=== PATIENT | female | born 1970 | race Caucasian/White ===

== ENCOUNTER 2020-07-05 15:06 | Outpatient (REF) | payer OTHER, SELFPAY ==
[2020-07-05 16:53] LABS: Anion Gap 11 (12-20); Carbon Dioxide 27 mmol/L (22-29); Chloride 104 mmol/L (96-108); Estimated Glomerular Filt Rate 55; Potassium 3.6 mmol/l (3.3-5.1); Sodium 138 mmol/L (135-145)
== END 2020-07-05 15:07 | disposition home or self-care (01) ==
LOC: HO.HMGCLDS 15:06
PROVIDERS: PCP Internal Medicine; Visit Provider Nurse Practitioner Family
DX: Z79.899 Other long term (current) drug therapy (principal)
CPT/HCPCS: 80051; 82565

== ENCOUNTER 2021-02-07 15:08 | Outpatient (REF) | payer OTHER, SELFPAY ==
--- NOTE | ~2021-02-07 | MM_ITS ---
EXAMINATION: MM SCREENING DIGITAL BREAST TOMOSYNTHESIS, BILATERAL CLINICAL INFORMATION: Screening. Asymptomatic. The lifetime risk of breast cancer based on the Tyrer-Cuzick Model is 12%. COMPARISON: Mammography: 02/03/2019, 12/24/2017; outside mammography 12/04/2016 ([employer]). TECHNIQUE: Digital breast tomosynthesis is performed in both the craniocaudal and mediolateral oblique views along with computer-aided detection (CAD). Synthesized 2D images are generated from the tomosynthesis. FINDINGS: The breasts are almost entirely fatty (ACR BI-RADS breast composition Category a). There are no significant masses, abnormal calcifications, or other abnormalities. The axilla and skin contours are unremarkable. MM/MM tomosynthesis screening BI IMPRESSION: No mammographic evidence of malignancy. ASSESSMENT: BI-RADS 1: Negative RECOMMENDATION: Routine annual mammography screening. This patient's information was entered into a reminder system with a target due date for their next mammogram.
== END 2021-02-07 15:09 | disposition home or self-care (01) ==
LOC: HO.MAMMO 15:08
PROVIDERS: PCP Internal Medicine; Visit Provider Internal Medicine
DX: Z12.31 Encounter for screening mammogram for malignant neoplasm of breast (principal)
CPT/HCPCS: 77063; 77067

== ENCOUNTER 2021-02-14 14:33 | Outpatient (REF) | payer OTHER, SELFPAY ==
[2021-02-14 16:45] LABS: Anion Gap 12 (12-20); Carbon Dioxide 22 mmol/L (22-29); Chloride 104 mmol/L (96-108); Sodium 134 mmol/L (135-145)
== END 2021-02-14 14:34 | disposition home or self-care (01) ==
LOC: HO.HMGCLDS 14:33
PROVIDERS: PCP Internal Medicine; Visit Provider Physician Assistant
DX: L70.0 Acne vulgaris (principal)
CPT/HCPCS: 36415; 80051

== ENCOUNTER 2021-09-16 22:06 | Emergency (ER) | payer OTHER, SELFPAY ==
[2021-09-16 22:24] VITALS: BP 177/95; PULSE 84; RESP 16; TEMP 36.9; O2SAT 100; BMI 29.0
--- NOTE | 2021-09-16 22:28 | ED.EYEPROB ---
HPI - Eye Problem General Chief complaint: General Medical Stated complaint: eye problem/pain Time Seen by Provider: 09/16/21 22:19 Source: patient Mode of arrival: ambulatory Limitations: no limitations History of Present Illness HPI Narrative: Patient wear glasses otherwise no significant past medical history except for anxiety since afternoon today noticed black smoke fuzzy feeling from both eyes left more than the right no scotomas no flashes of light no loss of vision no eye pain Related Data Allergies Allergy/AdvReac Type Severity Reaction Status Date / Time doxycycline Allergy Nausea Verified 09/16/21 22:31 fluoxetine [From Prozac] Allergy Itching Verified 09/16/21 22:31 paroxetine [From Paxil] Allergy Itching Verified 09/16/21 22:31 Review of Systems Review of Systems: Yes all other systems are reviewed and are negative [facility] Social History Social History Advance Directives: No Advance Directives Information Provided: No Patient : No Physical Exam Vital Signs: Vital Signs: Last Vital Signs Temp 98.5 F 09/16/21 22:24 Pulse 84 09/16/21 22:24 Resp 16 09/16/21 22:24 BP 177/95 H 09/16/21 22:24 Pulse Ox 100 09/16/21 22:24 BMI result Body Mass Index 29.0 Eyes: Other: IOP 12 mm hg on left eye and 10 mm hg on the right eye General: appearance normal, both eyes and all related structures Visual Eng: normal visual eng by confrontation Periorbital: periorbital findings normal Eyelids: Yes eyelids normal Conjunctivae: conjunctivae normal Sclerae: sclerae normal Corneas: corneas normal Pupils: Equal, round and reactive pupils present EOM: EOMs intact bilaterally and no movement deficit Direct Ophthalmoscopy: normal light reflex, no papilledema, fundi normal bilaterally, anterior chamber normal, No retinal abnormality and No vascular abnormality Neuro: Cranial nerves: Yes Equal, round and reactive pupils present MDM - Eye Problem MDM Narrative Medical decision making narrative: Bedside ocular ultrasound was negative for detachment does examination negative clinically likely patient has refractory error left visual left eye visual acuity was 20/30 and right was 20/25 patient advised to follow-up with wax engraver patient POC 105 Lab Data Labs: Lab Results 09/16/21 Range/Units 22:55 POC Glucose 105 (60-115) mg/dL Procedures Procedure Narrative Procedure Narrative: Bilateral ocular ultrasound: Anterior chamber normal Lens normal alignment vitreous normal no retinal detachment seen Discharge Plan Discharge Clinical Impression: Blurred vision, bilateral Patient Disposition: Home, Self-Care Instructions: Blurred Vision (ED) Additional Instructions: Your blurred vision likely from refractory error Follow-up with your wax engraver tomorrow for full evaluation Referrals: Memo Matthews [Physician] - 1 day Interventions: ED Discharge Assessment Last Done: 09/16/21 23:12 Discharge Date/Time: 09/16/21 23:14
[2021-09-16 23:00] LABS: Glucose, Whole Blood 105 mg/dL (60-115)
== END 2021-09-16 23:14 | disposition home or self-care (01) ==
PROVIDERS: Emergency Provider Internal Medicine; PCP Internal Medicine
DX: H53.8 Other visual disturbances (principal); H57.13 Ocular pain, bilateral; Z79.899 Other long term (current) drug therapy
CPT/HCPCS: 82947; 99283

== ENCOUNTER 2022-03-13 15:22 | Outpatient (REF) | payer OTHER, SELFPAY ==
--- NOTE | ~2022-03-13 | MM_ITS ---
EXAMINATION: MM SCREENING DIGITAL BREAST TOMOSYNTHESIS, BILATERAL CLINICAL INFORMATION: Screening. Asymptomatic. The lifetime risk of breast cancer based on the Tyrer-Cuzick Model is 12%. COMPARISON: Mammography: February 07, 2021 with studies dating back to September 26, 2015 TECHNIQUE: Digital breast tomosynthesis is performed in both the craniocaudal and mediolateral oblique views along with computer-aided detection (CAD). Synthesized 2D images are generated from the tomosynthesis. FINDINGS: The breasts are almost entirely fatty (ACR BI-RADS breast composition Category a). There are no significant masses, abnormal calcifications, or other abnormalities. MM/MM tomosynthesis screening BI IMPRESSION: No mammographic evidence of malignancy. ASSESSMENT: BI-RADS 1: Negative RECOMMENDATION: Routine annual mammography screening. This patient's information was entered into a reminder system with a target due date for their next mammogram.
== END 2022-03-13 15:23 | disposition home or self-care (01) ==
LOC: HO.MAMMO 15:22
PROVIDERS: PCP Internal Medicine; Visit Provider Internal Medicine
DX: Z12.31 Encounter for screening mammogram for malignant neoplasm of breast (principal)
CPT/HCPCS: 77063; 77067

== ENCOUNTER 2023-03-19 15:24 | Outpatient (REF) | payer OTHER, SELFPAY | END 2023-03-19 15:25 | disposition home or self-care (01) | LOC: HO.MAMMO 15:24 | PROVIDERS: PCP Internal Medicine; Visit Provider Internal Medicine | DX: Z12.31 Encounter for screening mammogram for malignant neoplasm of breast (principal) | CPT/HCPCS: 77063; 77067 ==

== ENCOUNTER → 2023-03-19 15:30 | Outpatient (BNV) | payer OTHER, SELFPAY | PROVIDERS: PCP Internal Medicine; Visit Provider Radiology Diagnostic Radiology | DX: Z12.31 Encounter for screening mammogram for malignant neoplasm of breast (principal) | CPT/HCPCS: 77063; 77067 ==

== ENCOUNTER 2023-05-28 14:13 | Outpatient (REF) | payer OTHER, SELFPAY ==
[2023-05-28 16:14] LABS: MANUAL DIFF FLAG NO
[2023-05-28 16:21] LABS: Basophils Percent Auto 0.6 % (0-2); Hemoglobin 12.8 g/dl (12.0-16.0); Imm Gran Abs Auto 0.02 X10*3/uL (0.00-0.03); Imm Gran Pct Auto 0.3 % (0.0-0.4); Lymphocytes Absolute Auto 1.9 X10*3/uL (1.2-4.9); Lymphocytes Percent Auto 30.9 % (20-40); Mean Corpuscular HGB Conc 32.8 g/dl (31.0-35.0); Mean Corpuscular Hemoglobin 30.6 pg (27.0-33.0); Mean Corpuscular Volume 93.3 fL (80.0-98.0); Mean Platelet Volume 9.2 fL (9.4-12.3); Monocytes Absolute Auto 0.5 X10*3/uL (0.1-1.2); Monocytes Percent Auto 7.4 % (2-11); Neutrophils Absolute Auto 3.8 x10*3/uL (2.0-8.3); Neutrophils Percent Auto 60.8 % (45-73); Platelet Count 259 X10*3/uL (160-400); Red Blood Count 4.18 X10*6/uL (4.20-5.50); Red Cell Distribution Width 12.3 % (11.0-16.0); White Blood Count 6.2 X10*3/uL (4.8-10.8)
[2023-05-28 16:43] LABS: Alanine Aminotransferase 17 U/L (0-31); Alkaline Phosphatase 67 U/L (39-117); Anion Gap 11 (12-20); Aspartate Amino Transferase 15 U/L (5-31); Bilirubin Total 0.2 mg/dL (0.0-1.0); Blood Urea Nitrogen 14 mg/dL (9-16); Calcium 9.1 mg/dL (8.4-10.2); Carbon Dioxide 25 mmol/L (22-29); Chloride 107 mmol/L (96-108); Cholesterol 156 mg/dL (<200); Estimated Glomerular Filt Rate 54; Glucose Random 79 mg/dL (60-115); Potassium 3.3 mmol/L (3.3-5.1); Sodium 140 mmol/L (135-145); Total Protein 7.5 g/dL (6.5-8.0)
[2023-05-28 16:59] LABS: Free T4 (Free Thyroxine) 0.91 ng/dL (0.71-1.85); Thyroid Stimulating Hormone 1.57 uIU/mL (0.32-4.0)
== END 2023-05-28 14:14 | disposition home or self-care (01) ==
LOC: HO.HMGCLDS 14:13
PROVIDERS: PCP Internal Medicine; Visit Provider Internal Medicine
DX: E03.9 Hypothyroidism, unspecified (principal); F90.9 Attention-deficit hyperactivity disorder, unspecified type; K21.9 Gastro-esophageal reflux disease without esophagitis; Z87.891 Personal history of nicotine dependence
CPT/HCPCS: 36415; 80053; 82465; 84439; 84443; 85025

== ENCOUNTER 2023-09-24 15:42 | Outpatient (REF) | payer OTHER, SELFPAY ==
--- NOTE | ~2023-09-24 | XR_ITS ---
EXAMINATION: XR FOOT, LEFT CLINICAL INFORMATION: Left foot injury COMPARISON: None available. TECHNIQUE: AP, lateral, and oblique views of the left foot. FINDINGS: Soft tissue prominence left fifth MTP. Oblique fracture mid/distal fifth proximal phalanx. Nondisplaced lateral fracture of the middle phalanx not excluded. No definite intra-arterial extension. Mild calcaneal spurring. XR/XR foot LT min 3V IMPRESSION: Fractured fifth toe.
== END 2023-09-24 15:43 | disposition home or self-care (01) ==
LOC: HO.XRAY 15:42
PROVIDERS: PCP Internal Medicine; Visit Provider Internal Medicine
DX: S99.922D Unspecified injury of left foot, subsequent encounter (principal)
CPT/HCPCS: 73630

== ENCOUNTER 2023-12-24 16:57 | Outpatient (REF) | payer OTHER, SELFPAY ==
[2023-12-24 18:09] LABS: MANUAL DIFF FLAG NO
[2023-12-24 18:12] LABS: Basophils Absolute Auto 0.1 X10*3/uL (0.0-0.2); Basophils Percent Auto 0.7 % (0-2); Eosinophils Percent Auto 0.3 % (0-4); Hematocrit 37.7 % (37.0-47.0); Hemoglobin 12.8 g/dl (12.0-16.0); Imm Gran Abs Auto 0.02 X10*3/uL (0.00-0.03); Imm Gran Pct Auto 0.3 % (0.0-0.4); Lymphocytes Absolute Auto 1.9 X10*3/uL (1.2-4.9); Lymphocytes Percent Auto 27.7 % (20-40); Mean Corpuscular Hemoglobin 31.4 pg (27.0-33.0); Mean Corpuscular Volume 92.4 fL (80.0-98.0); Mean Platelet Volume 8.8 fL (9.4-12.3); Monocytes Absolute Auto 0.7 X10*3/uL (0.1-1.2); Monocytes Percent Auto 9.5 % (2-11); Neutrophils Absolute Auto 4.3 x10*3/uL (2.0-8.3); Neutrophils Percent Auto 61.5 % (45-73); Platelet Count 250 X10*3/uL (160-400); Red Blood Count 4.08 X10*6/uL (4.20-5.50); Red Cell Distribution Width 12.2 % (11.0-16.0)
[2023-12-24 19:45] LABS: Alanine Aminotransferase 17 U/L (0-31); Albumin Level 4.1 g/dL (3.5-5.0); Alkaline Phosphatase 75 U/L (39-117); Anion Gap 12 (12-20); Aspartate Amino Transferase 14 U/L (5-31); Bilirubin Total 0.2 mg/dL (0.0-1.0); Blood Urea Nitrogen 17 mg/dL (9-16); Calcium 9.3 mg/dL (8.4-10.2); Carbon Dioxide 24 mmol/L (22-29); Chloride 105 mmol/L (96-108); Estimated Glomerular Filt Rate 53; Glucose Random 67 mg/dL (60-115); Potassium 3.6 mmol/L (3.3-5.1); Sodium 137 mmol/L (135-145); Total Protein 7.8 g/dL (6.5-8.0)
[2023-12-24 20:00] LABS: Free T4 (Free Thyroxine) 1.07 ng/dL (0.71-1.85); Thyroid Stimulating Hormone 0.99 uIU/mL (0.32-4.0)
== END 2023-12-24 16:58 | disposition home or self-care (01) ==
LOC: HO.LAB 16:57
PROVIDERS: PCP Internal Medicine; Visit Provider Internal Medicine
DX: E03.9 Hypothyroidism, unspecified (principal); K21.9 Gastro-esophageal reflux disease without esophagitis; N18.9 Chronic kidney disease, unspecified; Z84.89 Family history of other specified conditions
CPT/HCPCS: 36415; 80053; 84439; 84443; 85025

== ENCOUNTER 2023-12-31 15:52 | Outpatient (REF) | payer OTHER, SELFPAY ==
[2024-01-09 00:04] LABS: Factor V Leiden POSITIVE
== END 2023-12-31 15:53 | disposition home or self-care (01) ==
LOC: HO.LAB 15:52
PROVIDERS: PCP Internal Medicine; Visit Provider Internal Medicine
DX: K21.9 Gastro-esophageal reflux disease without esophagitis (principal); E05.00 Thyrotoxicosis with diffuse goiter without thyrotoxic crisis or storm; N18.9 Chronic kidney disease, unspecified
CPT/HCPCS: 36415; 81241

== ENCOUNTER 2024-03-31 15:29 | Outpatient (REF) | payer OTHER, SELFPAY ==
--- NOTE | ~2024-03-31 | MM_ITS ---
EXAMINATION: MM SCREENING DIGITAL BREAST TOMOSYNTHESIS, BILATERAL CLINICAL INFORMATION: Screening. Asymptomatic. COMPARISON: Mammography: Comparison is made with available priors TECHNIQUE: Digital breast mammography with tomosynthesis is performed in both the craniocaudal and mediolateral oblique views along with computer-aided detection (CAD). FINDINGS: There are scattered areas of fibroglandular density (ACR BI-RADS breast composition Category b). There are no significant masses, abnormal calcifications, or other abnormalities. MM/MM tomosynthesis screening BI IMPRESSION: No mammographic evidence of malignancy. ASSESSMENT: BI-RADS BI-RADS 1 - Negative RECOMMENDATION: Routine annual mammography screening. 1 year F/U This examination should not preclude the clinical evaluation of a suspicious palpable abnormality. This patient's information was entered into a reminder system with a target due date for their next mammogram. Electronically signed by: Naomi Saldivar DO 04/14/2024 12:49 PM EDT
== END 2024-03-31 15:30 | disposition home or self-care (01) ==
LOC: HO.MAMMO 15:29
PROVIDERS: PCP Internal Medicine; Visit Provider Internal Medicine
DX: Z12.31 Encounter for screening mammogram for malignant neoplasm of breast (principal)
CPT/HCPCS: 77063; 77067

== ENCOUNTER → 2024-03-31 15:45 | Outpatient (BNV) | payer OTHER, SELFPAY | PROVIDERS: PCP Internal Medicine; Visit Provider Internal Medicine | DX: Z12.31 Encounter for screening mammogram for malignant neoplasm of breast (principal) | CPT/HCPCS: 77063; 77067 ==

== ENCOUNTER 2024-04-09 13:36 | Outpatient (REF) | payer OTHER, SELFPAY ==
--- NOTE | ~2024-04-09 | XR_ITS ---
EXAMINATION: XR WRIST, LEFT CLINICAL INFORMATION: LEFT WRIST PAIN. COMPARISON: None available. TECHNIQUE: PA, lateral, and oblique views of the left wrist. FINDINGS: No fracture, dislocation, or focal bony abnormality. Normal bony mineralization. Normal alignment. Carpus intact. Joint spaces normal. No arthritis. Normal soft tissues. XR/XR wrist LT min 3V IMPRESSION: Normal left wrist. Electronically signed by: Roman Flores MD 06/20/2024 10:36 PM [facility]
== END 2024-04-09 13:37 | disposition home or self-care (01) ==
LOC: HO.HMGCX 13:36
PROVIDERS: PCP Internal Medicine; Visit Provider Internal Medicine
DX: M25.532 Pain in left wrist (principal)
CPT/HCPCS: 73110

== ENCOUNTER → 2024-04-09 13:41 | Outpatient (BNV) | payer OTHER, SELFPAY | PROVIDERS: PCP Internal Medicine; Visit Provider Radiology Diagnostic Radiology | DX: M25.532 Pain in left wrist (principal) | CPT/HCPCS: 73110 ==

== ENCOUNTER 2024-11-25 15:00 | Outpatient (AMB) | payer OTHER, SELFPAY ==
--- NOTE | 2024-11-25 15:20 | AM.OFFVISNUR ---
Vital Signs 11/25/24 15:57 BMI Reason not done Patient refused/unable BP not taken reason Patient Refused Intake Visit Reasons: Depot Injection Allergies doxycycline Allergy (Verified 09/16/21 22:31) Nausea fluoxetine [From Prozac] Allergy (Verified 09/16/21 22:31) Itching paroxetine [From Paxil] Allergy (Verified 09/16/21 22:31) Itching Nursing Note Pt to office for depo injection. Per patient, she is not sexually active and denies possibility of . Tolerated injection well. Office Procedures Depo Questionnaire If YES to any of the following questions, please consult a provider. Date of last injection: 09/09/24 Irregular bleeding?: No Breast lumps or other breast changes?: No Changes in weight or appetite?: No Depression or changes in mood?: No Abnormal hair growth or loss?: No Skin problems (rash, acne, discoloration)?: No Pain at the injection site?: No Headaches?: No Nervousness?: No Abdominal pain or cramping?: No Dizziness or nausea?: No Fatigue or weakness?: No Decrease in sexual drive?: Not Applicable Chest pain or shortness of breath?: No Swelling in arms or legs?: No Form completed by?: Ayala Mc RN Office Meds Depo-Provera 150 mg/mL intramuscular syringe Performing Provider: Sara Santana MD Performing Location: [facility] Administered by: Ayala Mc RN on 11/25/24 15:47 Dose Route Admin Location Dispensed Lot Number Expiration Date [facility] [employer] 150 mg IM 1 mL [id number] 10/18/25 34259-186-21 [facility] Comments: Pt declined weight, denies possibility of Assessment & Plan Assessment & Plan Orders: Orders AMB Medroxyprogesterone Injection Patient Supplied 11/25/24 Z30.9 - Encounter for contraceptive management, unspecified Coding Level of Care Code Procedure Only
== END 2024-11-25 15:46 | disposition home or self-care (01) ==
LOC: HO.HMCHD 15:01
PROVIDERS: PCP Internal Medicine
DX: Z30.9 Encounter for contraceptive management, unspecified (principal)

== ENCOUNTER → 2024-11-25 15:00 | Outpatient (BNVA) | payer OTHER, SELFPAY | PROVIDERS: PCP Internal Medicine | DX: Z30.42 Encounter for surveillance of injectable contraceptive (principal) | CPT/HCPCS: 96372; J1050 ==

== ENCOUNTER 2024-12-29 14:12 | Outpatient (AMB) | payer OTHER, SELFPAY ==
--- NOTE | 2024-12-29 14:21 | MHC.PC.OV ---
Vital Signs 12/29/24 14:25 BP 130/80 Blood Pressure Location Lt brachial Position Sitting Pulse 89 Pulse Source Pulse Oximeter Temp 94.2 F L Temp Source Axillary Pulse Oximetry (%) 99 Oxygen Delivery Method Room Air Intake Visit Reasons: Wants to discuss weight Loss Inject - see comment Commission Clerk Required: No Accompanied by: Self / Same As Patient Allergies doxycycline Allergy (Verified 12/31/24 12:59) Nausea fluoxetine [From Prozac] Allergy (Verified 12/31/24 12:59) Itching paroxetine [From Paxil] Allergy (Verified 12/31/24 12:59) Itching Medication List - Last Reconciled 12/31/24 by Ousmane Rivas MD bupropion HCl XL mg PO dextroamphetamine-amphetamine 30 mg ER 30 mg PO DAILY famotidine 40 mg PO BID levothyroxine 50 mcg PO DAILY medroxyprogesterone mg IM omeprazole 40 mg PO BID quetiapine (Seroquel) 25 mg PO TID trazodone 200 mg PO BEDTIME PRN Tobacco use date assessed: 12/29/24 Dental Screening Dental Screen Date: 12/29/24 Did you have a dental visit in the last 12 months?: No Did you have a dental problem in the last 6 months where you did not have access to dental care?: No [facility] Medical History Major depression in partial remission Family History Mother No problems noted. Father No problems noted. Social History Housing: Condominium Patient Tobacco Use Status: Never used Tobacco e-Cigarette/Vaping Use: Never Used service: No Current occupational status: employed Cognitive needs: No Hearing needs: No Vision needs: Yes (rx glasses) Questionnaire PHQ-9 Over the last 2 weeks, how often have you been bothered by any of the following problems? 1. Little interest or pleasure in doing things: not at all 2. Feeling down, depressed, or hopeless: not at all 3. Trouble falling or staying asleep, or sleeping too much: not at all 4. Feeling tired or having little energy: not at all 5. Poor appetite or overeating: not at all 6. Feeling bad about yourself - or that you are a failure or have let yourself or your family down: not at all 7. Trouble concentrating on things, such as reading the newspaper or watching television: not at all 8. Moving or speaking so slowly that other people could have noticed. Or the opposite - being so fidgety or restless that you have been moving around a lot more than usual: not at all 9. Thoughts that you would be better off or of hurting yourself in some way: not at all Total score: 0 Source: Developed by Drs. Parveen Landry, Johana Bassett, Tanvir Montgomery and colleagues, with an educational tl from [employer]. Thrive Questionnaire Date Thrive assessed: 12/29/24 I am a: Patient Within the past 12 months, did the food you bought not last and you didn't have the money to get more?: Never true Within the past 12 months, did you worry whether your food would run out before you got money to buy more?: Never true Do you have trouble paying for medicines?: No Do you have trouble getting transportation to medical appointments?: No Do you have trouble paying your heating and electricity bill?: No Do you have trouble taking care of your child, family member or friend?: No Do you have trouble with day-to-day activities such as bathing, preparing meals, shopping, managing finances, etc.?: No Are you currently unemployed and looking for a job?: No Are you interested in more education?: No THRIVE Score: 0 AUDIT C Alcohol Use Questionnaire (AUDIT-C) 1. How often do you have a drink containing alcohol?: Never 3. How often do you have six or more drinks on one occasion?: Never Total Score: 0 OVIDIO-7 AMB Questionnaire OVIDIO-7 Date OVIDIO - 7 assessed: 12/29/24 Feeling nervous, anxious, or on edge: 0 = Not at all Not being able to stop or control worryin = Not at all Worrying too much about different things: 0 = Not at all Trouble relaxin = Not at all Being so restless that it is hard to sit still: 0 = Not at all Becoming easily annoyed or irritable: 0 = Not at all Feeling afraid as if something awful might happen: 0 = Not at all Total OVIDIO-7 score (0-4 normal; 5-9 mild; 10-14 moderate; 15-21 severe): 0 Source: Developed by Drs. Parveen Landry, Johana Bassett, Tanvir Montgomery and colleagues, with an educational tl from [employer]. Physical exam (Primary Care) Vital Signs: Last Vital Signs Temp 94.2 F L 12/29/24 14:25 Pulse 89 12/29/24 14:25 BP 130/80 12/29/24 14:25 Pulse Ox 99 12/29/24 14:25 Oxygen Delivery Method Room Air 12/29/24 14:25 Tobacco/Smoking Status: Tobacco use Status Tobacco use date assessed 12/29/24 12/29/24 14:23 Patient Tobacco Use Status Never used Tobacco 12/29/24 14:23 e-Cigarette/Vaping Use Never Used 12/29/24 14:23 PHQ-9: PHQ-9 Score PHQ-9: Total score 0 12/29/24 14:23 Thrive Assessment: Date of Thrive Assessment Date Thrive assessed 12/29/24 12/29/24 14:23 Coding Level of Care Code New Pt Level 4 (69869) Complex EM visit Add On G2211 Diagnoses Major depression in partial remission F32.4 Assessment & Plan Assessment & Plan (1) Major depression in partial remission: Code(s): F32.4 - Major depressive disorder, single episode, in partial remission Category: Medical Plan: History of Present Illness - The patient is a 54-year-old female presenting with concerns about weight management. - Previous reduction in weight from 318 pounds to 165 pounds about 10 years ago, now regaining to about 218-220 pounds. - Reports the use of medications that resulted in nausea-induced loss of appetite previously. - Has difficulty losing weight now despite attempting diet modifications and citing moderate exercise efforts. - Current dietary habits include frequent consumption of pizza. - Hesitant to consider bariatric surgery due to potential complications and limitations observed in others. - Interest in weight loss injections is constrained by potential costs and side effects. - Experiences continued challenges with maintaining weight loss. Social History - The patient is employed part-time, working from home for [employer], for the past 16 years. - Reports living alone, struggles with low energy and social engagement after the of her partner five years ago. - Reluctance in engagement in physical activities, expressing depressive symptoms and low motivation. - Family consists of parents and a sister residing in [place], providing limited local support. Review of Systems - Psychiatric: Reports depression, anxiety, and seasonal affective disorder. - Sleep: Reports disturbed sleep history, previously managed with medication. - Weight: Reports difficulty with weight management, rapid weight gain over the last years. - Gastrointestinal: Reports previous nausea with certain medications. - Lifestyle: Reports emotional eating and frequent pizza consumption. Physical Exam General: Cooperative and healthy appearing Nutritional Appearance: Well nourished Orientation/consciousness: Patient oriented x3 Limitations: No limitations Head: Normal to inspection General: Appearance normal, both eyes and all related structures Neck: Normal visual inspection Chest: Normal palpation of entire chest wall Respiratory: N ormal respiratory effort Neurology: Patient oriented x3, but reports feeling depressed and lacking energy. The patient is on multiple medications, including Seroquel, trazodone, Adderall, and bupropion, and is considering reducing the Adderall dosage. The patient has a history of anxiety, depression, and seasonal disorder. The patient is not currently seeing a psychiatrist but is open to an appointment if insurance is accepted. Results Plan 1. Obesity - Discussed potential usage and costs of weight loss injections. - Emphasized dietary changes and calorie monitoring as primary treatment. 2. Depression - Continued current medication regimen. - Discussed decreasing Adderall dosage. - Suggested re-engagement with psychiatric care. 3. Anxiety - Current management with medication. - Encouraged consideration of psychotherapy. 4. Seasonal Affective Disorder - Continued current pharmacotherapy. - Encouraged behavioral and dietary adjustments. 5. Sleep Disturbance - Suggested maintaining current medication adjustment. - Recommended sleep hygiene practices. 6. Alcohol Use Disorder In Remission - Commended sustained remission and abstinence. Discussion Notes I engaged in a thorough discussion regarding the management of the patient's obesity, outlining the potential for utilizing weight loss injections such as Wegovy or Zetron. We considered the financial implications and potential side effects, including nausea and hair loss, and emphasized the importance of a concurrent reduced-calorie diet. In managing depression and anxiety, I suggested a potential reduction in Adderall dosage and highlighted the merit of re-establishing a psychiatric support system if she remains open. I provided encouragement for ongoing sobriety from alcohol and emphasized the importance of lifestyle changes inclusive of dietary adjustments and increased movement when feasible. We plan to explore a follow-up for a psychiatric appointment to reassess her ongoing treatment strategies. Patient Instructions - Discuss with family regarding potential financial support for weight loss injections. - Focus on a low-calorie diet and cut down on sugar. - Consider seeing a psychiatrist for emotional support and medication review. - Monitor food intake diligently to assist in weight reduction. - Practice good sleep hygiene to improve rest quality. - Continue to seek social support from family and friends for emotional well-being. - Maintain abstinence from alcohol. Orders: Orders Complete Blood Count no Diff 12/29/24 F32.4 - Major depressive disorder, single episode, in partial remission Lipid Panel 12/29/24 F32.4 - Major depressive disorder, single episode, in partial remission Basic Metabolic Panel 12/29/24 F32.4 - Major depressive disorder, single episode, in partial remission Liver Panel 12/29/24 F32.4 - Major depressive disorder, single episode, in partial remission Thyroid Stimulating Hormone 12/29/24 F32.4 - Major depressive disorder, single episode, in partial remission UA and rflx microscopic 12/29/24 F32.4 - Major depressive disorder, single episode, in partial remission Referrals Psychiatry Outpatient Consultation Service F32.4 - Major depressive disorder, single episode, in partial remission
[2024-12-29 14:25] VITALS: BP 130/80; PULSE 89; TEMP 34.6; O2SAT 99
== END 2024-12-29 15:05 | disposition home or self-care (01) ==
LOC: HO.HMCHD 14:13
PROVIDERS: PCP Internal Medicine; Visit Provider Internal Medicine
DX: F32.4 Major depressive disorder, single episode, in partial remission (principal)

== ENCOUNTER → 2024-12-29 14:12 | Outpatient (BNVA) | payer OTHER, SELFPAY | PROVIDERS: PCP Internal Medicine; Visit Provider Internal Medicine | DX: F32.4 Major depressive disorder, single episode, in partial remission (principal); E66.812 Obesity, class 2; F41.9 Anxiety disorder, unspecified; G47.9 Sleep disorder, unspecified | CPT/HCPCS: 99202 ==

== ENCOUNTER 2025-02-02 15:25 | Outpatient (AMB) | payer OTHER, SELFPAY ==
--- NOTE | 2025-02-02 15:25 | A.OFFPC_ITS ---
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 She states that she has upcoming appointment with Psychiatry next week for further management on her ADHD and depression. She denies any history of bipolar disorder though is no tably hyperverbal in the office today. On adderall, wellbutrin, seroquel, and trazodone. Gerd is controlled. On levothyroxine. Has been trying to lose weight, looking for a referral to nutrition ROS: General: No fevers, malaise, unintentional weight loss HEENT: No blurred vision, diplopia. No sore throat, nasal congestion, rhinorrhea, sinus pain, ear pain Cardiovascular: No chest pain, palpitations, or leg edema Respiratory: No shortness of breath, wheezing, cough GI: No abdominal pain, nausea, vomiting, diarrhea, constipation, melena, hematochezia : No dysuria, hematuria, increased urinary frequency, decreased urinary output MSK: No myalgia, back pain Neuro: No headaches, weakness, paresthesias Psych: See HPI Skin: No rashes or lesions EXAM: Constitutional - Awake and Alert, No apparent distress Eyes - PERRL Cardiovascular - S1S2, RRR, No edema Respiratory - Normal lung expansion, Normal respiratory effort, No respiratory distress, CTA bilaterally Extremities - no calf tenderness bilaterally, no swelling Skin - Warm/Dry Neurological - Alert & oriented x3 Psychological - Appropriate affect , hyperverbal [facility] Medical History (Updated 02/02/25 @ 17:31 by THO Carpenter) Class 2 obesity Hypothyroidism ADHD Major depression in partial remission Family History Mother No problems noted. Father No problems noted. Social History Housing: Condominium Patient Tobacco Use Status: Never used Tobacco e-Cigarette/Vaping Use: Never Used service: No Current occupational status: employed Cognitive needs: No Hearing needs: No Vision needs: Yes (rx glasses) Questionnaire PHQ-9 Over the last 2 weeks, how often have you been bothered by any of the following problems? 1. Little interest or pleasure in doing things: nearly every day 2. Feeling down, depressed, or hopeless: more than half the days 3. Trouble falling or staying asleep, or sleeping too much: not at all 4. Feeling tired or having little energy: more than half the days 5. Poor appetite or overeating: nearly every day 6. Feeling bad about yourself - or that you are a failure or have let yourself or your family down: more than half the days 7. Trouble concentrating on things, such as reading the newspaper or watching television: not at all 8. Moving or speaking so slowly that other people could have noticed. Or the opposite - being so fidgety or restless that you have been moving around a lot more than usual: not at all 9. Thoughts that you would be better off or of hurting yourself in some way: not at all Total score: 12 Depression Screening Interpretation: Positive Depression Screening Done: Yes 55823 - PHQ-9 Billing: Yes Source: Developed by Drs. Parveen Landry, Johana Bassett, Tanvir Montgomery and colleagues, with an educational tl from [employer]. Thrive Questionnaire Date Thrive assessed: 02/02/25 I am a: Patient What is your living situation today?: I have a steady place to live Within the past 12 months, did the food you bought not last and you didn't have the money to get more?: Never true Within the past 12 months, did you worry whether your food would run out before you got money to buy more?: Never true Do you have trouble paying for medicines?: No Do you have trouble getting transportation to medical appointments?: No Do you have trouble paying your heating and electricity bill?: No Do you have trouble taking care of your child, family member or friend?: No Do you have trouble with day-to-day activities such as bathing, preparing meals, shopping, managing finances, etc.?: No Are you currently unemployed and looking for a job?: No Are you interested in more education?: No THRIVE Score: 0 OVIDIO-7 AMB Questionnaire OVIDIO-7 Date OVIDIO - 7 assessed: 02/02/25 Feeling nervous, anxious, or on edge: 1 = Several days Not being able to stop or control worryin = Not at all Worrying too much about different things: 0 = Not at all Trouble relaxin = Not at all Being so restless that it is hard to sit still: 0 = Not at all Becoming easily annoyed or irritable: 0 = Not at all Feeling afraid as if something awful might happen: 0 = Not at all Total OVIDIO-7 score (0-4 normal; 5-9 mild; 10-14 moderate; 15-21 severe): 1 Source: Developed by Drs. Parveen Landry, Johana Bassett, Tanvir Montgomery and colleagues, with an educational tl from [employer]. OVIDIO-7 Assessment Billing OVIDIO-7 Assessment Tool: OVIDIO-7 Assessment 91935 Physical exam (Primary Care) Vital Signs: Last Vital Signs Temp 97.0 F 02/02/25 15:29 Pulse 100 02/02/25 15:29 Resp 16 02/02/25 15:29 BP 126/86 02/02/25 15:29 Pulse Ox 99 02/02/25 15:29 Oxygen Delivery Method Room Air 02/02/25 15:29 BMI result Body Mass Index 35.8 Tobacco/Smoking Status: Tobacco use Status Tobacco use date assessed 12/29/24 02/02/25 15:27 Patient Tobacco Use Status Never used Tobacco 02/02/25 15:27 e-Cigarette/Vaping Use Never Used 02/02/25 15:27 PHQ-9: PHQ-9 Score PHQ-9: Total score 12 02/02/25 16:07 Depression Screening Interpretation: Positive Thrive Assessment: Date of Thrive Assessment Date Thrive assessed 02/02/25 02/02/25 16:07 Office Procedures Depo Questionnaire If YES to any of the following questions, please consult a provider. Form completed by?: Ayala Sotomayor Office Meds Depo-Provera 150 mg/mL intramuscular syringe Performing Provider: THO Carpenter Performing Location: [facility] Administered by: THO Carpenter on 02/02/25 17:33 Dose Route Admin Location Dispensed Lot Number Expiration Date [facility] [employer] Intern 150 mg IM 1 mL [id number] 06/19/27 Total Dispensed Waste 1 mL 0 % Coding Level of Care Code Est Pt Level 4 (65895) Diagnoses ADHD F90.9 Hypothyroidism E03.9 Major depression in partial remission F32.4 Class 2 obesity E66.812 Additional Codes PHQ-9 - 57803 - PHQ-9 Billing: Yes ([id number]) OVIDIO-7 Assessment Billing - OVIDIO-7 Assessment Tool: OVIDIO-7 Assessment 07623 ([id number]) Assessment & Plan Assessment & Plan (1) ADHD: Code(s): F90.9 - Attention-deficit hyperactivity disorder, unspecified type Category: Medical Plan: Continue adderall 20mg ER. Follow up with psychiatry next week as schduled. (2) Hypothyroidism: Code(s): E03.9 - Hypothyroidism, unspecified Category: Medical Plan: Advised to have labs done. Continue levothyroxine, dose to be adjusted as nee ded (3) Major depression in partial remission: Code(s): F32.4 - Major depressive disorder, single episode, in partial remission Category: Medical Plan: uncontrolled. COnitnue wellbutrin and trazodone, seroquel. Follow up with Psychiatry. No SI/HI (4) Class 2 obesity: Code(s): E66.812 - Obesity, class 2 Category: Medical Plan: Weight loss efforts encouraged. Not interested in referral to bariatric surgery. Is interested in referral to nutrition which is placed Plan Follow-up in the office as scheduled. Depo-Provera administered in the office today with good tolerance. Orders: Orders AMB Medroxyprogesterone Injection Patient Supplied Today Z30.41 - Encounter for surveillance of contraceptive pills Referrals [facility] Referral E66.812 - Obesity, class 2
[2025-02-02 15:29] VITALS: BP 126/86; PULSE 100; RESP 16; TEMP 36.1; O2SAT 99; BMI 35.8
== END 2025-02-02 17:26 | disposition home or self-care (01) ==
LOC: HO.HMCHD 15:26
PROVIDERS: PCP Internal Medicine; Visit Provider Physician Assistant
DX: F90.9 Attention-deficit hyperactivity disorder, unspecified type (principal); E03.9 Hypothyroidism, unspecified; F32.4 Major depressive disorder, single episode, in partial remission; E66.812 Obesity, class 2; Z30.41 Encounter for surveillance of contraceptive pills

== ENCOUNTER → 2025-02-02 15:25 | Outpatient (BNVA) | payer OTHER, SELFPAY | PROVIDERS: PCP Internal Medicine; Visit Provider Physician Assistant | DX: Z30.42 Encounter for surveillance of injectable contraceptive (principal); F90.9 Attention-deficit hyperactivity disorder, unspecified type; E03.9 Hypothyroidism, unspecified; F32.4 Major depressive disorder, single episode, in partial remission; E66.812 Obesity, class 2; Z68.35 Body mass index [BMI] 35.0-35.9, adult; Z79.899 Other long term (current) drug therapy; Z13.31 Encounter for screening for depression; Z13.39 Encounter for screening examination for other mental health and behavioral disorders | CPT/HCPCS: 96127; 96372; 99212; J1050 ==

== ENCOUNTER 2025-02-09 16:02 | Outpatient (AMB) | payer OTHER, SELFPAY ==
--- NOTE | 2025-02-19 18:31 | A.OFFPSYCH_ITS ---
Intake Intake Visit Reasons: consultation Patient Coordinator Front Desk Required: No Allergies doxycycline Allergy (Verified 02/02/25 15:25) Nausea fluoxetine (From Prozac) Allergy (Verified 02/02/25 15:25) Itching paroxetine (From Paxil) Allergy (Verified 02/02/25 15:25) Itching Medication List - Last Reconciled 02/19/25 by Leti Koenig, DENISSE bupropion HCl XL 300 mg PO DAILY dextroamphetamine-amphetamine 20 mg ER (Adderall XR) 20 mg PO DAILY famotidine 40 mg PO BID levothyroxine 50 mcg PO DAILY medroxyprogesterone mg IM omeprazole 40 mg PO BID quetiapine (Seroquel) 25 mg PO TID sertraline 25 mg PO DAILY trazodone 200 mg PO BEDTIME PRN HPI- Psychiatric Chief Complaint: consultation Intake Note: 02/09/25: PHQ-9 6 OVIDIO-7 0 54 yo female with a hx of depression, anxiety, seasonal affective disorder and alcohol use in remission.Pt has made over 80 calls to find a prescriber however has been unable to secure an appointment. Currently on Wellbutrin, Adderall, Seroquel, Trazodone. Pt has not had many med changes in years and reports sleep disorder, sleeping 5am-2pm, at times will sleep ~4 hours per night, anergy, taran ght gain-hx of 318 lbs, lost weight was 155 lbs, gained after partner and is now ~220lbs. She is trying to get back on track again she reports. Stressors- loss of boyfriend 01/27/2020. He was very ill, nine illnesses-he never told me . These were the best years of my life . HPI Past Psychiatric History: IP: [facility] OP: No therapy, not helpful. pcp for meds, Dr. Hale -7 years, Dr. Stapleton Suicide attempts: Denies Hx of misdiagnosis of bipolar disorder Hx Prozac-felt like she was jumping out of her skin Subjective Subjective Subjective Medication Compliance: Yes Side effects from medications: No Review of Systems Medical Review of Systems: unchanged Review of Systems Review of Systems suffers from extreme sx of heartburn which is treated Mental Status Exam Mental Status Exam Patient Appearance: Appropriate Patient Orientation: Person, Place, Time and Situation Level of Consciousness: Alert Patient Behavior: Talkative Mood Description: Appropriate, Depressed and Apprehensive Affect Description: Apprehensive Patient Cognition Impaired: No Ability to Follow Directions: Good Speech Pattern: Spontaneous Speech Memory Description: Intact Hallucinations: None Delusions: Not Present Thought Process: Intact Thought Content: positive for Intact Depressive Symptoms: Increased Anxiety, Difficulty Sleeping and Unhappiness Judgement: Good Assessment and Plan Assessment & Plan (1) Major depression in partial remission: Status: Acute Code(s): F32.4 - Major depressive disorder, single episode, in partial remission (2) ADHD: Status: Acute Code(s): F90.9 - Attention-deficit hyperactivity disorder, unspecified type Plan 54 yo female, long hx of depression, with minimal changes made in medications over several years. Pt has had a loss of her partner ~5 years ago and struggles with sx of depression, anergy, sleep disturbance. She has not been able to find a prescriber and is looking to have a more effective regime. She will continue Adderall, Wellbutrin, Trazodone and Seroquel. We will trial an addition of Sertraline for augmentation to see if symptoms will improve. Consider tms option ? try and avoid meds that inc wt cause lethargy ? sleep study ? cytomel augmentation Medications: New sertraline 25 mg PO DAILY 14 tabs 0RF Counseling and coordination of Care Medication management counseling: Effectiveness, Side effects, Dosing range, Duration, Drug interaction, Adherence and Other (augmentation) Details: I spent [] minutes reviewing the record, seeing the patient and documenting in the medical record. Counseling provided to the patient/caregiver as outlined below. Addressed patient/caregiver concerns regarding current medication regime including effective adherence. Addressed patient/caregiver concerns regarding diagnosis and prognosis including accuracy of diagnosis, prognosis over time, impact of diagnosis. Addressed patient/caregiver concerns regarding impact of recent stressors. [facility] Medical History Class 2 obesity Hypothyroidism ADHD Major depression in partial remission Family History Mother No problems noted. Father No problems noted. Social History Housing: Condominium Patient Tobacco Use Status: Never used Tobacco e-Cigarette/Vaping Use: Never Used service: No Current occupational status: employed Cognitive needs: No Hearing needs: No Vision needs: Yes (rx glasses) Social History: Born and raised in [place]. One sister, great childhood. Mom was a teacher, dad worked at the [employer]. 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 Parents in [place] with a summer home in [place] Maternal uncle with schizophrenia Substance History: In recovery from alcohol Trauma History: Affirms Coding Level of Care Code Psych Diag Eval w/Med (30803) Diagnoses Major depression in partial remission F32.4 ADHD F90.9
== END 2025-02-09 17:20 | disposition home or self-care (01) ==
LOC: HO.HOP 16:02
PROVIDERS: PCP Internal Medicine; Visit Provider Clinical Nurse Specialist Psychiatric/Mental Health, Adult
DX: F32.4 Major depressive disorder, single episode, in partial remission (principal); F90.9 Attention-deficit hyperactivity disorder, unspecified type
CPT/HCPCS: 90792

== ENCOUNTER → 2025-02-09 16:02 | Outpatient (BNVA) | payer OTHER, SELFPAY | PROVIDERS: PCP Internal Medicine; Visit Provider Clinical Nurse Specialist Psychiatric/Mental Health, Adult | DX: F32.4 Major depressive disorder, single episode, in partial remission (principal); F90.9 Attention-deficit hyperactivity disorder, unspecified type | CPT/HCPCS: 90792 ==

== ENCOUNTER 2025-02-23 16:04 | Outpatient (AMB) | payer OTHER, SELFPAY ==
--- OUTSIDE RECORDS SUMMARY | 2025-02-23 16:21 | XMS_ITS | Encounter Summary ---
Author Organization [facility] Address [address] [place] [address] Phone Care Team Providers Care Boat Laborer Name Role Phone Bob Ardon, PhD Unavailable [phone] John Alvares MD Unavailable [phone] Allan Mehta MD Unavailable [phone] Allan Mehta MD Primary Care Provide r Pankaj Brown MD Unavailable Timi White MD Unavailable [phone] Adwoa Chahal MD Unavailable [phone] Daniella Nunes MD Unavailable [phone] Adelfo Masters NP Unavailable Audra Stacy MD Unavailable [phone] Chrissie Fajardo MD Unavailable [phone] Aashish Davis MD Unavailable Trevor Larson MD Unavailable [phone] Moses Knapp MD Unavailable [phone] Maria Isabel Dale MD Unavailable [phone] Arpit Smith CNP Unavailable [phone] Ryan Stock MD Primary Care Provider Encounter Details Date Type Department Care Team (Latest Contact Info) Description 05/12/2017 Transcribe Orders [facility]FT Lab [address] [place] [address] Allan Mehta MD [address] [facility] 1 [place] [address] [email or web address] Dyspnea on exertion (Primary Dx) Social History Tobacco Use Types Packs/Day Years Used Date Smoking Tobacco: Never Assessed Comments Unknown Sex and Gender Information Value Date Recorded Sex Assigned at Female 07/28/2017 9:38 AM EST Legal Sex Female 9:34 PM EDT Gender Identity Female 07/28/2017 9:38 AM EST Sexual Orientation Straight 07/28/2017 9: 38 AM EST documented as of this encounter Plan of Treatment Not on file documented as of this encounter Results * Pulmonary Function Test Reason for Exam: Dyspnea/Shortness of Breath; Type of PFT Test: Spirometry while seated and supine, Spirometry with bronchodilator, Lung Volumes, DLCO; Performing Location: [facility] (05/29/2017 12:02 PM EST) FEV1 liters FVC liters FEV1/FVC % TLC liters DLCO ml/mmHg sec Anatomical Region Laterality Modality Other Narrative 05/29/2017 12:02 PM EST Please see PFT interpretation in the Notes activity. Service date 05/21/2017 us Mark Calabrese MD, MS PFT ORDERABLES Final Re sult documented in this encounter Visit Diagnoses Diagnosis Dyspnea on exertion- Primary Other dyspnea and respiratory abnormality Dyspnea on exertion Other dyspnea and respiratory abnormality documented in this encounter Care Teams Boat Laborer Relationship Specialty Start Date End Date Allan Mehta MD [address] [facility] 1 [place] [address] PCP - General 05/06/17 10/26/17 Ryan Stock MD [address] [place] [address] [place] [address] PCP - General Internal Medicine 10/27/17 Bob Ardon MBBS, PhD [address] [place] [address] [facility] [place] [facility] [address] [place] [address] [email or web address] Historical LMR Provider 05/05/17 07/28/21 John Alvares MD [address] [place] [address], [address] [place] [address] [email or web address] Historical LMR Provider 05/05/17 07/28/21 Allan Mehta MD [address] [facility] Floor 1 [place] [address] [email or web address] Historical LMR Provider 05/10/17 07/28/21 Pankaj Brown MD [address] [facility] 1st Floor [address] [place] [address] Historical LMR Provider 05/10/17 07/28/21 Timi White MD [address] [place] [address], [address] [place] [address] [email or web address] Historical LMR Provider 05/10/17 07/28/21 Adwoa Chahal MD [address] [place] [address], [address] [place] [address] Historical LMR Provider 05/10/17 07/28/21 Daniella Nunes MD [address] [place] [address] [email or web address] Historical LMR Provider 05/10/17 07/28/21 Adelfo Masters NP [address] [place] [address] 2[address] [address] [email or web address] Historical LMR Provider 05/10/17 07/28/21 Audra Stacy MD [address] [place] [address] Historical LMR Provider 05/10/17 Chrissie Fajardo MD [address] [place] [address], 2nd [place] [address] Historical LMR Provider 05/10/17 07/28/21 Aashish Davis MD [address] [place] [address] Historical LMR Provider 05/10/17 07/28/21 Trevor Lrason MD [address] [place] [address], [address] [place] [address] Historical LMR Provider 05/10/17 07/28/21 Moses Knapp MD [address] [place] [address] Historical LMR Provider 05/10/17 Maria Isabel Dale MD [address] [place] [address] [address] [place] [address] [email or web address] Historical LMR Provider 05/10/17 Arpit Smith CNP [address] [place] [address], [address] [place] [address] [email or web address] Historical LMR Provider 05/10/17 07/28/21 documented as of this encounter Additional Source Comments The information contained in this document represents components of the legal health record. It is not the complete legal health record.[facility]
--- NOTE | 2025-03-21 08:39 | A.OFFPSYCH_ITS ---
Intake Intake Visit Reasons: follow up Seismograph Recorder Required: No Allergies doxycycline Allergy (Verified 02/02/25 15:25) Nausea fluoxetine (From Prozac) Allergy (Verified 02/02/25 15:25) Itching paroxetine (From Paxil) Allergy (Verified 02/02/25 15:25) Itching Medication List - Last Reconciled 03/21/25 by Leti Koenig APRN bupropion HCl XL 300 mg PO DAILY dextroamphetamine-amphetamine 20 mg ER (Adderall XR) 20 mg PO DAILY famotidine 40 mg PO BID lamotrigine (Lamictal) 25 mg PO DAILY 14 days levothyroxine 50 mcg PO DAILY medroxyprogesterone mg IM omeprazole 40 mg PO BID quetiapine (Seroquel) 25 mg PO TID trazodone 200 mg PO BEDTIME PRN HPI- Psychiatric Chief Complaint: follow up HPI Narrative: 02/23/25 PHQ-9 9 OVIDIO-7 0 Follow up appt. Pt stopped Sertraline on - reports feeling anergic, exhausted on this trial. Feeling better since stopping. Suggested Lamictal low dose trial to assist with depression, mood integrity. Pt will trial. Past Psychiatric History: IP: [facility] OP: No therapy, not helpful. pcp for meds, Dr. Hale -7 years, Dr. Stapleton Suicide attempts: Denies Hx of misdiagnosis of bipolar disorder Hx Prozac-felt like she was jumping out of her skin Subjective Subjective Subjective Medication Compliance: Yes Side effects from medications: Yes (sertraline stopped) Review of Systems Medical Review of Systems: unchanged Review of Systems Review of Systems Denies Mental Status Exam Mental Status Exam Patient Appearance: Appropriate Patient Orientation: Person, Place, Time and Situation Level of Consciousness: Alert Patient Behavior: Talkative Mood Description: Constricted Affect Description: Constricted Patient Cognition Impaired: No Ability to Follow Directions: Good Speech Pattern: Spontaneous Speech Memory Description: Intact Hallucinations: None Delusions: Not Present Thought Process: Intact and Goal Oriented Thought Content: positive for Intact and positive for Goal Oriented Depressive Symptoms: Unhappiness, Increased Fatigue, Thoughts of /Suicide (denies) and Loss of Energy Judgement: Good Assessment and Plan Assessment & Plan (1) Major depression in partial remission: Status: Acute Code(s): F32.4 - Major depressive disorder, single episode, in partial remission (2) ADHD: Status: Acute Code(s): F90.9 - Attention-deficit hyperactivity disorder, unspecified type Plan Sertraline discontinued due to reported adverse effects. Lamictal 25 mg daily trial to augment antidepressant. Medications: New lamotrigine (Lamictal) 25 mg PO DAILY 14 tabs 0RF 14 days Discontinued sertraline Discontinued Reason: Doctor's Order 25 mg PO DAILY 14 tabs 0RF Counseling and coordination of Care Medication management counseling: Effectiveness, Side effects, Dosing range and Duration Details: I spent [] minutes reviewing the record, seeing the patient and documenting in the medical record. Counseling provided to the patient/caregiver as outlined below. Addressed patient/caregiver concerns regarding current medication regime including effective adherence. Addressed patient/caregiver concerns regarding diagnosis and prognosis including accuracy of diagnosis, prognosis over time, impact of diagnosis. Addressed patient/caregiver concerns regarding impact of recent stressors. [facility] Medical History Class 2 obesity Hypothyroidism ADHD Major depression in partial remission Family History Mother No problems noted. Father No problems noted. Social History Housing: Condominium Patient Tobacco Use Status: Never used Tobacco e-Cigarette/Vaping Use: Never Used service: No Current occupational status: employed Cognitive needs: No Hearing needs: No Vision needs: Yes (rx glasses) Social History: Born and raised in [place]. One sister, great childhood. Mom was a teacher, dad worked at the [employer]. 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 Parents in [place] with a summer home in [place] Maternal uncle with schizophrenia Substance History: In recovery from alcohol Trauma History: Affirms Coding Level of Care Code Est Pt Level 3 (77664) Diagnoses Major depression in partial remission F32.4 ADHD F90.9
== END 2025-02-23 16:59 | disposition home or self-care (01) ==
LOC: HO.HOP 16:04
PROVIDERS: PCP Internal Medicine; Visit Provider Clinical Nurse Specialist Psychiatric/Mental Health, Adult
DX: F32.4 Major depressive disorder, single episode, in partial remission (principal); F90.9 Attention-deficit hyperactivity disorder, unspecified type
CPT/HCPCS: 99213

== ENCOUNTER → 2025-02-23 16:04 | Outpatient (BNVA) | payer OTHER, SELFPAY | PROVIDERS: PCP Internal Medicine; Visit Provider Clinical Nurse Specialist Psychiatric/Mental Health, Adult | DX: F32.4 Major depressive disorder, single episode, in partial remission (principal); F90.9 Attention-deficit hyperactivity disorder, unspecified type | CPT/HCPCS: 99212 ==

== ENCOUNTER 2025-04-06 | Outpatient (REF) | payer OTHER, SELFPAY ==
--- OUTSIDE RECORDS SUMMARY | 2025-05-02 10:07 | XMS_ITS | Encounter Summary ---
Author Organization [facility] Address [address] [place] [address] Phone Care Team Providers Care Meat Curer Name Role Phone Bob Ardno, PhD Unavailable [phone] John Alvares MD Unavailable [phone] Allan Mehta MD Unavailable [phone] Pankaj Brown MD Unavailable Timi White MD Unavailable [phone] Adwoa Chahal MD Unavailable [phone] Daniella Nunes MD Unavailable [phone] Adelfo Masters NP Unavailable Audra Stacy MD Unavailable [phone] Chrissie Fajardo MD Unavailable [phone] Aashish Davis MD Unavailable Trevor Larson MD Unavailable [phone] Moses Knapp MD Unavailable Maria Isabel Dale MD Unavailable [phone] Arpit Smith CNP Unavailable [phone] Ryan Stock MD Primary Care Provider Encounter Details Date Type Department Care Team (Late st Contact Info) Description 04/23/2018 Ancillary Orders Virtual Department 30 [place] [address] Meera Rae PA-C 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 on file Not on file documented as of this encounter Plan of Treatment Not on file documented as of this encounter Visit Diagnoses Diagnosis Heartburn documented in this encounter Care Teams Meat Curer Relationship Specialty Start Date End Date Ryan Stock MD [address] [place] [address] Dr CARRERO [address] [place] [address] PCP - General Internal Medicine 10/27/17 Bob Ardon MBBS, PhD [address] [place] [address] [email or web address] Historical LMR Provider 05/05/1707/28/21 John Alvares MD [address] [place] [address], [address] [place] [address] [email or web address] Historical LMR Provider 05/05/17 07/28/21 Allan Mehta MD 22 [facility] Floor 1 [place] [address] [email or web address] Historical LMR Provider 05/10/17 07/28/21 Pankaj Brown MD 50 [facility] 1st Floor [address] [place] [address] Historical LMR Provider 05/10/17 2 Timi White MD 22 [facility], [address] [place] [address] Historical LMR Provider 05/10/17 07/28/21 Adwoa Chahal MD 22 [facility], [address] [place] [address] Historical LMR Provider 05/10/17 2 Daniella Nunes MD 19 [place] [address] [email or web address] Historical LMR Provider 05/10/17 07/28/21 Adelfo Masters NP [address] [place] [address] 2_[place] [address] [email or web address] Historical LMR Provider 05/10/17 07/28/21 Audra Stacy MD 22 [facility], [address] [place] [address] [email or web address] Historical LMR Provider 05/10/17 Chrissie Fajardo MD 15 [facility], 2nd [place] [address] Historical LMR Provider 05/10/17 Aashish Davis MD [address] [place] [address] Historical LMR Provider 05/10/17 07/28/21 Trevor Larson MD [address] [place] [address], [address] [place] [address] Historical LMR Provider 05/10/17 2 Moses Knapp MD [address] [place] [address] Historical LMR Provider 05/10/17 Maria Isabel Dale MD [address] [place] [address] Historical LMR Provider 05/10/17 Arpit Smith CNP [address] [place] [address], [address] [place] [address] Historical LMR Provider 05/10/17 documented as of this encounter Additional Source Comments The information contained in this document represents components of the legal health record. It is not the complete legal health record.[facility]
--- OUTSIDE RECORDS SUMMARY | 2025-05-02 10:07 | XMS_ITS | Encounter Summary ---
Author Organization [facility] Address [address] [place] [address] Phone Care Team Providers Care Surgical Garment Fitter Name Role Phone Bob Ardon, PhD Unavailable [phone] John Alvares MD Unavailable [phone] Allan Mehta MD Unavailable [phone] Pankaj Brown MD Unavailable [phone] Timi White MD Unavailable [phone] Adwoa Chahal MD Unavailable [phone] aDniella Nunes MD Unavailable Adelfo Masters NP Unavailable Audra Stacy MD Unavailable [phone] Chrissie Fajardo MD Unavailable [phone] Aashish Davis MD Unavailable Trevor Larson MD Unavailable [phone] Moses Knapp MD Unavailable [phone] Maria Isabel Dale MD Unavailable [phone] Arpit Smith CNP Unavailable [phone] Ryan Stock MD Primary Care Provider Encounter Details Date Type Department Care Team (Late st Contact Info) Description 05/19/2018 Procedure Pass [facility], [address] [address] Social History Tobacco Use Types Packs/Day Years [...] 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 on file Not on file documented as of this encounter Plan of Treatment Not on file documented as of this encounter Visit Diagnoses Not on filedocumented in this encounter Care Teams Surgical Garment Fitter Relationship Specialty Start Date End Date Ryan Stock MD [address] [place] [address] [place] [address] PCP - General Internal Medicine 10/27/17 Bob Ardon MBBS, PhD [address] [place] [address] [email or web address] Historical LMR Provider 05/05/1707/28/21 John Alvares MD 22 [facility], [address] [place] [address] [email or web address] Historical LMR Provider 05/05/17 07/28/21 Allan Mehta MD 22 [facility] Floor 1 [place] [address] [email or web address] Historical LMR Provider 05/10/17 07/28/21 Pankaj Brown MD [address] [place] [address] 1st Floor -[address] [place] [address] Historical LMR Provider 05/10/17 2 Timi White MD 22 [facility], [address] [place] [address] Historical LMR Provider 05/10/17 07/28/21 Adowa Chahal MD 22 [facility], [address] [place] [address] Historical LMR Provider 05/10/17 2 Daniella Nunes MD 19 [place] [address] [email or web address] Historical LMR Provider 05/10/17 07/28/21 Adelfo Masters NP [address] [place] [address] 2_[place] [address] [email or web address] Historical LMR Provider 05/10/17 07/28/21 Audra Stacy MD 22 [facility], [address] [place] [address] Historical LMR Provider 05/10/17 Chrissie Fajardo MD 15 [facility], 2nd [place] [address] Historical LMR Provider 05/10/17 Aashish Davis MD [address] [place] [address], [address] [place] [address] Historical LMR Provider 05/10/17 07/28/21 Trevor Larson MD [address] [place] [address], [address] [place] [address] Historical LMR Provider 05/10/17 2 Moses Knapp MD [address] [place] [address], [address] [address] Historical LMR Provider 05/10/17 Maria Isabel Dale MD [address] [place] [address], [address] [address] Historical LMR Provider 05/10/17 Arpit Smith CNP [address] [place] [address], [address] [place] [address] Historical LMR Provider 05/10/17 documented as of this encounter Additional Source Comments The information contained in this document represents components of the legal health record. It is not the complete legal health record.[facility]
--- OUTSIDE RECORDS SUMMARY | 2025-05-02 10:07 | XMS_ITS | Encounter Summary ---
Author Organization [facility] Address [address] [place] [address] Phone Care Team Providers Care Regional Environmental Manager Name Role Phone Bob Ardon, PhD Unavailable [phone] John Alvares MD Unavailable [phone] Allan Mehta MD Unavailable [phone] Allan Mehta MD Primary Care Provide r Pankaj Brown MD Unavailable Timi White MD Unavailable [phone] Adwoa Chahal MD Unavailable +[phone] Daniella Nunes MD Unavailable [phone] Adelfo Masters NP Unavailable [phone] Audra Stacy MD Unavailable [phone] Chrissie Fajardo MD Unavailable [phone] Aashish Davis MD Unavailable Trevor Larson MD Unavailable [phone] Moses Knapp MD Unavailable [phone] Maria Isabel Dale MD Unavailable [phone] Arpit Smith CNP Unavailable [phone] Ryan Stock MD Primary Care Provider Encounter Details Date Type Department Care Team (Late st Contact Info) Description 08/02/2017 [employer] Encounter [facility] Gynecology Virtual Department 30 [place] [address] Mart Goldman MD 22 [facility], [address] [place] [address] [email or web address] Social History Tobacco Use Types Packs/Day Years [...] 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 on file Not on file documented as of this encounter Plan of Treatment Not on file documented as of this encounter Visit Diagnoses Not on filedocumented in this encounter Care Teams Regional Environmental Manager Relationship Specialty Start Date End Date Allan Mehta MD 22 [facility] Floor 1 [place] [address] [email or web address] PCP - General 05/06/17 10/26/17 Ryan Stock MD [address] [place] [address] [place] [address] PCP - General Internal Medicine 10/27/17 Bob Ardon MBBS, PhD [address] [place] [address] [email or web address] Historical LMR Provider 05/05/1707/28/21 John Alvares MD 22 [facility], [address] [place] [address] [email or web address] Historical LMR Provider 05/05/17 07/28/21 Allan Mehta MD 22 [facility] Floor 1 [place] [address] [email or web address] Historical LMR Provider 05/10/17 07/28/21 Pankaj Brown MD [address] [place] [address] 1st Floor [address] [place] [address] Historical LMR Provider 05/10/17 2 Timi White MD 22 [facility], [address] [place] [address] [email or web address] Historical LMR Provider 05/10/17 07/28/21 Adwoa Chahal MD [address] [place] [address], [address] [place] [address] [email or web address] Historical LMR Provider 05/10/17 2 Daniella Nunes MD [address] [place] [address] [email or web address] Historical LMR Provider 05/10/17 07/28/21 Adelfo Masters NP [address] [place] [address] 2_[place] [address] [email or web address] Historical LMR Provider 05/10/17 07/28/21 Audra Stacy MD 22 [facility], [address] [place] [address] Historical LMR Provider 05/10/17 Chrissie Fajardo MD 15 [facility], 2nd [place] [address] Historical LMR Provider 05/10/17 Aashish Davis MD [address] [place] [address] Historical LMR Provider 05/10/17 07/28/21 Trevor Larson MD 22 [facility], [address] [place] [address] Historical LMR Provider 05/10/17 2 Moses Knapp MD 22 [facility] 102 [place] [address] Historical LMR Provider 05/10/17 Maria Isabel Dale MD [address] [address] Historical LMR Provider 05/10/17 Arpit Smith CNP 22 [facility], [address] [place] [address] Historical LMR Provider 05/10/17 documented as of this encounter Additional Source Comments The information contained in this document represents components of the legal health record. It is not the complete legal health record.[facility]
--- OUTSIDE RECORDS SUMMARY | 2025-05-02 10:07 | XMS_ITS | Clinical Summary ---
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 Not on file Not [...] 2025 , 04/28/2021, 03/18/2018, Additional history exists COVID-19 VACCINE ( season) 2025 05/08/2024, 07/01/2023, 04/12/2022, Additional history exists COLONOSCOPY 08/07/2025 08/07/2015 COLORECTAL CANCER SCREENING 08/07/2025 PAP SMEAR 02/14/2026 02/14/2021, 11/19, 12/06/2014 Adult Td,Tdap Booster 05/30/2033 05/30/2023 , 04/04/2011, 09/09/1983 RSV VACCINE (1 - 1-dose 75+ series) 2045 ZOSTER VACCINES Completed 12/22/2021, 09/28/2021 SMOKING STATUS SCREENING (Once After 26 Yrs) [...] SEE NARRATIVE - 02/20/2021 9:04 AM EDT [address] [address] Regional Manager: Milagros Easley MD VENEER ST[facility]ER Cytology Report FINAL DIAGNOSIS A. PAP SMEAR [...] 52, 56, 58, 59, 66, 68) by [email or web address] Onclarity HR-HPV analysis. Clinical correlation is advised. This HPV test was performed at [facility] [place], [address] [place] [address]. This test has been FDA approved for SurePath cervical cytology specimens. The accuracy and precision of this test for all other specimen sources has been verified in the Cytopathology Laboratory of the [facility] [place] and has not been cleared or approved by the U.S. Food and Drug Administration. Clinical correlation is advised. CLINICAL HISTORY Date of Last Menstrual Period: Not Provided Menstrual History: Nita-Menopausal Contraceptive History: Depo Other Clinical Conditions: Screening Pap SPECIMEN SOURCE A: PAP SMEAR (SUREPATH) CE Patient Name: KATHIA BUSTAMANTE : 1970 (Age: 50) Sex: F Institution: [facility] Location: [facility] Date of Collection: 02/14/2021 Date of Reported: 02/20/2021 09:04 Results to: Catrachita Oshea MD us Catrachita Oshea MD CYTOLOGY ORDERABLES Final Result SEE NARRATIVE * TSH (04/21/2019 3:15 PM EDT) TSH 2.51 0.27 - 4.20 uIU/mL [facility] Blood 04/21/2019 3:15 PM EDT 04/21/2019 3:21 PM EDT us Ryan Stock MD LAB BLOOD ORDERABLES Fi nal Result [facility] [address] [place] [address] * (ABNORMAL) Outside LDL (12/25/2016) LDL - External 44(A) 50 - 250 mg/ml us Historical Provider LAB BLOOD ORDERABLES Kirsten l Result from Last 3 Months or Most Recently Relevant to Health Maintenance [facility] [address] [place] [address] [place] [address] [facility] [address] [place] [address] [facility] [place] [address] [place] [address] [address] [place] [address]HLR PropertiesSALEM REGION[facility] [address] [place], [place] [address]HLR PropertiesSAL[facility] Care Teams Any Commodity Buyer Relationship Specialty Start Date End Date Ryan Stock MD [address] [place] [address] [place] [address] PCP - General Internal Medicine 10/27/17 Audra Stacy MD [address] [place] [address] [email or web address] Historical LMR Provider 05/10/17 Moses Knapp MD [address] [place] [address] Historical LMR Provider 05/10/17 Maria Isabel Dale MD [address] [place] [address] Historical LMR Provider 05/10/17 Additional Source Comments The information contained in this document represents components of the legal health record. It is not the complete legal health record.[facility]
--- OUTSIDE RECORDS SUMMARY | 2025-05-02 10:07 | XMS_ITS | Encounter Summary ---
Author Organization [facility] Address [address] [place] [address] Phone Care Team Providers Care Poultry Farmer Name Role Phone Bob Ardon, PhD Unavailable [phone] John Alvares MD Unavailable [phone] Allan Mehta MD Unavailable [phone] Pankaj Brown MD Unavailable Timi White MD Unavailable [phone] Adwoa Chahal MD Unavailable [phone] Daniella Nunes MD Unavailable [phone] Adelfo Masters NP Unavailable Audra Stacy MD Unavailable [phone] Chrissie Fajardo MD Unavailable [phone] Aashish Davis MD Unavailable Trevor Larson MD Unavailable [phone] Moses Knapp MD Unavailable Maria Isabel Dale MD Unavailable [phone] Arpit Smith CNP Unavailable [phone] Ryan Stock MD Primary Care Provider Encounter Details Date Type Department Care Team (Latest Contact Info) Description 10/21/2018 Transcribe Orders [facility] [address] [phone] Surinder Joseph MD [address] [place] [address] [email or web address] Functional diarrhea (Primary Dx); Abdominal pain, epigastric [...] 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 Co de Phone Number [address] [address] * C-Reactive Protein (10/21/2018 3:47 PM EDT) C REACTIVE PROTEIN <0.3 0.0 - 4.0 mg/L [facility] Blood 10/21/2018 3:47 PM EDT 10/21/2018 3:50 PM EDT Surinder Joseph MD LAB BLOOD ORDERABLES Final R esult Performing Organization Address [facility] Co de Phone Number [address] [address] * Comprehensive metabolic panel (10/21/2018 3:47 PM EDT) SODIUM 139 133 - 146 mmol/L [facility] POTASSIUM 4.0 3.3 - 5.1 mmol/L [facility] CHLORIDE 103 96 - 108 mmol/L [facility] CO2 24 21 - 35 mmol/L [facility] BUN 15 6 - 19 mg/dL [facility] CREATININE 1.10 0.5 - 1.5 mg/dL [facility] GLUCOSE 94 70 - 99 mg/dL [facility] ALBUMIN 4.2 3.9 - 4.8 g/dL [facility] TOTAL PROTEIN 7.1 6.5 - 8.0 g/dL [facility] CALCIUM 8.9 8.4 - 10.3 mg/dL [facility] ALKALINE PHOSPHATASE 57 39 - 117 U/L [facility] TOTAL BILIRUBIN 0.2 0.0 - 1.2 mg/dL [facility] Comment: Results from certain multiple myeloma patients may show a positive bias in recovery. Not all multiple myeloma patients show the bias and severity of the bias may vary between patients. In very rare cases, gammopathy, in particular type IgM (Waldenstrom's macroglobulinemia), may cause unreliable results. AST 11 0 - 37 U/L [facility] ALT 9 0 - 40 U/L [facility] GLOBULIN 2.9 1 - 4.8 g/dL [facility] EGFR 60 >59 mL/min/1.7 3m2 [facility] Comment:If patient is black, multiply result by 1.159. Estimated glomerular filtration rate calculated using the CKD-EPI equation. ANION GAP 16 10 - 20 mmol/L [facility] Blood 10/21/2018 3:47 PM EDT 10/21/2018 3:50 PM EDT us Surinder Joseph MD LAB BLOOD ORDERABLES Final R esult [facility] [address] [place] [address] * Gliadin deamidated antibody, IgG/IgA (10/21/2018 3:47 PM EDT) Gliadin Ab, IGA <10.0 <20.0 (Negative) U [facility] MED/[address] GLIADIN AB IGG <10.0 <20.0 (Negative) U [facility] MED/[address] Blood 10/21/2018 3:47 PM EDT 10/21/2018 3:49 PM EDT us Surinder Joseph MD LAB BLOOD ORDERABLES Final R esult [facility] MED/[address] [place] [address] * Tissue transglutaminase IgA (10/21/2018 3:47 PM EDT) Pathologist [facility] TTG IGA ANTIBODY <1.2 <4.0 (Negative) U/mL [facility]/PATH [address] Blood 10/21/2018 3:47 PM EDT 10/21/2018 3:49 PM EDT us Surinder Joseph MD LAB BLOOD ORDERABLES Final R esult Performing Organization Address City/[facility] Co de Phone Number [facility] MED/[address] [place] [address] * (ABNORMAL) CBC (10/21/2018 3:47 PM EDT) Pathologist [facility] WBC 7.34 3.40 - 11.20 K/uL [facility] RBC 4.19 3.80 - 4.80 M/uL [facility] HGB 12.8 12.0 - 15.0 g/dL [facility] HCT 39.0 36.0 - 46.0 % [facility] PLT 249 130 - 400 K/uL [facility] MCV 93.1 79.0 - 98.0 fL [facility] MCH 30.5 27.0 - 34.8 pg [facility] MCHC 32.8 31.5 - 36.0 g/dL [facility] RDW 12.6 10.8 - 14.6 % [facility] MPV 9.2(L) 9.4 - 12.4 fl [facility] NRBC 0.00 0.00 /100 WBCs [facility] ABSOLUTE NRBC 0.00 0.00 K/uL [facility] Blood 10/21/2018 3:47 PM EDT 10/21/2018 3:50 PM EDT us Surinder Joseph MD LAB BLOOD ORDERABLES Final R esult [facility] [address] [place] [address] documented in this encounter Visit Diagnoses Diagnosis Functional diarrhea- Primary Abdominal pain, epigastric documented in this encounter Care Teams Poultry Farmer Relationship Specialty Start Date End Date Ryan Stock MD [address] [place] [address] [place] [address] PCP - General Internal Medicine 10/27/17 Bob Ardon MBBS, PhD [address] [place] [address] [email or web address] Historical LMR Provider 05/05/1707/28/21 John Alvares MD 22 [facility], [address] [place] [address] [email or web address] Historical LMR Provider 05/05/17 07/28/21 Allan Mehta MD 22 [facility] Floor 1 [place] [address] [email or web address] Historical LMR Provider 05/10/17 07/28/21 Pankaj Brown MD [address] [place] [address] 1st Floor [address] [place] [address] Historical LMR Provider 05/10/17 2 Timi White MD 22 [facility], [address] [place] [address] Historical LMR Provider 05/10/17 07/28/21 Adwoa Chahal MD 22 [facility], [address] [place] [address] Historical LMR Provider 05/10/17 2 Daniella Nunes MD [address] [place] [address] [email or web address] Historical LMR Provider 05/10/17 07/28/21 Adelfo Masters NP [address] [place] [address] 2_[place] [address] [email or web address] Historical LMR Provider 05/10/17 07/28/21 Audra Stacy MD 22 [facility], [address] [place] [address] Historical LMR Provider 05/10/17 Chrissie Fajardo MD 15 [facility], 2nd [place] [address] Historical LMR Provider 05/10/17 Aashish Davis MD [address] [place] [address], [address] [place] [address] Historical LMR Provider 05/10/17 07/28/21 Trevor Larson MD 22 [facility], [address] [place] [address] Historical LMR Provider 05/10/17 2 Moses Knapp MD [address] [place] [address], [address] [place] [address] Historical LMR Provider 05/10/17 Maria Isabel Dale MD [address] [place] [address], [address] [address] Historical LMR Provider 05/10/17 Arpit Smith CNP [address] [place] [address], [address] [place] [address] [email or web address] Historical LMR Provider 05/10/17 documented as of this encounter Additional Source Comments The information contained in this document represents components of the legal health record. It is not the complete legal health record.[facility]
--- OUTSIDE RECORDS SUMMARY | 2025-05-02 10:07 | XMS_ITS | Encounter Summary ---
Author Organization [facility] Address [address] [place] [address] Phone Care Team Providers Care Gluten Settling Tender Name Role Phone Bob Ardon, PhD Unavailable [phone] John Alvares MD Unavailable [phone] Allan Mehta MD Unavailable +[phone] Allan Mehta MD Primary Care Provide r Pankaj Brown MD Unavailable Timi White MD Unavailable +[phone] Adwoa Chahal MD Unavailable +[phone] Daniella Nunes MD Unavailable [phone] Adelfo Masters NP Unavailable [phone] Audra Stacy MD Unavailable +[phone] Chrissie Fajardo MD Unavailable +[phone] Aashish Davis MD Unavailable Trevor Larson MD Unavailable [phone] Moses Knapp MD Unavailable [phone] Maria Isabel Dale MD Unavailable [phone] Arpit Smith CNP Unavailable +[phone] Ryan Stock MD Primary Care Provider Encounter Details Date Type Department Care Team (Latest Contact Info) Description 05/12/2017 Transcribe Orders [facility] PFT Lab 30 [place] [address] Allan Mehta MD 22 [facility] 1 [place] [address] [email or web address] Dyspnea on exertion (Primary Dx) Social History [...] Lung Volumes, DLCO; Performing Location: [facility] (05/29/2017 12:02 PM EST) FEV1 liters FVC [...] abnormality documented in this encounter Care Teams Gluten Settling Tender Relationship Specialty Start Date End Date Allan Mehta MD 22 [facility] 1 [place] [address] [email or web address] PCP - General 05/06/17 10/26/17 Ryan Stock MD [address] [place] [address] [place] [address] PCP - General Internal Medicine 10/27/17 Bob Ardon MBBS, PhD 60 [place] [address] [email or web address] Historical LMR Provider 05/05/1707/28/21 John Alvares MD [facility], [address] [place] [address] [email or web address] Historical LMR Provider 05/05/17 07/28/21 Allan Mehta MD [facility] Floor 1 [place] [address] [email or web address] Historical LMR Provider 05/10/17 07/28/21 Pankaj Brown MD [address] [place] [address] [address] [address] Historical LMR Provider 05/10/17 2 Timi White MD [address] [place] [address], [address] [place] [address] Historical LMR Provider 05/10/17 07/28/21 Adwoa Chahal MD [address] [place] [address], [address] [place] [address] Historical LMR Provider 05/10/17 2 Daniella Nunes MD [address] [place] [address] [email or web address] Historical LMR Provider 05/10/17 07/28/21 Adelfo Masters NP [address] [place] [address] 2_[place] [address] [email or web address] Historical LMR Provider 05/10/17 07/28/21 Audra Stacy MD [facility], [facility] 102 [place] [address] Historical LMR Provider 05/10/17 Chrissie Fajardo MD [facility], 2nd [place] [address] Historical LMR Provider 05/10/17 Aashish Davis MD [address] [place] [address] Historical LMR Provider 05/10/17 07/28/21 Trevor Larson MD [address] [place] [address], [address] [place] [address] Historical LMR Provider 05/10/17 2 Moses Knapp MD [facility], [address] [address] Historical LMR Provider 05/10/17 Maria Isabel Dale MD [facility], [facility] 102 [place] [address] Historical LMR Provider 05/10/17 Arpit Smith CNP [address] [place] [address], [address] [place] [address] [email or web address] Historical LMR Provider 05/10/17 documented as of this encounter Additional Source Comments The information contained in this document represents components of the legal health record. It is not the complete legal health record.[facility]
--- OUTSIDE RECORDS SUMMARY | 2025-05-02 10:07 | XMS_ITS | Encounter Summary ---
Author Organization [facility] Address [address] [place] [address] Phone Care Team Providers Care Traffic Enumerator Name Role Phone Bob Ardon, PhD Unavailable [phone] John Alvares MD Unavailable [phone] Allan Mehta MD Unavailable +[phone] Pankaj Brown MD Unavailable [phone] Timi White MD Unavailable +[phone] Adwoa Chahal MD Unavailable +[phone] Daniella Nunes MD Unavailable [phone] Adelfo Masters NP Unavailable [phone] Audra Stacy MD Unavailable +[phone] Chrissie Fajardo MD Unavailable +[phone] Aashish Davis MD Unavailable Trevor Larson MD Unavailable [phone] Moses Knapp MD Unavailable [phone] Maria Isabel Dale MD Unavailable [phone] Arpit Smith CNP Unavailable [phone] Ryan Stock MD Primary Care Provider Reason for Referral * MRI/CAT Scan - Closed Specialty Diagnoses / Procedures Referred By Contac t Referred To Contact Radiology Diagnoses Weakness of distal arms and legs Leg numbness White matter disease Procedures MRI Cervical Spine Trevor Stapleton MD Phone: tel: fax: [email or web address] Referral ID Status Reason Start Date Expiration Date Visits Re quested Visits Authorized [id number] Closed 03/11/2019 05/10/2019 1 1 Encounter Details Date Type Department Care Team (Latest Contact Info) Description 03/11/2019 Transcribe Orders Virtual Department 30 [place] [address] Trevor Stapleton MD [address] [place] [address], [address] [place] [address] 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 POS - [id number] Narrative 03/19/2019 8:48 AM EDT HISTORY: Ataxia, [...] degenerative disc and endplate changes. POS - [id number] Trevor Stapleton MD IMG MR XSPECIALTY Final Resu lt documented in this encounter Visit Diagnoses Diagnosis Weakness of distal arms and legs- Primary Leg numbness Disturbance of skin sensation White matter disease Weakness of distal arms and legs Leg numbness Disturbance of skin sensation White matter disease documented in this encounter Care Teams Traffic Enumerator Relationship Specialty Start Date End Date Ryan Stock MD [address] [place] [address] [place] [address] PCP - General Internal Medicine 10/27/17 Bob Ardon MBBS, PhD [address] [place] [address] [email or web address] Historical LMR Provider 05/05/1707/28/21 John Alvares MD [address] [place] [address], [address] [place] [address] [email or web address] Historical LMR Provider 05/05/17 07/28/21 Allan Mehta MD 22 [facility] Floor 1 [place] [address] [email or web address] Historical LMR Provider 05/10/17 07/28/21 Pankaj Brown MD [address] [place] [address] [address] [address] Historical LMR Provider 05/10/17 2 Timi White MD [address] [place] [address], [address] [place] [address] Historical LMR Provider 05/10/17 07/28/21 Adwoa Chahal MD [address] [place] [address], [address] [place] [address] Historical LMR Provider 05/10/17 2 Daniella Nunes MD 19 [place] [address] [email or web address] Historical LMR Provider 05/10/17 07/28/21 Adelfo Masters NP [address] [place] [address] 2_Wound Care [place], [place] [id number] [email or web address] Historical LMR Provider 05/10/17 07/28/21 Audra Stacy MD [address] [facility], [address] [place] [address] [email or web address] Historical LMR Provider 05/10/17 Chrissie Fajardo MD [address] [place] [address], 2nd [place] [address] Historical LMR Provider 05/10/17 Aashish Davis MD [address] [place] [address] Historical LMR Provider 05/10/17 07/28/21 Trevor Larson MD [address] [place] [address], [address] [place] [address] Historical LMR Provider 05/10/17 2 Moses Knapp MD [address] [place] [address], [facility] 102 [place] [address] Historical LMR Provider 05/10/17 Maria Isabel Dale MD 22 [facility], [facility] 102 [place] [address] Historical LMR Provider 05/10/17 Arpit Smith, AMY [address] [facility], [address] [place] [address] ([email or web address]) [email or web address] Historical LMR Provider 05/10/17 documented as of this encounter Additional Source Comments The information contained in this document represents components of the legal health record. It is not the complete legal health record.[facility]
--- OUTSIDE RECORDS SUMMARY | 2025-05-02 10:07 | XMS_ITS | Encounter Summary ---
Author Organization [facility] Address [address] [place] [address] Phone Care Team Providers Care Dialysis Tech Name Role Phone Bob Ardon, PhD Unavailable [phone] John Alvares MD Unavailable [phone] Allan Mehta MD Unavailable [phone] Pankaj Brown MD Unavailable [phone] Timi White MD Unavailable [phone] Adwoa Chahal MD Unavailable +[phone] Daniella Nunes MD Unavailable [phone] Adelfo Masters NP Unavailable Audra Stacy MD Unavailable +[phone] Chrissie Fajardo MD Unavailable [phone] Aashish Davis MD Unavailable Trevor Larson MD Unavailable Moses Knapp MD Unavailable Maria Isabel Dale MD Unavailable [phone] Arpit Smith CNP Unavailable [phone] Ryan Stock MD Primary Care Provider Encounter Details Date Type Department Care Team (Late st Contact Info) Description 04/21/[address] 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 Not on file documented as of this encounter Plan of Treatment Not on file documented as of this encounter Results * Free T4 (04/21/2019 3:15 PM EDT) FREE T4 1.4 0.9 - 1.7 ng/dL [facility] Blood 04/21/2019 3:15 PM EDT 04/21/2019 3:21 PM EDT us Ryan Stock MD LAB BLOOD ORDERABLES Fi nal Result Performing Organization Address [facility] Co de Phone Number [address] [address] * TSH (04/21/2019 3:15 PM EDT) Pathologist [facility] TSH 2.51 0.27 - 4.20 uIU/mL [facility] Blood 04/21/2019 3:15 PM EDT 04/21/2019 3:21 PM EDT Ryan Stock MD LAB BLOOD ORDERABLES Fi nal Result Performing Organization Address [facility]/ZIP Co de Phone Number [address] [address] * (ABNORMAL) CBC and differential (04/21/2019 3:15 PM EDT) WBC 6.21 3.40 - 11.20 K/uL [facility] RBC 4.22 3.80 - 4.80 M/uL [facility] HGB 13.1 12.0 - 15.0 g/dL [facility] HCT 38.6 36.0 - 46.0 % [facility] PLT 230 130 - 400 K/uL [facility] MCV 91.5 79.0 - 98.0 fL [facility] MCH 31.0 27.0 - 34.8 pg [facility] MCHC 33.9 31.5 - 36.0 g/dL [facility] RDW 12.4 10.8 - 14.6 % [facility] MPV 9.5 9.4 - 12.4 fl [facility] NRBC 0.00 0.00 /100 WBCs [facility] ABSOLUTE NRBC 0.00 0.00 K/uL [facility] DIFF METHOD Auto [facility] NEUTS 59.7 45.30 - 77.70 % [facility] LYMPHS 31.7 12.30 - 39.70 % [facility] MONOS 7.7 4.10 - 12.80 % [facility] EOS 0.0 0 - 7.2 % [facility] BASOS 0.6 0 - 2.80 % [facility] Granulocytes, immature (%) 0.3 0.0 - 0.9 % [facility] ABSOLUTE NEUTS 3.70 1.40 - 7.70 K/uL [facility] ABSOLUTE LYMPHS 1.97 0.60 - 3.20 K/uL [facility] ABSOLUTE MONOS 0.48 0.11 - 0.59 K/uL [facility] ABSOLUTE EOS 0.00(L) 0.01 - 0.50 K/uL [facility] ABSOLUTE BASOS 0.04 0.00 - 0.08 K/uL [facility] Granulocytes, immature 0.02 0.00 - 0.05 K/uL [facility] Blood 04/21/2019 3:15 PM EDT 04/21/2019 3:21 PM EDT us Ryan Stock MD LAB BLOOD ORDERABLES Fi nal Result [address] [address] * (ABNORMAL) Comprehensive metabolic panel (04/21/2019 3:15 PM EDT) SODIUM 139 133 - 146 mmol/L [facility] POTASSIUM 4.0 3.3 - 5.1 mmol/L [facility] CHLORIDE 105 96 - 108 mmol/L [facility] CO2 22 21 - 35 mmol/L [facility] BUN 13 6 - 19 mg/dL [facility] CREATININE 1.00 0.5 - 1.5 mg/dL [facility] GLUCOSE 100(H) 70 - 99 mg/dL [facility] ALBUMIN 4.2 3.9 - 4.8 g/dL [facility] TOTAL PROTEIN 7.1 6.5 - 8.0 g/dL [facility] CALCIUM 9.1 8.4 - 10.3 mg/dL [facility] ALKALINE PHOSPHATASE 63 39 - 117 U/L [facility] TOTAL BILIRUBIN 0.2 0.0 - 1.2 mg/dL [facility] AST 17 0 - 37 U/L [facility] ALT 12 0 - 40 U/L [facility] GLOBULIN 2.9 1 - 4.8 g/dL [facility] EGFR 67 >59 mL/min/1.7 3m2 [facility] Comment:If patient is black, multiply result by 1.159. Estimated glomerular filtration rate calculated using the CKD-EPI equation. ANION GAP 16 10 - 20 mmol/L [facility] Blood 04/21/2019 3:1 5 PM EDT 04/21/2019 3:21 PM EDT us Ryan Stock MD LAB BLOOD ORDERABLES Fi nal Result Performing Organization Address City/[facility]/ZIP Co de Phone Number [address] [address] documented in this encounter Visit Diagnoses Diagnosis Hypothyroidism, unspecified type- Primary documented in this encounter Care Teams Dialysis Tech Relationship Specialty Start Date End Date Ryan Stock MD [address] [place] [address] [place] [address] PCP - General Internal Medicine 10/27/17 Bob Ardon MBBS, PhD 60 [place] [address] [email or web address] Historical LMR Provider 05/05/1707/28/21 John Alvares MD [address] [facility], [address] [place] [address] [email or web address] Historical LMR Provider 05/05/17 07/28/21 Allan Mehta MD [address] [facility] Floor 1 [place] [address] [email or web address] Historical LMR Provider 05/10/17 07/28/21 Pankaj Brown MD [address] [place] [address] [address] [address] Historical LMR Provider 05/10/17 2 Timi White MD [address] [place] [address], [address] [place] [address] Historical LMR Provider 05/10/17 07/28/21 Adwoa Chahal MD [address] [place] [address], [address] [place] [address] Historical LMR Provider 05/10/17 2 Daniella Nunes MD 19 [place] [address] Historical LMR Provider 05/10/17 07/28/21 Adelfo Masters NP [address] [place] [address] 2_[place] [address] [email or web address] Historical LMR Provider 05/10/17 07/28/21 Audra Stacy MD [address] [facility], [address] [place] [address] Historical LMR Provider 05/10/17 Chrissie Fajardo MD [address] [facility], 2nd [place] [address] Historical LMR Provider 05/10/17 Aashish Davis MD [address] [place] [address], [address] [address] Historical LMR Provider 05/10/17 07/28/21 Trevor Larson MD [address] [facility], [address] [place] [address] Historical LMR Provider 05/10/17 2 Moses Knapp MD 22 [facility], [address] [address] Historical LMR Provider 05/10/17 Maria Isabel Dale MD [address] [facility], [address] [place] [address] [email or web address] Historical LMR Provider 05/10/17 Arpit Smith CNP [address] [place] [address], [address] [place] [address] [email or web address] Historical LMR Provider 05/10/17 documented as of this encounter Additional Source Comments The information contained in this document represents components of the legal health record. It is not the complete legal health record.[facility]
--- OUTSIDE RECORDS SUMMARY | 2025-05-02 10:07 | XMS_ITS | Encounter Summary ---
Author Organization [facility] Address [address] [place] [address] Phone Care Team Providers Care Consumer Experience Consultant Name Role Phone Bob Ardon, PhD Unavailable [phone] John Alvares MD Unavailable [phone] Allan Mehta MD Unavailable [phone] Pankaj Brown MD Unavailable Timi White MD Unavailable [phone] Adwoa Chahal MD Unavailable +[phone] Daniella Nunes MD Unavailable [phone] Adelfo Masters NP Unavailable Audra Stacy MD Unavailable [phone] Chrissie Fajardo MD Unavailable [phone] Aashish Davis MD Unavailable Trevor Larson MD Unavailable [phone] Moses Knapp MD Unavailable [phone] Maria Isabel Dale MD Unavailable [phone] Arpit Smith CNP Unavailable [phone] Ryan Stock MD Primary Care Provider Encounter Details Date Type Department Care Team (Late st Contact Info) Description 12/31/2017 Procedure Pass [facility] Endoscopy Admitting Dept Virtual Department 30 [place] [address] Social History Tobacco Use Types Packs/Day Years [...] 9:38 AM EST Sexual Orientation Straight 07/28/2017 9 :38 AM EST 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, [address] [place] [address] [email or web address] Historical LMR Provider 05/05/17 07/28/21 Allan Mehta MD [address] [facility] Floor 1 [place] [address] [email or web address] Historical LMR Provider 05/10/17 07/28/21 Pankaj Brown MD [address] [place] [address] 1st [place] [address] Historical LMR Provider 05/10/17 2 Timi White MD [address] [facility], [address] [place] [address] Historical LMR Provider 05/10/17 07/28/21 Adwoa Chahal MD [address] [facility], [address] [place] [address] Historical LMR Provider 05/10/17 2 Daniella Nunes MD 19 [place] [address] [email or web address] Historical LMR Provider 05/10/17 07/28/21 Adelfo Masters NP [address] [place] [address] 2_[place] [address] [email or web address] Historical LMR Provider 05/10/17 07/28/21 Audra Stacy MD [address] [facility], [address] [place] [address] [email or web address] Historical LMR Provider 05/10/17 Chrissie Fajardo MD [address] [facility], 2nd [place] [address] Historical LMR Provider 05/10/17 Aashish Davis MD [address] [place] [address], [address] [place] [address] Historical LMR Provider 05/10/17 07/28/21 Trevor Larson MD [address] [place] [address], [address] [place] [address] Historical LMR Provider 05/10/17 2 Moses Knapp MD [address] [place] [address], [address] [address] Historical LMR Provider 05/10/17 Maria Isabel Dale MD [address] [place] [address], [address] [address] Historical LMR Provider 05/10/17 Arpit Smith CNP [address] [place] [address], [address] [place] [address] Historical LMR Provider 05/10/17 documented as of this encounter Additional Source Comments The information contained in this document represents components of the legal health record. It is not the complete legal health record.[facility]
--- OUTSIDE RECORDS SUMMARY | 2025-05-02 10:07 | XMS_ITS | Encounter Summary ---
Author Organization [facility] Address [address] [place] [address] Phone Care Team Providers Care Riveter Pneumatic Name Role Phone Bob Ardon, PhD Unavailable John Alvares MD Unavailable [phone] Allan Mehta MD Unavailable [phone] Pankaj Brown MD Unavailable Timi White MD Unavailable [phone] Adwoa Chahal MD Unavailable +[phone] Daniella Nunes MD Unavailable Adelfo Masters NP Unavailable Audra Stacy MD Unavailable [phone] Chrissie Fajardo MD Unavailable [phone] Aashish Davis MD Unavailable Trevor Larson MD Unavailable [phone] Moses Knapp MD Unavailable Maria Isabel Dale MD Unavailable [phone] Arpit Smith CNP Unavailable [phone] Ryan Stock MD Primary Care Provider Encounter Details Date Type Department Care Team (Late st Contact Info) Description 06/03/2018 Ancillary Orders Virtual Department 30 [place] [address] Ryan Stock MD [address] [place] [address] [place] [address] Lower abdominal pain Social History Tobacco Use [...] 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 Not on file documented as of this encounter Plan of Treatment Not on file documented as of this encounter Visit Diagnoses Diagnosis Lower abdominal pain Abdominal pain, other specified site documented in this encounter Care Teams Riveter Pneumatic Relationship Specialty Start Date End Date Ryan Stock MD [address] [place] [address] [place] [address] PCP - General Internal Medicine 10/27/17 Bob Ardon MBBS, PhD [address] [place] [address] [email or web address] Historical LMR Provider 05/05/1707/28/21 John Alvares MD 22 [facility], [address] [place] [address] [email or web address] Historical LMR Provider 05/05/17 07/28/21 Allan Mehta MD 22 [facility] Floor 1 [place] [address] [email or web address] Historical LMR Provider 05/10/17 07/28/21 Pankaj Brown MD 50 [facility] 1st Floor [address] [place] [address] Historical LMR Provider 05/10/17 2 Timi White MD [address] [place] [address], [address] [place] [address] Historical LMR Provider 05/10/17 07/28/21 Adwoa Chahal MD 22 [facility], [address] [place] [address] Historical LMR Provider 05/10/17 2 Daniella Nunes MD [address] [place] [address] [email or web address] Historical LMR Provider 05/10/17 07/28/21 Adelfo Masters NP [address] [place] [address] 2_[place] [address] [email or web address] Historical LMR Provider 05/10/17 07/28/21 Audra Stacy MD 22 [facility], [address] [place] [address] Historical LMR Provider 05/10/17 Chrissie Fajardo MD 15 [facility], 2nd [place] [address] Historical LMR Provider 05/10/17 Aashish Davis MD [address] [place] [address], [address] [address] Historical LMR Provider 05/10/17 07/28/21 Trevor Larson MD [address] [place] [address], [address] [place] [address] Historical LMR Provider 05/10/17 2 Moses Knapp MD [address] [place] [address] Historical LMR Provider 05/10/17 Maria Isabel Dale MD [address] [place] [address] Historical LMR Provider 05/10/17 Arpit Smith CNP [address] [place] [address], [address] [place] [address] Historical LMR Provider 05/10/17 documented as of this encounter Additional Source Comments The information contained in this document represents components of the legal health record. It is not the complete legal health record.[facility]
--- OUTSIDE RECORDS SUMMARY | 2025-05-02 10:07 | XMS_ITS | Encounter Summary ---
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 on file Not on file documented as of this encounter Plan of Treatment Not on file documented as of this encounter Visit Diagnoses Not on filedocumented in this encounter Care Teams Middleware Solutions Architect Relationship Specialty Start Date End Date Ryan Stock MD [address] [place] [address] [place] [address] PCP - General Internal Medicine 10/27/17 Audra Stacy MD [address] [place] [address] Historical LMR Provider 05/10/17 Moses Knapp MD [address] [place] [address] Historical LMR Provider 05/10/17 Maria Isabel Dale MD [address] [place] [address] Historical LMR Provider 05/10/17 documented as of this encounter Additional Source Comments The information contained in this document represents components of the legal health record. It is not the complete legal health record.[facility]
--- OUTSIDE RECORDS SUMMARY | 2025-05-02 10:07 | XMS_ITS | Encounter Summary ---
Author Organization [facility] Address [address] [place] [address] Phone Care Team Providers Care Senior Analyst Developer Name Role Phone Bob Ardon, PhD Unavailable [phone] John Alvares MD Unavailable [phone] Allan Mehta MD Unavailable +[phone] Pankaj Brown MD Unavailable Timi White MD Unavailable +[phone] Adwoa Chahal MD Unavailable +[phone] Daniella Nunes MD Unavailable [phone] Adelfo Masters NP Unavailable [phone] Audra Stacy MD Unavailable +[phone] Chrissie Fajardo MD Unavailable +[phone] Aashish Davis MD Unavailable Trevor Larson MD Unavailable [phone] Moses Knapp MD Unavailable [phone] Maria Isabel Dale MD Unavailable [phone] Arpit Smith CNP Unavailable [phone] Ryan Stock MD Primary Care Provider Reason for Referral * MRI/CAT Scan - Closed Specialty Diagnoses / Procedures Referred By Contac t Referred To Contact Radiology Diagnoses Paraparesis Bilateral numbness and tingling of arms and legs White matter disease Procedures MRI Thoracic Spine Trevor Stapleton MD Phone: tel: fax: [email or web address] Referral ID Status Reason Start Date Expiration Date Visits Re quested Visits Authorized [id number] Closed 03/29/2019 05/28/2019 1 1 Encounter Details Date Type Department Care Team (Latest Contact Info) Description 03/29/2019 Transcribe Orders Virtual Department 30 [place] [address] Trevor Stapleton MD [address] [place] [address], [address] [place], [place] [id number] 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 Not [...] disease documented in this encounter Care Teams Senior Analyst Developer Relationship Specialty Start Date End Date Ryan Stock MD [address] [place] [address] [place] [address] PCP - General Internal Medicine 10/27/17 Bob Ardon MBBS, PhD [address] [place] [address] [email or web address] Historical LMR Provider 05/05/1707/28/21 John Alvares MD [address] [place] [address], [address] [place] [address] Historical LMR Provider 05/05/17 07/28/21 Allan Mehta MD 22 [facility] Floor 1 [place] [address] [email or web address] Historical LMR Provider 05/10/17 07/28/21 Pankaj Brown MD [address] [place] [address] [address] [address] Historical LMR Provider 05/10/17 2 Timi White MD [address] [place] [address], [address] [place] [address] Historical LMR Provider 05/10/17 07/28/21 Adwoa Chahal MD [address] [place] [address], [address] [place] [address] Historical LMR Provider 05/10/17 2 Daniella Nunes MD [address] [place] [address] [email or web address] Historical LMR Provider 05/10/17 07/28/21 Adelfo Masters NP [address] [place] [address] 2_[place] [address] [email or web address] Historical LMR Provider 05/10/17 07/28/21 Audra Stacy MD [address] [place] [address] Historical LMR Provider 05/10/17 Chrissie Fajardo MD [address] [place] [address], 2nd [place] [address] Historical LMR Provider 05/10/17 Aashish Davis MD [address] [place] [address] Historical LMR Provider 05/10/17 07/28/21 Trevor Larson MD [address] [place] [address], [address] [place] [address] Historical LMR Provider 05/10/17 2 Moses Knapp MD [address] [place] [address], [facility] 102 [place] [address] Historical LMR Provider 05/10/17 Maria Isabel [place] MD 22 [facility], [address] [place] [address] Historical LMR Provider 05/10/17 Arpit Smith CNP 22 [facility], [address] [place] [address] Historical LMR Provider 05/10/17 documented as of this encounter Additional Source Comments The information contained in this document represents components of the legal health record. It is not the complete legal health record.[facility]
--- OUTSIDE RECORDS SUMMARY | 2025-05-02 10:07 | XMS_ITS | Encounter Summary ---
Author Organization [facility] Address [address] [place] [address] Phone Care Team Providers Care Anatomic Pathology Manager Name Role Phone Bob Ardon, PhD Unavailable [phone] John Alvares MD Unavailable [phone] Allan Mehta MD Unavailable +[phone] Pankaj Brown MD Unavailable Timi White MD Unavailable +[phone] Adwoa Chahal MD Unavailable +[phone] Daniella Nunes MD Unavailable [phone] Adelfo Masters NP Unavailable [phone] Audra Stacy MD Unavailable [phone] Chrissie Fajardo MD Unavailable +[phone] Aashish Davis MD Unavailable Trevor Larson MD Unavailable [phone] Moses Knapp MD Unavailable [phone] Maria Isabel Dale MD Unavailable [phone] Arpit Smith CNP Unavailable [phone] Ryan Stock MD Primary Care Provider Reason for Referral * MRI/CAT Scan - Closed Specialty Diagnoses / Procedures Referred By Contac t Referred To Contact Radiology Diagnoses Right sided weakness Ataxia Procedures MRI Brain Trevor Stapleton MD Phone: tel: fax: [email or web address] Referral ID Status Reason Start Date Expiration Date Visits Re quested Visits Authorized [id number] Closed 05/19/2018 07/18/2018 1 1 Encounter Details Date Type Department Care Team (Late st Contact Info) Description 05/19/2018 Ancillary Orders Virtual Department 30 [place] [address] Trevor Stapleton MD [address] [place] [address], [address] [place] [address] [email or web address] Right sided weakness; TIA (transient ischemic [...] 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 POS - [id number] Edited by: Katrina Donahue on 06/03/2018 8:04 [...] posterior fossa lesions inparticular seen. POS - [id number] Edited by: Katrina Donahue on 06/03/2018 8:04 PM Trevor Stapleton MD IMG MR HEAD/NECK Final Resul t documented in this encounter Visit Diagnoses Diagnosis Right sided weakness TIA (transient ischemic attack) Unspecified transient cerebral ischemia Ataxia Lack of coordination Right sided weakness Ataxia Lack of coordination Right sided weakness TIA (transient ischemic attack) Unspecified transient cerebral ischemia documented in this encounter Care Teams Anatomic Pathology Manager Relationship Specialty Start Date End Date Ryan Stock MD [address] [place] [address] [place] [address] PCP - General Internal Medicine 10/27/17 Bob Ardon MBBS, PhD 60 [place] [address] [email or web address] Historical LMR Provider 05/05/1707/28/21 John Alvares MD 22 [facility], [address] [place] [address] [email or web address] Historical LMR Provider 05/05/17 07/28/21 Allan Mehta MD 22 [facility] Floor 1 [place] [address] [email or web address] Historical LMR Provider 05/10/17 07/28/21 Pankaj Brown MD [address] [place] [address] 1st [place] [address] Historical LMR Provider 05/10/17 2 Timi White MD [address] [place] [address], [address] [place] [address] Historical LMR Provider 05/10/17 07/28/21 Adwoa Chahal MD [address] [place] [address], [address] [place] [address] Historical LMR Provider 05/10/17 2 Daniella Nunes MD [address] [place] [address] [email or web address] Historical LMR Provider 05/10/17 07/28/21 Adelfo Mastres NP [address] [place] [address] 2_[place] [address] [email or web address] Historical LMR Provider 05/10/17 07/28/21 Audra Stacy MD 22 [facility], [address] [place] [address] Historical LMR Provider 05/10/17 Chrissie Fajardo MD 15 [facility], 2nd [place] [address] Historical LMR Provider 05/10/17 Aashish Davis MD [address] [place] [address] 202 [place] [address] Historical LMR Provider 05/10/17 07/28/21 Trevor Larson MD [address] [place] [address], [address] [place] [address] Historical LMR Provider 05/10/17 2 Moses Knapp MD [address] [place] [address], [address] [place] [address] Historical LMR Provider 05/10/17 Maria Isabel [place] MD [address] [place] [address], [facility] 102 [place] [address] Historical LMR Provider 05/10/17 Arpit Smith CNP [address] [place] [address], [address] [place] [address] Historical LMR Provider 05/10/17 documented as of this encounter Additional Source Comments The information contained in this document represents components of the legal health record. It is not the complete legal health record.[facility]
--- OUTSIDE RECORDS SUMMARY | 2025-05-02 10:07 | XMS_ITS | Encounter Summary ---
Author Organization [facility] Address [address] [place] [address] Phone Care Team Providers Care Armored Car Messenger Name Role Phone Bob Ardon, PhD Unavailable [phone] John Alvares MD Unavailable [phone] Allan Mehta MD Unavailable [phone] Pankaj Brown MD Unavailable Timi White MD Unavailable +[phone] Adwoa Chahal MD Unavailable +[phone] Daniella Nunes MD Unavailable [phone] Adelfo Masters NP Unavailable Audra Stacy MD Unavailable +[phone] Chrissie Fajardo MD Unavailable [phone] Aashish Davis MD Unavailable Trevor Larson MD Unavailable Moses Knapp MD Unavailable Maria Isabel Dale MD Unavailable [phone] Arpit Smith CNP Unavailable [phone] Ryan Stock MD Primary Care Provider Encounter Details Date Type Department Care Team (Latest Contact Info) Description 09/13/2019 Transcribe Orders [facility] Department 30 [place] [address] Trevor Stapleton MD [address] [place] [address], [address] [place] [address] 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 Not on file documented as of this encounter Plan of Treatment Not on file documented as of this encounter Visit Diagnoses Diagnosis New onset headache- Primary Headache White matter disease documented in this encounter Care Teams Armored Car Messenger Relationship Specialty Start Date End Date Ryan Stock MD [address] [place] [address] [place] [address] PCP - General Internal Medicine 10/27/17 Bob Ardon MBBS, PhD [address] [place] [address] [email or web address] Historical LMR Provider 05/05/1707/28/21 John Alvares MD [address] [place] [address], [address] [place] [address] [email or web address] Historical LMR Provider 05/05/17 07/28/21 Allan Mehta MD 22 [facility] Floor 1 [place] [address] [email or web address] Historical LMR Provider 05/10/17 07/28/21 Pankaj Brown MD 50 [facility] 1st Floor [address] [place] [address] Historical LMR Provider 05/10/17 2 Timi White MD 22 [facility], [address] [place] [address] Historical LMR Provider 05/10/17 07/28/21 Adwoa Chahal MD 22 [facility], [address] [place] [address] Historical LMR Provider 05/10/17 2 Daniella Nunes MD [address] [place] [address] [email or web address] Historical LMR Provider 05/10/17 07/28/21 Adelfo Masters NP [address] [place] [address] 2_[place] [address] [email or web address] Historical LMR Provider 05/10/17 07/28/21 Audra Stacy MD 22 [facility], [address] [place] [address] Historical LMR Provider 05/10/17 Chrissie Fajardo MD 15 [facility], 2nd [place] [address] Historical LMR Provider 05/10/17 Aashish Davis MD [address] [place] [address] Historical LMR Provider 05/10/17 07/28/21 Trevor Larson MD [address] [place] [address], [address] [place] [address] Historical LMR Provider 05/10/17 2 Moses Knapp MD [address] [place] [address] Historical LMR Provider 05/10/17 Maria Isabel [place] MD [address] [place] [address] Historical LMR Provider 05/10/17 Arpit Smith CNP [address] [place] [address] Historical LMR Provider 05/10/17 documented as of this encounter Additional Source Comments The information contained in this document represents components of the legal health record. It is not the complete legal health record.[facility]
--- OUTSIDE RECORDS SUMMARY | 2025-05-02 10:07 | XMS_ITS | Encounter Summary ---
Author Organization [facility] Address [address] [place] [address] Phone Care Team Providers Care Food Handler Name Role Phone Bob Ardon, PhD Unavailable [phone] John Alvares MD Unavailable [phone] Allan Mehta MD Unavailable [phone] Pankaj Brown MD Unavailable Timi White MD Unavailable [phone] Adwoa Chahal MD Unavailable +[phone] Daniella Nunes MD Unavailable [phone] Adelfo Masters NP Unavailable [phone] Audra Stacy MD Unavailable +[phone] Chrissie Fajardo MD Unavailable +[phone] Aashish Davis MD Unavailable Trevor Larson MD Unavailable [phone] Moses Knapp MD Unavailable [phone] Maria Isabel Dale MD Unavailable [phone] Arpit Smith CNP Unavailable [phone] Ryan Stock MD Primary Care Provider Encounter Details Date Type Department Care Team (Late st Contact Info) Description 03/11/2019 Procedure Pass [facility], [address] [address] Social History Tobacco Use Types Packs/Day Years [...] 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 on file [...] on filedocumented in this encounter Care Teams Food Handler Relationship Specialty Start Date End Date Ryan Stock MD [address] [place] [address] [place] [address] PCP - General Internal Medicine 10/27/17 Bob Ardon MBBS, PhD [address] [place] [address] [email or web address] Historical LMR Provider 05/05/1707/28/21 John Alvares MD [address] [place] [address], [address] [place] [address] [email or web address] Historical LMR Provider 05/05/17 07/28/21 Allan Mehta MD 22 [facility] Floor 1 [place] [address] [email or web address] Historical LMR Provider 05/10/17 07/28/21 Pankaj Brown MD [address] [place] [address] 1st Floor [address] [place] [address] Historical LMR Provider 05/10/17 2 Timi White MD [address] [place] [address], [address] [place] [address] Historical LMR Provider 05/10/17 07/28/21 Adwoa Chahal MD [address] [place] [address], [address] [place] [address] [email or web address] Historical LMR Provider 05/10/17 2 Daniella Nunes MD [address] [place] [address] [email or web address] Historical LMR Provider 05/10/17 07/28/21 Adelfo Masters NP [address] [place] [address] 2_[place] [address] [email or web address] Historical LMR Provider 05/10/17 07/28/21 Audra Stacy MD [address] [place] [address], [address] [place] [address] [email or web address] Historical LMR Provider 05/10/17 Chrissie Fajardo MD 15 [facility], 2nd [place] [address] Historical LMR Provider 05/10/17 Aashish Davis MD [address] [place] [address], [address] [place] [address] Historical LMR Provider 05/10/17 07/28/21 Trevor Larson MD 22 [facility], [address] [place] [address] Historical LMR Provider 05/10/17 2 Moses Knapp MD 22 [facility] 102 [place] [address] Historical LMR Provider 05/10/17 Maria Isabel [place] MD 22 [facility], [address] [address] Historical LMR Provider 05/10/17 Arpit Smith CNP 22 [facility], [address] [place] [address] Historical LMR Provider 05/10/17 documented as of this encounter Additional Source Comments The information contained in this document represents components of the legal health record. It is not the complete legal health record.[facility]
--- OUTSIDE RECORDS SUMMARY | 2025-05-02 10:07 | XMS_ITS | Encounter Summary ---
Author Organization [facility] Address [address] [place] [address] Phone Care Team Providers Care Rn Medicare Name Role Phone Bob Ardon, PhD Unavailable [phone] John Alvares MD Unavailable [phone] Allan Mehta MD Unavailable [phone] Pankaj Brown MD Unavailable Timi White MD Unavailable +[phone] Adwoa Chahal MD Unavailable +[phone] Daniella Nunes MD Unavailable [phone] Adelfo Masters NP Unavailable Audra Stacy MD Unavailable +[phone] Chrissie Fajardo MD Unavailable +[phone] Aashish Davis MD Unavailable Trevor Larson MD Unavailable [phone] Moses Knapp MD Unavailable Maria Isabel Dale MD Unavailable [phone] Arpit Smith CNP Unavailable [phone] Ryan Stock MD Primary Care Provider Encounter Details Date Type Department Care Team (Late st Contact Info) Description 10/27/2017 Procedure Pass [facility], Ct Scan - [address] [address] Social History Tobacco Use Types Packs/Day Years [...] 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, [address] [place] [address] [email or web address] Historical LMR Provider 05/05/17 07/28/21 Allan Mehta MD [address] [facility] Floor 1 [place] [address] [email or web address] Historical LMR Provider 05/10/17 07/28/21 Pankaj Brown MD [address] [place] [address] 1st Floor -[address] [place] [address] Historical LMR Provider 05/10/17 2 Timi White MD [address] [facility], [address] [place] [address] Historical LMR Provider 05/10/17 07/28/21 Adwoa Chahal MD [address] [facility], [address] [place] [address] Historical LMR Provider 05/10/17 2 Daniella Nunes MD 19 [place] [address] [email or web address] Historical LMR Provider 05/10/17 07/28/21 Adelfo Masters NP [address] [place] [address] 2_[place] [address] [email or web address] Historical LMR Provider 05/10/17 07/28/21 Audra Stacy MD [address] [facility], [address] [place] [address] Historical LMR Provider 05/10/17 Chrissie Fajardo MD [address] [facility], 2nd [place] [address] Historical LMR Provider 05/10/17 Aashish Davis MD [address] [place] [address], [address] [place] [address] Historical LMR Provider 05/10/17 07/28/21 Trevor Larson MD [address] [place] [address], [address] [place] [address] Historical LMR Provider 05/10/17 2 Moses Knapp MD [address] [place] [address], [address] [address] Historical LMR Provider 05/10/17 Maria Isabel [place] MD [address] [place] [address] Historical LMR Provider 05/10/17 Arpit Smith CNP [address] [place] [address], [address] [place] [address] Historical LMR Provider 05/10/17 documented as of this encounter Additional Source Comments The information contained in this document represents components of the legal health record. It is not the complete legal health record.[facility]
--- OUTSIDE RECORDS SUMMARY | 2025-05-02 10:07 | XMS_ITS | Encounter Summary ---
Author Organization [facility] Address [address] [place] [address] Phone Care Team Providers Care Quality Lead Name Role Phone Bob Ardon, PhD Unavailable [phone] John Alvares MD Unavailable [phone] Allan Mehta MD Unavailable [phone] Pankaj Brown MD Unavailable Timi White MD Unavailable [phone] Adwoa Chahal MD Unavailable [phone] Daniella Nunes MD Unavailable [phone] Adelfo Masters NP Unavailable [phone] Audra Stacy MD Unavailable [phone] Chrissie Fajardo MD Unavailable [phone] Aashish Davis MD Unavailable Trevor Larson MD Unavailable [phone] Moses Knapp MD Unavailable [phone] Maria Isabel Dale MD Unavailable [phone] Arpit Smith CNP Unavailable [phone] Ryan Stock MD Primary Care Provider Reason for Referral * Outpatient Procedure - Closed Specialty Diagnoses / Procedures Referred By Contac t Referred To Contact Radiology Diagnoses Abdominal pain, unspecified abdominal location Gastroesophageal reflux disease without esophagitis Procedures NM Gastric Emptying Ryan Stock MD [address] [place] [address] Dr CARRERO Sanjay DupontyoJENNIFER collins [address] Phone: tel: fax: Referral ID Status Reason Start Date Expiration Date Visits Re quested Visits Authorized [id number] Closed 06/03/2018 06/03/2019 1 1 Encounter Details Date Type Department Care Team (Late st Contact Info) Description 06/03/2018 Ancillary Orders Virtual Department 30 [place] [address] Ryan Stock MD [address] [place] [address] Dr CARRERO Sanjay Meza JENNIFER [id number] Abdominal pain, unspecified abdominal location; Gastroesophageal reflux [...] 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 on file Not [...] reflux documented in this encounter Care Teams Quality Lead Relationship Specialty Start Date End Date Ryan Stock MD [address] [place] [address] [place] [address] PCP - General Internal Medicine 10/27/17 Bob Ardon MBBS, PhD [address] [place] [address] [email or web address] Historical LMR Provider 05/05/1707/28/21 John Alvares MD [address] [place] [address], [address] [place] [address] [email or web address] Historical LMR Provider 05/05/17 07/28/21 Allan Mheta MD 22 [facility] Floor 1 [place] [address] [email or web address] Historical LMR Provider 05/10/17 07/28/21 Pankaj Brown MD [address] [place] [address] [address] [address] Historical LMR Provider 05/10/17 2 Timi White MD 22 [facility], [address] [place] [address] Historical LMR Provider 05/10/17 07/28/21 Adwoa Chahal MD [address] [place] [address], [address] [place] [address] Historical LMR Provider 05/10/17 2 Daniella Nunes MD 19 [place] [address] [email or web address] Historical LMR Provider 05/10/17 07/28/21 Adelfo Masters NP [address] [place] [address] 2_Wound Care [place], [place] [id number] [email or web address] Historical LMR Provider 05/10/17 07/28/21 Audra Stacy MD 22 [facility], [address] [address] [email or web address] Historical LMR Provider 05/10/17 Chrissie Fajardo MD [address] [facility], 2nd [place] [address] Historical LMR Provider 05/10/17 Aashish Davis MD [address] [place] [address] Historical LMR Provider 05/10/17 07/28/21 Trevor Larson MD [address] [place] [address], [address] [place] [address] Historical LMR Provider 05/10/17 2 Moses Knapp MD [address] [place] [address], [address] [address] Historical LMR Provider 05/10/17 Maria Isabel Dale MD [address] [address] Historical LMR Provider 05/10/17 Arpit Smith, AMY [address] [facility], [address] [place] [address] [phone] ([email or web address]) [email or web address] Historical LMR Provider 05/10/17 documented as of this encounter Additional Source Comments The information contained in this document represents components of the legal health record. It is not the complete legal health record.[facility]
--- OUTSIDE RECORDS SUMMARY | 2025-05-02 10:07 | XMS_ITS | Encounter Summary ---
Author Organization [facility] Address [address] [place] [address] Phone Care Team Providers Care Lactation Specialist Name Role Phone Bob Ardon, PhD Unavailable [phone] John Alvares MD Unavailable [phone] Allan Mehta MD Unavailable [phone] Pankaj Brown MD Unavailable Timi White MD Unavailable [phone] Adwoa Chahal MD Unavailable [phone] Daniella Nunes MD Unavailable [phone] Adelfo Masters NP Unavailable Audra Satcy MD Unavailable [phone] Chrissie Fajardo MD Unavailable [phone] Aashish Davis MD Unavailable Trevor Larson MD Unavailable [phone] Moses Knapp MD Unavailable [phone] Maria Isabel Dale MD Unavailable [phone] Arpit Smtih CNP Unavailable [phone] Ryan Stock MD Primary Care Provider Encounter Details Date Type Department Care Team (Late st Contact Info) Description 03/29/2019 Procedure Pass 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 on file Not on file documented as of this encounter Plan of Treatment Not on file documented as of this encounter Visit Diagnoses Not on filedocumented in this encounter Care Teams Lactation Specialist Relationship Specialty Start Date End Date Ryan Stock MD [address] [place] [address] [place] [address] PCP - General Internal Medicine 10/27/17 Bob Ardon MBBS, PhD [address] [place] [address] [email or web address] Historical LMR Provider 05/05/1707/28/21 John Alvares MD 22 [facility], [address] [place] [address] [email or web address] Historical LMR Provider 05/05/17 07/28/21 Allan Mehta MD 22 [facility] Floor 1 [place] [address] [email or web address] Historical LMR Provider 05/10/17 07/28/21 Pankaj Brown MD [address] [place] [address] 1st Floor -[address] [place] [address] Historical LMR Provider 05/10/17 2 Timi White MD 22 [facility], [address] [place] [address] Historical LMR Provider 05/10/17 07/28/21 Adwoa Chahal MD 22 [facility], [address] [place] [address] Historical LMR Provider 05/10/17 2 Daniella Nunes MD 19 [place] [address] [email or web address] Historical LMR Provider 05/10/17 07/28/21 Adelfo Masters NP [address] [place] [address] 2_[place] [address] [email or web address] Historical LMR Provider 05/10/17 07/28/21 Audra Stacy MD 22 [facility], [address] [place] [address] Historical LMR Provider 05/10/17 Chrissie Fajardo MD 15 [facility], 2nd [place] [address] Historical LMR Provider 05/10/17 Aashish Davis MD [address] [place] [address], [address] [place] [address] Historical LMR Provider 05/10/17 07/28/21 Trevor Larson MD [address] [place] [address], [address] [place] [address] Historical LMR Provider 05/10/17 2 Moses Knapp MD [address] [place] [address], [address] [address] Historical LMR Provider 05/10/17 Maria Isabel Dale MD [address] [place] [address], [address] [address] Historical LMR Provider 05/10/17 Arpit Smith CNP [address] [place] [address], [address] [place] [address] Historical LMR Provider 05/10/17 documented as of this encounter Additional Source Comments The information contained in this document represents components of the legal health record. It is not the complete legal health record.[facility]
== END 2025-04-06 00:01 | disposition home or self-care (01) ==
LOC: CF
PROVIDERS: Visit Provider Dietitian, Registered
DX: E66.812 Obesity, class 2 (principal)
CPT/HCPCS: 97802

== ENCOUNTER 2025-04-06 13:25 | Outpatient (AMB) | payer OTHER, SELFPAY ==
[2025-04-06 13:46] VITALS: BMI 35.0
--- NOTE | 2025-04-06 13:46 | MHC.AMNUTRGE ---
VS Expanded 04/06/25 13:46 04/06/25 14:03 Height 5 ft 6 in 5 ft 6 in Weight 216 lb 11.43 oz 217 lb BMI 35.0 35.0 Intake Visit Reasons: Obesity, class 2 Allergies doxycycline Allergy (Verified 02/02/25 15:25) Nausea fluoxetine (From Prozac) Allergy (Verified 02/02/25 15:25) Itching paroxetine (From Paxil) Allergy (Verified 02/02/25 15:25) Itching Nutrition Presentation Details: Pt presents for MNT for obesity Pt reports working from home having a bit more flexibility in terms of home physical activity reports often choosing fast foods/easy to prepare meals at home or ordering out physical activity:sedentary typical meal protein shake 2 x/d and fruit dinner meal fast food ' snack toast/butter or cereal or frozen meal KUJ-Pwfipol-Cv.Jeor Equation Height: 5 ft 6 in Weight: 217 lb Resting Metabolic Rate: 1604.38 Calculated Activity Level: Sedentary Calories Needed to Maintain Weight: 1925.26 Diagnosis Nutrition problem #1: excessive energy intake As related to (etiology) #1: diagnosis As evidenced by (sign/symptom) #1: knowledge deficit of [facility] History Class 2 obesity Hypothyroidism ADHD Major depression in partial remission Family History Mother No problems noted. Father No problems noted. Social History Housing: Condominium Patient Tobacco Use Status: Never used Tobacco e-Cigarette/Vaping Use: Never Used service: No Current occupational status: employed Cognitive needs: No Hearing needs: No Vision needs: Yes (rx glasses) Assessment & Plan Assessment & Plan (1) Class 2 obesity: Code(s): E66.812 - Obesity, class 2 Category: Medical Plan: current wt: 99 kg ( 04/14 ) est kcal needs as per MSJ: 1900 est protein needs as per 1 g/kg BW: 100 est fluid needs as per 30 ml/kg BW: 3000 2300 mg or less Na/day Recommended fiber > 12 g /day and gradually increase up to 25-28 g /day or as tolerated Nutrition topics discussed : Reviewed (R), Pt verbalized understanding (V) , not applicable (N/A) R, V, : Healthy Plate Method Concept: R, : Carbohydrates: food sources of carbohydrates, relationship of carbohydrates to blood glucose, fatty liver GI health. Recommended total amount of carbohydrates per meals and snack. Differences between simple carbohydrates and complex carbohydrates R, : Lean protein foods including vegan , vegetarian sources of protein. Benefits of protein (including but not limited to healing, nutritional value , benefits in weight loss, glucose control R, V, N/A: Fats : Source of fats, benefits of fats. Difference between saturated and unsaturated fats. Saturated fats and its contribution to inflammation R, V, N/A: Fiber: food sources and role of fiber in the diet (including but not limited to its role as a prebiotic, benefits in constipation, role in IBS , role in glucose control and cholesterol level) R, A: Hydration: role of hydration and prevention of dehydration or over hydration. Foods and water content. R, V, N/A: Vitamins and Minerals in foods and supplements R, V, N/A: Interpreting food labels, including serving size, macronutrients, vitamins, minerals, allergens, ingredient list , % daily value Patient Instructions: HAve a green salad with 4 oz of chicken and 1/4 cup of beans as your dinner 3 x/wk Coding Level of Care Code Nutr Indiv Intake (10633) Diagnoses Class 2 obesity E66.812 Time Spent (min) 30
--- OUTSIDE RECORDS SUMMARY | 2025-04-06 17:17 | XMS_ITS | Encounter Summary ---
Author Organization [facility] Address [address] [place] [address] Phone Care Team Providers Care Client Specialist Name Role Phone oBb Ardon, PhD Unavailable [phone] John Alvares MD Unavailable Allan Mehta MD Unavailable [phone] Pankaj Brown MD Unavailable [phone] Timi White MD Unavailable [phone] Adwoa Chahal MD Unavailable +[phone] Daniella Nunes MD Unavailable [phone] Adelfo Masters NP Unavailable [phone] Audra Stacy MD Unavailable [phone] Chrissie Fajardo MD Unavailable [phone] Aashish Davis MD Unavailable Trevor Larson MD Unavailable [phone] Moses Knapp MD Unavailable [phone] Maria Isabel Dale MD Unavailable [phone] Arpit Smith CNP Unavailable [phone] Ryan Stock MD Primary Care Provider Reason for Referral * MRI/CAT Scan - Closed Specialty Diagnoses / Procedures Referred By Contac t Referred To Contact Radiology Diagnoses Paraparesis Bilateral numbness and tingling of arms and legs White matter disease Procedures MRI Thoracic Spine Trevor Stapleton MD Phone: tel: fax: [email or web address] Referral ID Status Reason Start Date Expiration Date Visits Re quested Visits Authorized [id number] Closed 03/29/2019 05/28/2019 1 1 Encounter Details Date Type Department Care Team (Latest Contact Info) Description 03/29/2019 Transcribe Orders Virtual Department 30 [place] [address] Trevor Stapleton MD [address] [place] [address], [address] [place], [place] [id number] 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 POS - [facility]-RW Narrative 04/08/2019 8:50 AM EDT HISTORY: Numbness in arms and legs TECHNIQUE: Exam performed on a 1.5 Martha high-field MRI scanner. Sagittal T1, T2 and STIR sequences of the thoracic spine were obtained. Axial T2 and T1 images obtained. COMPARISON: None. FINDINGS: There is a shallow protrusion at C7-T1. This does not contact the cord and does not cause spinal canal stenosis. There is no neural foraminal stenosis. There is mild, diffuse disc space narrowing and degenerative endplate change. There is a small left central disc extrusion at T8-9. This indents the ventral margin of the thecal sac but does not efface the CSF around the cord. There is no cord contact in the position of examination. There is no neural foraminal stenosis. Bone marrow signal and alignment are within normal limits. Procedure Note Gabino Bassett MD - 04/08/2019 HISTORY: Numbness in arms and legs TECHNIQUE: Exam performed on a 1.5 Martha high-field MRI scanner. SagittalT1, T2 and STIR sequences of the thoracic spine were obtained. Axial T2and T1 images obtained. COMPARISON: None. FINDINGS: There is a shallow protrusion at C7-T1. This does not contact the cord anddoes not cause spinal canal stenosis. There is no neural foraminalstenosis. There is mild, diffuse disc space narrowing and degenerative endplatechange. There is a small left central disc extrusion at T8-9. This indents theventral margin of the thecal sac but does not efface the CSF around thecord. There is no cord contact in the position of examination. There is noneural foraminal stenosis. Bone marrow signal and alignment are within normal limits. IMPRESSION: Mild degenerative disc disease at C7-T1 and T8-T9 with no consequence tothe spinal cord or neural foramina. POS - [facility]-RW Trevor Stapleton MD IMG MR XSPECIALTY Final Resu lt documented in this encounter Visit Diagnoses Diagnosis Paraparesis- Primary Unspecified paralysis Bilateral numbness and tingling of arms and legs White matter disease Paraparesis Unspecified paralysis Bilateral numbness and tingling of arms and legs White matter disease documented in this encounter Care Teams Client Specialist Relationship Specialty Start Date End Date Ryan Stock MD [address] [place] [address] [place] [address] PCP - General Internal Medicine 10/27/17 Bob Ardon MBBS, PhD [address] [place] [address] [facility] Department of [facility] [address] [place] [address] [email or web address] Historical LMR Provider 05/05/17 07/28/21 John Alvares MD [address] [place] [address], [address] [place] [address] [email or web address] Historical LMR Provider 05/05/17 07/28/21 Allan Mehta MD [address] [facility] Floor 1 [place] [address] [email or web address] Historical LMR Provider 05/10/17 07/28/21 Pankaj Brown MD [address] [place] [address] 1st Floor -[address] [place] [address] Historical LMR Provider 05/10/17 07/28/21 Timi White MD [address] [place] [address], [address] [place] [address] [email or web address] Historical LMR Provider 05/10/17 07/28/21 Adwoa Chahal MD [address] [place] [address], [address] [place] [address] Historical LMR Provider 05/10/17 07/28/21 Daniella Nunes MD [address] [place] [address] [email or web address] Historical LMR Provider 05/10/17 07/28/21 Adelfo Masters NP [address] [place] [address] 2_[place] [address] [email or web address] Historical LMR Provider 05/10/17 07/28/21 Audra Stacy MD [address] [place] [address], [address] [address] [email or web address] Historical LMR Provider 05/10/17 Chrissie Fajardo MD [address] [place] [address], 2nd [place] [address] Historical LMR Provider 05/10/17 07/28/21 Aashish Davis MD [address] [place] [address], [facility] [address] [place] [address] Historical LMR Provider 05/10/17 07/28/21 Trevor Larson MD [address] [place] [address], [address] [place] [address] Historical LMR Provider 05/10/17 07/28/21 Moses Knapp MD [address] [place] [address], [address] [place] [address] [email or web address] Historical LMR Provider 05/10/17 Maria Isabel Dale MD [address] [facility], [address] [place] [address] [email or web address] Historical LMR Provider 05/10/17 Arpit Smith CNP [address] [facility], [address] [place] [address] [email or web address] Historical LMR Provider 05/10/17 07/28/21 documented as of this encounter Additional Source Comments The information contained in this document represents components of the legal health record. It is not the complete legal health record.[facility]
--- OUTSIDE RECORDS SUMMARY | 2025-04-06 17:17 | XMS_ITS | Encounter Summary ---
Author Organization [facility] Address [address] [place] [address] Phone Care Team Providers Care Postal Support Employee Name Role Phone Bob Ardon, PhD Unavailable John Alvares MD Unavailable [phone] Allan Mehta MD Unavailable [phone] Pankaj Brown MD Unavailable Timi White MD Unavailable [phone] Adwoa Chahal MD Unavailable [phone] Daniella Nunes MD Unavailable [phone] Adelfo Masters NP Unavailable [phone] Audra Stacy MD Unavailable [phone] Chrissie Fajardo MD Unavailable [phone] Aashish Davis MD Unavailable Trevor Larson MD Unavailable [phone] Moses Knapp MD Unavailable Maria Isabel Dale MD Unavailable [phone] Arpit Smith CNP Unavailable [phone] Ryan Stock MD Primary Care Provider Encounter Details Date Type Department Care Team (Late st Contact Info) Description 12/31/2017 Procedure Pass [facility] Endoscopy Admitting Dept Virtual Department 30 [place] [address] Social History Tobacco Use Types Packs/Day Years [...] 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 Not on file Not on file documented as of this encounter Plan of Treatment Not on file documented as of this encounter Visit Diagnoses Not on filedocumented in this encounter Care Teams Postal Support Employee Relationship Specialty Start Date End Date Ryan Stock MD [address] [place] [address] [place] [address] PCP - General Internal Medicine 10/27/17 Bob Ardon MBBS, PhD [address] [place] [address] [facility] Neurophysiology [facility] of [facility] [address] [place] [address] [email or web address] Historical LMR Provider 05/05/17 07/28/21 John Alvares MD [address] [facility], [address] [place] [address] [email or web address] Historical LMR Provider 05/05/17 07/28/21 Allan Mehta MD [address] [facility] Floor 1 [place] [address] [email or web address] Historical LMR Provider 05/10/17 07/28/21 Pankaj Brown MD [address] [place] [address] 1st [place] [address] Historical LMR Provider 05/10/17 07/28/21 Timi White MD [address] [place] [address], [address] [place] [address] Historical LMR Provider 05/10/17 07/28/21 Adwoa Chahal MD [address] [place] [address], [address] [place] [address] Historical LMR Provider 05/10/17 07/28/21 Daniella Nunes MD [address] [place] [address] [email or web address] Historical LMR Provider 05/10/17 07/28/21 Adelfo Masters NP [address] [place] [address] 2_[place] [address] [email or web address] Historical LMR Provider 05/10/17 07/28/21 Audra Stacy MD [address] [place] [address], [address] [place] [address] [email or web address] Historical LMR Provider 05/10/17 Chrissie Fajardo MD [address] [place] [address], 2nd [place] [address] [email or web address] Historical LMR Provider 05/10/17 07/28/21 Aashish Davis MD [address] [place] [address] 202 [place] [address] Historical LMR Provider 05/10/17 07/28/21 Trevor Larson MD [address] [place] [address], [address] [place] [address] Historical LMR Provider 05/10/17 07/28/21 Moses Knapp MD [address] [place] [address], [address] [place] [address] Historical LMR Provider 05/10/17 Maria Isabel Dale MD [address] [place] [address], [facility] [address] [place] [address] Historical LMR Provider 05/10/17 Arpit Smith CNP [address] [place] [address], [address] [place] [address] Historical LMR Provider 05/10/17 07/28/21 documented as of this encounter Additional Source Comments The information contained in this document represents components of the legal health record. It is not the complete legal health record.[facility]
--- OUTSIDE RECORDS SUMMARY | 2025-04-06 17:17 | XMS_ITS | Encounter Summary ---
Author Organization [facility] Address [address] [place] [address] Phone Care Team Providers Care Manager Treasury Name Role Phone Bob Ardon, PhD Unavailable [phone] John Alvares MD Unavailable [phone] Allan Mehta MD Unavailable [phone] Allan Mehta MD Primary Care Provide r Pankaj Brown MD Unavailable Timi White MD Unavailable [phone] Adwoa Chahal MD Unavailable [phone] Daniella Nunes MD Unavailable [phone] Adelfo Masters NP Unavailable [phone] Audra Stacy MD Unavailable [phone] Chrissie Fajardo MD Unavailable [phone] Aashish Davis MD Unavailable Trevor Larson MD Unavailable [phone] Moses Knapp MD Unavailable [phone] Maria Isabel Dale MD Unavailable [phone] Arpit Smith CNP Unavailable [phone] Ryan Stock MD Primary Care Provider Encounter Details Date Type Department Care Team (Late st Contact Info) Description 08/02/2017 EpicOnHand Encounter [facility] Gynecology Virtual Department 30 [place] [address] Mart Goldman MD [address] [facility], [address] [place] [address] [email or web address] Social History Tobacco Use Types Packs/Day Years [...] 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 of [facility] [address] [place] [address] [email or web address] Historical LMR Provider 05/05/17 07/28/21 John Alvares MD [address] [facility], [address] [place] [address] [email or web address] Historical LMR Provider 05/05/17 07/28/21 Allan Mehta MD [address] [facility] Floor 1 [place] [address] [email or web address] Historical LMR Provider 05/10/17 07/28/21 Pankaj Brown MD [address] [place] [address] 1st Floor [address] [place] [address] Historical LMR Provider 05/10/17 07/28/21 Timi White MD [address] [facility], [address] [place] [address] [email or web address] Historical LMR Provider 05/10/17 07/28/21 Adwoa Chahal MD [address] [facility], [address] [place] [address] [email or web address] Historical LMR Provider 05/10/17 07/28/21 Daniella Nunes MD [address] [place] [address] [email or web address] Historical LMR Provider 05/10/17 07/28/21 Adelfo Masters NP [address] [place] [address] 2_[place] [address] [email or web address] Historical LMR Provider 05/10/17 07/28/21 Audra Stacy MD [address] [place] [address], [address] [place] [address] Historical LMR Provider 05/10/17 Chrissie Fajardo MD [address] [facility], 2nd [place] [address] Historical LMR Provider 05/10/17 07/28/21 Aashish Davis MD [address] [place] [address], [address] [address] Historical LMR Provider 05/10/17 07/28/21 Trevor Larson MD [address] [facility], [address] [place] [address] Historical LMR Provider 05/10/17 07/28/21 Moses Knapp MD [address] [address] Historical LMR Provider 05/10/17 Maria Isabel Dale MD [address] [facility], [address] [address] Historical LMR Provider 05/10/17 Arpit Smith CNP [address] [facility], [address] [place] [address] Historical LMR Provider 05/10/17 07/28/21 documented as of this encounter Additional Source Comments The information contained in this document represents components of the legal health record. It is not the complete legal health record.[facility]
--- OUTSIDE RECORDS SUMMARY | 2025-04-06 17:17 | XMS_ITS | Encounter Summary ---
Author Organization [facility] Address [address] [place] [address] Phone Care Team Providers Care Body Piercer Name Role Phone Bob Ardon, PhD Unavailable John Alvares MD Unavailable Allan Mehta MD Unavailable [phone] Pankaj Brown MD Unavailable Timi White MD Unavailable [phone] Adwoa Chahal MD Unavailable [phone] Daniella Nunes MD Unavailable [phone] Adelfo Masters NP Unavailable Audra Stacy MD Unavailable [phone] Chrissie Fajardo MD Unavailable [phone] Aashish Davis MD Unavailable Trevor Larson MD Unavailable [phone] Moses Knapp MD Unavailable Maria Isabel Dale MD Unavailable Arpit Smith CNP Unavailable Ryan Stock MD Primary Care Provider Encounter Details Date Type Department Care Team (Latest Contact Info) Description 09/13/2019 Transcribe Orders [facility] Department 30 [place] [address] Trevor Stapleton MD [address] [place] [address], [address] [place] [address] 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 on file Not on file documented as of this encounter Plan of Treatment Not on file documented as of this encounter Visit Diagnoses Diagnosis New onset headache- Primary Headache White matter disease documented in this encounter Care Teams Body Piercer Relationship Specialty Start Date End Date Ryan Stock MD [address] [place] [address] [place] [address] PCP - General Internal Medicine 10/27/17 Bob Ardon MBBS, PhD [address] [place] [address] [facility] Department of [facility] [address] [place] [address] [email or web address] Historical LMR Provider 05/05/17 07/28/21 oJhn Alvares MD [address] [facility], [address] [place] [address] [email or web address] Historical LMR Provider 05/05/17 07/28/21 Allan Mehta MD [address] [facility] Floor 1 [place] [address] [email or web address] Historical LMR Provider 05/10/17 07/28/21 Pankaj Brown MD [address] [place] [address] 1[address] [place] [address] Historical LMR Provider 05/10/17 07/28/21 Timi White MD [address] [place] [address], [address] [place] [address] [email or web address] Historical LMR Provider 05/10/17 07/28/21 Adwoa Chahal MD [address] [place] [address], [address] [place] [address] [email or web address] Historical LMR Provider 05/10/17 07/28/21 Daniella Nunes MD [address] [place] [address] [email or web address] Historical LMR Provider 05/10/17 07/28/21 Adelfo Masters NP [address] [place] [address] 2_[place] [address] [email or web address] Historical LMR Provider 05/10/17 07/28/21 Audra Stacy MD [address] [place] [address], [address] [place] [address] [email or web address] Historical LMR Provider 05/10/17 Chrissie Fajardo MD [address] [facility], 2nd [place] [address] Historical LMR Provider 05/10/17 07/28/21 Aashish Davis MD [address] [place] [address], [address] [place] [address] Historical LMR Provider 05/10/17 07/28/21 Trevor Larson MD [address] [place] [address], [address] [place] [address] Historical LMR Provider 05/10/17 07/28/21 Moses Knapp MD [address] [place] [address] Historical LMR Provider 05/10/17 Maria Isabel Dale MD [address] [place] [address] Historical LMR Provider 05/10/17 Arpit Smith CNP [address] [place] [address], [address] [place] [address] Historical LMR Provider 05/10/17 07/28/21 documented as of this encounter Additional Source Comments The information contained in this document represents components of the legal health record. It is not the complete legal health record.[facility]
--- OUTSIDE RECORDS SUMMARY | 2025-04-06 17:17 | XMS_ITS | Encounter Summary ---
Author Organization [facility] Address [address] [place] [address] Phone Care Team Providers Care Atmospheric Technician Name Role Phone Bob Ardon, PhD Unavailable John Alvares MD Unavailable [phone] Allan Mehta MD Unavailable [phone] Pankaj Brown MD Unavailable Timi White MD Unavailable [phone] Adwoa Chahal MD Unavailable [phone] Daniella Nunes MD Unavailable [phone] Adelfo Masters NP Unavailable Audra Stacy MD Unavailable [phone] Chrissie Fajardo MD Unavailable [phone] Aashish Davis MD Unavailable rTevor Larson MD Unavailable [phone] Moses Knapp MD Unavailable Maria Isabel Dale MD Unavailable Arpit Smith CNP Unavailable Ryan Stock MD Primary Care Provider Encounter Details Date Type Department Care Team (Late st Contact Info) Description 04/23/2018 Ancillary Orders [facility] Department [address] [place] [address] Meera Rae PA-C 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 Neurophysiology Unit [facility] of [facility] [address] [place] [address] [email or web address] Historical LMR Provider 05/05/17 07/28/21 John Alvares MD [address] [facility], [address] [place] [address] [email or web address] Historical LMR Provider 05/05/17 07/28/21 Allan Mehta MD [address] [facility] Floor 1 [place] [address] [email or web address] Historical LMR Provider 05/10/17 07/28/21 Pankaj Brown MD 50 [facility] 1st Floor [address] [place] [address] Historical LMR Provider 05/10/17 07/28/21 Timi White MD [address] [facility], [address] [place] [address] Historical LMR Provider 05/10/17 07/28/21 Adwoa Chahal MD [address] [facility], [address] [place] [address] Historical LMR Provider 05/10/17 07/28/21 Daniella Nunes MD [address] [place] [address] Historical LMR Provider 05/10/17 07/28/21 Adelfo Masters NP [address] [place] [address] 2_[place] [address] [email or web address] Historical LMR Provider 05/10/17 07/28/21 Audra Stacy MD [address] [facility], [address] [place] [address] [email or web address] Historical LMR Provider 05/10/17 Chrissie Fajardo MD [address] [facility], 2nd [place] [address] Historical LMR Provider 05/10/17 07/28/21 Aashish Davis MD [address] [place] [address] Historical LMR Provider 05/10/17 07/28/21 Trevor Larson MD [address] [place] [address], [address] [place] [address] Historical LMR Provider 05/10/17 07/28/21 Moses Knapp MD [address] [place] [address] Historical LMR Provider 05/10/17 Maria Isabel Dale MD [address] [place] [address] Historical LMR Provider 05/10/17 Arpit Smith CNP [address] [place] [address], [address] [place] [address] Historical LMR Provider 05/10/17 07/28/21 documented as of this encounter Additional Source Comments The information contained in this document represents components of the legal health record. It is not the complete legal health record.[facility]
--- OUTSIDE RECORDS SUMMARY | 2025-04-06 17:17 | XMS_ITS | Encounter Summary ---
Author Organization [facility] Address [address] [place] [address] Phone Care Team Providers Care Chalk Extruding Machine Operator Name Role Phone Bob Ardon, PhD Unavailable John Alvares MD Unavailable [phone] Allan Mehta MD Unavailable [phone] Pankaj Brown MD Unavailable [phone] Timi White MD Unavailable [phone] Adwoa Chahal MD Unavailable [phone] Daniella Nunes MD Unavailable [phone] Adelfo Masters NP Unavailable Audra Stacy MD Unavailable [phone] Chrissie Fajardo MD Unavailable [phone] Aashish Davis MD Unavailable Trevor Larson MD Unavailable [phone] Moses Knapp MD Unavailable Maria Isabel Dale MD Unavailable [phone] Arpit Smith CNP Unavailable Ryan Stock MD Primary Care Provider Encounter Details Date Type Department Care Team (Late st Contact Info) Description 03/11/2019 Procedure Pass [facility], [address] [address] Social History Tobacco Use Types Packs/Day Years [...] 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 on file Not on file documented as of this encounter Last Filed Vital Signs Vital Sign Reading Time Taken Comments Blood Pressure - - Pulse - - Temperature - - Respiratory Rate - - Oxygen Saturation - - Inhaled Oxygen Concentration - - Weight 79.4 kg (175 lb) 03/14/2019 1:32 PM EDT Height 170.2 cm (5' 7 ) 03/14/2019 1:32 PM EDT Body Mass Index 27.41 03/14/2019 1:32 PM EDT documented in this encounter Plan of Treatment Not on file documented as of this encounter Visit Diagnoses Not on filedocumented in this encounter Care Teams Chalk Extruding Machine Operator Relationship Specialty Start Date End Date Ryan Stock MD [address] [place] [address] [place] [address] PCP - General Internal Medicine 10/27/17 Bob Ardon MBBS, PhD [address] [place] [address] Intraopera Neurophysiology Unit [facility] [address] [address] [email or web address] Historical LMR Provider 05/05/17 07/28/21 John Alvares MD [address] [place] [address], [address] [place] [address] [email or web address] Historical LMR Provider 05/05/17 07/28/21 Allan Mehta MD 22 [facility] Floor 1 [place] [address] [email or web address] Historical LMR Provider 05/10/17 07/28/21 Pankaj Brown MD [address] [place] [address] 1st Floor [address] [place] [address] Historical LMR Provider 05/10/17 07/28/21 Timi White MD [address] [place] [address], [address] [place] [address] [email or web address] Historical LMR Provider 05/10/17 07/28/21 Adwoa Chahal MD [address] [place] [address], [address] [place] [address] [email or web address] Historical LMR Provider 05/10/17 07/28/21 Daniella Nunes MD [address] [place] [address] [email or web address] Historical LMR Provider 05/10/17 07/28/21 Adelfo Masters NP [address] [place] [address] 2_[place] [address] [email or web address] Historical LMR Provider 05/10/17 07/28/21 Audra Stacy MD [address] [place] [address], [address] [place] [address] [email or web address] Historical LMR Provider 05/10/17 Chrissie Fajardo MD 15 [facility], 2nd [place] [address] Historical LMR Provider 05/10/17 07/28/21 Aashish Davis MD [address] [place] [address] Historical LMR Provider 05/10/17 07/28/21 Trevor Larson MD 22 [facility], [address] [address] Historical LMR Provider 05/10/17 07/28/21 Moses Knapp MD [address] [address] Historical LMR Provider 05/10/17 Maria Isabel Dale MD [address] [address] Historical LMR Provider 05/10/17 Arpit Smith CNP 22 [facility], [address] [place] [address] Historical LMR Provider 05/10/17 07/28/21 documented as of this encounter Additional Source Comments The information contained in this document represents components of the legal health record. It is not the complete legal health record.[facility]
--- OUTSIDE RECORDS SUMMARY | 2025-04-06 17:17 | XMS_ITS | Encounter Summary ---
Author Organization [facility] Address [address] [place] [address] Phone Care Team Providers Care Poultry Farmer Egg Name Role Phone Audra Stacy MD Unavailable [phone] Moses Knapp MD Unavailable [phone] Maria Isabel Dale MD Unavailable [phone] Ryan Stock MD Primary Care Provider Encounter Details Date Type Department Care Team (Late st Contact Info) Description 05/05/2024 Procedure Pass [facility] Admitting Dept Virtual Department 30 [place] [address] Social History Tobacco Use Types Packs/Day Years Used Date Smoking Tobacco: Never Smokeless Tobacco: Never Alcohol Use Standard Drinks/Week Comments No 0 (1 standard drink = 0.6 oz pur e alcohol) Education Answer Date Recorded Are you interested in more education? Not on brady e 11/15/2022 Are you concerned about learning? Not on file 11/15/2022 No 11/15/2022 No 11/15/2022 Digital Access Answer Date Recorded No 12/16/2022 No 12/16/2022 Reliable internet access at home? Not on file 12/16/2022 Device with a working camera? Not on file Intimate Partner Violence Answer Date R ecorded Are you denied basic needs s uch as food, clothing, or medical care? No 05/04/2024 In the past 12 months have y ou been in a relationship with a person who hurts, threatens, or tries to control you? No 05/04/2024 Are you denied basic needs s uch as food, clothing, or medical care? No 05/04/2024 In the past 12 months have y ou been in a relationship with a person who hurts, threatens, or tries to control you? 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 on file Not on file documented as of this encounter Plan of Treatment Not on file documented as of this encounter Visit Diagnoses Not on filedocumented in this encounter Care Teams Poultry Farmer Egg Relationship Specialty Start Date End Date Ryan Stock MD [address] [place] [address] [place] [address] PCP - General Internal Medicine 10/27/17 Audra Stacy MD [address] [place] [address] [email or web address] Historical LMR Provider 05/10/17 Moses Knapp MD [address] [place] [address] Historical LMR Provider 05/10/17 Maria Isabel Dale MD [address] [place] [address] Historical LMR Provider 05/10/17 documented as of this encounter Additional Source Comments The information contained in this document represents components of the legal health record. It is not the complete legal health record.[facility]
--- OUTSIDE RECORDS SUMMARY | 2025-04-06 17:17 | XMS_ITS | Encounter Summary ---
Author Organization [facility] Address [address] [place] [address] Phone Care Team Providers Care Masking Machine Operator Name Role Phone Bob Ardon, PhD Unavailable [phone] John Alvares MD Unavailable [phone] Allan Mehta MD Unavailable [phone] Pankaj Brown MD Unavailable Timi White MD Unavailable [phone] Adwoa Chahal MD Unavailable [phone] Daniella Nunes MD Unavailable [phone] Adelfo Masters NP Unavailable Audra Stacy MD Unavailable [phone] Chrissie Fajardo MD Unavailable [phone] Aashish Davis MD Unavailable Trevor Larson MD Unavailable [phone] Moses Knapp MD Unavailable [phone] Maria Isabel Dale MD Unavailable [phone] Arpit Smith CNP Unavailable [phone] Ryan Stock MD Primary Care Provider Reason for Referral * Outpatient Procedure - Closed Specialty Diagnoses / Procedures Referred By Contac t Referred To Contact Radiology Diagnoses Abdominal pain, unspecified abdominal location Gastroesophageal reflux disease without esophagitis Procedures NM Gastric Emptying Ryan Stock MD [address] [place] [address] [place] [address] Phone: tel: fax: Referral ID Status Reason Start Date Expiration Date Visits Re quested Visits Authorized [id number] Closed 06/03/2018 06/03/2019 1 1 Encounter Details Date Type Department Care Team (Late st Contact Info) Description 06/03/2018 Ancillary Orders Virtual Department 30 [place] [address] Ryan Stock MD [address] [place] [address] [place] [address] Abdominal pain, unspecified abdominal location; Gastroesophageal reflux disease without esophagitis Social History Tobacco Use Types Packs/Day Years [...] 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 Relatively rapid emptying between one and two hours could be correlated with any clinical findings of gastric dumping syndrome. POS - [id number] Narrative 07/01/2018 2:52 PM EST COMPARISON: 10/27/2017 CT FINDINGS: The patient is given an oral dose of 1.0 of Tc99m labeled sulfur colloid in a standard egg meal and evaluation of gastric emptying over four hours is obtained. At one hour there is 85.1% residual activity in the stomach which is within the normal range. At two hours there is 13.6% residual activity in the stomach which is significantly below the normal range. At four hours there is 1.7% residual activity in the stomach which is within the normal range. No obvious gastroesophageal reflux is seen. NORMAL RANGE One hour 37-90% Two hours 30-60% Four hours 0-10% Procedure Note Lucero Tejada MD - 07/01/2018 COMPARISON: 10/27/2017 CT FINDINGS: The patient is given an oral dose of 1.0 of Tc99m labeled sulfur colloidin a standard egg meal and evaluation of gastric emptying over four hoursis obtained. At one hour there is 85.1% residual activity in the stomach which iswithin the normal range. At two hours there is 13.6% residual activity in the stomach which issignificantly below the normal range. At four hours there is 1.7% residual activity in the stomach which iswithin the normal range. No obvious gastroesophageal reflux is seen. NORMAL RANGE One hour 37-90% Two hours 30-60% Four hours 0-10% IMPRESSION: No evidence of delay in gastric emptying. Relatively rapid emptyingbetween one and two hours could be correlated with any clinical findingsof gastric dumping syndrome. POS - [id number] Ryan Stock MD IMG NM ABDOMEN Final R esult documented in this encounter Visit Diagnoses Diagnosis Abdominal pain, unspecified abdominal location Gastroesophageal reflux disease without esophagitis Esophageal reflux Abdominal pain, unspecified abdominal location Gastroesophageal reflux disease without esophagitis Esophageal reflux documented in this encounter Care Teams Masking Machine Operator Relationship Specialty Start Date End Date Ryan Stock MD [address] [place] [address] [place] [address] PCP - General Internal Medicine 10/27/17 Bob Ardon MBBS, PhD [address] [place] [address] Intraopera Neurophysiology Unit [facility] [address] [place] [address] [email or web address] Historical LMR Provider 05/05/17 07/28/21 John Alvares MD 22 [facility], [address] [place] [address] Historical LMR Provider 05/05/17 07/28/21 Allan Mehta MD 22 [facility] Floor 1 [place] [address] [email or web address] Historical LMR Provider 05/10/17 07/28/21 Pankaj Brown MD [address] [place] [address] [address] [address] Historical LMR Provider 05/10/17 07/28/21 Timi White MD 22 [facility], [address] [place] [address] [email or web address] Historical LMR Provider 05/10/17 07/28/21 Adwoa Chahal MD 22 [facility], [address] [place] [address] [email or web address] Historical LMR Provider 05/10/17 07/28/21 Daniella Nunes MD 19 [place] [address] [email or web address] Historical LMR Provider 05/10/17 07/28/21 Adelfo Masters NP [address] [place] [address] 2_[place] [address] [email or web address] Historical LMR Provider 05/10/17 07/28/21 Audra Stacy MD 22 [facility], [address] [address] Historical LMR Provider 05/10/17 Chrissie Fajardo MD [address] [facility], 2nd [place] [address] Historical LMR Provider 05/10/17 07/28/21 Aashish Davis MD [address] [place] [address] Historical LMR Provider 05/10/17 07/28/21 Trevor Larson MD [address] [place] [address], [address] [place] [address] Historical LMR Provider 05/10/17 07/28/21 Moses Knapp MD 22 [facility] [address] [place] [address] Historical LMR Provider 05/10/17 Maria Isabel Dale MD 22 [facility] 102 [place] [address] Historical LMR Provider 05/10/17 Arpit Smith, AMY [address] [place] [address], [address] [place] [address] [email or web address] Historical LMR Provider 05/10/17 07/28/21 documented as of this encounter Additional Source Comments The information contained in this document represents components of the legal health record. It is not the complete legal health record.[facility]
--- OUTSIDE RECORDS SUMMARY | 2025-04-06 17:17 | XMS_ITS | Encounter Summary ---
Author Organization [facility] Address [address] [place] [address] Phone Care Team Providers Care Cigar Inspector Name Role Phone Bob Ardon, PhD Unavailable John Alvares MD Unavailable [phone] Allan Mehta MD Unavailable [phone] Pankaj Brown MD Unavailable Timi White MD Unavailable [phone] Adwoa Chahal MD Unavailable [phone] Daniella Nunes MD Unavailable [phone] Adelfo Masters NP Unavailable Audra Stacy MD Unavailable [phone] Chrissie Fajardo MD Unavailable [phone] Aashish Davis MD Unavailable Trevor Larson MD Unavailable [phone] Moses Knapp MD Unavailable Maria Isabel Dale MD Unavailable [phone] Arpit Smith CNP Unavailable Ryan Stock MD Primary Care Provider Encounter Details Date Type Department Care Team (Latest Contact Info) Description 10/21/2018 Transcribe Orders [facility] [address] [address] Surinder Joseph MD [address] [place] [address] [email or web address] Functional diarrhea (Primary Dx); Abdominal pain, epigastric Social History Tobacco Use Types Packs/Day Years [...] 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 Co de Phone Number [address] [address] * C-Reactive Protein (10/21/2018 3:47 PM EDT) C REACTIVE PROTEIN <0.3 0.0 - 4.0 mg/L [facility] Blood 10/21/2018 3:47 PM EDT 10/21/2018 3:50 PM EDT Surinder Joseph MD LAB BLOOD ORDERABLES Final R esult Performing Organization Address [facility] Co de Phone Number [address] [address] * Comprehensive metabolic panel (10/21/2018 3:47 PM EDT) SODIUM 139 133 - 146 mmol/L [facility] POTASSIUM 4.0 3.3 - 5.1 mmol/L [facility] CHLORIDE 103 96 - 108 mmol/L [facility] CO2 24 21 - 35 mmol/L [facility] BUN 15 6 - 19 mg/dL [facility] CREATININE 1.10 0.5 - 1.5 mg/dL [facility] GLUCOSE 94 70 - 99 mg/dL [facility] ALBUMIN 4.2 3.9 - 4.8 g/dL [facility] TOTAL PROTEIN 7.1 6.5 - 8.0 g/dL [facility] CALCIUM 8.9 8.4 - 10.3 mg/dL [facility] ALKALINE PHOSPHATASE 57 39 - 117 U/L [facility] TOTAL BILIRUBIN 0.2 0.0 - 1.2 mg/dL [facility] Comment: Results from certain multiple myeloma patients may show a positive bias in recovery. Not all multiple myeloma patients show the bias and severity of the bias may vary between patients. In very rare cases, gammopathy, in particular type IgM (Waldenstrom's macroglobulinemia), may cause unreliable results. AST 11 0 - 37 U/L [facility] ALT 9 0 - 40 U/L [facility] GLOBULIN 2.9 1 - 4.8 g/dL [facility] EGFR 60 >59 mL/min/1.7 3m2 [facility] Comment:If patient is black, multiply result by 1.159. Estimated glomerular filtration rate calculated using the CKD-EPI equation. ANION GAP 16 10 - 20 mmol/L [facility] Blood 10/21/2018 3:47 PM EDT 10/21/2018 3:50 PM EDT us Surinder Joseph MD LAB BLOOD ORDERABLES Final R esult [facility] [address] [place] [address] * Gliadin deamidated antibody, IgG/IgA (10/21/2018 3:47 PM EDT) Gliadin Ab, IGA <10.0 <20.0 (Negative) U [facility] MED/[address] GLIADIN AB IGG <10.0 <20.0 (Negative) U [facility] MED/[facility] [address] Blood 10/21/2018 3:47 PM EDT 10/21/2018 3:49 PM EDT us Surinder Joseph MD LAB BLOOD ORDERABLES Final R esult [facility] MED/[address] [place] [address] * Tissue transglutaminase IgA (10/21/2018 3:47 PM EDT) Pathologist [facility] TTG IGA ANTIBODY <1.2 <4.0 (Negative) U/mL [facility]/[address] Blood 10/21/2018 3:47 PM EDT 10/21/2018 3:49 PM EDT us Surinder Joseph MD LAB BLOOD ORDERABLES Final R esult Performing Organization Address City/[facility] Co de Phone Number [facility] MED/[address] [place] [address] * (ABNORMAL) CBC (10/21/2018 3:47 PM EDT) [facility] WBC 7.34 3.40 - 11.20 K/uL [facility] RBC 4.19 3.80 - 4.80 M/uL [facility] HGB 12.8 12.0 - 15.0 g/dL [facility] HCT 39.0 36.0 - 46.0 % [facility] PLT 249 130 - 400 K/uL [facility] MCV 93.1 79.0 - 98.0 fL [facility] MCH 30.5 27.0 - 34.8 pg [facility] MCHC 32.8 31.5 - 36.0 g/dL [facility] RDW 12.6 10.8 - 14.6 % [facility] MPV 9.2(L) 9.4 - 12.4 [facility] NRBC 0.00 0.00 /100 WBCs [facility] ABSOLUTE NRBC 0.00 0.00 K/uL [facility] Blood 10/21/2018 3:47 PM EDT 10/21/2018 3:50 PM EDT us Surinder Joseph MD LAB BLOOD ORDERABLES Final R esult [facility] [address] [place] [address] documented in this encounter Visit Diagnoses Diagnosis Functional diarrhea- Primary Abdominal pain, epigastric documented in this encounter Care Teams Cigar Inspector Relationship Specialty Start Date End Date Ryan Stock MD [address] [place] [address] [place] [address] PCP - General Internal Medicine 10/27/17 Bob Ardon MBBS, PhD [address] [place] [address] Intraopera ve Neurophysiology Unit [facility] Department of [facility] [address] [place] [address] [email or web address] Historical LMR Provider 05/05/17 07/28/21 John Alvares MD 22 [facility], [address] [place] [address] [email or web address] Historical LMR Provider 05/05/17 07/28/21 Allan Mehta MD 22 [facility] Floor 1 [place] [address] [email or web address] Historical LMR Provider 05/10/17 07/28/21 Pankaj Brown MD 50 [facility] 1st Floor -[address] [place] [address] Historical LMR Provider 05/10/17 07/28/21 Timi White MD 22 [facility], [address] [place] [address] Historical LMR Provider 05/10/17 07/28/21 Adwoa Chahal MD 22 [facility], [address] [place] [address] Historical LMR Provider 05/10/17 07/28/21 Daniella Nunes MD [address] [place] [address] [email or web address] Historical LMR Provider 05/10/17 07/28/21 Adelfo Masters NP [address] [place] [address] 2_[place] [address] [email or web address] Historical LMR Provider 05/10/17 07/28/21 Audra Stacy MD 22 [facility], [address] [place] [address] [email or web address] Historical LMR Provider 05/10/17 Chrissie Fajardo MD 15 [facility], 2nd [place] [address] [email or web address] Historical LMR Provider 05/10/17 07/28/21 Aashish Davis MD [address] [place] [address], [facility] [address] [place] [address] Historical LMR Provider 05/10/17 07/28/21 Trevor Larson MD [address] [place] [address], [address] [place] [address] Historical LMR Provider 05/10/17 07/28/21 Moses Knapp MD [address] [place] [address], [address] [address] Historical LMR Provider 05/10/17 Maria Isabel Dale MD [address] [place] [address], [address] [address] Historical LMR Provider 05/10/17 Arpit Smith CNP [address] [place] [address], [address] [place] [address] Historical LMR Provider 05/10/17 07/28/21 documented as of this encounter Additional Source Comments The information contained in this document represents components of the legal health record. It is not the complete legal health record.[facility]
--- OUTSIDE RECORDS SUMMARY | 2025-04-06 17:17 | XMS_ITS | Encounter Summary ---
Author Organization [facility] Address [address] [place] [address] Phone Care Team Providers Care Lead Ramp Agent Name Role Phone Bob Ardon, PhD Unavailable [phone] John Alvares MD Unavailable [phone] Allan Mehta MD Unavailable [phone] aPnkaj Brown MD Unavailable Timi White MD Unavailable [phone] Adwoa Chahal MD Unavailable [phone] Daniella Nunes MD Unavailable [phone] Adelfo Masters NP Unavailable Audra Stacy MD Unavailable [phone] Chrissie Fajardo MD Unavailable [phone] Aashish Davis MD Unavailable Trevor Larson MD Unavailable [phone] Moses Knapp MD Unavailable Maria Isabel Dale MD Unavailable [phone] Arpit Smith CNP Unavailable Ryan Stock MD Primary Care Provider Encounter Details Date Type Department Care Team (Late st Contact Info) Description 10/27/2017 Procedure Pass [facility], Ct Scan - [address] [address] Social History Tobacco Use Types Packs/Day Years [...] 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 Not on file Not on file documented as of this encounter Plan of Treatment Not on file documented as of this encounter Visit Diagnoses Not on filedocumented in this encounter Care Teams Lead Ramp Agent Relationship Specialty Start Date End Date Ryan Stock MD [address] [place] [address] [place] [address] PCP - General Internal Medicine 10/27/17 Bob Ardon MBBS, PhD [address] [place] [address] Intraopera Neurophysiology Unit [facility] Department of [facility] [address] [place] [address] [email or web address] Historical LMR Provider 05/05/17 07/28/21 John Alvares MD 22 [facility], [address] [place] [address] [email or web address] Historical LMR Provider 05/05/17 07/28/21 Allan Mehta MD 22 [facility] Floor 1 [place] [address] [email or web address] Historical LMR Provider 05/10/17 07/28/21 Pankaj Brown MD [address] [place] [address] 1[address] [place] [address] Historical LMR Provider 05/10/17 07/28/21 Timi White MD [address] [place] [address], [address] [place] [address] [email or web address] Historical LMR Provider 05/10/17 07/28/21 Adwoa Chahal MD 22 [facility], [address] [place] [address] [email or web address] Historical LMR Provider 05/10/17 07/28/21 Daniella Nunes MD [address] [place] [address] [email or web address] Historical LMR Provider 05/10/17 07/28/21 Adelfo Masters NP [address] [place] [address] 2_[place] [address] [email or web address] Historical LMR Provider 05/10/17 07/28/21 Audra Stacy MD [address] [place] [address], [address] [place] [address] [email or web address] Historical LMR Provider 05/10/17 Chrissie Fajardo MD [address] [place] [address], 2nd [place] [address] [email or web address] Historical LMR Provider 05/10/17 07/28/21 Aashish Davis MD [address] [place] [address] 202 [place] [address] Historical LMR Provider 05/10/17 07/28/21 Trevor Larson MD [address] [place] [address], [address] [place] [address] Historical LMR Provider 05/10/17 07/28/21 Moses Knapp MD [address] [place] [address], [address] [place] [address] Historical LMR Provider 05/10/17 Maria Isabel Dale MD [address] [place] [address], [facility] [address] [place] [address] Historical LMR Provider 05/10/17 Arpit Smith CNP [address] [place] [address], [address] [place] [address] Historical LMR Provider 05/10/17 07/28/21 documented as of this encounter Additional Source Comments The information contained in this document represents components of the legal health record. It is not the complete legal health record.[facility]
--- OUTSIDE RECORDS SUMMARY | 2025-04-06 17:17 | XMS_ITS | Encounter Summary ---
Author Organization [facility] Address [address] [place] [address] Phone Care Team Providers Care Internal Medicine Nurse Practitioner Name Role Phone Bob Ardon, PhD Unavailable John Alvares MD Unavailable [phone] Allan Mehta MD Unavailable [phone] Pankaj Brown MD Unavailable Timi White MD Unavailable [phone] Adwoa Chahal MD Unavailable [phone] Daniella Nunes MD Unavailable [phone] Adelfo Masters NP Unavailable [phone] Audra Stacy MD Unavailable [phone] Chrissie Fajardo MD Unavailable [phone] Aashish Davis MD Unavailable Trevor Larson MD Unavailable [phone] Moses Knapp MD Unavailable [phone] Maria Isabel Dale MD Unavailable [phone] Arpit Smith CNP Unavailable [phone] Ryan Stock MD Primary Care Provider Reason for Referral * MRI/CAT Scan - Closed Specialty Diagnoses / Procedures Referred By Contac t Referred To Contact Radiology Diagnoses Weakness of distal arms and legs Leg numbness White matter disease Procedures MRI Cervical Spine O'Sherman, Ricardo, MD Phone: tel: fax: [email or web address] Referral ID Status Reason Start Date Expiration Date Visits Re quested Visits Authorized [id number] Closed 03/11/2019 05/10/2019 1 1 Encounter Details Date Type Department Care Team (Latest Contact Info) Description 03/11/2019 Transcribe Orders Virtual Department 30 [place] [address] Trevor Stapleton MD [address] [place] [address], [address] [place] [address] 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 No findings suspicious for myelitis. 2. Small central disc bulges at multiple levels, largest at C5-C6. Small right paracentral disc protrusion at C6-C7. 3. Borderline central canal stenosis at C5-C6. No evidence of central canal stenosis at the other levels. No high-grade neuroforaminal narrowing. 4. Mild degenerative disc and endplate changes. POS - [id number] Narrative 03/19/2019 8:48 AM EDT HISTORY: Ataxia, tremors, weakness and paresthesias in the extremities. COMPARISON: Cervical spine x-ray 01/15/2018 TECHNIQUE: Exam performed on a 1.5 Martha high-field MRI scanner. Sagittal T1, T2 and STIR, axial T2* gradient echo and 3-D bright fluid sequences were obtained as well as sagittal T1 post-gadolinium sequences. FINDINGS: Cervicomedullary junction: Is no abnormalities demonstrated. Spinal cord: Mild artifact within the spinal cord. No findings suspicious for spinal cord lesions. C2-C3: No significant abnormalities. C3-C4: Tiny central disc bulge. No other significant abnormalities.. C4-C5: Small central disc bulge. Mild narrowing of the left neuroforamen by small osteophytes and mild facet arthropathy. C5-C6: Small central disc bulge. Thickening of the ligamentum flavum. Narrowing of the central canal with borderline central canal stenosis. Mild bilateral neuroforaminal narrowing by osteophytes and mild facet arthropathy. C6-C7: Mild disc space narrowing and degenerative endplate changes. Superimposed on small broad-based disc-osteophyte complex is a small right paracentral disc protrusion. Mild-moderate narrowing of the right neuroforamen and mild narrowing of the left neuroforamen by osteophytes. C7-T1: Mild disc space narrowing and degenerative endplate changes. Small central disc bulge. No other significant abnormalities. Vertebrae: No subluxations. No suspicious marrow signal abnormalities. Soft tissue: No evidence of paravertebral masses. Procedure Note Surinder Alonzo MD - 03/19/2019 HISTORY: Ataxia, tremors, weakness and paresthesias in theextremities. COMPARISON: Cervical spine x-ray 01/15/2018 TECHNIQUE: Exam performed on a 1.5 Martha high-field MRI scanner. SagittalT1, T2 and STIR, axial T2* gradient echo and 3-D bright fluid sequenceswere obtained as well as sagittal T1 post-gadolinium sequences. FINDINGS: Cervicomedullary junction: Is no abnormalities demonstrated. Spinal cord: Mild artifact within the spinal cord. No findingssuspicious for spinal cord lesions. C2-C3: No significant abnormalities. C3-C4: Tiny central disc bulge. No other significant abnormalities.. C4-C5: Small central disc bulge. Mild narrowing of the left neuroforamenby small osteophytes and mild facet arthropathy. C5-C6: Small central disc bulge. Thickening of the ligamentum flavum.Narrowing of the central canal with borderline central canal stenosis.Mild bilateral neuroforaminal narrowing by osteophytes and mild facetarthropathy. C6-C7: Mild disc space narrowing and degenerative endplate changes.Superimposed on small broad-based disc-osteophyte complex is a small rightparacentral disc protrusion. Mild-moderate narrowing of the rightneuroforamen and mild narrowing of the left neuroforamen by osteophytes. C7-T1: Mild disc space narrowing and degenerative endplate changes. Smallcentral disc bulge. No other significant abnormalities. Vertebrae: No subluxations. No suspicious marrow signal abnormalities. Soft tissue: No evidence of paravertebral masses. IMPRESSION: 1. No findings suspicious for myelitis. 2. Small central disc bulges at multiple levels, largest at C5-C6. Smallright paracentral disc protrusion at C6-C7. 3. Borderline central canal stenosis at C5-C6. No evidence of centralcanal stenosis at the other levels. No high-grade neuroforaminalnarrowing. 4. Mild degenerative disc and endplate changes. POS - [id number] Trevor Stapleton MD IMG MR XSPECIALTY Final Resu lt documented in this encounter Visit Diagnoses Diagnosis Weakness of distal arms and legs- Primary Leg numbness Disturbance of skin sensation White matter disease Weakness of distal arms and legs Leg numbness Disturbance of skin sensation White matter disease documented in this encounter Care Teams Internal Medicine Nurse Practitioner Relationship Specialty Start Date End Date Ryan Stock MD [address] [place] [address] [place] [address] PCP - General Internal Medicine 10/27/17 Bob Ardon MBBS, PhD [address] [place] [address] Intraopera Neurophysiology Unit [facility] Department of [facility] [address] [place] [address] [email or web address] Historical LMR Provider 05/05/17 07/28/21 John Alvares MD 22 [facility], [address] [place] [address] [email or web address] Historical LMR Provider 05/05/17 07/28/21 Allan Mehta MD 22 [facility] Floor 1 [place] [address] [email or web address] Historical LMR Provider 05/10/17 07/28/21 Pankaj Brown MD [address] [place] [address] [address] [address] Historical LMR Provider 05/10/17 07/28/21 Timi White MD 22 [facility], [address] [place] [address] [email or web address] Historical LMR Provider 05/10/17 07/28/21 Adwoa Chahal MD 22 [facility], [address] [place] [address] Historical LMR Provider 05/10/17 07/28/21 Daniella Nunes MD 19 [place] [address] [email or web address] Historical LMR Provider 05/10/17 07/28/21 Adelfo Masters NP [address] [place] [address] 2_[place] [address] [email or web address] Historical LMR Provider 05/10/17 07/28/21 Audra Stacy MD 22 [facility], [address] [place] [address] [email or web address] Historical LMR Provider 05/10/17 Chrissie Fajardo MD 15 [facility], 2nd [place] [address] Historical LMR Provider 05/10/17 07/28/21 Aashish Davis MD [address] [place] [address] Historical LMR Provider 05/10/17 07/28/21 Trevor Larson MD [address] [place] [address], [address] [place] [address] Historical LMR Provider 05/10/17 07/28/21 Moses Knapp MD 22 [facility], [address] [place] [address] Historical LMR Provider 05/10/17 Maria Isabel Dale MD [address] [address] Historical LMR Provider 05/10/17 Arpit Smith, AMY [address] [place] [address], [address] [place] [address] [email or web address] Historical LMR Provider 05/10/17 07/28/21 documented as of this encounter Additional Source Comments The information contained in this document represents components of the legal health record. It is not the complete legal health record.[facility]
--- OUTSIDE RECORDS SUMMARY | 2025-04-06 17:17 | XMS_ITS | Clinical Summary ---
Author Organization [facility] Address [address] [place] [address] Phone Care Team Providers Care Funeral Service Manager Name Role Phone Audra Stacy MD Unavailable [phone] Moses Knapp MD Unavailable [phone] Maria Isabel Dale MD Unavailable [phone] Ryan Stock MD Primary Care Provider Allergies Active Allergy Reactions Criticality Noted Date Comments Doxycycline 08/17/2016 Other reaction(s): GI Intolerance Other reaction(s): GI Intolerance Doxycycline Hyclate Unknown 06/05/2017 Minocycline Unknown 08/17/2016 Other reaction(s): GI Intolerance Ofloxacin Unknown 06/05/2017 Paroxetine Hcl Unknown 06/05/2017 Fluoxetine Unknown 06/05/2017 Zolpidem Unknown 06/05/2017 Medications pediatric multivit with FA-zinc (CHEWABLE MULTIVIT-A,B,D,E ,K,ZN) 1,000-800 unit-mcg Chew Active QUEtiapine (SEROQUEL) 25 MG tablet Take 75 mg by mouth nightly at bedtime. Activ e cholecalciferol, vitamin D3, 1,000 unit capsule 10/07/19 13 Active buPROPion (WELLBUTRIN XL) 300 MG ER 24 hr tablet 2 tablets Active ascorbic acid, vitamin C, (VITAMIN C) 250 MG tablet 3 Active levothyroxine (SYNTHROID, LEVOTHROID) 50 MCG tabletIndication s:Hypothyroidism TAKE 1 TABLET BY MOUTH ON AN EMPTY STOMACH IN THE MORNING ONCE A DAY 30 tablet 4 07/09/20 17 Active medroxyPROGESTER one (DEPO-PROVERA) 150 mg/mL injection INJECT 1 ML INTRAMUSCULARLY EVERY 3 MONTHS 06/26/20 16 Active MELATONIN ORAL Take by mouth. Active omeprazole (PRILOSEC) 40 MG capsule Take 1 capsule by mouth 2 (two) times a day. 03/17/20 24 Active ADDERALL XR 30 mg 24 hr capsule Take 1 capsule by mouth every morning. 04/29/20 24 Active traZODone (DESYREL) 100 MG tablet Take 200 mg by mouth nightly at bedtime. 03/19/20 24 Active famotidine (PEPCID) 40 MG tablet Take 40 mg by mouth daily. Active therapeutic multivitamin tablet Take 1 tablet by mouth daily. Active aspirin 81 MG EC tablet Take 81 mg by mouth 3 (three) times a week. Active nitroglycerin (NITROSTAT) 0.[address] 0.4 mg under the tongue every 5 (five) minutes as needed for chest pain (for esophageal spasm). Active Active Problems Problem Noted Date Diagnosed Date Vaginitis and vulvovaginitis 06/24/2018 Assessment & Plan (06/24/2018 4:03 PM EST): sxs not typical; advise using the topical cream, explained that resistance in the yeast to diflucan can develop, topical can be more effective Cholelithiasis 05/17/2017 Chronic depression 05/17/2017 Dysmenorrhea 05/17/2017 Elastosis of skin 05/17/2017 GERD (gastroesophageal reflux disease) 7 Hypothyroidism 05/17/2017 Obstructive sleep apnea syndrome 05/17/2017 Osteopenia 05/17/2017 Surveillance of contraceptive injection 05/17/20 17 Immunizations Immunization Administration Dates Next Due INFLUENZA, SPLIT VIRUS, TRIV ALENT W/ PRESERVATIVE IM 03/11/2016,04/11/2015,04/19/2014,2004 MMR 12/30/1989 Td (adult),2 Lf Tetanus Toxo id, PF, Adsorbed 09/09/1983 Family History Medical History Relation Comments Prostate cancer Father Cancer Maternal Grandmother Skin Cancer Schizophrenia Maternal Uncle Scoliosis Mother Factor V Leiden deficiency Sister Relation Status Comments Father Alive Maternal Grandmother Maternal Uncle Mother Alive Sister Alive Social History Tobacco Use Types Packs/Day Years Used Date Smoking Tobacco: Never Smokeless Tobacco: Never Tobacco Cessation:Counseling Given: Not Answered Alcohol Use Standard Drinks/Week Comments No 0 [...] 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 on file Not on file Last Filed Vital Signs Vital Sign Reading Time Taken Comments Blood Pressure 124/78 09/22/2024 3:31 PM EST Pulse 79 05/05/2024 11:59 AM EDT Temperature 36 C (96.8 F) 05/05/2024 11:43 AM EDT Respiratory Rate 20 05/05/2024 11:59 AM EDT Oxygen Saturation 99% 05/05/2024 11:59 AM EDT Inhaled Oxygen Concentration - - Weight 83.9 kg (185 lb) 05/04/2024 2:00 PM EDT Height 168.9 cm (5' 6.5 ) 09/22/2024 3:31 PM EST Body Mass Index 29.41 05/04/2024 2:00 PM EDT Plan of Treatment Health Maintenance Due Date Last Done Comments DEPRESSION SCREENING 1982 HEPATITIS C SCREENING 1988 HIV ONE-TIME SCREENING (18-65 YEARS) 1988 COLOGUARD 12/13/2015 FIT TEST 12/13/2015 FOBT 12/13/2015 SIGMOIDOSCOPY 12/13/2015 VIRTUAL COLONOSCOPY 12/13/2015 MAMMOGRAM 12/04/2018 12/04/2016 TSH LEVEL 04/21/2020 04/21/2019 PNEUMOCOCCAL VACCINES (50+ years) (1 of 1 - PCV) 2020 LIPID PANEL 12/25/2021 12/25/2016 SCREENING FOR DIABETES 04/21/2022 04/21/2019 INFLUENZA VACCINE (#1) 2025 , 04/28/2021, 03/18/2018, Additional history exists COLONOSCOPY 08/07/2025 08/07/2015 COLORECTAL CANCER SCREENING 08/07/2025 PAP SMEAR 02/14/2026 02/14/2021, 11/19, 12/06/2014 Adult Td,Tdap Booster 05/30/2033 05/30/2023 , 04/04/2011, 09/09/1983 ZOSTER VACCINES Completed 12/22/2021, 09/28/2021 COVID-19 VACCINE Completed 05/08/2024, 06/2023, 04/12/2022, Additional history exists SMOKING STATUS SCREENING (Once After 26 Yrs) Completed 09/22/2024 HEPATITIS A VACCINES Aged Out No long er eligible based on patient's age to complete this topic HIB VACCINES Aged Out No longer eligi ble based on patient's age to complete this topic MENINGOCOCCAL VACCINES (ACWY) Aged Out No longer eligible based on patient's age to complete this topic MENINGOCOCCAL VACCINES (B) Aged Out N o longer eligible based on patient's age to complete this topic Medical Devices Not on file Procedures Procedure Name Priority Date/Time Associated Diagnosis Comments PAP TEST Routine 02/14/2021 12:00 AM EDT TSH Routine 04/21/2019 3:15 PM EDT Hypothyroidism, unspecified type OUTSIDE LDL Routine 12/25/2016 from Last 3 Months or Most Recently Relevant to Health Maintenance Results * Pap Smear (02/14/2021 12:00 AM EDT) 02/14/2021 02/15/2021 8:5 7 AM EDT Narrative SEE NARRATIVE - 02/20/2021 9:04 AM EDT [address] [address] Senior International Tax Manager: Milagros Easley MD INTERIOR DECORATOR PAINTING Cytology Report FINAL DIAGNOSIS A. PAP SMEAR (SUREPATH) CE: SPECIMEN ADEQUACY: Satisfactory for evaluation; transformation zone present. INTERPRETATION: NEGATIVE FOR INTRAEPITHELIAL LESION OR MALIGNANCY. Electronically Signed Out By: CRUZITO Miguel(ASCP) The Pap test is a screening test primarily for squamous cancers and precursors and has associated false-negative and false-positive results. New technologies such as liquid-based preparations may decrease but will not eliminate all false-negative results. Regular sampling and follow-up of unexplained clinical signs and symptoms are recommended to minimize false negative results. PROCEDURES/ADDENDA HPV Testing (Requested) Ordered Date: 02/15/2021 A. PAP SMEAR (SUREPATH) CE: Human Papilloma Virus Test Negative for high-risk human papillomavirus types 16, 18, 45 and the Other high risk probe set (Includes 31, 33, 35, 39, 51, 52, 56, 58, 59, 66, 68) by Archetypes Onclarity HR-HPV analysis. Clinical correlation is advised. This HPV test was performed at [facility], [address] [place] [address]. This test has been FDA approved for SurePath cervical cytology specimens. The accuracy and precision of this test for all other specimen sources has been verified in the Cytopathology Laboratory of the [facility] and has not been cleared or approved by the U.S. Food and Drug Administration. Clinical correlation is advised. CLINICAL HISTORY Date of Last Menstrual Period: Not Provided Menstrual History: Nita-Menopausal Contraceptive History: Depo Other Clinical Conditions: Screening Pap SPECIMEN SOURCE A: PAP SMEAR (SUREPATH) CE Patient Name: MORIAHKATHIA JEAN : 1970 (Age: 50) Sex: F Institution: [facility] Location: [facility] Date of Collection: 02/14/2021 Date of Reported: 02/20/2021 09:04 Results to: Catrachita Oshea MD us Catrachita Oshea MD CYTOLOGY ORDERABLES Final Result SEE NARRATIVE * TSH (04/21/2019 3:15 PM EDT) TSH 2.51 0.27 - 4.20 uIU/mL [facility] Blood 04/21/2019 3:15 PM EDT 04/21/2019 3:21 PM EDT us Ryan Stock MD LAB BLOOD ORDERABLES Fi nal Result Performing Organization Address City/[facility]/ZIP Co de Phone Number [address] [address] * (ABNORMAL) Outside LDL (12/25/2016) LDL - External 44(A) 50 - 250 mg/ml us Historical Provider LAB BLOOD ORDERABLES Kirsten l Result from Last 3 Months or Most Recently Relevant to Health Maintenance Insurance [address] [place], [place] [address] [place] [address] [address] [place] [address] [address] ESSENTIAL [facility] the [facility] [address] [place], [place] [address] Power SystemsHEALTH [address] [place], [place] [address]Out[employer] SystemsHEALTH [facility] OutSmart Power SystemsDANNEMORA STATE [facility] ChemistDirectDANNEMOR[facility] ChemistDirectD[facility]EM[facility] Care Teams Funeral Service Manager Relationship Specialty Start Date End Date Ryan Stock MD [address] [place] [address] [place] [address] PCP - General Internal Medicine 10/27/17 Audra Stacy MD [address] [place] [address] [email or web address] Historical LMR Provider 05/10/17 Moses Knapp MD [address] [place] [address] Historical LMR Provider 05/10/17 Maria Isabel Dale MD [address] [place] [address] [email or web address] Historical LMR Provider 05/10/17 Additional Source Comments The information contained in this document represents components of the legal health record. It is not the complete legal health record.[facility]
--- OUTSIDE RECORDS SUMMARY | 2025-04-06 17:17 | XMS_ITS | Encounter Summary ---
Author Organization [facility] Address [address] [place] [address] Phone Care Team Providers Care Wheel And Pinion Inspector Name Role Phone Bob Ardon, PhD Unavailable John Alvares MD Unavailable [phone] Allan Mehta MD Unavailable [phone] Pankaj Brown MD Unavailable [phone] Timi White MD Unavailable [phone] Adwoa Chahal MD Unavailable [phone] Daniella Nunes MD Unavailable [phone] Adelfo Masters NP Unavailable Audra Stacy MD Unavailable Chrissie Fajardo MD Unavailable [phone] Aashish Davis MD Unavailable Trevor Larson MD Unavailable [phone] Moses Knapp MD Unavailable Maria Isabel Dale MD Unavailable Arpit Smith CNP Unavailable Ryan Stock MD Primary Care Provider Encounter Details Date Type Department Care Team (Late st Contact Info) Description 04/21/2019 Transcribe Orders [facility] [address] [address] Ryan Stock MD [address] [place] [address] Dr [place], [place] [address] Hypothyroidism, unspecified type (Primary Dx) Social History Tobacco Use Types [...] 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 Not on file Not on file documented as of this encounter Plan of Treatment Not on file documented as of this encounter Results * Free T4 (04/21/2019 3:15 PM EDT) FREE T4 1.4 0.9 - 1.7 ng/dL [facility] Blood 04/21/2019 3:15 PM EDT 04/21/2019 3:21 PM EDT us Ryan Stock MD LAB BLOOD ORDERABLES Fi nal Result Performing Organization Address [facility] Co de Phone Number [address] [address] * TSH (04/21/2019 3:15 PM EDT) Pathologist [facility] TSH 2.51 0.27 - 4.20 uIU/mL [facility] Blood 04/21/2019 3:15 PM EDT 04/21/2019 3:21 PM EDT Ryan Stock MD LAB BLOOD ORDERABLES Fi nal Result Performing Organization Address [facility]/ZIP Co de Phone Number [address] [address] * (ABNORMAL) CBC and differential (04/21/2019 3:15 PM EDT) WBC 6.21 3.40 - 11.20 K/uL [facility] RBC 4.22 3.80 - 4.80 M/uL [facility] HGB 13.1 12.0 - 15.0 g/dL [facility] HCT 38.6 36.0 - 46.0 % [facility] PLT 230 130 - 400 K/uL [facility] MCV 91.5 79.0 - 98.0 fL [facility] MCH 31.0 27.0 - 34.8 pg [facility] MCHC 33.9 31.5 - 36.0 g/dL [facility] RDW 12.4 10.8 - 14.6 % [facility] MPV 9.5 9.4 - 12.4 fl [facility] NRBC 0.00 0.00 /100 WBCs [facility] ABSOLUTE NRBC 0.00 0.00 K/uL [facility] DIFF METHOD Auto [facility] NEUTS 59.7 45.30 - 77.70 % [facility] LYMPHS 31.7 12.30 - 39.70 % [facility] MONOS 7.7 4.10 - 12.80 % [facility] EOS 0.0 0 - 7.2 % [facility] BASOS 0.6 0 - 2.80 % [facility] Granulocytes, immature (%) 0.3 0.0 - 0.9 % [facility] ABSOLUTE NEUTS 3.70 1.40 - 7.70 K/uL [facility] ABSOLUTE LYMPHS 1.97 0.60 - 3.20 K/uL [facility] ABSOLUTE MONOS 0.48 0.11 - 0.59 K/uL [facility] ABSOLUTE EOS 0.00(L) 0.01 - 0.50 K/uL [facility] ABSOLUTE BASOS 0.04 0.00 - 0.08 K/uL [facility] Granulocytes, immature 0.02 0.00 - 0.05 K/uL [facility] Blood 04/21/2019 3:15 PM EDT 04/21/2019 3:21 PM EDT us Ryan Stock MD LAB BLOOD ORDERABLES Fi nal Result Performing Organization Address City/[facility]/ZIP Co de Phone Number [address] [address] * (ABNORMAL) Comprehensive metabolic panel (04/21/2019 3:15 PM EDT) SODIUM 139 133 - 146 mmol/L [facility] POTASSIUM 4.0 3.3 - 5.1 mmol/L [facility] CHLORIDE 105 96 - 108 mmol/L [facility] CO2 22 21 - 35 mmol/L [facility] BUN 13 6 - 19 mg/dL [facility] CREATININE 1.00 0.5 - 1.5 mg/dL [facility] GLUCOSE 100(H) 70 - 99 mg/dL [facility] ALBUMIN 4.2 3.9 - 4.8 g/dL [facility] TOTAL PROTEIN 7.1 6.5 - 8.0 g/dL [facility] CALCIUM 9.1 8.4 - 10.3 mg/dL [facility] ALKALINE PHOSPHATASE 63 39 - 117 U/L [facility] TOTAL BILIRUBIN 0.2 0.0 - 1.2 mg/dL [facility] AST 17 0 - 37 U/L [facility] ALT 12 0 - 40 U/L [facility] GLOBULIN 2.9 1 - 4.8 g/dL [facility] EGFR 67 >59 mL/min/1.7 3m2 [facility] Comment:If patient is black, multiply result by 1.159. Estimated glomerular filtration rate calculated using the CKD-EPI equation. ANION GAP 16 10 - 20 mmol/L [facility] Blood 04/21/2019 3:15 PM EDT 04/21/2019 3:21 PM EDT us Ryan Stock MD LAB BLOOD ORDERABLES Fi nal Result Performing Organization Address City/[facility]/ZIP Co de Phone Number [address] [address] documented in this encounter Visit Diagnoses Diagnosis Hypothyroidism, unspecified type- Primary documented in this encounter Care Teams Wheel And Pinion Inspector Relationship Specialty Start Date End Date Ryan Stock MD [address] [place] [address] [place] [address] PCP - General Internal Medicine 10/27/17 Bob Ardon MBBS, PhD [address] [place] [address] [facility] Department of NeurologyGIL[facility] [address] [place] [address] [email or web address] Historical LMR Provider 05/05/17 07/28/21 John Alvares MD [address] [facility] [place] [address] [email or web address] Historical LMR Provider 05/05/17 07/28/21 Allan Mehta MD [address] [facility] Floor 1 [place] [address] [email or web address] Historical LMR Provider 05/10/17 07/28/21 Pankaj Brown MD [address] [facility] 1st Floor [address] [place] [address] Historical LMR Provider 05/10/17 07/28/21 Timi White MD [address] [place] [address], [address] [place] [address] [email or web address] Historical LMR Provider 05/10/17 07/28/21 Adwoa Chahal MD [address] [place] [address], [address] [place] [address] [email or web address] Historical LMR Provider 05/10/17 07/28/21 Daniella Nunes MD [address] [place] [address] [email or web address] Historical LMR Provider 05/10/17 07/28/21 Adelfo Masters, DYAN [address] [place] [address] 2_[place] [address] [email or web address] Historical LMR Provider 05/10/17 07/28/21 Audra Stacy MD [address] [address] [email or web address] Historical LMR Provider 05/10/17 Chrissie Fajardo MD [address] [facility], 2nd [place] [address] Historical LMR Provider 05/10/17 07/28/21 Aashish Davis MD [address] [place] [address] Historical LMR Provider 05/10/17 07/28/21 Trevor Larson MD [address] [place] [address], [address] [place] [address] Historical LMR Provider 05/10/17 07/28/21 Moses Knapp MD [address] [address] Historical LMR Provider 05/10/17 Maria Isabel Dale MD [address] [place], [place] [address] [address] Historical LMR Provider 05/10/17 Arpit Smith CNP [address] [facility] [place] [address] [email or web address] Historical LMR Provider 05/10/17 07/28/21 documented as of this encounter Additional Source Comments The information contained in this document represents components of the legal health record. It is not the complete legal health record.[facility]
--- OUTSIDE RECORDS SUMMARY | 2025-04-06 17:17 | XMS_ITS | Encounter Summary ---
Author Organization [facility] Address [address] [place] [address] Phone Care Team Providers Care Meteorological Aide Name Role Phone Bob Ardon, PhD Unavailable John Alvares MD Unavailable Allan Mehta MD Unavailable [phone] Pankaj Brown MD Unavailable Timi White MD Unavailable [phone] Adwoa Chahal MD Unavailable [phone] Daniella Nunes MD Unavailable [phone] Adelfo Masters NP Unavailable Audra Stacy MD Unavailable [phone] Chrissie Fajardo MD Unavailable [phone] Aashish Davis MD Unavailable Trevor Larson MD Unavailable [phone] Moses Knapp MD Unavailable Maria Isabel Dale MD Unavailable [phone] Arpit Smith CNP Unavailable Ryan Stock MD Primary Care Provider Encounter Details Date Type Department Care Team (Late st Contact Info) Description 03/29/2019 Procedure Pass [facility], [address] [address] Social History Tobacco Use Types Packs/Day Years [...] 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 Historical LMR Provider 05/05/17 07/28/21 John Alvares MD [address] [facility] [place] [address] [email or web address] Historical LMR Provider 05/05/17 07/28/21 Allan Mehta MD [address] [facility] Floor 1 [place] [address] [email or web address] Historical LMR Provider 05/10/17 07/28/21 Pankaj Brown MD [address] [place] [address] 1[address] [place] [address] Historical LMR Provider 05/10/17 07/28/21 Timi White MD [address] [place] [address], [address] [place] [address] Historical LMR Provider 05/10/17 07/28/21 Adwoa Chahal MD [address] [place] [address], [address] [place] [address] [email or web address] Historical LMR Provider 05/10/17 07/28/21 Daniella Nunes MD [address] [place] [address] [email or web address] Historical LMR Provider 05/10/17 07/28/21 Adelfo Masters NP [address] [place] [address] 2_[place] [address] [email or web address] Historical LMR Provider 05/10/17 07/28/21 Audra Stacy MD [address] [place] [address], [address] [place] [address] [email or web address] Historical LMR Provider 05/10/17 Chrissie Fajardo MD [address] [place] [address], 2nd [place] [address] [email or web address] Historical LMR Provider 05/10/17 07/28/21 Aashish Davis MD [address] [place] [address] [address] [place] [address] Historical LMR Provider 05/10/17 07/28/21 Trevor Larson MD [address] [place] [address], [address] [place] [address] Historical LMR Provider 05/10/17 07/28/21 Moses Knapp MD [address] [place] [address], [address] [place] [address] Historical LMR Provider 05/10/17 Maria Isabel Dale MD [address] [place] [address], [facility] [address] [place] [address] Historical LMR Provider 05/10/17 Arpit Smith CNP [address] [place] [address], [address] [place] [address] Historical LMR Provider 05/10/17 07/28/21 documented as of this encounter Additional Source Comments The information contained in this document represents components of the legal health record. It is not the complete legal health record.[facility]
--- OUTSIDE RECORDS SUMMARY | 2025-04-06 17:17 | XMS_ITS | Encounter Summary ---
Author Organization [facility] Address [address] [place] [address] Phone Care Team Providers Care Powder Hand Name Role Phone Bob Ardon, PhD Unavailable John Alvares MD Unavailable [phone] Allan Mehta MD Unavailable [phone] Pankaj Brown MD Unavailable [phone] Timi White MD Unavailable [phone] Adwoa Chahal MD Unavailable [phone] Daniella Nunes MD Unavailable [phone] Adelfo Masters NP Unavailable Audra Stacy MD Unavailable [phone] Chrissie Fajardo MD Unavailable [phone] Aashish Davis MD Unavailable Trevor Larson MD Unavailable [phone] Moses Knapp MD Unavailable Maria Isabel Dale MD Unavailable [phone] Arpit Smith CNP Unavailable Ryan Stock MD Primary Care Provider Encounter Details Date Type Department Care Team (Late st Contact Info) Description 05/19/2018 Procedure Pass [facility], [address] [address] Social History Tobacco Use Types Packs/Day Years [...] 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 on file Not on file documented as of this encounter Plan of Treatment Not on file documented as of this encounter Visit Diagnoses Not on filedocumented in this encounter Care Teams Powder Hand Relationship Specialty Start Date End Date Ryan Stock MD [address] [place] [address] [place] [address] PCP - General Internal Medicine 10/27/17 Bob Ardon MBBS, PhD [address] [place] [address] Intraopera Neurophysiology Unit [facility] Department of [facility] [address] [place] [address] [email or web address] Historical LMR Provider 05/05/17 07/28/21 John Alvares MD 22 [facility], [address] [place] [address] [email or web address] Historical LMR Provider 05/05/17 07/28/21 Allan Mehta MD 22 [facility] Floor 1 [place] [address] [email or web address] Historical LMR Provider 05/10/17 07/28/21 Pankaj Brown MD [address] [place] [address] 1[address] [place] [address] Historical LMR Provider 05/10/17 07/28/21 Timi White MD [address] [place] [address], [address] [place] [address] Historical LMR Provider 05/10/17 07/28/21 Adwoa Chahal MD [address] [place] [address], [address] [place] [address] [email or web address] Historical LMR Provider 05/10/17 07/28/21 Daniella Nunes MD [address] [place] [address] [email or web address] Historical LMR Provider 05/10/17 07/28/21 Adelfo Masters NP [address] [place] [address] 2_[place] [address] [email or web address] Historical LMR Provider 05/10/17 07/28/21 Audra Stacy MD [address] [place] [address], [address] [place] [address] [email or web address] Historical LMR Provider 05/10/17 Chrissie Fajardo MD [address] [place] [address], 2nd [place] [address] [email or web address] Historical LMR Provider 05/10/17 07/28/21 Aashish Davis MD [address] [place] [address] 202 [place] [address] Historical LMR Provider 05/10/17 07/28/21 Trevor Larson MD [address] [place] [address], [address] [place] [address] Historical LMR Provider 05/10/17 07/28/21 Moses Knapp MD [address] [place] [address], [address] [place] [address] Historical LMR Provider 05/10/17 Maria Isabel Dale MD [address] [place] [address], [facility] [address] [place] [address] Historical LMR Provider 05/10/17 Arpit Smith CNP [address] [place] [address], [address] [place] [address] Historical LMR Provider 05/10/17 07/28/21 documented as of this encounter Additional Source Comments The information contained in this document represents components of the legal health record. It is not the complete legal health record.[facility]
--- OUTSIDE RECORDS SUMMARY | 2025-04-06 17:17 | XMS_ITS | Encounter Summary ---
Author Organization [facility] Address [address] [place] [address] Phone Care Team Providers Care General Merchandise Manager Name Role Phone Bob Ardon, PhD Unavailable [phone] John Alvares MD Unavailable [phone] Allan Mehta MD Unavailable [phone] Allan Mehta MD Primary Care Provide r Pankaj Brown MD Unavailable Timi White MD Unavailable [phone] Adwoa Chahal MD Unavailable +[phone] Daniella Nunes MD Unavailable [phone] Adelfo Masters NP Unavailable Audra Stacy MD Unavailable [phone] Chrissie Fajardo MD Unavailable [phone] Aashish Davis MD Unavailable Trevor Larson MD Unavailable [phone] Moses Knapp MD Unavailable [phone] Maria Isabel Dale MD Unavailable [phone] Arpit Smith CNP Unavailable [phone] Ryan Stock MD Primary Care Provider Encounter Details Date Type Department Care Team (Latest Contact Info) Description 05/12/2017 Transcribe Orders [facility] 30 [place] [address] Allan Mehta MD 22 [facility] 1 [place] [address] [email or web address] on exertion (Primary Dx) Social History [...] with bronchodilator, Lung Volumes, DLCO; Performing Location: [facility] (05/29/2017 12:02 PM EST) FEV1 liters FVC [...] abnormality documented in this encounter Care Teams General Merchandise Manager Relationship Specialty Start Date End Date Allan Mehta MD 22 [facility] 1 [place] [address] [email or web address] PCP - General 05/06/17 10/26/17 Ryan Stock MD [address] [place] [address] [place] [address] PCP - General Internal Medicine 10/27/17 Bob Ardon MBBS, PhD [address] [place] [address] Intraopera Neurophysiology Unit [facility] Department [facility] [address] [place] [address] [email or web address] Historical LMR Provider 05/05/17 07/28/21 John Alvares MD [address] [place] [address], [address] [place] [address] [email or web address] Historical LMR Provider 05/05/17 07/28/21 Allan Mehta MD 22 [facility] Floor 1 [place] [address] [email or web address] Historical LMR Provider 05/10/17 07/28/21 Pankaj Brown MD 50 [facility] 1st Floor [address] [place] [address] Historical LMR Provider 05/10/17 07/28/21 Timi White MD [address] [place] [address], [address] [place] [address] [email or web address] Historical LMR Provider 05/10/17 07/28/21 Adwoa Chahal MD [address] [place] [address], [address] [place] [address] Historical LMR Provider 05/10/17 07/28/21 Daniella Nunes MD [address] [place] [address] [email or web address] Historical LMR Provider 05/10/17 07/28/21 Adlefo Masters NP [address] [place] [address] 2_[place] [address] [email or web address] Historical LMR Provider 05/10/17 07/28/21 Audra Stacy MD [address] [place] [email or web address] Historical LMR Provider 05/10/17 Chrissie Fajardo MD [address] [place] [address], 2nd [place] [address] Historical LMR Provider 05/10/17 07/28/21 Aashish Davis MD [address] [place] [address] Historical LMR Provider 05/10/17 07/28/21 Trevor Larson MD [address] [place] [address], [address] [place] [address] Historical LMR Provider 05/10/17 07/28/21 Moses Knapp MD [address] [place] [address] Historical LMR Provider 05/10/17 Maria Isabel Dale MD [address] [place] [address] 102 [place] [address] [email or web address] Historical LMR Provider 05/10/17 Arpit Smith CNP [address] [place] [address], [address] [place] [address] [email or web address] Historical LMR Provider 05/10/17 07/28/21 documented as of this encounter Additional Source Comments The information contained in this document represents components of the legal health record. It is not the complete legal health record.[facility]
--- OUTSIDE RECORDS SUMMARY | 2025-04-06 17:17 | XMS_ITS | Encounter Summary ---
Author Organization [facility] Address [address] [place] [address] Phone Care Team Providers Care Air Twist Operator Name Role Phone Bob Ardon, PhD Unavailable [phone] John Alvares MD Unavailable [phone] Allan Mehta MD Unavailable [phone] Pankaj Brown MD Unavailable Timi White MD Unavailable +[phone] Adwoa Chahal MD Unavailable +[phone] Daniella Nunes MD Unavailable [phone] Adelfo Masters NP Unavailable [phone] Audra Stacy MD Unavailable [phone] Chrissie Fajardo MD Unavailable [phone] Aashish Davis MD Unavailable Trevor Larson MD Unavailable [phone] Moses Knapp MD Unavailable [phone] Maria Isabel Dale MD Unavailable [phone] Arpit Smith CNP Unavailable [phone] Ryan Stock MD Primary Care Provider Reason for Referral * MRI/CAT Scan - Closed Specialty Diagnoses / Procedures Referred By Contac t Referred To Contact Radiology Diagnoses Right sided weakness Ataxia Procedures MRI Brain Trevor Stapleton MD Phone: tel: fax: [email or web address] Referral ID Status Reason Start Date Expiration Date Visits Re quested Visits Authorized [id number] Closed 05/19/2018 07/18/2018 1 1 Encounter Details Date Type Department Care Team (Late st Contact Info) Description 05/19/2018 Ancillary Orders Virtual Department 30 [place] [address] Trevor Stapleton MD [address] [place] [address], [address] [place], [place] [id number] 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 No evidence of hemodynamically significant stenosis on either side. POS - [id number] Narrative 06/10/2018 6:35 PM EST HISTORY: Right-sided weakness, possible CVA. COMPARISON: None. CAROTID ULTRASOUND FINDINGS: RIGHT: Carotid artery morphology: No visible plaque. Peak systolic and diastolic velocity internal carotid artery: Systolic: 127 cm/sec, Diastolic: 60 cm/sec. Elevation of the peak diastolic velocity of the internal carotid artery is likely chronically insignificant. Vertebral artery: Normal antegrade flow. LEFT: Carotid artery morphology: No visible plaque. Peak systolic and diastolic velocity internal carotid artery: Systolic: 105 cm/sec, Diastolic: 43 cm/sec. Elevation of the peak diastolic velocity of the internal carotid artery is likely chronically insignificant. Vertebral artery: Normal antegrade flow. Any stenosis measurement is relative to the distal ICA diameters. Procedure Note Surinder Alonzo MD - 06/10/2018 HISTORY: Right-sided weakness, possible CVA. COMPARISON: None. CAROTID ULTRASOUND FINDINGS: RIGHT: Carotid artery morphology: No visible plaque. Peak systolic and diastolic velocity internal carotid artery: Systolic:127 cm/sec, Diastolic: 60 cm/sec. Elevation of the peak diastolic velocityof the internal carotid artery is likely chronically insignificant. Vertebral artery: Normal antegrade flow. LEFT: Carotid artery morphology: No visible plaque. Peak systolic and diastolic velocity internal carotid artery: Systolic:105 cm/sec, Diastolic: 43 cm/sec. Elevation of the peak diastolic velocityof the internal carotid artery is likely chronically insignificant. Vertebral artery: Normal antegrade flow. Any stenosis measurement is relative to the distal ICA diameters. IMPRESSION: No visible plaque. No evidence of hemodynamically significant stenosis oneither side. POS - [id number] us Trevor Stapleton MD US NEUROVASCULAR Final Re sult * MRI BRAIN WITHOUT CONTRAST (06/03/2018 7:39 PM EST) Anatomical Region Laterality Modality Head Magnetic Resonan ce 06/03/2018 7:45 PM EST Impressions 06/03/2018 8:43 PM EST Scattered white matter changes in a non-specific pattern. No mass, hemorrhage, or infarction identified. No posterior fossa lesions in particular seen. POS - [id number] Edited by: Katrina Donahue on 06/03/2018 8:04 PM Narrative 06/03/2018 8:43 PM EST HISTORY: Ataxia and vertigo, tremor, right-sided weakness. COMPARISON: Unenhanced head CT December 2016. TECHNIQUE: Exam performed on a 1.5 Martha high-field MRI scanner. Axial T1, T2, T2*, T2 FLAIR and diffusion-weighted imaging with ADC map, sagittal T1 and T2 FLAIR sequences were obtained. Posterior fossa axial cisternogram also obtained. FINDINGS: There are scattered foci of white matter signal alteration, some subcortical. They are slightly more numerous on left than right but present bilaterally. None are in a pattern clearly suggestive of MS-type demyelination. No areas of restricted diffusion to suggest ischemia or recent infarction. No areas of worrisome susceptibility effect. No CP angle mass identified. No morphologic abnormality of the 7th and 8th nerve bundles. No prominent volume loss. Sulci and ventricles within the range of normal. Pituitary not enlarged. Cerebellar tonsils not frankly ectopic. No gross orbital lesion. No fluid in paranasal sinuses. Minor mucosal thickening in some ethmoid air cells. There appear to be preserved flow voids in the major intracranial arteries and veins. No intra- or extra-axial blood or fluid collection, mass, or mass effect is identified. Procedure Note Bear Mcrae MD - 06/03/2018 HISTORY: Ataxia and vertigo, tremor, right-sided weakness. COMPARISON: Unenhanced head CT December 2016. TECHNIQUE: Exam performed on a 1.5 Martha high-field MRI scanner. AxialT1, T2, T2*, T2 FLAIR and diffusion-weighted imaging with ADC map,sagittal T1 and T2 FLAIR sequences were obtained. Posterior fossa axialcisternogram also obtained. FINDINGS: There are scattered foci of white matter signal alteration, somesubcortical. They are slightly more numerous on left than right butpresent bilaterally. None are in a pattern clearly suggestive of MS-typedemyelination. No areas of restricted diffusion to suggest ischemia orrecent infarction. No areas of worrisome susceptibility effect. No CPangle mass identified. No morphologic abnormality of the 7th and 8th nervebundles. No prominent volume loss. Sulci and ventricles within the rangeof normal. Pituitary not enlarged. Cerebellar tonsils not frankly ectopic.No gross orbital lesion. No fluid in paranasal sinuses. Minor mucosalthickening in some ethmoid air cells. There appear to be preserved flowvoids in the major intracranial arteries and veins. No intra- orextra-axial blood or fluid collection, mass, or mass effect isidentified. IMPRESSION: Scattered white matter changes in a non-specific pattern. No mass,hemorrhage, or infarction identified. No posterior fossa lesions inparticular seen. POS - [id number] Edited by: Katrina Donahue on 06/03/2018 8:04 PM us Trevor Stapleton MD IMG MR HEAD/NECK Final Resul t documented in this encounter Visit Diagnoses Diagnosis Right sided weakness TIA (transient ischemic attack) Unspecified transient cerebral ischemia Ataxia Lack of coordination Right sided weakness Ataxia Lack of coordination Right sided weakness TIA (transient ischemic attack) Unspecified transient cerebral ischemia documented in this encounter Care Teams Air Twist Operator Relationship Specialty Start Date End Date Ryan Stock MD [address] [place] [address] [place] [address] PCP - General Internal Medicine 10/27/17 Bob Ardon MBBS, PhD [address] [place] [address] Intraopera ve Neurophysiology Unit [facility] Department of [facility] [address] [place] [address] [email or web address] Historical LMR Provider 05/05/17 07/28/21 John Alvares MD 22 [facility], [address] [place] [address] [email or web address] Historical LMR Provider 05/05/17 07/28/21 Allan Mehta MD 22 [facility] Floor 1 [place] [address] [email or web address] Historical LMR Provider 05/10/17 07/28/21 Pankaj Brown MD [address] [place] [address] 1st Floor [address] [place] [address] Historical LMR Provider 05/10/17 07/28/21 Timi White MD 22 [facility], [address] [place] [address] Historical LMR Provider 05/10/17 07/28/21 Adwoa Chahal MD 22 [facility], [address] [place] [address] Historical LMR Provider 05/10/17 07/28/21 Daniella Nunes MD [address] [place] [address] [email or web address] Historical LMR Provider 05/10/17 07/28/21 Adelfo Masters NP [address] [place] [address] 2_[place] [address] [email or web address] Historical LMR Provider 05/10/17 07/28/21 Audra Stacy MD 22 [facility], [address] [place] [address] [email or web address] Historical LMR Provider 05/10/17 Chrissie Fajardo MD 15 [facility], 2nd [place] [address] [email or web address] Historical LMR Provider 05/10/17 07/28/21 Aashish Davis MD [address] [place] [address], [address] [place] [address] Historical LMR Provider 05/10/17 07/28/21 Trevor Larson MD [address] [place] [address], [address] [place] [address] Historical LMR Provider 05/10/17 07/28/21 Moses Knapp MD [address] [place] [address], [facility] 102 [place] [address] Historical LMR Provider 05/10/17 Maria Isabel Dale MD [address] [place] [address] Historical LMR Provider 05/10/17 Arpit Smith CNP [address] [place] [address], [address] [place] [address] [email or web address] Historical LMR Provider 05/10/17 07/28/21 documented as of this encounter Additional Source Comments The information contained in this document represents components of the legal health record. It is not the complete legal health record.[facility]
--- OUTSIDE RECORDS SUMMARY | 2025-04-06 17:17 | XMS_ITS | Encounter Summary ---
Author Organization [facility] Address [address] [place] [address] Phone Care Team Providers Care Commercial Loan Officer Name Role Phone Bob Ardon, PhD Unavailable John Alvares MD Unavailable [phone] Allan Mehta MD Unavailable [phone] Pankaj Brown MD Unavailable Timi White MD Unavailable [phone] Adwoa Chahal MD Unavailable [phone] Daniella Nunes MD Unavailable [phone] Adelfo Masters NP Unavailable [phone] Audra Stacy MD Unavailable Chrissie Fajardo MD Unavailable [phone] Aashish Davis MD Unavailable Trevor Larson MD Unavailable [phone] Moses Knapp MD Unavailable Maria Isabel Dale MD Unavailable Arpit Smith CNP Unavailable Ryan Stock MD Primary Care Provider Encounter Details Date Type Department Care Team (Late st Contact Info) Description 06/03/2018 Ancillary Orders [facility] Department 30 [place] [address] Ryan Stock MD [address] [place] [address] [place] [address] Lower abdominal pain Social History Tobacco Use Types Packs/Day Years [...] 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 on file Not on file documented as of this encounter Plan of Treatment Not on file documented as of this encounter Visit Diagnoses Diagnosis Lower abdominal pain Abdominal pain, other specified site documented in this encounter Care Teams Commercial Loan Officer Relationship Specialty Start Date End Date Ryan Stock MD [address] [place] [address] [place] [address] PCP - General Internal Medicine 10/27/17 Bob Ardon MBBS, PhD [address] [place] [address] [facility] Neuro[facility] Unit [facility] of [facility] [address] [place] [address] [email or web address] Historical LMR Provider 05/05/17 07/28/21 John Alvares MD 22 [facility], [address] [place] [address] [email or web address] Historical LMR Provider 05/05/17 07/28/21 Allan Mehta MD 22 [facility] Floor 1 [place] [address] [email or web address] Historical LMR Provider 05/10/17 07/28/21 Pankaj Brown MD 50 [facility] 1st Floor [address] [place] [address] Historical LMR Provider 05/10/17 07/28/21 Timi White MD 22 [facility], [address] [place] [address] [email or web address] Historical LMR Provider 05/10/17 07/28/21 Adwoa Chahal MD 22 [facility], [address] [place] [address] [email or web address] Historical LMR Provider 05/10/17 07/28/21 Daniella Nunes MD [address] [place] [address] [email or web address] Historical LMR Provider 05/10/17 07/28/21 Adelfo Masters NP [address] [place] [address] 2_[place] [address] [email or web address] Historical LMR Provider 05/10/17 07/28/21 Audra Stacy MD 22 [facility], [address] [place] [address] [email or web address] Historical LMR Provider 05/10/17 Chrissie Fajardo MD 15 [facility], 2nd [place] [address] Historical LMR Provider 05/10/17 07/28/21 Aashish Davis MD [address] [place] [address] Historical LMR Provider 05/10/17 07/28/21 Trevor Larson MD [address] [place] [address], [address] [place] [address] Historical LMR Provider 05/10/17 07/28/21 Moses Knapp MD [address] [place] [address] Historical LMR Provider 05/10/17 Maria Isabel Dale MD [address] [place] [address] Historical LMR Provider 05/10/17 Arpit Smith CNP [address] [place] [address], [address] [place] [address] Historical LMR Provider 05/10/17 07/28/21 documented as of this encounter Additional Source Comments The information contained in this document represents components of the legal health record. It is not the complete legal health record.[facility]
[2025-04-11 14:20] VITALS: BMI 35.0
== END 2025-04-06 14:16 | disposition home or self-care (01) ==
LOC: HO.ENCR 13:25
PROVIDERS: PCP Internal Medicine; Visit Provider Dietitian, Registered
DX: E66.812 Obesity, class 2 (principal)

== ENCOUNTER 2025-05-11 15:38 | Outpatient (REF) | payer OTHER, SELFPAY ==
--- OUTSIDE RECORDS SUMMARY | 2025-05-11 21:46 | XMS_ITS | Encounter Summary ---
Author Organization [facility] Address [address] [place] [address] Phone Care Team Providers Care Powerhouse Oiler Name Role Phone Bob Ardon, PhD Unavailable [phone] John Alvares MD Unavailable [phone] Allan Mehta MD Unavailable [phone] Allan Mehta MD Primary Care Provide r Pankaj Brown MD Unavailable Timi White MD Unavailable [phone] Adwoa Chahal MD Unavailable +[phone] Daniella Nunes MD Unavailable [phone] Adelfo Masters NP Unavailable [phone] Audra Stacy MD Unavailable [phone] Chrissie Fajardo MD Unavailable [phone] Aashish Davis MD Unavailable Trevor Larson MD Unavailable [phone] Moses Knapp MD Unavailable [phone] Maria Isabel Dale MD Unavailable [phone] Arpit Smith CNP Unavailable [phone] Ryan Stock MD Primary Care Provider Encounter Details Date Type Department Care Team (Latest Contact Info) Description 05/12/2017 Transcribe Orders [facility] PFT Lab 30 [place] [address] Allan Mehta MD 22 [facility] 1 [place] [address] [email or web address] Dyspnea on exertion (Primary Dx) Social History [...] with bronchodilator, Lung Volumes, DLCO; Performing Location: [facility] (05/29/2017 12:02 PM EST) FEV1 liters FVC [...] abnormality documented in this encounter Care Teams Powerhouse Oiler Relationship Specialty Start Date End Date Allan Mehta MD 22 [facility] 1 [place] [address] [email or web address] PCP - General 05/06/17 10/26/17 Ryan Stock MD [address] [place] [address] [place] [address] PCP - General Internal Medicine 10/27/17 Bob Ardon MBBS, PhD 60 [place] [address] [email or web address] Historical LMR Provider 05/05/1707/28/21 John Alvares MD 22 [facility], [address] [place] [address] [email or web address] Historical LMR Provider 05/05/17 07/28/21 Allan Mehta MD 22 [facility] Floor 1 [place] [address] [email or web address] Historical LMR Provider 05/10/17 07/28/21 Pankaj Brown MD [address] [place] [address] [address] [address] Historical LMR Provider 05/10/17 2 Timi White MD [address] [place] [address], [address] [place] [address] Historical LMR Provider 05/10/17 07/28/21 Adwoa Chahal MD [address] [place] [address], [address] [place] [address] Historical LMR Provider 05/10/17 2 Daniella Nunes MD [address] [place] [address] [email or web address] Historical LMR Provider 05/10/17 07/28/21 Adelfo Masters NP [address] [place] [address] 2_[place] [address] [email or web address] Historical LMR Provider 05/10/17 07/28/21 Audra Stacy MD 22 [facility], [facility] 102 [place] [address] Historical LMR Provider 05/10/17 Chrissie Fajardo MD 15 [facility], 2nd [place] [address] Historical LMR Provider 05/10/17 Aashish Davis MD [address] [place] [address] Historical LMR Provider 05/10/17 07/28/21 Trevor Larson MD [address] [place] [address], [address] [place] [address] Historical LMR Provider 05/10/17 2 Moses Knapp MD 22 [facility], [address] [address] Historical LMR Provider 05/10/17 Maria Isabel Dale MD 22 [facility], [facility] 102 [place] [address] Historical LMR Provider 05/10/17 Arpit Smith CNP [address] [place] [address], [address] [place] [address] [email or web address] Historical LMR Provider 05/10/17 documented as of this encounter Additional Source Comments The information contained in this document represents components of the legal health record. It is not the complete legal health record.[facility]
--- OUTSIDE RECORDS SUMMARY | 2025-05-11 21:46 | XMS_ITS | Encounter Summary ---
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 on file Not on file documented as of this encounter Plan of Treatment Not on file documented as of this encounter Visit Diagnoses Not on filedocumented in this encounter Care Teams County Administrator Relationship Specialty Start Date End Date Ryan Stock MD [address] [place] [address] [place] [address] PCP - General Internal Medicine 10/27/17 Audra Stacy MD [address] [place] [address] Historical LMR Provider 05/10/17 Moses Knapp MD [address] [place] [address] Historical LMR Provider 05/10/17 Maria Isabel Dale MD [address] [place] [address] Historical LMR Provider 05/10/17 documented as of this encounter Additional Source Comments The information contained in this document represents components of the legal health record. It is not the complete legal health record.[facility]
--- OUTSIDE RECORDS SUMMARY | 2025-05-11 21:47 | XMS_ITS | Encounter Summary ---
Author Organization [facility] Address [address] [place] [address] Phone Care Team Providers Care Beaver Trapper Name Role Phone Bob Ardon, PhD Unavailable John Alvares MD Unavailable [phone] Allan Mehta MD Unavailable [phone] Pankaj Brown MD Unavailable Timi White MD Unavailable [phone] Adwoa Chahal MD Unavailable [phone] Daniella Nunes MD Unavailable [phone] Adelfo Masters NP Unavailable Audra Stacy MD Unavailable [phone] Chrissie Fajardo MD Unavailable [phone] Aashish Davis MD Unavailable Trevor Larson MD Unavailable [phone] Moses Knapp MD Unavailable Maria Isabel Dale MD Unavailable [phone] Arpit Smith CNP Unavailable [phone] Ryan Stock MD Primary Care Provider Encounter Details Date Type Department Care Team (Late st Contact Info) Description 12/31/2017 Procedure Pass [facility] Endoscopy Admitting Dept Virtual Department 30 [place] [address] Social History Tobacco Use Types Packs/Day Years [...] 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 Not on file Not on file documented as of this encounter Plan of Treatment Not on file documented as of this encounter Visit Diagnoses Not on filedocumented in this encounter Care Teams Beaver Trapper Relationship Specialty Start Date End Date Ryan Stock MD [address] [place] [address] [place] [address] PCP - General Internal Medicine 10/27/17 Bob Ardon MBBS, PhD [address] [place] [address] [email or web address] Historical LMR Provider 05/05/1707/28/21 John Alvares MD 22 [facility], [address] [place] [address] [email or web address] Historical LMR Provider 05/05/17 07/28/21 Allan Mehta MD 22 [facility] Floor 1 [place] [address] [email or web address] Historical LMR Provider 05/10/17 07/28/21 Pankaj Brown MD [address] [place] [address] 1st [place] [address] Historical LMR Provider 05/10/17 2 Timi White MD 22 [facility], [address] [place] [address] Historical LMR Provider 05/10/17 07/28/21 Adwoa Chahal MD 22 [facility], [address] [place] [address] Historical LMR Provider 05/10/17 2 Daniella Nunes MD 19 [place] [address] [email or web address] Historical LMR Provider 05/10/17 07/28/21 Adelfo Masters NP [address] [place] [address] 2_[place] [address] [email or web address] Historical LMR Provider 05/10/17 07/28/21 Audra Stacy MD 22 [facility], [address] [place] [address] Historical LMR Provider 05/10/17 Chrissie Fajardo MD 15 [facility], 2nd [place] [address] Historical LMR Provider 05/10/17 Aashish Davis MD [address] [place] [address], [address] [place] [address] Historical LMR Provider 05/10/17 07/28/21 Trevor aLrson MD [address] [place] [address], [address] [place] [address] Historical LMR Provider 05/10/17 2 Moses Knapp MD [address] [place] [address], [address] [address] Historical LMR Provider 05/10/17 Maria Isabel Dale MD [address] [place] [address], [address] [address] Historical LMR Provider 05/10/17 Arpit Smith CNP [address] [place] [address], [address] [place] [address] Historical LMR Provider 05/10/17 documented as of this encounter Additional Source Comments The information contained in this document represents components of the legal health record. It is not the complete legal health record.[facility]
--- OUTSIDE RECORDS SUMMARY | 2025-05-11 21:47 | XMS_ITS | Clinical Summary ---
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 PAP SMEAR [...] 52, 56, 58, 59, 66, 68) by [employer] Onclarity HR-HPV analysis. Clinical correlation is advised. This HPV test was performed at [facility], [address] [place] [address]. This test has been FDA approved for SurePath cervical cytology specimens. The accuracy and precision of this test for all other specimen sources has been verified in the Cytopathology Laboratory of the [facility] and has not been cleared or approved by the U.S. Food and Drug Administration. Clinical correlation is advised. CLINICAL HISTORY Date of Last Menstrual Period: Not Provided Menstrual History: Nita-Menopausal Contraceptive History: Depo Other Clinical Conditions: Screening Pap SPECIMEN SOURCE A: PAP SMEAR (SUREPATH) CE Patient Name: KATHIA BUSTAMANTE : 1970 (Age: 50) Sex: F Institution: [facility] Location: [facility] Date of Collection: 02/14/2021 Date of Reported: 02/20/2021 09:04 Results to: Catrachita Oshea MD us Catrachita Oshea MD CYTOLOGY ORDERABLES Final Result SEE NARRATIVE * TSH (04/21/2019 3:15 PM EDT) TSH 2.51 0.27 - 4.20 uIU/mL [facility] Blood 04/21/2019 3:15 PM EDT 04/21/2019 3:21 PM EDT us Ryan Stock MD LAB BLOOD ORDERABLES Fi nal Result [facility] [address] [place] [address] * (ABNORMAL) Outside LDL (12/25/2016) LDL - External 44(A) 50 - 250 mg/ml us Historical Provider LAB BLOOD ORDERABLES Kirsten l Result from Last 3 Months or Most Recently Relevant to Health Maintenance Insurance [facility] [address] [place] [address] [place] [address] [facility] [address] [place] [place] [address] [facility] [place] [address] [place] [address] [address] [facility] [address] [place], [place] [address]Smash TechnologiesLIMA CITY [facility] [address] [place], [place] [address]Smash TechnologiesLIM[facility] CITY [facility] M[facility] Care Teams Biological Sciences Instructor Relationship Specialty Start Date End Date Ryan Stock MD [address] [place] [address] [place] [address] PCP - General Internal Medicine 10/27/17 Audra Stacy MD [address] [place] [address] [email or web address] Historical LMR Provider 05/10/17 Moses Knapp MD [address] [place] [address] Historical LMR Provider 05/10/17 Maria Isabel Dale MD [address] [place] [address] Historical LMR Provider 05/10/17 Additional Source Comments The information contained in this document represents components of the legal health record. It is not the complete legal health record.[facility]
--- OUTSIDE RECORDS SUMMARY | 2025-05-11 21:47 | XMS_ITS | Encounter Summary ---
Author Organization [facility] Address [address] [place] [address] Phone Care Team Providers Care Wwe Wrestler Name Role Phone Bob Ardon, PhD Unavailable [phone] John Alvares MD Unavailable [phone] Allan Mehta MD Unavailable +[phone] Pankaj Brown MD Unavailable Timi White MD Unavailable +[phone] Adwoa Chahal MD Unavailable +[phone] Daniella Nunes MD Unavailable [phone] Adelfo Masters NP Unavailable [phone] Audra Stacy MD Unavailable [phone] Chrissie Fajardo MD Unavailable [phone] Aashish Davis MD Unavailable Trevor Larson MD Unavailable [phone] Moses Knapp MD Unavailable [phone] Maria Isabel Dale MD Unavailable [phone] Arpit Smith CNP Unavailable [phone] Ryan Stock MD Primary Care Provider Reason for Referral * MRI/CAT Scan - Closed Specialty Diagnoses / Procedures Referred By Contac t Referred To Contact Radiology Diagnoses Paraparesis Bilateral numbness and tingling of arms and legs White matter disease Procedures MRI Thoracic Spine Trevor Stapleton MD Phone: tel: fax: [email or web address] Referral ID Status Reason Start Date Expiration Date Visits Re quested Visits Authorized [id number] Closed 03/29/2019 05/28/2019 1 1 Encounter Details Date Type Department Care Team (Latest Contact Info) Description 03/29/2019 Transcribe Orders Virtual Department [address] [place] [address] Trevor Stapleton MD [address] [place] [address], [address] [place], [place] [id number] 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 [...] disease documented in this encounter Care Teams Wwe Wrestler Relationship Specialty Start Date End Date Ryan Stock MD [address] [place] [address] [place] [address] PCP - General Internal Medicine 10/27/17 Bob Ardon MBBS, PhD [address] [place] [address] [email or web address] Historical LMR Provider 05/05/1707/28/21 John Alvares MD [address] [place] [address], [address] [place] [address] [email or web address] Historical LMR Provider 05/05/17 07/28/21 Allan Mehta MD 22 [facility] Floor 1 [place] [address] [email or web address] Historical LMR Provider 05/10/17 07/28/21 Pankaj Brown MD [address] [place] [address] [address] [address] Historical LMR Provider 05/10/17 2 Timi White MD [address] [place] [address], [address] [place] [address] Historical LMR Provider 05/10/17 07/28/21 Adwoa Chahal MD [address] [place] [address], [address] [place] [address] Historical LMR Provider 05/10/17 2 Daniella Nunes MD [address] [place] [address] [email or web address] Historical LMR Provider 05/10/17 07/28/21 Adelfo Masters NP [address] [place] [address] 2_[place] [address] [email or web address] Historical LMR Provider 05/10/17 07/28/21 Audra Stacy MD [address] [place] [address] Historical LMR Provider 05/10/17 Chrissie Fajardo MD [address] [place] [address], 2nd [place] [address] Historical LMR Provider 05/10/17 Aashish [place] MD [address] [place] [address] Historical LMR Provider 05/10/17 07/28/21 Trevor Larson MD [address] [place] [address], [address] [place] [address] Historical LMR Provider 05/10/17 2 Moses Knapp MD [address] [place] [address], [facility] [address] [place] [address] Historical LMR Provider 05/10/17 Maria Isabel [place] MD 22 [facility], [address] [place] [address] Historical LMR Provider 05/10/17 Arpit Smith CNP [address] [facility], [address] [place] [address] [email or web address] Historical LMR Provider 05/10/17 documented as of this encounter Additional Source Comments The information contained in this document represents components of the legal health record. It is not the complete legal health record.[facility]
--- OUTSIDE RECORDS SUMMARY | 2025-05-11 21:47 | XMS_ITS | Encounter Summary ---
Author Organization [facility] Address [address] [place] [address] Phone Care Team Providers Care Thread Laster Name Role Phone Bob Ardon, PhD Unavailable [phone] John Alvares MD Unavailable [phone] Allan Mehta MD Unavailable +[phone] Pankaj Brown MD Unavailable +[phone] Timi White MD Unavailable [phone] Adwoa hCahal MD Unavailable +[phone] Daniella Nunes MD Unavailable [phone] Adelfo Masters NP Unavailable [phone] Audra Stacy MD Unavailable [phone] Chrissie Fajardo MD Unavailable [phone] Aashish [place] MD Unavailable Trevor Larson MD Unavailable [phone] Moses Knapp MD Unavailable [phone] Maria Isabel Dale MD Unavailable [phone] Arpit Smith CNP Unavailable [phone] Ryan Stock MD Primary Care Provider Reason for Referral * Outpatient Procedure - Closed Specialty Diagnoses / Procedures Referred By Contac t Referred To Contact Radiology Diagnoses Abdominal pain, unspecified abdominal location Gastroesophageal reflux disease without esophagitis Procedures NM Gastric Emptying Ryan Stock MD [address] [place] [address] Dr CARRERO Sanjay DupontyoJENNIFER [place] [address] Phone: tel: fax: Referral ID Status Reason Start Date Expiration Date Visits Re quested Visits Authorized [id number] Closed 06/03/2018 06/03/2019 1 1 Encounter Details Date Type Department Care Team (Late st Contact Info) Description 06/03/2018 Ancillary Orders Virtual Department 30 [place] [address] Ryan Stock MD [address] [place] [address] Dr CARRERO Sanjay Meza [place] [address] Abdominal pain, unspecified abdominal location; Gastroesophageal reflux [...] 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 on file [...] reflux documented in this encounter Care Teams Thread Laster Relationship Specialty Start Date End Date Ryan Stock MD [address] [place] [address] [place] [address] PCP - General Internal Medicine 10/27/17 Bob Ardon MBBS, PhD [address] [place] [address] [email or web address] Historical LMR Provider 05/05/1707/28/21 John Alvares MD [address] [place] [address], [address] [place] [address] [email or web address] Historical LMR Provider 05/05/17 07/28/21 Allan Mehta MD 22 [facility] Floor 1 [place] [address] [email or web address] Historical LMR Provider 05/10/17 07/28/21 Pankaj Brown MD [address] [place] [address] [address] [address] Historical LMR Provider 05/10/17 2 Timi White MD 22 [facility], [address] [place] [address] Historical LMR Provider 05/10/17 07/28/21 Adwoa Chahal MD [address] [place] [address], [address] [place] [address] Historical LMR Provider 05/10/17 2 Daniella Nunes MD [address] [place] [address] [email or web address] Historical LMR Provider 05/10/17 07/28/21 Adelfo Masters NP [address] [place] [address] 2_Wound Care [place], [place] [id number] [email or web address] Historical LMR Provider 05/10/17 07/28/21 Audra Stacy MD 22 [facility], [address] [address] Historical LMR Provider 05/10/17 Chrissie Fajardo MD 15 [facility], 2nd [place] [address] Historical LMR Provider 05/10/17 Aashish [place] MD [address] [place] [address] Historical LMR Provider 05/10/17 07/28/21 Trevor Larson MD [address] [place] [address], [address] [place] [address] Historical LMR Provider 05/10/17 2 Moses Knapp MD [address] [place] [address], [address] [address] Historical LMR Provider 05/10/17 Maria Isabel Dale MD [address] [address] Historical LMR Provider 05/10/17 Arpit Smith, AMY [address] [facility], [address] [place] [address] [phone] ([email or web address] Historical LMR Provider 05/10/17 documented as of this encounter Additional Source Comments The information contained in this document represents components of the legal health record. It is not the complete legal health record.[facility]
--- OUTSIDE RECORDS SUMMARY | 2025-05-11 21:47 | XMS_ITS | Encounter Summary ---
Author Organization [facility] Address [address] [place] [address] Phone Care Team Providers Care Pot Operator Name Role Phone Bob Ardon, PhD Unavailable John Alvares MD Unavailable [phone] Allan Mehta MD Unavailable [phone] Pankaj Brown MD Unavailable Timi White MD Unavailable [phone] Adwoa Chahal MD Unavailable +[phone] Daniella Nunes MD Unavailable [phone] Adelfo Masters NP Unavailable +[phone] Audra Stcay MD Unavailable [phone] Chrissie Fajardo MD Unavailable [phone] Aashish [place] MD Unavailable Trevor Larson MD Unavailable [phone] Moses Knapp MD Unavailable Maria Isabel Dale MD Unavailable [phone] Arpit Smiht CNP Unavailable [phone] Ryan Stock MD Primary Care Provider Encounter Details Date Type Department Care Team (Late st Contact Info) Description 04/21/2019 Transcribe Orders [address] [id number] Ryan Stock MD [address] [place] [address] Dr [place], [place] [address] Hypothyroidism, unspecified type (Primary Dx) Social History [...] 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 Co de Phone Number [address] [address] * TSH (04/21/2019 3:15 PM EDT) Pathologist [facility] [place] TSH 2.51 0.27 - 4.20 uIU/mL [facility] Blood 04/21/2019 3:15 PM EDT 04/21/2019 3:21 PM EDT Ryan Stock MD LAB BLOOD ORDERABLES Fi nal Result Performing Organization Address [facility]/ZIP Co de Phone Number [address] [address] * (ABNORMAL) CBC and differential (04/21/2019 3:15 PM EDT) WBC 6.21 3.40 - 11.20 K/uL [facility] RBC 4.22 3.80 - 4.80 M/uL [facility] HGB 13.1 12.0 - 15.0 g/dL [facility] HCT 38.6 36.0 - 46.0 % [facility] PLT 230 130 - 400 K/uL [facility] MCV 91.5 79.0 - 98.0 fL [facility] MCH 31.0 27.0 - 34.8 pg [facility] MCHC 33.9 31.5 - 36.0 g/dL [facility] RDW 12.4 10.8 - 14.6 % [facility] MPV 9.5 9.4 - 12.4 fl [facility] NRBC 0.00 0.00 /100 WBCs [facility] ABSOLUTE NRBC 0.00 0.00 K/uL [facility] DIFF METHOD Auto [facility] NEUTS 59.7 45.30 - 77.70 % [facility] LYMPHS 31.7 12.30 - 39.70 % [facility] MONOS 7.7 4.10 - 12.80 % [facility] EOS 0.0 0 - 7.2 % [facility] BASOS 0.6 0 - 2.80 % [facility] Granulocytes, immature (%) 0.3 0.0 - 0.9 % [facility] ABSOLUTE NEUTS 3.70 1.40 - 7.70 K/uL [facility] ABSOLUTE LYMPHS 1.97 0.60 - 3.20 K/uL [facility] ABSOLUTE MONOS 0.48 0.11 - 0.59 K/uL [facility] ABSOLUTE EOS 0.00(L) 0.01 - 0.50 K/uL [facility] ABSOLUTE BASOS 0.04 0.00 - 0.08 K/uL [facility] Granulocytes, immature 0.02 0.00 - 0.05 K/uL [facility] Blood 04/21/2019 3:15 PM EDT 04/21/2019 3:21 PM EDT us Ryan Stock MD LAB BLOOD ORDERABLES Fi nal Result [address] [address] * (ABNORMAL) Comprehensive metabolic panel (04/21/2019 3:15 PM EDT) SODIUM 139 133 - 146 mmol/L [facility] POTASSIUM 4.0 3.3 - 5.1 mmol/L [facility] CHLORIDE 105 96 - 108 mmol/L [facility] CO2 22 21 - 35 mmol/L [facility] BUN 13 6 - 19 mg/dL [facility] CREATININE 1.00 0.5 - 1.5 mg/dL [facility] GLUCOSE 100(H) 70 - 99 mg/dL [facility] ALBUMIN 4.2 3.9 - 4.8 g/dL [facility] TOTAL PROTEIN 7.1 6.5 - 8.0 g/dL [facility] CALCIUM 9.1 8.4 - 10.3 mg/dL [facility] ALKALINE PHOSPHATASE 63 39 - 117 U/L [facility] TOTAL BILIRUBIN 0.2 0.0 - 1.2 mg/dL [facility] AST 17 0 - 37 U/L [facility] ALT 12 0 - 40 U/L [facility] GLOBULIN 2.9 1 - 4.8 g/dL [facility] EGFR 67 >59 mL/min/1.7 3m2 [facility] Comment:If patient is black, multiply result by 1.159. Estimated glomerular filtration rate calculated using the CKD-EPI equation. ANION GAP 16 10 - 20 mmol/L [facility] Blood 04/21/2019 3:1 5 PM EDT 04/21/2019 3:21 PM EDT us Ryan Stock MD LAB BLOOD ORDERABLES Fi nal Result Performing Organization Address City/[facility]/ZIP Co de Phone Number [address] [address] documented in this encounter Visit Diagnoses Diagnosis Hypothyroidism, unspecified type- Primary documented in this encounter Care Teams Pot Operator Relationship Specialty Start Date End Date Ryan Stock MD [address] [place] [address] [place] [address] PCP - General Internal Medicine 10/27/17 Bob Ardon MBBS, PhD [address] [place] [address] [email or web address] Historical LMR Provider 05/05/1707/28/21 John Alvares MD [address] [facility], [address] [place] [address] [email or web address] Historical LMR Provider 05/05/17 07/28/21 Allan Mehta MD [address] [facility] Floor 1 [place] [address] [email or web address] Historical LMR Provider 05/10/17 07/28/21 Pankaj Brown MD [address] [place] [address] [address] [address] Historical LMR Provider 05/10/17 2 Timi White MD [address] [place] [address], [address] [place] [address] Historical LMR Provider 05/10/17 07/28/21 Adwoa Chahal MD [address] [place] [address], [address] [place] [address] Historical LMR Provider 05/10/17 2 Daniella Nunes MD 19 [place] [address] Historical LMR Provider 05/10/17 07/28/21 Adelfo Masters NP [address] [place] [address] 2_[place] [address] [email or web address] Historical LMR Provider 05/10/17 07/28/21 Audra Stacy MD [address] [facility], [address] [place] [address] Historical LMR Provider 05/10/17 Chrissie Fajardo MD [address] [facility], 2nd [place] [address] Historical LMR Provider 05/10/17 Aashish [place] MD [address] [place] [address], [address] [address] Historical LMR Provider 05/10/17 07/28/21 Trevor Larson MD [address] [facility], [address] [place] [address] Historical LMR Provider 05/10/17 2 Moses Knapp MD 22 [facility], [address] [address] Historical LMR Provider 05/10/17 Maria Isabel Dale MD [address] [facility], [address] [place] [address] [email or web address] Historical LMR Provider 05/10/17 Arpit Smith CNP [address] [place] [address], [address] [place] [address] [email or web address] Historical LMR Provider 05/10/17 documented as of this encounter Additional Source Comments The information contained in this document represents components of the legal health record. It is not the complete legal health record.[facility]
--- OUTSIDE RECORDS SUMMARY | 2025-05-11 21:47 | XMS_ITS | Encounter Summary ---
Author Organization [facility] Address [address] [place] [address] Phone Care Team Providers Care Bioassayist Name Role Phone Bob Ardon, PhD Unavailable [phone] John Alvares MD Unavailable [phone] Allan Mehta MD Unavailable +[phone] Allan Mehta MD Primary Care Provide r Pankaj Brown MD Unavailable [phone] Timi White MD Unavailable +[phone] Adwoa Chahal MD Unavailable +[phone] Daniella Nunes MD Unavailable [phone] Adelfo Masters NP Unavailable [phone] Audra Stacy MD Unavailable +[phone] Chrissie Fajardo MD Unavailable [phone] Aashish [place] MD Unavailable Trevor Larson MD Unavailable [phone] Moses Knapp MD Unavailable [phone] Maria Isabel Dale MD Unavailable [phone] Arpit Smith CNP Unavailable [phone] Ryan Stock MD Primary Care Provider Encounter Details Date Type Department Care Team (Late st Contact Info) Description 08/02/2017 EpicOnHand Encounter [facility] Gynecology Virtual Department [address] [place] [address] Mart Goldman MD 22 [facility], [address] [place] [address] 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 Not on file documented as of this encounter Plan of Treatment Not on file documented as of this encounter Visit Diagnoses Not on filedocumented in this encounter Care Teams Bioassayist Relationship Specialty Start Date End Date Allan Mehta MD 22 [facility] Floor 1 [place] [address] [email or web address] PCP - General 05/06/17 10/26/17 Ryan Stock MD [address] [place] [address] [place] [address] PCP - General Internal Medicine 10/27/17 Bob Ardon MBBS, PhD [address] [place] [address] [email or web address] Historical LMR Provider 05/05/1707/28/21 John Alvares MD 22 [facility], [address] [place] [address] [email or web address] Historical LMR Provider 05/05/17 07/28/21 Allan Mehta MD 22 [facility] Floor 1 [place] [address] [email or web address] Historical LMR Provider 05/10/17 07/28/21 Pankaj Brown MD [address] [place] [address] 1st Floor [address] [place] [address] Historical LMR Provider 05/10/17 2 Timi White MD 22 [facility], [address] [place] [address] [email or web address] Historical LMR Provider 05/10/17 07/28/21 Adwoa Chahal MD [address] [place] [address], [address] [place] [address] [email or web address] Historical LMR Provider 05/10/17 2 Daniella Nunes MD [address] [place] [address] [email or web address] Historical LMR Provider 05/10/17 07/28/21 Adelfo Masters NP [address] [place] [address] 2_[place] [address] [email or web address] Historical LMR Provider 05/10/17 07/28/21 Audra Stacy MD 22 [facility], [address] [place] [address] Historical LMR Provider 05/10/17 Chrissie Fajardo MD 15 [facility], 2nd [place] [address] Historical LMR Provider 05/10/17 Aashish [place] MD [address] [place] [address] Historical LMR Provider 05/10/17 07/28/21 Trevor Larson MD 22 [facility], [address] [place] [address] Historical LMR Provider 05/10/17 2 Moses Knapp MD 22 [facility] 102 [place] [address] Historical LMR Provider 05/10/17 Maria Isabel Dale MD [address] [address] Historical LMR Provider 05/10/17 Arpit Smith CNP 22 [facility], [address] [place] [address] Historical LMR Provider 05/10/17 documented as of this encounter Additional Source Comments The information contained in this document represents components of the legal health record. It is not the complete legal health record.[facility]
--- OUTSIDE RECORDS SUMMARY | 2025-05-11 21:47 | XMS_ITS | Encounter Summary ---
Author Organization [facility] Address [address] [place] [address] Phone Care Team Providers Care Clicking Machine Operator Name Role Phone Bob Ardon, PhD Unavailable [phone] John Alvares MD Unavailable [phone] Allan Mehta MD Unavailable [phone] Pankaj Brown MD Unavailable Timi White MD Unavailable +[phone] Adwoa Chahal MD Unavailable +[phone] Daniella Nunes MD Unavailable [phone] Adelfo Masters NP Unavailable Audra Stacy MD Unavailable +[phone] Chrissie Fajardo MD Unavailable +[phone] Aashish Davis MD Unavailable Trevor Larson MD Unavailable [phone] Moses Knapp MD Unavailable Maria Isabel Dale MD Unavailable [phone] Arpit Smith CNP Unavailable +[phone] Ryan Stock MD Primary Care Provider Encounter Details Date Type Department Care Team (Latest Contact Info) Description 09/13/2019 Transcribe Orders [facility] Department [address] [place] [address] Trevor Stapleton MD [address] [place] [address], [address] [place] [address] 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 on file documented as of this encounter Plan of Treatment Not on file documented as of this encounter Visit Diagnoses Diagnosis New onset headache- Primary Headache White matter disease documented in this encounter Care Teams Clicking Machine Operator Relationship Specialty Start Date End Date Ryan Stock MD [address] [place] [address] [place] [address] PCP - General Internal Medicine 10/27/17 Bob Ardon MBBS, PhD [address] [place] [address] [email or web address] Historical LMR Provider 05/05/1707/28/21 John Alvares MD [address] [place] [address], [address] [place] [address] [email or web address] Historical LMR Provider 05/05/17 07/28/21 Allan Mehta MD [address] [facility] Floor 1 [place] [address] [email or web address] Historical LMR Provider 05/10/17 07/28/21 Pankaj Brown MD 50 [facility] 1st Floor -[address] [place] [address] Historical LMR Provider 05/10/17 2 Timi White MD [address] [facility], [address] [place] [address] Historical LMR Provider 05/10/17 07/28/21 Adwoa Chahal MD [address] [facility], [address] [place] [address] Historical LMR Provider 05/10/17 2 Daniella Nunes MD [address] [place] [address] [email or web address] Historical LMR Provider 05/10/17 07/28/21 Adelfo Masters NP [address] [place] [address] 2_[place] [address] [email or web address] Historical LMR Provider 05/10/17 07/28/21 Audra Stacy MD [address] [facility], [address] [place] [address] Historical LMR Provider 05/10/17 Chrissie Fajardo MD [address] [facility], 2nd [place] [address] Historical LMR Provider 05/10/17 Aashish Davis MD [address] [place] [address] Historical LMR Provider 05/10/17 07/28/21 Trevor Larson MD [address] [place] [address], [address] [place] [address] Historical LMR Provider 05/10/17 2 Moses Knapp MD [address] [place] [address] Historical LMR Provider 05/10/17 Maria Isabel Dale MD [address] [place] [address] Historical LMR Provider 05/10/17 Arpit Smith CNP [address] [place] [address] Historical LMR Provider 05/10/17 documented as of this encounter Additional Source Comments The information contained in this document represents components of the legal health record. It is not the complete legal health record.[facility]
--- OUTSIDE RECORDS SUMMARY | 2025-05-11 21:47 | XMS_ITS | Encounter Summary ---
Author Organization [facility] Address [address] [place] [address] Phone Care Team Providers Care Forestry Aid Technician Name Role Phone Bob Ardon, PhD Unavailable [phone] John Alvares MD Unavailable Allan Mehta MD Unavailable +[phone] Pankaj Brown MD Unavailable Timi White MD Unavailable +[phone] Adwoa Chahal MD Unavailable +[phone] Daniella Nunes MD Unavailable [phone] Adelfo Masters NP Unavailable [phone] Audra Stacy MD Unavailable +[phone] Chrissie Fajardo MD Unavailable +[phone] Aashish Davis MD Unavailable Trevor Larson MD Unavailable [phone] Moses Knapp MD Unavailable [phone] Maria Isabel Dale MD Unavailable [phone] Arpit Smith CNP Unavailable [phone] Ryan Stock MD Primary Care Provider Reason for Referral * MRI/CAT Scan - Closed Specialty Diagnoses / Procedures Referred By Contac t Referred To Contact Radiology Diagnoses Weakness of distal arms and legs Leg numbness White matter disease Procedures MRI Cervical Spine Trevor Stapleton MD Phone: tel: fax: [email or web address] Referral ID Status Reason Start Date Expiration Date Visits Re quested Visits Authorized [id number] Closed 03/11/2019 05/10/2019 1 1 Encounter Details Date Type Department Care Team (Latest Contact Info) Description 03/11/2019 Transcribe Orders Virtual Department 30 [place] [address] Trevor Stapleton MD [address] [place] [address], [address] [place] [address] 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 POS - [id number] Narrative 03/19/2019 8:48 AM EDT HISTORY: Ataxia, [...] degenerative disc and endplate changes. POS - [id number] Trevor Stapleton MD IMG MR XSPECIALTY Final Resu lt documented in this encounter Visit Diagnoses Diagnosis Weakness of distal arms and legs- Primary Leg numbness Disturbance of skin sensation White matter disease Weakness of distal arms and legs Leg numbness Disturbance of skin sensation White matter disease documented in this encounter Care Teams Forestry Aid Technician Relationship Specialty Start Date End Date Ryan Stock MD [address] [place] [address] [place] [address] PCP - General Internal Medicine 10/27/17 Bob Ardon MBBS, PhD [address] [place] [address] [email or web address] Historical LMR Provider 05/05/1707/28/21 John Alvares MD [address] [place] [address], [address] [place] [address] [email or web address] Historical LMR Provider 05/05/17 07/28/21 Allan Mehta MD 22 [facility] Floor 1 [place] [address] [email or web address] Historical LMR Provider 05/10/17 07/28/21 Pankaj Brown MD [address] [place] [address] [address] [address] Historical LMR Provider 05/10/17 2 Timi White MD [address] [place] [address], [address] [place] [address] Historical LMR Provider 05/10/17 07/28/21 Adwoa Chahal MD [address] [place] [address], [address] [place] [address] Historical LMR Provider 05/10/17 2 Daniella Nunes MD 19 [place] [address] [email or web address] Historical LMR Provider 05/10/17 07/28/21 Adelfo Masters NP [address] [place] [address] 2_Wound Care [place], [place] [id number] [email or web address] Historical LMR Provider 05/10/17 07/28/21 Audra Stacy MD 22 [facility], [address] [place] [address] Historical LMR Provider 05/10/17 Chrissie Fajardo MD [address] [place] [address], 2nd [place] [address] Historical LMR Provider 05/10/17 Aashish Davis MD [address] [place] [address] Historical LMR Provider 05/10/17 07/28/21 Trevor Larson MD [address] [place] [address], [address] [place] [address] Historical LMR Provider 05/10/17 2 Moses Knapp MD [address] [place] [address], [facility] 102 [place] [address] Historical LMR Provider 05/10/17 Maria Isabel Dale MD 22 [facility], [facility] 102 [place] [address] Historical LMR Provider 05/10/17 Arpit Smith, AMY [address] [facility], [address] [place] [address] ([email or web address]) [email or web address] Historical LMR Provider 05/10/17 documented as of this encounter Additional Source Comments The information contained in this document represents components of the legal health record. It is not the complete legal health record.[facility]
--- OUTSIDE RECORDS SUMMARY | 2025-05-11 21:47 | XMS_ITS | Encounter Summary ---
Author Organization [facility] Address [address] [place] [address] Phone Care Team Providers Care Typesetters Printer Name Role Phone Bob Ardon, PhD Unavailable John Alvares MD Unavailable Allan Mehta MD Unavailable [phone] Pankaj Brown MD Unavailable Timi White MD Unavailable [phone] Adwoa Chahal MD Unavailable [phone] Daniella Nunes MD Unavailable [phone] Adelfo Masters NP Unavailable Audra Stacy MD Unavailable [phone] Chrissie Fajardo MD Unavailable [phone] Aashish Davis MD Unavailable Trevor Larson MD Unavailable [phone] Moses Knapp MD Unavailable Maria Isabel Dale MD Unavailable [phone] Arpit Smith CNP Unavailable [phone] Ryan Stcok MD Primary Care Provider Encounter Details Date Type Department Care Team (Late st Contact Info) Description 03/29/2019 Procedure Pass [facility], [address] [address] Social History Tobacco Use Types Packs/Day Years [...] 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, [address] [place] [address] [email or web address] Historical LMR Provider 05/05/17 07/28/21 Allan Mehta MD [address] [facility] Floor 1 [place] [address] [email or web address] Historical LMR Provider 05/10/17 07/28/21 Pankaj Brown MD [address] [place] [address] 1st Floor -[address] [place] [address] Historical LMR Provider 05/10/17 2 Timi White MD [address] [facility], [address] [place] [address] Historical LMR Provider 05/10/17 07/28/21 Adwoa Chahal MD [address] [facility], [address] [place] [address] Historical LMR Provider 05/10/17 2 Daniella Nunes MD 19 [place] [address] [email or web address] Historical LMR Provider 05/10/17 07/28/21 Adelfo Masters NP [address] [place] [address] 2_[place] [address] [email or web address] Historical LMR Provider 05/10/17 07/28/21 Audra Stacy MD [address] [facility], [address] [place] [address] [email or web address] Historical LMR Provider 05/10/17 Chrissie Fajardo MD [address] [facility], 2nd [place] [address] Historical LMR Provider 05/10/17 Aashish Davis MD [address] [place] [address], [address] [place] [address] Historical LMR Provider 05/10/17 07/28/21 Trevor Larson MD [address] [place] [address], [address] [place] [address] Historical LMR Provider 05/10/17 2 Moses Knapp MD [address] [place] [address], [address] [address] Historical LMR Provider 05/10/17 Maria Isabel Dale MD [address] [place] [address], [address] [address] Historical LMR Provider 05/10/17 Arpit Smith CNP [address] [place] [address], [address] [place] [address] Historical LMR Provider 05/10/17 documented as of this encounter Additional Source Comments The information contained in this document represents components of the legal health record. It is not the complete legal health record.[facility]
--- OUTSIDE RECORDS SUMMARY | 2025-05-11 21:47 | XMS_ITS | Encounter Summary ---
Author Organization [facility] Address [address] [place] [address] Phone Care Team Providers Care Awning Maker Name Role Phone Bob Ardon, PhD Unavailable [phone] John Alvares MD Unavailable [phone] Allan Mehta MD Unavailable [phone] Pankaj Brown MD Unavailable Timi White MD Unavailable +[phone] Adwoa Chahal MD Unavailable +[phone] Daniella Nunes MD Unavailable [phone] Adelfo Masters NP Unavailable [phone] Audra Stacy MD Unavailable +[phone] Chrissie Fajardo MD Unavailable +[phone] Aashish Davis MD Unavailable Trevor Larson MD Unavailable [phone] Moses Knapp MD Unavailable [phone] Maria Isabel Dale MD Unavailable [phone] Arpit Smith CNP Unavailable [phone] Ryan Stock MD Primary Care Provider Reason for Referral * MRI/CAT Scan - Closed Specialty Diagnoses / Procedures Referred By Contac t Referred To Contact Radiology Diagnoses Right sided weakness Ataxia Procedures MRI Brain Trevor Stapleton MD Phone: tel: fax: [email or web address] Referral ID Status Reason Start Date Expiration Date Visits Re quested Visits Authorized [id number] Closed 05/19/2018 07/18/2018 1 1 Encounter Details Date Type Department Care Team (Late st Contact Info) Description 05/19/2018 Ancillary Orders Virtual Department 30 [place] [address] Trevor Stapleton MD [address] [place] [address], [address] [place] [address] [email or web address] Right sided weakness; TIA (transient [...] 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 POS - [id number] Edited by: Katrina Donahue on 06/03/2018 8:04 [...] posterior fossa lesions inparticular seen. POS - [id number] Edited by: Katrina Donahue on 06/03/2018 8:04 PM Trevor Stapleton MD IMG MR HEAD/NECK Final Resul t documented in this encounter Visit Diagnoses Diagnosis Right sided weakness TIA (transient ischemic attack) Unspecified transient cerebral ischemia Ataxia Lack of coordination Right sided weakness Ataxia Lack of coordination Right sided weakness TIA (transient ischemic attack) Unspecified transient cerebral ischemia documented in this encounter Care Teams Awning Maker Relationship Specialty Start Date End Date Ryan Stock MD [address] [place] [address] [place] [id number] PCP - General Internal Medicine 10/27/17 Bob Ardon MBBS, PhD [address] [place] [address] [email or web address] Historical LMR Provider 05/05/1707/28/21 John Alvares MD 22 [facility], [address] [place] [address] [email or web address] Historical LMR Provider 05/05/17 07/28/21 Allan Mehta MD 22 [facility] Floor 1 [place] [address] [email or web address] Historical LMR Provider 05/10/17 07/28/21 Pankaj Brown MD [address] [place] [address] 1st [place] [address] Historical LMR Provider 05/10/17 2 Timi White MD [address] [place] [address], [address] [place] [address] Historical LMR Provider 05/10/17 07/28/21 Adwoa Chahal MD [address] [place] [address], [address] [place] [address] Historical LMR Provider 05/10/17 2 Daniella Nunes MD [address] [place] [address] [email or web address] Historical LMR Provider 05/10/17 07/28/21 Adelfo Masters NP [address] [place] [address] 2_[place] [address] [email or web address] Historical LMR Provider 05/10/17 07/28/21 Audra Stacy MD 22 [facility], [address] [place] [address] Historical LMR Provider 05/10/17 Chrissie Fajardo MD 15 [facility], 2nd [place] [address] Historical LMR Provider 05/10/17 Aashish Davis MD [address] [place] [address] 202 [place] [address] Historical LMR Provider 05/10/17 07/28/21 Trevor Larson MD [address] [place] [address], [address] [place] [address] Historical LMR Provider 05/10/17 2 Moses Knapp MD [address] [place] [address], [address] [place] [address] Historical LMR Provider 05/10/17 Maria Isabel Dale MD [address] [place] [address], [facility] 102 [place] [address] Historical LMR Provider 05/10/17 Arpit Smith CNP [address] [place] [address], [address] [place] [address] Historical LMR Provider 05/10/17 documented as of this encounter Additional Source Comments The information contained in this document represents components of the legal health record. It is not the complete legal health record.[facility]
--- OUTSIDE RECORDS SUMMARY | 2025-05-11 21:47 | XMS_ITS | Encounter Summary ---
Author Organization [facility] Address [address] [place] [address] Phone Care Team Providers Care Extruder Operator Multiple Name Role Phone Bob Ardon, PhD Unavailable [phone] John Alvares MD Unavailable [phone] Allan Mehta MD Unavailable [phone] Pankaj Brown MD Unavailable Timi White MD Unavailable +[phone] Adwoa Chahal MD Unavailable +[phone] Daniella Nunes MD Unavailable [phone] Adelfo Masters NP Unavailable Audra Stacy MD Unavailable +[phone] Chrissie Fajardo MD Unavailable +[phone] Aashish Davis MD Unavailable Trevor Larson MD Unavailable [phone] Moses Knapp MD Unavailable [phone] Maria Isabel Dale MD Unavailable [phone] Arpit Smith CNP Unavailable +[phone] Ryan Stock MD Primary Care Provider Encounter Details Date Type Department Care Team (Late st Contact Info) Description 05/19/2018 Procedure Pass [facility], [address] [address] Social History Tobacco Use Types Packs/Day Years [...] 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 Not on file documented as of this encounter Plan of Treatment Not on file documented as of this encounter Visit Diagnoses Not on filedocumented in this encounter Care Teams Extruder Operator Multiple Relationship Specialty Start Date End Date Ryan Stock MD [address] [place] [address] [place] [address] PCP - General Internal Medicine 10/27/17 Bob Ardon MBBS, PhD [address] [place] [address] [email or web address] Historical LMR Provider 05/05/1707/28/21 John Alvares MD [address] [facility], [address] [place] [address] [email or web address] Historical LMR Provider 05/05/17 07/28/21 Allan Mehta MD [facility] Floor 1 [place] [address] [email or web address] Historical LMR Provider 05/10/17 07/28/21 Pankaj Brown MD [address] [place] [address] 1st Floor -[address] [place] [address] Historical LMR Provider 05/10/17 2 Timi White MD [address] [facility], [address] [place] [address] Historical LMR Provider 05/10/17 07/28/21 Adwoa Chahal MD [address] [facility], [address] [place] [address] Historical LMR Provider 05/10/17 2 Daniella Nunes MD 19 [place] [address] [email or web address] Historical LMR Provider 05/10/17 07/28/21 Adelfo Masters NP [address] [place] [address] 2_[place] [address] [email or web address] Historical LMR Provider 05/10/17 07/28/21 Audra Stacy MD [address] [facility], [address] [place] [address] Historical LMR Provider 05/10/17 Chrissie Fajardo MD [address] [facility], 2nd [place] [address] Historical LMR Provider 05/10/17 Aashish Davis MD [address] [place] [address], [address] [place] [address] Historical LMR Provider 05/10/17 07/28/21 Trevor Larson MD [address] [place] [address], [address] [place] [address] Historical LMR Provider 05/10/17 2 Moses Knapp MD [address] [place] [address], [address] [address] Historical LMR Provider 05/10/17 Maria Isabel Dale MD [address] [place] [address], [address] [address] Historical LMR Provider 05/10/17 Arpit Smith CNP [address] [place] [address], [address] [place] [address] Historical LMR Provider 05/10/17 documented as of this encounter Additional Source Comments The information contained in this document represents components of the legal health record. It is not the complete legal health record.[facility]
--- OUTSIDE RECORDS SUMMARY | 2025-05-11 21:47 | XMS_ITS | Encounter Summary ---
Author Organization [facility] Address [address] [place] [address] Phone Care Team Providers Care Emts Name Role Phone Bob Ardon, PhD Unavailable [phone] John Alvares MD Unavailable [phone] Allan Mehta MD Unavailable [phone] Pankaj Brown MD Unavailable Timi White MD Unavailable [phone] Adwoa Chahal MD Unavailable [phone] Daniella Nunes MD Unavailable [phone] Adelfo Masters NP Unavailable Audra Stacy MD Unavailable [phone] Chrissie Fajardo MD Unavailable [phone] Aashish Davis MD Unavailable Trevor Larson MD Unavailable [phone] Moses Knapp MD Unavailable Maria Isbael Dale MD Unavailable [phone] Arpit Smith CNP Unavailable [phone] Ryan Stock MD Primary Care Provider Encounter Details Date Type Department Care Team (Latest Contact Info) Description 10/21/2018 Transcribe Orders [facility] [address] [phone] Surinder Joseph MD [address] [place] [address] [email or web address] Functional diarrhea (Primary Dx); Abdominal pain, epigastric [...] EDT) IgA 273 70 - 400 mg/dL [facility] Blood 10/21/2018 3:47 PM EDT 10/21/2018 3:50 PM EDT us Surinder Joseph MD LAB BLOOD ORDERABLES Final R esult Performing Organization Address [facility] Co de Phone Number [address] [address] * C-Reactive Protein (10/21/2018 3:47 PM EDT) C REACTIVE PROTEIN <0.3 0.0 - 4.0 mg/L [facility] Blood 10/21/2018 3:47 PM EDT 10/21/2018 3:50 PM EDT Surinder Joseph MD LAB BLOOD ORDERABLES Final R esult Performing Organization Address [facility] Co de Phone Number [address] [address] * Comprehensive metabolic panel (10/21/2018 3:47 PM EDT) SODIUM 139 133 - 146 mmol/L [facility] POTASSIUM 4.0 3.3 - 5.1 mmol/L [facility] CHLORIDE 103 96 - 108 mmol/L [facility] CO2 24 21 - 35 mmol/L [facility] BUN 15 6 - 19 mg/dL [facility] CREATININE 1.10 0.5 - 1.5 mg/dL [facility] GLUCOSE 94 70 - 99 mg/dL [facility] ALBUMIN 4.2 3.9 - 4.8 g/dL [facility] TOTAL PROTEIN 7.1 6.5 - 8.0 g/dL [facility] CALCIUM 8.9 8.4 - 10.3 mg/dL [facility] ALKALINE PHOSPHATASE 57 39 - 117 U/L [facility] TOTAL BILIRUBIN 0.2 0.0 - 1.2 mg/dL [facility] Comment: Results from certain multiple myeloma patients may show a positive bias in recovery. Not all multiple myeloma patients show the bias and severity of the bias may vary between patients. In very rare cases, gammopathy, in particular type IgM (Waldenstrom's macroglobulinemia), may cause unreliable results. AST 11 0 - 37 U/L [facility] ALT 9 0 - 40 U/L [facility] GLOBULIN 2.9 1 - 4.8 g/dL [facility] EGFR 60 >59 mL/min/1.7 3m2 [facility] Comment:If patient is black, multiply result by 1.159. Estimated glomerular filtration rate calculated using the CKD-EPI equation. ANION GAP 16 10 - 20 mmol/L [facility] Blood 10/21/2018 3:47 PM EDT 10/21/2018 3:50 PM EDT us Surinder Joseph MD LAB BLOOD ORDERABLES Final R esult [facility] [address] [place] [address] * Gliadin deamidated antibody, IgG/IgA (10/21/2018 3:47 PM EDT) Gliadin Ab, IGA <10.0 <20.0 (Negative) U [facility]/[address] GLIADIN AB IGG <10.0 <20.0 (Negative) U [facility] MED/[address] Blood 10/21/2018 3:47 PM EDT 10/21/2018 3:49 PM EDT us Surinder Joseph MD LAB BLOOD ORDERABLES Final R esult [facility]/[address] [place] [address] * Tissue transglutaminase IgA (10/21/2018 3:47 PM EDT) Pathologist [facility] TTG IGA ANTIBODY <1.2 <4.0 (Negative) U/mL [facility]/[address] Blood 10/21/2018 3:47 PM EDT 10/21/2018 3:49 PM EDT us Surinder Joseph MD LAB BLOOD ORDERABLES Final R esult Performing Organization Address City/[facility] Co de Phone Number [facility] MED/[address] [place] [address] * (ABNORMAL) CBC (10/21/2018 3:47 PM EDT) Pathologist [facility] WBC 7.34 3.40 - 11.20 K/uL [facility] RBC 4.19 3.80 - 4.80 M/uL [facility] HGB 12.8 12.0 - 15.0 g/dL [facility] HCT 39.0 36.0 - 46.0 % [facility] PLT 249 130 - 400 K/uL [facility] MCV 93.1 79.0 - 98.0 fL [facility] MCH 30.5 27.0 - 34.8 pg [facility] MCHC 32.8 31.5 - 36.0 g/dL [facility] RDW 12.6 10.8 - 14.6 % [facility] MPV 9.2(L) 9.4 - 12.4 fl [facility] NRBC 0.00 0.00 /100 WBCs [facility] ABSOLUTE NRBC 0.00 0.00 K/uL [facility] Blood 10/21/2018 3:47 PM EDT 10/21/2018 3:50 PM EDT us Surinder Joseph MD LAB BLOOD ORDERABLES Final R esult [facility] [address] [place] [address] documented in this encounter Visit Diagnoses Diagnosis Functional diarrhea- Primary Abdominal pain, epigastric documented in this encounter Care Teams Emts Relationship Specialty Start Date End Date Ryan Stock MD [address] [place] [address] [place] [address] PCP - General Internal Medicine 10/27/17 Bob Ardon MBBS, PhD [address] [place] [address] [email or web address] Historical LMR Provider 05/05/1707/28/21 John Alvares MD [address] [facility], [address] [place] [address] [email or web address] Historical LMR Provider 05/05/17 07/28/21 Allan Mehta MD [address] [facility] Floor 1 [place] [address] [email or web address] Historical LMR Provider 05/10/17 07/28/21 Pankaj Brown MD [address] [place] [address] 1st Floor [address] [place] [address] Historical LMR Provider 05/10/17 2 Timi White MD [address] [facility] [place] [address] Historical LMR Provider 05/10/17 07/28/21 Adwoa Chahal MD [address] [facility] [place] [address] Historical LMR Provider 05/10/17 2 Daniella Nunes MD [address] [place] [address] [email or web address] Historical LMR Provider 05/10/17 07/28/21 Adelfo Masters NP [address] [place] [address] 2_[place] [address] [email or web address] Historical LMR Provider 05/10/17 07/28/21 Audra Stacy MD [address] [facility], [address] [place] [address] Historical LMR Provider 05/10/17 Chrissie Fajardo MD [address] [facility], 2nd [place] [address] Historical LMR Provider 05/10/17 Aashish Dvais MD [address] [place] [address], [address] [place] [address] Historical LMR Provider 05/10/17 07/28/21 Trevor Larson MD [address] [facility] [place] [address] Historical LMR Provider 05/10/17 2 Moses Knapp MD [address] [place] [address], [address] [place] [address] Historical LMR Provider 05/10/17 Maria Isabel Dale MD [address] [place] [address], [address] [address] Historical LMR Provider 05/10/17 Arpit Smith CNP [address] [place] [address], [address] [place] [address] [email or web address] Historical LMR Provider 05/10/17 documented as of this encounter Additional Source Comments The information contained in this document represents components of the legal health record. It is not the complete legal health record.[facility]
--- OUTSIDE RECORDS SUMMARY | 2025-05-11 21:47 | XMS_ITS | Encounter Summary ---
Author Organization [facility] Address [address] [place] [address] Phone Care Team Providers Care Proofreader Name Role Phone Bob Ardon, PhD Unavailable John Alvares MD Unavailable [phone] Allan Mehta MD Unavailable [phone] Pankaj Brown MD Unavailable Timi White MD Unavailable [phone] Adwoa Chahal MD Unavailable [phone] Daniella Nunes MD Unavailable Adelfo Masters NP Unavailable Audra Stacy MD Unavailable [phone] Chrissie Fajardo MD Unavailable [phone] Aashish Davis MD Unavailable Trevor Larson MD Unavailable [phone] Moses Knapp MD Unavailable Maria Isabel Dale MD Unavailable [phone] Arpit Smith CNP Unavailable [phone] Ryan Stock MD Primary Care Provider Encounter Details Date Type Department Care Team (Late st Contact Info) Description 04/23/2018 Ancillary Orders Virtual Department 30 [place] [address] Meera Rae PA-C 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 Not on file Not on file documented as of this encounter Plan of Treatment Not on file documented as of this encounter Visit Diagnoses Diagnosis Heartburn documented in this encounter Care Teams Proofreader Relationship Specialty Start Date End Date Ryan Stock MD [address] [place] [address] Dr CARRERO [address] [place] [address] PCP - General Internal Medicine 10/27/17 Bob Ardon MBBS, PhD [address] [place] [address] [email or web address] Historical LMR Provider 05/05/1707/28/21 John Alvares MD [address] [place] [address], [address] [place] [address] [email or web address] Historical LMR Provider 05/05/17 07/28/21 Allan Mehta MD 22 [facility] Floor 1 [place] [address] [email or web address] Historical LMR Provider 05/10/17 07/28/21 Pankaj Brown MD [address] [facility] 1st Floor [address] [place] [address] Historical LMR Provider 05/10/17 2 Timi White MD [address] [facility], [address] [place] [address] Historical LMR Provider 05/10/17 07/28/21 Adwoa Chahal MD [address] [facility], [address] [place] [address] Historical LMR Provider 05/10/17 2 Daniella Nunes MD 19 [place] [address] [email or web address] Historical LMR Provider 05/10/17 07/28/21 Adelfo Masters NP [address] [place] [address] 2_[place] [address] [email or web address] Historical LMR Provider 05/10/17 07/28/21 Audra Stacy MD [address] [facility], [address] [place] [address] Historical LMR Provider 05/10/17 Chrissie Fajardo MD 15 [facility], 2nd [place] [address] Historical LMR Provider 05/10/17 Aashish Davis MD [address] [place] [address] Historical LMR Provider 05/10/17 07/28/21 Trevor Larson MD [address] [place] [address], [address] [place] [address] Historical LMR Provider 05/10/17 2 Moses Knapp MD [address] [place] [address] Historical LMR Provider 05/10/17 Maria Isabel Dale MD [address] [place] [address] Historical LMR Provider 05/10/17 Arpit Smith CNP [address] [place] [address], [address] [place] [address] Historical LMR Provider 05/10/17 documented as of this encounter Additional Source Comments The information contained in this document represents components of the legal health record. It is not the complete legal health record.[facility]
--- OUTSIDE RECORDS SUMMARY | 2025-05-11 21:47 | XMS_ITS | Encounter Summary ---
Author Organization [facility] Address [address] [place] [address] Phone Care Team Providers Care Bullard Machine Operator Name Role Phone Bob Ardon, PhD Unavailable [phone] John Alvares MD Unavailable [phone] Allan Mehta MD Unavailable [phone] Pankaj Brown MD Unavailable Timi White MD Unavailable [phone] Adwoa Chahal MD Unavailable [phone] Daniella Nunes MD Unavailable [phone] Adelfo Masters NP Unavailable Audra Stacy MD Unavailable [phone] Chrissie Fajardo MD Unavailable [phone] Aashish Davis MD Unavailable Trevor Larson MD Unavailable [phone] Moses Knapp MD Unavailable [phone] Maria Isabel Dale MD Unavailable [phone] Arpit Smith CNP Unavailable [phone] Ryan Stock MD Primary Care Provider Encounter Details Date Type Department Care Team (Late st Contact Info) Description 03/11/2019 Procedure Pass [facility], [address] [address] Social History Tobacco Use Types Packs/Day Years [...] 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 on file [...] on filedocumented in this encounter Care Teams Bullard Machine Operator Relationship Specialty Start Date End Date Ryan Stock MD [address] [place] [address] [place] [address] PCP - General Internal Medicine 10/27/17 Bob Ardon MBBS, PhD [address] [place] [address] [email or web address] Historical LMR Provider 05/05/1707/28/21 John Alvares MD [address] [place] [address], [address] [place] [address] [email or web address] Historical LMR Provider 05/05/17 07/28/21 Allan Mehta MD 22 [facility] Floor 1 [place] [address] [email or web address] Historical LMR Provider 05/10/17 07/28/21 Pankaj Brown MD [address] [place] [address] 1st Floor [address] [place] [address] Historical LMR Provider 05/10/17 2 Timi White MD [address] [place] [address], [address] [place] [address] Historical LMR Provider 05/10/17 07/28/21 Adwoa Chahal MD [address] [place] [address], [address] [place] [address] [email or web address] Historical LMR Provider 05/10/17 2 Daniella Nunes MD [address] [place] [address] [email or web address] Historical LMR Provider 05/10/17 07/28/21 Adelfo Masters NP [address] [place] [address] 2_[place] [address] [email or web address] Historical LMR Provider 05/10/17 07/28/21 Audra Stacy MD [address] [place] [address], [address] [place] [address] [email or web address] Historical LMR Provider 05/10/17 Chrissie Fajardo MD 15 [facility], 2nd [place] [address] Historical LMR Provider 05/10/17 Aashish Davis MD [address] [place] [address], [address] [place] [address] Historical LMR Provider 05/10/17 07/28/21 Trevor Larson MD 22 [facility], [address] [place] [address] Historical LMR Provider 05/10/17 2 Moses Knapp MD 22 [facility] 102 [place] [address] Historical LMR Provider 05/10/17 Maria Isabel Dale MD 22 [facility], [address] [address] Historical LMR Provider 05/10/17 Arpit Smith CNP 22 [facility], [address] [place] [address] Historical LMR Provider 05/10/17 documented as of this encounter Additional Source Comments The information contained in this document represents components of the legal health record. It is not the complete legal health record.[facility]
--- OUTSIDE RECORDS SUMMARY | 2025-05-11 21:47 | XMS_ITS | Encounter Summary ---
Author Organization [facility] Address [address] [place] [address] Phone Care Team Providers Care Systems Development Manager Name Role Phone Bob Ardon, PhD Unavailable [phone] John Alvares MD Unavailable [phone] Allan Mehta MD Unavailable [phone] Pankaj Brown MD Unavailable Timi White MD Unavailable [phone] Adwoa Chahal MD Unavailable [phone] Daniella Nunes MD Unavailable [phone] Adelfo Masters NP Unavailable Audra Stacy MD Unavailable [phone] Chrissie Fajardo MD Unavailable [phone] Aashish Davis MD Unavailable Trevor Larson MD Unavailable Moses Knapp MD Unavailable Maria Isabel Dale MD Unavailable [phone] Arpit Smith CNP Unavailable Ryan Stock MD Primary Care Provider Encounter Details Date Type Department Care Team (Late st Contact Info) Description 06/03/2018 Ancillary Orders Virtual Department 30 [place] [address] Ryan Stock MD [address] [place] [address] [place] [address] Lower abdominal pain Social History Tobacco Use [...] 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 Historical LMR Provider 05/05/1707/28/21 John Alvares MD 22 [facility], [address] [place] [address] [email or web address] Historical LMR Provider 05/05/17 07/28/21 Allan Mehta MD 22 [facility] Floor 1 [place] [address] [email or web address] Historical LMR Provider 05/10/17 07/28/21 Pankaj Brown MD 50 [facility] 1st Floor [address] [place] [address] Historical LMR Provider 05/10/17 2 Timi White MD [address] [place] [address], [address] [place] [address] Historical LMR Provider 05/10/17 07/28/21 Adwoa Chahal MD 22 [facility], [address] [place] [address] Historical LMR Provider 05/10/17 2 Daniella Nunes MD [address] [place] [address] [email or web address] Historical LMR Provider 05/10/17 07/28/21 Adelfo Masters NP [address] [place] [address] 2_[place] [address] [email or web address] Historical LMR Provider 05/10/17 07/28/21 Audra Stacy MD 22 [facility], [address] [place] [address] [email or web address] Historical LMR Provider 05/10/17 Chrissie Fajardo MD 15 [facility], 2nd [place] [address] Historical LMR Provider 05/10/17 Aashish Davis MD [address] [place] [address], [address] [address] Historical LMR Provider 05/10/17 07/28/21 Trevor Larson MD [address] [place] [address], [address] [place] [address] Historical LMR Provider 05/10/17 2 Moses Knapp MD [address] [place] [address] Historical LMR Provider 05/10/17 Maria Isabel Dale MD [address] [place] [address] Historical LMR Provider 05/10/17 Arpit Smith CNP [address] [place] [address], [address] [place] [address] Historical LMR Provider 05/10/17 documented as of this encounter Additional Source Comments The information contained in this document represents components of the legal health record. It is not the complete legal health record.[facility]
--- OUTSIDE RECORDS SUMMARY | 2025-05-11 21:48 | XMS_ITS | Encounter Summary ---
Author Organization [facility] Address [address] [place] [address] Phone Care Team Providers Care Radio Time Salesperson Name Role Phone Bob Ardon, PhD Unavailable John Alvares MD Unavailable [phone] Allan Mehta MD Unavailable [phone] Pankaj Brown MD Unavailable [phone] Timi White MD Unavailable [phone] Adwoa Chahal MD Unavailable [phone] Daniella Nunes MD Unavailable [phone] Adelfo Masters NP Unavailable [phone] Audra Stacy MD Unavailable [phone] Chrissie Fajardo MD Unavailable [phone] Aashish Davis MD Unavailable Trevor Larson MD Unavailable [phone] Moses Knapp MD Unavailable Maria Isabel Dale MD Unavailable [phone] Arpit Smith CNP Unavailable [phone] Ryan Stock MD Primary Care Provider Encounter Details Date Type Department Care Team (Late st Contact Info) Description 10/27/2017 Procedure Pass [facility], [facility] Scan - [address] [address] Social History Tobacco Use Types Packs/Day Years [...] 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 on file Not on file documented as of this encounter Plan of Treatment Not on file documented as of this encounter Visit Diagnoses Not on filedocumented in this encounter Care Teams Radio Time Salesperson Relationship Specialty Start Date End Date Ryan Stock MD [address] [place] [address] [place] [address] PCP - General Internal Medicine 10/27/17 Bob Ardon MBBS, PhD [address] [place] [address] [email or web address] Historical LMR Provider 05/05/1707/28/21 John Alvares MD 22 [facility], [address] [place] [address] [email or web address] Historical LMR Provider 05/05/17 07/28/21 Allan Mehta MD 22 [facility] Floor 1 [place] [address] [email or web address] Historical LMR Provider 05/10/17 07/28/21 Pankaj Brown MD [address] [place] [address] 1st Floor [address] [place] [address] Historical LMR Provider 05/10/17 2 Timi White MD 22 [facility], [address] [place] [address] Historical LMR Provider 05/10/17 07/28/21 Adwoa Chahal MD 22 [facility], [address] [place] [address] Historical LMR Provider 05/10/17 2 Daniella Nunes MD 19 [place] [address] [email or web address] Historical LMR Provider 05/10/17 07/28/21 Adelfo Masters NP [address] [place] [address] 2_[place] [address] [email or web address] Historical LMR Provider 05/10/17 07/28/21 Audra Stacy MD 22 [facility], [address] [place] [address] Historical LMR Provider 05/10/17 Chrissie Fajardo MD 15 [facility], 2nd [place] [address] Historical LMR Provider 05/10/17 Aashish Davis MD [address] [place] [address], [address] [place] [address] Historical LMR Provider 05/10/17 07/28/21 Trevor Larson MD [address] [place] [address], [address] [place] [address] Historical LMR Provider 05/10/17 2 Moses Knapp MD [address] [place] [address], [address] [address] Historical LMR Provider 05/10/17 Maria Isabel Dale MD [address] [place] [address] Historical LMR Provider 05/10/17 Arpit Smith CNP [address] [place] [address], [address] [place] [address] Historical LMR Provider 05/10/17 documented as of this encounter Additional Source Comments The information contained in this document represents components of the legal health record. It is not the complete legal health record.[facility]
== END 2025-05-11 15:39 | disposition home or self-care (01) ==
LOC: HO.MAMMO 15:38
PROVIDERS: PCP Physician Assistant; Visit Provider Physician Assistant
DX: Z12.31 Encounter for screening mammogram for malignant neoplasm of breast (principal)
CPT/HCPCS: 77063; 77067

== ENCOUNTER → 2025-05-11 15:45 | Outpatient (BNV) | payer OTHER, SELFPAY | PROVIDERS: PCP Physician Assistant; Visit Provider Radiology Body Imaging | DX: Z12.31 Encounter for screening mammogram for malignant neoplasm of breast (principal) | CPT/HCPCS: 77063; 77067 ==

== ENCOUNTER 2025-05-11 16:53 | Outpatient (AMB) | payer OTHER, SELFPAY ==
--- NOTE | 2025-05-11 14:34 | A.OFFPSYCH_ITS ---
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 Allergies doxycycline Allergy (Verified 06/10/25 14:11) Nausea fluoxetine (From Prozac) Allergy (Verified 06/10/25 14:11) Itching paroxetine (From Paxil) Allergy (Verified 06/10/25 14:11) Itching Medication List - Last Reconciled 05/11/25 by Leti Koenig APRN bupropion HCl XL 600 mg (2 x 300 mg) PO DAILY dextroamphetamine-amphetamine 20 mg ER (Adderall XR) 20 mg PO DAILY famotidine 40 mg PO BID levothyroxine 50 mcg PO DAILY omeprazole 40 mg PO BID quetiapine (Seroquel) 25 mg PO TID trazodone 200 mg PO BEDTIME PRN HPI- Psychiatric Chief Complaint: follow up HPI Narrative: Vidhi continues to search for a provider. She is committed to the regime she and Dr. Stapleton worked with, although admits that symptoms could have improved management. Trial of Sertraline for one week- I tried, it made me too tired. Lamictal- it gave me headaches . I have a high tolerance for pain and a high tolerance for medications, I need a lot . Discussion of Trintillex, discussion of available private providers which she declined as she has had experience with them. Will continue current regime of Bupropion XL 600 mg, Adderall XR 20 mg, Quetiapine 25 mg tid and Trazodone 200 mg HS prn. Reports she is working and active in life. Denies issues with sleep, appetite. Past Psychiatric History: IP: Kat Baldwin OP: No therapy, not helpful. pcp for meds, Dr. Hale -7 years, Dr. Stapleton Suicide attempts: Denies Hx of misdiagnosis of bipolar disorder Hx Prozac-felt like she was jumping out of her skin Subjective Subjective Subjective Medication Compliance: Yes Side effects from medications: No Review of Systems Medical Review of Systems: unchanged Review of Systems Review of Systems Denies Mental Status Exam Mental Status Exam Patient Orientation: Person, Place, Time and Situation Level of Consciousness: Alert Patient Behavior: Appropriate, Talkative and Cooperative Mood Description: Appropriate Affect Description: Appropriate and Expansive Patient Cognition Impaired: No Ability to Follow Directions: Good Speech Pattern: Spontaneous Speech Memory Description: Intact Hallucinations: None Delusions: Not Present Thought Process: Intact and Goal Oriented Thought Content: positive for Intact, positive for Goal Oriented and positive for Suicidal Ideation (denies) Depressive Symptoms: Thoughts of /Suicide (denies) Judgement: Good Telehealth Telehealth Telehealth Platform: Telephone Location of provider rendering services: practice address Location of patient: address on file Patient Identification confirmed using: Name, : Yes Telehealth method: voice only Patient verbally consented to treatment: Yes Patient verbally consented to billing insurance company: Yes Patient informed of any privacy concerns related to visit: Yes Minutes spent on Phone/Video with Pt.: 15 Assessment and Plan Assessment & Plan (1) Major depression in partial remission: Status: Acute Code(s): F32.4 - Major depressive disorder, single episode, in partial remission (2) ADHD: Status: Acute Code(s): F90.9 - Attention-deficit hyperactivity disorder, unspecified type Plan Continue current regime. Pt continues to interview providers and will continue this process. She has declined private providers available per our research at this time. Medications: New trazodone 200 mg (2 x 100 mg) PO BEDTIME PRN 60 tabs 0RF sleep Refilled bupropion HCl XL 600 mg (2 x 300 mg) PO DAILY 120 tabs 0RF dextroamphetamine-amphetamine 20 mg ER (Adderall XR) Please allow patient to pay [id number] 20 mg PO DAILY 30 caps 0RF Counseling and coordination of Care Medication management counseling: Effectiveness, Side effects, Dosing range, Duration, Drug interaction and Adherence Details: I spent [] minutes reviewing the record, seeing the patient and documenting in the medical record. Counseling provided to the patient/caregiver as outlined below. Addressed patient/caregiver concerns regarding current medication regime including effective adherence. Addressed patient/caregiver concerns regarding diagnosis and prognosis including accuracy of diagnosis, prognosis over time, impact of diagnosis. Addressed patient/caregiver concerns regarding impact of recent str essors. [facility] Medical History Heterozygous factor V Leiden mutation HTN (hypertension) Class 2 obesity Hypothyroidism ADHD Major depression in partial remission Family History Mother No problems noted. Father No problems noted. Social History Housing: Condominium Patient Tobacco Use Status: Never used Tobacco e-Cigarette/Vaping Use: Never Used service: No Current occupational status: employed Cognitive needs: No Hearing needs: No Vision needs: Yes (rx glasses) Social History: Born and raised in [place]. One sister, great childhood. Mom was a teacher, dad worked at the [employer]. 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
== END 2025-05-11 16:53 | disposition home or self-care (01) ==
LOC: HO.HOP 16:53
PROVIDERS: PCP Physician Assistant; Visit Provider Clinical Nurse Specialist Psychiatric/Mental Health, Adult
DX: F32.4 Major depressive disorder, single episode, in partial remission (principal); F90.9 Attention-deficit hyperactivity disorder, unspecified type
CPT/HCPCS: 99213

== ENCOUNTER 2025-06-05 21:32 | Emergency (ER) | payer OTHER, SELFPAY ==
--- NOTE | 2025-06-05 | ECG_ITS ---
Test Reason : chest pain Blood Pressure : */* mmHG Vent. Rate : 95 BPM Atrial Rate : 95 BPM P-R Int : 150 ms QRS Dur : 94 ms QT Int : 352 ms P-R-T Axes : 53 19 4 degrees QTcB Int : 442 ms Normal sinus rhythm Possible Left atrial enlargement Minimal voltage criteria for LVH, may be normal variant ( [place] product ) Borderline ECG No previous ECGs available Referred By: Generic ED Physician Electronically Signed By: SYLWIA MCCULLOUGH
--- NOTE | ~2025-06-05 | XR_ITS ---
CLINICAL HISTORY: cp 2 view chest x-ray Comparison: None provided Findings: The lungs are clear. Normal size heart. No acute fracture. IMPRESSION: 1. No acute findings. This document has been electronically signed by: Nitesh Sheppard MD on 06/05/2025 22:39:34
[2025-06-05 21:43] VITALS: BP 163/94; PULSE 103; RESP 20; TEMP 37; O2SAT 99; BMI 33.7
[2025-06-05 22:02] LABS: MANUAL DIFF FLAG NO
[2025-06-05 22:04] LABS: Hematocrit 42.3 % (37.0-47.0); Hemoglobin 14.0 g/dl (12.0-16.0); Imm Gran Abs Auto 0.01 X10*3/uL (0.00-0.03); Imm Gran Pct Auto 0.1 % (0.0-0.4); Lymphocytes Absolute Auto 2.6 X10*3/uL (1.2-4.9); Mean Corpuscular HGB Conc 33.1 g/dl (31.0-35.0); Mean Corpuscular Hemoglobin 30.1 pg (27.0-33.0); Mean Corpuscular Volume 91.0 fL (80.0-98.0); NRBC Abs Auto 0.000 X10*3/uL (0.0-0.012); NRBC Pct Auto 0.0 /100WBC (0.0-0.2); Platelet Count 265 X10*3/uL (160-400); Red Blood Count 4.65 X10*6/uL (4.20-5.50); White Blood Count 7.3 X10*3/uL (4.8-10.8)
--- NOTE | 2025-06-05 22:16 | ED.CHESTPAIN ---
HPI - Chest Pain General Chief Complaint: Chest Pain Stated Complaint: chest pain, high blood pressure Time Seen by Provider: 06/05/25 22:03 History of Present Illness ED Provider: fallon HPI narrative: 54 F with FVL, obese, in psychiatric history with elevated blood pressures at home concerning her she had elevated blood pressure at the dentist few days ago and has a had intermittent elevated blood pressures her sister or physical therapist urged her to come to the get evaluated. The patient does say he has had scattered very intermittent nonexertional tender chest wall discomfort in the left upper region under the or just inferior to the left clavicle no injury there no pleuritic pain denies any history of diagnosed DVT or PE she was diagnosed with factor 5 Leiden and has been on 3 days of aspirin a week no history of thromboembolism personally her sister has had 1 however. She is not short of breath on exertion she says that she is asymptomatic at this time but felt concerned and urge to come here by h Related Data Home Medications ?Medication ?Instructions ?Recorded ?Confirmed famotidine 40 mg tablet 40 mg PO BID 12/29/24 05/11/25 omeprazole 40 mg capsule,delayed 40 mg PO BID 12/29/24 05/11/25 release Previous Rx's ?Medication ?Instructions ?Recorded quetiapine 25 mg tablet (Seroquel) 25 mg PO TID #90 tabs 02/25/25 bupropion HCl 300 mg 24 hr tablet, 600 mg (2 x 300 mg) PO DAILY #120 05/11/25 extended release tabs dextroamphetamine-amphetamine ER 20 mg PO DAILY #30 caps 05/11/25 20 mg 24hr capsule,extend release (Adderall XR) trazodone 100 mg tablet 200 mg (2 x 100 mg) PO BEDTIME PRN 05/11/25 sleep #60 tabs levothyroxine 50 mcg tablet 50 mcg PO DAILY #90 tabs 06/03/25 Allergies Allergy/AdvReac Type Severity Reaction Status Date / Time doxycycline Allergy Nausea Verified 06/05/25 21:50 fluoxetine (From Prozac) Allergy Itching Verified 06/05/25 21:50 paroxetine (From Paxil) Allergy Itching Verified 06/05/25 21:50 [facility] Past Medical History Medical History Class 2 obesity Hypothyroidism ADHD Major depression in partial remission Family History Family History Mother No problems noted. Father No problems noted. Social History Social History Housing: Condominium Patient Tobacco Use Status: Never used Tobacco Smoked in Last 30 Days: No e-Cigarette/Vaping Use: Never Used Use of substances other than those prescribed or required for medical reasons: No Advance Directives: No Advance Directives Information Provided: Yes Patient : No service: No Current occupational status: employed Cognitive needs: No Hearing needs: No Vision needs: Yes (rx glasses) Physical Exam Exam: Exam: EXAM: Gen: Alert, awake, well appearing, well hydrated. Head: Atraumatic Eyes: Anicteric, Normal conjunctiva. ENT: Moist mucosa, no pallor. Neck: Supple. Skin: No observable rash or bruising on exposed or examined skin Respiratory: Breathing comfortably, No distress.Clear to auscultation bilaterally, symmetric chest expansion, No wheeze, rales, ronchi. Cardiovascular: Regular rate and rhythm. No murmurs or rub. Well perfused periphery, warm extremities. No edema. mild tenderness of the chest wall without bruising or ecchymosis at the area described above. No calf tenderness or objective edema to the extremities Abdominal: No focal tenderness. Soft, no objective distension. No palpable masses or obvious organomegaly. No guarding, no rebound tenderness or other peritoneal findings. : No flank tenderness. Neuro: Alert. Gross movement of all extremities intact. Psych: Calm. Cooperative. MSK: No grossly visible deformity. Vital signs: See flowsheet Vital Signs: Vital Signs: Last Vital Signs Temp 98.6 F 06/05/25 23:16 Pulse 92 06/05/25 23:16 Resp 18 06/05/25 23:16 BP 160/90 H 06/05/25 23:16 Pulse Ox 98 06/05/25 23:16 O2 Del Method Room Air 06/05/25 23:16 BMI result Body Mass Index 33.7 Course Reevaluation(s) Reevaluation #1: 11:10 PM 06/05/2025 (Dr. Howard Faye): Ambulated with proximally 3-4 minutes of walking briskly, maximal heart rate 90, saturation high 90s on room air. This is reassuring we will discharge the patient Medical Decision Making Medical Decision Making MDM Narrative: Medical Decision Makin-year-old female with anxiety depression, ? Gastritis on PPI, with chronic intermittent painful tender upper chest wall that lasts 5 minutes time including awaking with this yesterday morning completely resolved at this time. Me reason for presentation was intermittent measurements of elevated blood pressure not associated with any symptoms over the past 2 weeks including last week at the dentist it would not work on her due to high blood pressure? 180s systolic. She saw her PCP the decided to try conservative and dietary changes and washed the blood pressure what she measured it at home tonight and it was 180s systolic she again was asymptomatic but her sister who is a physical therapist urged her to call in the emergency department. Patient looks quite well here she is ambulating he has been comfortable she has a normal physical exam including cardiovascular without signs of edema she does have a little bit of chest wall tenderness without bruising left upper parasternal region. Chest x-ray is clear ECG is nonischemic. This is most consistent with asymptomatic hypertension possibly underlying essential hypertension not yet diagnosed, The patient did reveal sibling with a PE history and the patient was subsequently tested for hypercoagulability testing positive in December 2023 for factor 5 Leiden she tells me she was supposed to be on anticoagulation but she declined this and instead takes aspirin 3 times a week. She has no shortness of breath on exertion leg edema clinical signs of DVT and her presentation is not consistent with or suggestive of PE though this was considered. Preliminary Favored Differential Diagnosis: Asymptomatic hypotension, musculoskeletal chest wall discomfort, unlikely ACS/PE among additional considered etiologies Testing Interpreted Independently: ?ECG sinus rhythm rate 95 QTC 442, no ischemic changes, Radiology or Lab testing Results Reviewed: ?See below for details Consults: ?See below for details Independent Historians/External Chart Reviews: ?See below for details Social Determinants of Health Impacting MDM/Planning: ?See below for details Lab Data 06/05/25 21:56 06/05/25 21:56 Labs: Lab Results 06/05/25 Range/Units 21:56 WBC 7.3 (4.8-10.8) X10*3/uL RBC 4.65 (4.20-5.50) X10*6/uL Hgb 14.0 (12.0-16.0) g/dl Hct 42.3 (37.0-47.0) % MCV 91.0 (80.0-98.0) fL MCH 30.1 (27.0-33.0) pg MCHC 33.1 (31.0-35.0) g/dl RDW 12.3 (11.0-16.0) % Plt Count 265 (160-400) X10*3/uL MPV 8.9 L (9.4-12.3) fL Immature Gran % (Auto) 0.1 (0.0-0.4) % Neut % (Auto) 55.1 (45-73) % Lymph % (Auto) 35.9 (20-40) % [place] % (Auto) 8.1 (2-11) % Eos % (Auto) 0.1 (0-4) % Baso % (Auto) 0.7 (0-2) % Lymph # (Auto) 2.6 (1.2-4.9) X10*3/uL [place] # (Auto) 0.6 (0.1-1.2) X10*3/uL Eos # (Auto) 0.0 (0.0-0.4) X10*3/uL Baso # (Auto) 0.1 (0.0-0.2) X10*3/uL Abs Immat Gran (auto) 0.01 (0.00-0.03) X10*3/uL Absolute Neuts (auto) 4.0 (2.0-8.3) x10*3/uL Absolute Nucleated RBC 0.000 (0.0-0.012) X10*3/uL Nucleated RBC % (auto) 0.0 (0.0-0.2) /100WBC Sodium 139 (135-145) mmol/L Potassium 3.4 (3.3-5.1) mmol/L Chloride 107 (96-108) mmol/L Carbon Dioxide 22 (22-29) mmol/L Anion Gap 13 (12-20) BUN 14 (9-16) mg/dL Creatinine 1.21 (0.5-1.4) mg/dL Estim Creat Clear Calc 63.8 Estimated GFR 46 Random Glucose 95 (60-115) mg/dL Calcium 9.3 (8.4-10.2) mg/dL Magnesium 2.1 (1.6-2.6) mg/dL Total Bilirubin 0.2 (0.0-1.0) mg/dL AST 21 (5-31) U/L ALT 20 (0-31) U/L Alkaline Phosphatase 102 (39-117) U/L Troponin I High Sens 2.7 (<3.5-17.0) ng/L Total Protein 7.8 (6.5-8.0) g/dL Albumin 4.4 (3.5-5.0) g/dL Discharge Plan Discharge Clinical Impression: Chest pain Patient Disposition: Home, Self-Care Instructions: Chest Pain (ED) Additional Instructions: DISCHARGE DIAGNOSES: Atypical chronic recurrent chest pain Elevated blood pressure several intermittent measurements of unclear clinical significance HISTORY OF PRESENTATION: ?Elevated blood pressure measurement at home EMERGENCY DEPARTMENT COURSE,TESTS, TREATMENTS: While in the ED today you had moderately elevated blood pressure measurements did not receive any emergent treatments for this. You had lab work and EKG which was reassuring DISCHARGE MEDICATIONS: ?[We have made no changes to your regular medication regimen] FOLLOW-UP: ?Call your primary or general physician soon as possible to discuss your symptoms, your ED visit and to discuss follow up plans Call your primary doctor for follow up INSTRUCTIONS ?& RETURN PRECAUTIONS: If any symptoms change first call your primary physician, if it is after-hours your primary doctors office should have a provider uplands division director you can speak with. If the symptoms are severe or very concerning to you then call 911 or return to the ED. As we discussed take a blood pressure diary to provide you Dr. Howard Faye MD Emergency Physician [facility] Prescriptions: No Action quetiapine [Seroquel] 25 mg tablet 25 mg PO TID Qty: 90 1RF levothyroxine 50 mcg tablet 50 mcg PO DAILY Qty: 90 1RF famotidine 40 mg tablet 40 mg PO BID omeprazole 40 mg capsule,delayed release(DR/EC) 40 mg PO BID bupropion HCl 300 mg tablet extended release 24 hr 600 mg PO DAILY Qty: 120 0RF dextroamphetamine-amphetamine [Adderall XR] 20 mg capsule,extended release 24hr 20 mg PO DAILY Qty: 30 0RF Rx Instructions: Please allow patient to pay [id number] trazodone 100 mg tablet 200 mg PO BEDTIME PRN (Reason: sleep) Qty: 60 0RF Interventions: ED Discharge Assessment Last Done: 06/05/25 23:16 Discharge Date/Time: 06/05/25 23:19 Print Language: Danish
[2025-06-05 22:18] LABS: Alanine Aminotransferase 20 U/L (0-31); Albumin Level 4.4 g/dL (3.5-5.0); Alkaline Phosphatase 102 U/L (39-117); Anion Gap 13 (12-20); Aspartate Amino Transferase 21 U/L (5-31); Blood Urea Nitrogen 14 mg/dL (9-16); Calcium 9.3 mg/dL (8.4-10.2); Carbon Dioxide 22 mmol/L (22-29); Chloride 107 mmol/L (96-108); Creatinine Clr Calc Pharmacy 63.8; Estimated Glomerular Filt Rate 46; Magnesium 2.1 mg/dL (1.6-2.6); Potassium 3.4 mmol/L (3.3-5.1); Sodium 139 mmol/L (135-145); Total Protein 7.8 g/dL (6.5-8.0)
[2025-06-05 22:25] LABS: Troponin-I High Sensitivity 2.7 ng/L (<3.5-17.0)
--- OUTSIDE RECORDS SUMMARY | 2025-06-05 22:43 | XMS_ITS | Encounter Summary ---
Author Organization [facility] Address [address] [place] [address] Phone Care Team Providers Care Flat Polisher Name Role Phone Audra Stacy MD Unavailable [phone] Moses Knapp MD Unavailable [phone] Maria Isabel Dale MD Unavailable [phone] Ryan Stock MD Primary Care Provider Encounter Details Date Type Department Care Team (Late st Contact Info) Description 05/05/2024 Procedure Pass [facility] Endoscopy Admitting Dept Virtual Department [address] [place] [address] Social History Tobacco Use Types Packs/Day Years [...] on filedocumented in this encounter Care Teams Flat Polisher Relationship Specialty Start Date End Date Ryan Stock MD [address] [place] [address] [place] [address] PCP - General Internal Medicine 10/27/17 Audra Stacy MD [address] [place] [address] Historical LMR Provider 05/10/17 Moses Knapp MD [address] [place] [address] Historical LMR Provider 05/10/17 Maria Isabel Dale MD [address] [place] [address] Historical LMR Provider 05/10/17 documented as of this encounter Additional Source Comments The information contained in this document represents components of the legal health record. It is not the complete legal health record.[facility]
--- OUTSIDE RECORDS SUMMARY | 2025-06-05 22:43 | XMS_ITS | Encounter Summary ---
Author Organization [facility] Address [address] [place] [address] Phone Care Team Providers Care Belt Notcher Name Role Phone Bob Ardon, PhD Unavailable [phone] John Alvares MD Unavailable [phone] Allan Mehta MD Unavailable [phone] Pankaj Brown MD Unavailable [phone] Timi White MD Unavailable [phone] Adwoa Chahal MD Unavailable [phone] Daniella Nunes MD Unavailable [phone] Adelfo Masters NP Unavailable [phone] Audra Stacy MD Unavailable [phone] Chrissie Fajardo MD Unavailable [phone] Aashish Davis MD Unavailable Trevor Larson MD Unavailable [phone] Moses Knapp MD Unavailable [phone] Maria Isabel Dale MD Unavailable [phone] Arpit Smith CNP Unavailable [phone] Ryan Stock MD Primary Care Provider Reason for Referral * MRI/CAT Scan - Closed Specialty Diagnoses / Procedures Referred By Contac t Referred To Contact Radiology Diagnoses Right sided weakness Ataxia Procedures MRI Brain Trevor Stapleton MD Phone: tel: fax: [email or web address] Referral ID Status Reason Start Date Expiration Date Visits Re quested Visits Authorized [id number] Closed 05/19/2018 07/18/2018 1 1 Encounter Details Date Type Department Care Team (Late st Contact Info) Description 05/19/2018 Ancillary Orders Virtual Department [address] [place] [address] Trevor Stapleton MD [address] [place] [address], [address] [place] [address] [email or web address] Right sided weakness; TIA (transient [...] 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 POS - [id number] Edited by: Katrina Donahue on 06/03/2018 8:04 [...] posterior fossa lesions inparticular seen. POS - [id number] Edited by: Katrina Donahue on 06/03/2018 8:04 PM Trevor Stapleton MD IMG MR HEAD/NECK Final Resul t documented in this encounter Visit Diagnoses Diagnosis Right sided weakness TIA (transient ischemic attack) Unspecified transient cerebral ischemia Ataxia Lack of coordination Right sided weakness Ataxia Lack of coordination Right sided weakness TIA (transient ischemic attack) Unspecified transient cerebral ischemia documented in this encounter Care Teams Belt Notcher Relationship Specialty Start Date End Date Ryan Stock MD [address] [place] [address] [place] [address] PCP - General Internal Medicine 10/27/17 Bob Ardon MBBS, PhD [address] [place] [address] [email or web address] Historical LMR Provider 05/05/1707/28/21 John Alvares MD [address] [facility], [address] [place] [address] [email or web address] Historical LMR Provider 05/05/17 07/28/21 Allan Mehta MD [address] [facility] Floor 1 [place] [address] [email or web address] Historical LMR Provider 05/10/17 07/28/21 Pankaj Brown MD [address] [place] [address] 1st [place] [address] Historical LMR Provider 05/10/17 2 Timi White MD [address] [place] [address], [address] [place] [address] Historical LMR Provider 05/10/17 07/28/21 Adwoa Chahal MD [address] [place] [address], [address] [place] [address] Historical LMR Provider 05/10/17 2 Daniella Nunes MD [address] [place] [address] [email or web address] Historical LMR Provider 05/10/17 07/28/21 Adelfo Masters NP [address] [place] [address] 2_[place] [address] [email or web address] Historical LMR Provider 05/10/17 07/28/21 Audra Stacy MD [address] [facility], [address] [place] [address] Historical LMR Provider 05/10/17 Chrissie Fajardo MD [address] [facility], 2nd [place] [address] Historical LMR Provider 05/10/17 Aashish Davis MD [address] [place] [address] [address] [place] [address] Historical LMR Provider 05/10/17 07/28/21 Trevor Larson MD [address] [place] [address], [address] [place] [address] Historical LMR Provider 05/10/17 2 Moses Knapp MD [address] [place] [address], [address] [place] [address] Historical LMR Provider 05/10/17 Maria Isabel Dale MD [address] [place] [address], [facility] [address] [place] [address] Historical LMR Provider 05/10/17 Arpit Smith CNP [address] [place] [address], [address] [place] [address] Historical LMR Provider 05/10/17 documented as of this encounter Additional Source Comments The information contained in this document represents components of the legal health record. It is not the complete legal health record.[facility]
--- OUTSIDE RECORDS SUMMARY | 2025-06-05 22:43 | XMS_ITS | Encounter Summary ---
Author Organization [facility] Address [address] [place] [address] Phone Care Team Providers Care Video Game Creator Name Role Phone Bob Ardon, PhD Unavailable [phone] John Alvares MD Unavailable [phone] Allan Mehta MD Unavailable [phone] Allan Mehta MD Primary Care Provide r Pankaj Brown MD Unavailable Timi White MD Unavailable [phone] Adwoa Chahal MD Unavailable [phone] Daniella Nunes MD Unavailable Adelfo Masters NP Unavailable [phone] Audra Stacy MD Unavailable [phone] Chrissie Fajardo MD Unavailable [phone] Aashish Davis MD Unavailable Trevor Larson MD Unavailable [phone] Moses Knapp MD Unavailable [phone] Maria Isabel Dale MD Unavailable [phone] Arpit Smith CNP Unavailable [phone] Ryan Stock MD Primary Care Provider Encounter Details Date Type Department Care Team (Latest Contact Info) Description 05/12/2017 Transcribe Orders [facility] PFT Lab [address] [place] [address] Allan Mehta MD [address] [facility] 1 [place] [address] [email or web address] Dyspnea on exertion (Primary Dx) Social History [...] with bronchodilator, Lung Volumes, DLCO; Performing Location: [facility] (05/29/2017 12:02 PM EST) FEV1 liters FVC [...] abnormality documented in this encounter Care Teams Video Game Creator Relationship Specialty Start Date End Date Allan Mehta MD [address] [facility] 1 [place] [address] [email or web address] PCP - General 05/06/17 10/26/17 Ryan Stock MD [address] [place] [address] [place] [address] PCP - General Internal Medicine 10/27/17 Bob Ardon MBBS, PhD [address] [place] [address] [email or web address] Historical LMR Provider 05/05/1707/28/21 John Alvares MD [address] [facility], [address] [place] [address] [email or web address] Historical LMR Provider 05/05/17 07/28/21 Allan Mehta MD [address] [facility] Floor 1 [place] [address] [email or web address] Historical LMR Provider 05/10/17 07/28/21 Pankaj Brown MD [address] [place] [address] [address] [address] Historical LMR Provider 05/10/17 2 Timi White MD [address] [place] [address], [address] [place] [address] Historical LMR Provider 05/10/17 07/28/21 Adwoa Chahal MD [address] [place] [address], [address] [place] [address] Historical LMR Provider 05/10/17 2 Daniella Nunes MD [address] [place] [address] [email or web address] Historical LMR Provider 05/10/17 07/28/21 Adelfo Masters NP [address] [place] [address] 2_[place] [address] [email or web address] Historical LMR Provider 05/10/17 07/28/21 Audra Stacy MD [address] [facility], [facility] 102 [place] [address] Historical LMR Provider 05/10/17 Chrissie Fajardo MD [address] [facility], 2nd [place] [address] Historical LMR Provider 05/10/17 Aashish Davis MD [address] [place] [address] Historical LMR Provider 05/10/17 07/28/21 Trevor Larson MD [address] [place] [address], [address] [place] [address] Historical LMR Provider 05/10/17 2 Moses Knapp MD [address] [facility], [address] [address] Historical LMR Provider 05/10/17 Maria Isabel Dale MD [address] [facility], [facility] 102 [place] [address] Historical LMR Provider 05/10/17 Arpit Simth CNP [address] [place] [address], [address] [place] [address] [email or web address] Historical LMR Provider 05/10/17 documented as of this encounter Additional Source Comments The information contained in this document represents components of the legal health record. It is not the complete legal health record.[facility]
--- OUTSIDE RECORDS SUMMARY | 2025-06-05 22:44 | XMS_ITS | Encounter Summary ---
Author Organization [facility] Address [address] [place] [address] Phone Care Team Providers Care Upholstery Sewer Name Role Phone Bob Ardon, PhD Unavailable John Alvares MD Unavailable [phone] Allan Mehta MD Unavailable [phone] Pankaj Brown MD Unavailable Timi White MD Unavailable [phone] Adwoa Chahal MD Unavailable [phone] Daniella Nunes MD Unavailable [phone] Adelfo Masters NP Unavailable [phone] Audra Stacy MD Unavailable [phone] Chrissie Fajardo MD Unavailable [phone] Aashish Davis MD Unavailable Trevor Larson MD Unavailable [phone] Moses Knapp MD Unavailable Maria Isabel Dale MD Unavailable [phone] Arpit Smith CNP Unavailable Ryan Stock MD Primary Care Provider Encounter Details Date Type Department Care Team (Late st Contact Info) Description 06/03/2018 Ancillary Orders Virtual Department 30 [place] [address] Ryan Stock MD [address] [place] [address] [place] [address] Lower abdominal pain Social History Tobacco Use [...] 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 Historical LMR Provider 05/05/1707/28/21 John Alvares MD 22 [facility], [address] [place] [address] [email or web address] Historical LMR Provider 05/05/17 07/28/21 Allan Mehta MD [address] [facility] Floor 1 [place] [address] [email or web address] Historical LMR Provider 05/10/17 07/28/21 Pankaj Brown MD [address] [facility] 1st Floor [address] [place] [address] Historical LMR Provider 05/10/17 2 Timi White MD [address] [place] [address], [address] [place] [address] Historical LMR Provider 05/10/17 07/28/21 Adwoa Chahal MD 22 [facility], [address] [place] [address] Historical LMR Provider 05/10/17 2 Daniella Nunes MD [address] [place] [address] [email or web address] Historical LMR Provider 05/10/17 07/28/21 Adelfo Masters NP [address] [place] [address] 2_[place] [address] [email or web address] Historical LMR Provider 05/10/17 07/28/21 Audra Stacy MD [address] [facility], [address] [place] [address] Historical LMR Provider 05/10/17 Chrissie Fajardo MD 15 [facility], 2nd [place] [address] Historical LMR Provider 05/10/17 Aashish Davis MD [address] [place] [address], [address] [address] Historical LMR Provider 05/10/17 07/28/21 Trevor Larson MD [address] [place] [address], [address] [place] [address] Historical LMR Provider 05/10/17 2 Moses Knapp MD [address] [place] [address] Historical LMR Provider 05/10/17 Maria Isabel Dale MD [address] [place] [address] Historical LMR Provider 05/10/17 Arpit Smith CNP [address] [place] [address], [address] [place] [address] Historical LMR Provider 05/10/17 documented as of this encounter Additional Source Comments The information contained in this document represents components of the legal health record. It is not the complete legal health record.[facility]
--- OUTSIDE RECORDS SUMMARY | 2025-06-05 22:44 | XMS_ITS | Encounter Summary ---
Author Organization [facility] Address [address] [place] [address] Phone Care Team Providers Care Jewel Hole Cornerer Name Role Phone Bob Ardon, PhD Unavailable John Alvares MD Unavailable [phone] Allan Mehta MD Unavailable [phone] Pankaj Brown MD Unavailable Timi White MD Unavailable [phone] Adwoa Chahal MD Unavailable [phone] Daniella Nunes MD Unavailable [phone] Adelfo Masters NP Unavailable [phone] Audra Stacy MD Unavailable [phone] Chrissie Fajardo MD Unavailable [phone] Aashish Davis MD Unavailable Trevor Larson MD Unavailable [phone] Moses Knapp MD Unavailable Maria Isabel Dale MD Unavailable [phone] Arpit mSith CNP Unavailable [phone] Ryan Stock MD Primary Care Provider Encounter Details Date Type Department Care Team (Latest Contact Info) Description 10/21/2018 Transcribe Orders [address] [id number] Surinder Joseph MD [address] [place] [address] [email or web address] Functional diarrhea (Primary Dx); Abdominal pain, epigastric [...] 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 on file Not on file documented as of this encounter Plan of Treatment Not on file documented as of this encounter Results * Immunoglobulin A (10/21/2018 3:47 PM EDT) IgA 273 70 - 400 mg/dL [facility] Blood 10/21/2018 3:47 PM EDT 10/21/2018 3:50 PM EDT us Surinder Joseph MD LAB BLOOD BKR ORDERABLES Fin al Result Performing Organization Address [facility] Co de Phone Number [address] [address] * C-Reactive Protein (10/21/2018 3:47 PM EDT) C REACTIVE PROTEIN <0.3 0.0 - 4.0 mg/L [facility] Blood 10/21/2018 3:47 PM EDT 10/21/2018 3:50 PM EDT us Surinder Joseph MD LAB BLOOD BKR ORDERABLES Fin al Result Performing Organization Address [facility] Co de Phone Number [address] [address] * Comprehensive metabolic panel (10/21/2018 3:47 PM EDT) SODIUM 139 133 - 146 mmol/L [facility] POTASSIUM 4.0 3.3 - 5.1 mmol/L [facility] CHLORIDE 103 96 - 108 mmol/L [facility] CO2 24 21 - 35 mmol/L [facility] BUN 15 6 - 19 mg/dL [facility] CREATININE 1.10 0.5 - 1.5 mg/dL [facility] GLUCOSE 94 70 - 99 mg/dL [facility] ALBUMIN 4.2 3.9 - 4.8 g/dL [facility] TOTAL PROTEIN 7.1 6.5 - 8.0 g/dL [facility] CALCIUM 8.9 8.4 - 10.3 mg/dL [facility] ALKALINE PHOSPHATASE 57 39 - 117 U/L [facility] TOTAL BILIRUBIN 0.2 0.0 - 1.2 mg/dL [facility] Comment: Results from certain multiple myeloma patients may show a positive bias in recovery. Not all multiple myeloma patients show the bias and severity of the bias may vary between patients. In very rare cases, gammopathy, in particular type IgM (Waldenstrom's macroglobulinemia), may cause unreliable results. AST 11 0 - 37 U/L [facility] ALT 9 0 - 40 U/L [facility] GLOBULIN 2.9 1 - 4.8 g/dL [facility] EGFR 60 >59 mL/min/1.7 3m2 [facility] Comment:If patient is black, multiply result by 1.159. Estimated glomerular filtration rate calculated using the CKD-EPI equation. ANION GAP 16 10 - 20 mmol/L [facility] Blood 10/21/2018 3:47 PM EDT 10/21/2018 3:50 PM EDT us Surinder Joseph MD LAB BLOOD BKR ORDERABLES Fin al Result [facility] [address] [place] [address] * Gliadin deamidated antibody, IgG/IgA (10/21/2018 3:47 PM EDT) Gliadin Ab, IGA <10.0 <20.0 (Negative) U [facility] LAB MED/PATH [address] GLIADIN AB IGG <10.0 <20.0 (Negative) U [facility] LAB MED/PATH [address] Blood 10/21/2018 3:47 PM EDT 10/21/2018 3:49 PM EDT us Surinder Joseph MD LAB BLOOD ORDERABLES Final R esult [facility] LAB MED/PATH [address] [place] [address] * Tissue transglutaminase IgA (10/21/2018 3:47 PM EDT) Pathologist [facility] TTG IGA ANTIBODY <1.2 <4.0 (Negative) U/mL [facility] LAB MED/PATH [address] Blood 10/21/2018 3:47 PM EDT 10/21/2018 3:49 PM EDT us Surinder Joseph MD LAB BLOOD BKR ORDERABLES Fin al Result Performing Organization Address [facility] Co de Phone Number [facility] MED/PATH [address] [place] [address] * (ABNORMAL) CBC (10/21/2018 3:47 PM EDT) Pathologist [facility] WBC 7.34 3.40 - 11.20 K/uL [facility] RBC 4.19 3.80 - 4.80 M/uL [facility] HGB 12.8 12.0 - 15.0 g/dL [facility] HCT 39.0 36.0 - 46.0 % [facility] PLT 249 130 - 400 K/uL [facility] MCV 93.1 79.0 - 98.0 fL [facility] MCH 30.5 27.0 - 34.8 pg [facility] MCHC 32.8 31.5 - 36.0 g/dL [facility] RDW 12.6 10.8 - 14.6 % [facility] MPV 9.2(L) 9.4 - 12.4 fl [facility] NRBC 0.00 0.00 /100 WBCs [facility] ABSOLUTE NRBC 0.00 0.00 K/uL [facility] Blood 10/21/2018 3:47 PM EDT 10/21/2018 3:50 PM EDT us Surinder Joseph MD LAB BLOOD BKR ORDERABLES Fin al Result Performing Organization Address City/State/[facility] Co de Phone Number [facility] [address] [place] [address] documented in this encounter Visit Diagnoses Diagnosis Functional diarrhea- Primary Abdominal pain, epigastric documented in this encounter Care Teams Jewel Hole Cornerer Relationship Specialty Start Date End Date Ryan Stock MD [address] [place] [address] [place] [address] PCP - General Internal Medicine 10/27/17 Bob Ardon MBBS, PhD [address] [place] [address] [email or web address] Historical LMR Provider 05/05/1707/28/21 John Alvares MD [address] [facility] [place] [address] [email or web address] Historical LMR Provider 05/05/17 07/28/21 Allan Mehta MD [address] [facility] Floor 1 [place] [address] [email or web address] Historical LMR Provider 05/10/17 07/28/21 Pankaj Brown MD [address] [place] [address] 1st Floor [address] [place] [address] Historical LMR Provider 05/10/17 2 Timi White MD [address] [facility] [place] [address] Historical LMR Provider 05/10/17 07/28/21 Adwoa Chahal MD [address] [facility] [place] [address] Historical LMR Provider 05/10/17 2 Daniella Nunes MD [address] [place] [address] [email or web address] Historical LMR Provider 05/10/17 07/28/21 Adelfo Masters NP [address] [place] [address] 2_[place] [address] [email or web address] Historical LMR Provider 05/10/17 07/28/21 Audra Stacy MD [address] [facility], [address] [place] [address] Historical LMR Provider 05/10/17 Chrissie Fajardo MD [address] [facility], 2nd [place] [address] Historical LMR Provider 05/10/17 Aashish Davis MD [address] [place] [address], [facility] [address] [place] [address] Historical LMR Provider 05/10/17 07/28/21 Trevor Larson MD [address] [facility] [place] [address] Historical LMR Provider 05/10/17 2 Moses Knapp MD [address] [place] [address] Historical LMR Provider 05/10/17 Maria Isabel Dale MD [address] [place] [address] Historical LMR Provider 05/10/17 Arpit Smith CNP [address] [place] [address], [address] [place] [address] Historical LMR Provider 05/10/17 documented as of this encounter Additional Source Comments The information contained in this document represents components of the legal health record. It is not the complete legal health record.[facility]
--- OUTSIDE RECORDS SUMMARY | 2025-06-05 22:44 | XMS_ITS | Encounter Summary ---
Author Organization [facility] Address [address] [place] [address] Phone Care Team Providers Care Customer Support Consultant Name Role Phone Bob Ardon, PhD Unavailable John Alvares MD Unavailable [phone] Allan Mehta MD Unavailable [phone] Pankaj Brown MD Unavailable Timi White MD Unavailable [phone] Adwoa Chahal MD Unavailable [phone] Daniella Nunes MD Unavailable [phone] Adelfo Masters NP Unavailable [phone] Audra Stacy MD Unavailable [phone] Chrissie Fajardo MD Unavailable [phone] Aashish Davis MD Unavailable Trevor Larson MD Unavailable [phone] Moses Knapp MD Unavailable Maria Isabel Dale MD Unavailable [phone] Arpit Smith CNP Unavailable [phone] Ryan Stock MD Primary Care Provider Encounter Details Date Type Department Care Team (Late st Contact Info) Description 03/29/2019 Procedure Pass [facility], [address] [address] Social History Tobacco Use Types Packs/Day Years [...] 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 Historical LMR Provider 05/05/1707/28/21 John Alvares MD [address] [facility], [address] [place] [address] [email or web address] Historical LMR Provider 05/05/17 07/28/21 Allan Mehta MD [address] [facility] Floor 1 [place] [address] [email or web address] Historical LMR Provider 05/10/17 07/28/21 Pankaj Brown MD [address] [place] [address] 1st Floor -[address] [place] [address] Historical LMR Provider 05/10/17 2 Timi White MD [address] [facility], [address] [place] [address] Historical LMR Provider 05/10/17 07/28/21 Adwoa Chahal MD [address] [facility] [place] [address] Historical LMR Provider 05/10/17 2 Daniella Nunes MD 19 [place] [address] [email or web address] Historical LMR Provider 05/10/17 07/28/21 Adelfo Masters NP [address] [place] [address] 2_[place] [address] [email or web address] Historical LMR Provider 05/10/17 07/28/21 Audra Stacy MD [address] [facility], [address] [place] [address] Historical LMR Provider 05/10/17 Chrissie Fajardo MD [address] [facility], 2nd [place] [address] Historical LMR Provider 05/10/17 Aashish Davis MD [address] [place] [address], [address] [place] [address] Historical LMR Provider 05/10/17 07/28/21 Trevor Larson MD [address] [place] [address], [address] [place] [address] Historical LMR Provider 05/10/17 2 Moses Knapp MD [address] [place] [address], [address] [address] Historical LMR Provider 05/10/17 Maria Isabel Dale MD [address] [place] [address], [address] [address] Historical LMR Provider 05/10/17 Arpit Smith CNP [address] [place] [address], [address] [place] [address] Historical LMR Provider 05/10/17 documented as of this encounter Additional Source Comments The information contained in this document represents components of the legal health record. It is not the complete legal health record.[facility]
--- OUTSIDE RECORDS SUMMARY | 2025-06-05 22:44 | XMS_ITS | Encounter Summary ---
Author Organization [facility] Address [address] [place] [address] Phone Care Team Providers Care Mutuel Cashier Name Role Phone Bob Ardon, PhD Unavailable [phone] John Alvares MD Unavailable [phone] Allan Mehta MD Unavailable [phone] Pankaj Brown MD Unavailable [phone] Timi White MD Unavailable [phone] Adwoa Chahal MD Unavailable [phone] Daniella Nunes MD Unavailable [phone] Adelfo Masters NP Unavailable Audra Stacy MD Unavailable [phone] Chrissie Fajardo MD Unavailable [phone] Aashish Davis MD Unavailable Trevor Larson MD Unavailable [phone] Moses Knapp MD Unavailable [phone] Maria Isabel Dale MD Unavailable [phone] Arpit Smith CNP Unavailable [phone] yRan Stock MD Primary Care Provider Encounter Details Date Type Department Care Team (Late st Contact Info) Description 05/19/2018 Procedure Pass [facility], [address] [address] Social History Tobacco Use Types Packs/Day Years [...] on filedocumented in this encounter Care Teams Mutuel Cashier Relationship Specialty Start Date End Date Ryan Stock MD [address] [place] [address] [place] [address] PCP - General Internal Medicine 10/27/17 Bob Ardon MBBS, PhD [address] [place] [address] [email or web address] Historical LMR Provider 05/05/1707/28/21 John Alvares MD [address] [facility] [place] [address] [email or web address] Historical LMR Provider 05/05/17 07/28/21 Allan Mehta MD [address] [facility] Floor 1 [place] [address] [email or web address] Historical LMR Provider 05/10/17 07/28/21 Pankaj Brown MD [address] [place] [address] 1st Floor -[address] [place] [address] Historical LMR Provider 05/10/17 2 Timi White MD [address] [facility] [place] [address] Historical LMR Provider 05/10/17 07/28/21 Adwoa Chahal MD [address] [facility] [place] [address] Historical LMR Provider 05/10/17 2 Daniella Nunes MD 19 [place] [address] [email or web address] Historical LMR Provider 05/10/17 07/28/21 Adelfo Masters NP [address] [place] [address] 2_[place] [address] [email or web address] Historical LMR Provider 05/10/17 07/28/21 Audra Stacy MD [address] [facility], [address] [place] [address] Historical LMR Provider 05/10/17 Chrissie Fajardo MD [address] [facility], 2nd [place] [address] Historical LMR Provider 05/10/17 Aashish Davis MD [address] [place] [address], [address] [place] [address] Historical LMR Provider 05/10/17 07/28/21 Trevor Larson MD [address] [place] [address], [address] [place] [address] Historical LMR Provider 05/10/17 2 Moses Knapp MD [address] [place] [address], [address] [address] Historical LMR Provider 05/10/17 Maria Isabel Dale MD [address] [place] [address], [address] [address] Historical LMR Provider 05/10/17 Arpit Smith CNP [address] [place] [address], [address] [place] [address] Historical LMR Provider 05/10/17 documented as of this encounter Additional Source Comments The information contained in this document represents components of the legal health record. It is not the complete legal health record.[facility]
--- OUTSIDE RECORDS SUMMARY | 2025-06-05 22:44 | XMS_ITS | Clinical Summary ---
Author Organization 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 PAP SMEAR [...] 52, 56, 58, 59, 66, 68) by Prasad [employer] HR-HPV analysis. Clinical correlation is advised. This HPV test was performed at [facility], [address] [place] [address]. This test has been FDA approved for [facility] cervical cytology specimens. The accuracy and precision of this test for all other specimen sources has been verified in the Cytopathology Laboratory of the [facility] and has not been cleared or approved by the U.S. Food and Drug Administration. Clinical correlation is advised. CLINICAL HISTORY Date of Last Menstrual Period: Not Provided Menstrual History: Nita-Menopausal Contraceptive History: Depo Other Clinical Conditions: Screening Pap SPECIMEN SOURCE A: PAP SMEAR (SUREPATH) CE Patient Name: KATHIA BUSTAMANTE : 1970 (Age: 50) Sex: F Institution: [facility] Location: [facility] Date of Collection: 02/14/2021 Date of Reported: 02/20/2021 09:04 Results to: Catrachita Oshea MD us Catrachita Oshea MD CYTOLOGY ORDERABLES Final Result SEE NARRATIVE * TSH (04/21/2019 3:15 PM EDT) TSH 2.51 0.27 - 4.20 uIU/mL [facility] Blood 04/21/2019 3:15 PM EDT 04/21/2019 3:21 PM EDT us Ryan Stock MD LAB BLOOD BKR ORDERABLE S Final Result [address] [id number] * (ABNORMAL) Outside LDL (12/25/2016) LDL - External 44(A) 50 - 250 mg/ml us Historical Provider LAB BLOOD ORDERABLES Kirsten l Result from Last 3 Months or Most Recently Relevant to Health Maintenance Insurance [facility] [place] [address] [place], [place] [address] [place], [place] [address]O Member Subscriber Plan / Payer (Ef fective 2013-Present) Name:Kathia Bustamante Relation to Subscriber:Self Name:Kathia Bustamante Payer ID:[id number] Group ID:[id number] Type:Medicaid Address: [place] [id number] [place], [place] [address]O [facility] [employer] Care Teams Manufacturing Engineer Automotive Relationship Specialty Start Date End Date Ryan Stock MD [address] [place] [address] [place] [address] PCP - General Internal Medicine 10/27/17 Audra Stacy MD [address] [place] [address] [email or web address] Historical LMR Provider 05/10/17 Moses Knapp MD [address] [place] [address] [email or web address] Historical LMR Provider 05/10/17 Maria Isabel Dale MD [address] [place] [address] [email or web address] Historical LMR Provider 05/10/17 Additional Source Comments The information contained in this document represents components of the legal health record. It is not the complete legal health record.[facility]
--- OUTSIDE RECORDS SUMMARY | 2025-06-05 22:44 | XMS_ITS | Encounter Summary ---
Author Organization [facility] Address [address] [place] [address] Phone Care Team Providers Care Perfect Binder Feeder Offbearer Name Role Phone Bob Ardon, PhD Unavailable [phone] John Alvares MD Unavailable [phone] Allan Mehta MD Unavailable [phone] Pankaj Brown MD Unavailable Timi White MD Unavailable [phone] Adwoa Chahal MD Unavailable [phone] Daniella Nunes MD Unavailable [phone] Adelfo Masters NP Unavailable Audra Stacy MD Unavailable [phone] Chrissie Fajardo MD Unavailable [phone] Aashish Davis MD Unavailable Trevor Larson MD Unavailable Moses Knapp MD Unavailable Maria Isabel Dale MD Unavailable [phone] Arpit Smith CNP Unavailable [phone] Ryan Stock MD Primary Care Provider Encounter Details Date Type Department Care Team (Late st Contact Info) Description 04/23/2018 Ancillary Orders Virtual Department [address] [place] [address] Meera Rae PA-C [address] [place] [address] [email or web address] Heartburn Social History Tobacco Use Types Packs/Day [...] Heartburn documented in this encounter Care Teams Perfect Binder Feeder Offbearer Relationship Specialty Start Date End Date Ryan Stock MD [address] [place] [address] Dr CARRERO [address] [place] [address] PCP - General Internal Medicine 10/27/17 Bob Ardon MBBS, PhD [address] [place] [address] [email or web address] Historical LMR Provider 05/05/1707/28/21 John Alvares MD [address] [place] [address], [address] [place] [address] [email or web address] Historical LMR Provider 05/05/17 07/28/21 Allan Mehta MD [address] [facility] Floor 1 [place] [address] [email or web address] Historical LMR Provider 05/10/17 07/28/21 Pankaj Brown MD [address] [facility] 1st Floor [address] [place] [address] Historical LMR Provider 05/10/17 2 Timi White MD [address] [facility] [place] [address] Historical LMR Provider 05/10/17 07/28/21 Adwoa Chahal MD [address] [facility] [place] [address] Historical LMR Provider 05/10/17 2 Daniella Nunes MD 19 [place] [address] [email or web address] Historical LMR Provider 05/10/17 07/28/21 Adelfo Masters NP [address] [place] [address] 2_[place] [address] [email or web address] Historical LMR Provider 05/10/17 07/28/21 Audra Stacy MD [address] [facility], [address] [place] [address] [email or web address] Historical LMR Provider 05/10/17 Chrissie Fajardo MD [address] [facility], 2nd [place] [address] Historical LMR Provider 05/10/17 Aashish Davis MD [address] [place] [address] Historical LMR Provider 05/10/17 07/28/21 Trevor Larson MD [address] [place] [address], [address] [place] [address] Historical LMR Provider 05/10/17 2 Moses Knapp MD [address] [place] [address] Historical LMR Provider 05/10/17 Maria Isabel Dale MD [address] [place] [address] Historical LMR Provider 05/10/17 Arpit Smith CNP [address] [place] [address], [address] [place] [address] Historical LMR Provider 05/10/17 documented as of this encounter Additional Source Comments The information contained in this document represents components of the legal health record. It is not the complete legal health record.[facility]
--- OUTSIDE RECORDS SUMMARY | 2025-06-05 22:44 | XMS_ITS | Encounter Summary ---
Author Organization [facility] Address [address] [place] [address] Phone Care Team Providers Care Rock Cutter Name Role Phone Bob Ardon, PhD Unavailable [phone] John Alvares MD Unavailable [phone] Allan Mehta MD Unavailable +[phone] Pankaj Brown MD Unavailable Timi White MD Unavailable [phone] Adwoa Chahal MD Unavailable +[phone] Daniella Nunes MD Unavailable [phone] Adelfo Masters NP Unavailable [phone] Audra Stacy MD Unavailable +[phone] Chrissie Fajardo MD Unavailable +[phone] Aashish Davis MD Unavailable Trevor Larson MD Unavailable [phone] Moses Knapp MD Unavailable [phone] [...] Procedures NM Gastric Emptying Ryan Stock MD [address] [place] [address] Dr CARRERO Sanjay DupontyoJENNIFER collins [address] Phone: tel: fax: Referral ID Status Reason Start Date Expiration Date Visits Re quested Visits Authorized [id number] Closed 06/03/2018 06/03/2019 1 1 Encounter Details Date Type Department Care Team (Late st Contact Info) Description 06/03/2018 Ancillary Orders Virtual Department 30 [place] [address] Ryan Stock MD [address] [place] [address] Dr CARRERO Sanjay Meza JENNIFER [phone] Abdominal pain, unspecified abdominal location; Gastroesophageal reflux [...] 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 Historical LMR Provider 05/05/1707/28/21 John Alvares MD [address] [place] [address], [address] [place] [address] [email or web address] Historical LMR Provider 05/05/17 07/28/21 Allan Mehta MD 22 [facility] Floor 1 [place] [address] [email or web address] Historical LMR Provider 05/10/17 07/28/21 Pankaj Brown MD [address] [place] [address] [address] [address] Historical LMR Provider 05/10/17 2 Timi White MD 22 [facility], [address] [place] [address] Historical LMR Provider 05/10/17 07/28/21 Adwoa Chahal MD [address] [place] [address], [address] [place] [address] Historical LMR Provider 05/10/17 2 Daniella Nunes MD 19 [place] [address] [email or web address] Historical LMR Provider 05/10/17 07/28/21 Adelfo Masters NP [address] [place] [address] 2_Wound Care [place], [place] [id number] [email or web address] Historical LMR Provider 05/10/17 07/28/21 Audra Stacy MD 22 [facility], [address] [address] Historical LMR Provider 05/10/17 Chrissie Fajardo MD 15 [facility], 2nd [place] [address] Historical LMR Provider 05/10/17 Aashish Davis MD [address] [place] [address] Historical LMR Provider 05/10/17 07/28/21 Trevor Larson MD [address] [place] [address], [address] [place] [address] Historical LMR Provider 05/10/17 2 Moses Knapp MD [address] [place] [address], [address] [address] Historical LMR Provider 05/10/17 Maria Isabel Dale MD [address] [address] Historical LMR Provider 05/10/17 Arpit Smith, AMY 22 [facility], [address] [place] [address] [phone] ([email or web address]) [email or web address] Historical LMR Provider 05/10/17 documented as of this encounter Additional Source Comments The information contained in this document represents components of the legal health record. It is not the complete legal health record.[facility]
--- OUTSIDE RECORDS SUMMARY | 2025-06-05 22:44 | XMS_ITS | Encounter Summary ---
Author Organization [facility] Address [address] [place] [address] Phone Care Team Providers Care Quality Assurance Engineer Name Role Phone Bob Ardon, PhD Unavailable John Alvares MD Unavailable [phone] Allan Mehta MD Unavailable [phone] Pankaj Brown MD Unavailable Timi White MD Unavailable [phone] Adwoa Chahal MD Unavailable +[phone] Daniella Nunes MD Unavailable [phone] Adelfo Masters NP Unavailable Audra Stacy MD Unavailable [phone] Chrissie Fajardo MD Unavailable +[phone] Aashish Davis MD Unavailable Trevor Larson MD Unavailable [phone] Moses Knapp MD Unavailable Maria Isabel Dale MD Unavailable [phone] Arpit Smith CNP Unavailable [phone] Ryan Stock MD Primary Care Provider Encounter Details Date Type Department Care Team (Late st Contact Info) Description 12/31/2017 Procedure Pass [facility] Endoscopy Admitting Dept Virtual Department 30 [place] [address] Social History Tobacco Use Types Packs/Day Years [...] 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 Historical LMR Provider 05/05/1707/28/21 John Alvares MD 22 [facility], [address] [place] [address] Historical LMR Provider 05/05/17 07/28/21 Allan Mehta MD 22 [facility] Floor 1 [place] [address] [email or web address] Historical LMR Provider 05/10/17 07/28/21 Pankaj Brown MD [address] [place] [address] 1st [place] [address] Historical LMR Provider 05/10/17 2 Timi White MD 22 [facility], [address] [place] [address] Historical LMR Provider 05/10/17 07/28/21 Adwoa Chahal MD 22 [facility], [address] [place] [address] Historical LMR Provider 05/10/17 2 Daniella Nunes MD 19 [place] [address] [email or web address] Historical LMR Provider 05/10/17 07/28/21 Adelfo Masters NP [address] [place] [address] 2_[place] [address] [email or web address] Historical LMR Provider 05/10/17 07/28/21 Audra Stacy MD 22 [facility], [address] [place] [address] Historical LMR Provider 05/10/17 Chrissie Fajardo MD 15 [facility], 2nd [place] [address] Historical LMR Provider 05/10/17 Aashish Davis MD [address] [place] [address], [address] [place] [address] Historical LMR Provider 05/10/17 07/28/21 Trevor Larson MD [address] [place] [address], [address] [place] [address] Historical LMR Provider 05/10/17 2 Moses Knapp MD [address] [place] [address], [address] [address] Historical LMR Provider 05/10/17 Maria Isabel Dale MD [address] [place] [address], [address] [address] Historical LMR Provider 05/10/17 Arpit Smith CNP [address] [place] [address], [address] [place] [address] Historical LMR Provider 05/10/17 documented as of this encounter Additional Source Comments The information contained in this document represents components of the legal health record. It is not the complete legal health record.[facility]
--- OUTSIDE RECORDS SUMMARY | 2025-06-05 22:45 | XMS_ITS | Encounter Summary ---
Author Organization [facility] Address [address] [place] [address] Phone Care Team Providers Care Paper Cone Maker Name Role Phone Bob Ardon, PhD Unavailable John Alvares MD Unavailable [phone] Allan Mehta MD Unavailable [phone] Pankaj Brown MD Unavailable Timi White MD Unavailable [phone] Adwoa Chahal MD Unavailable +[phone] Daniella Nunes MD Unavailable [phone] Adelfo Masters NP Unavailable [phone] Audra Stacy MD Unavailable [phone] Chrissie Fajardo MD Unavailable +[phone] Aashish Davis MD Unavailable Trevor Larson MD Unavailable [phone] Moses Knapp MD Unavailable [phone] Maria Isabel Dale MD Unavailable [phone] Arpit Smith CNP Unavailable [phone] Ryan Stock MD Primary Care Provider Encounter Details Date Type Department Care Team (Late st Contact Info) Description 03/11/2019 Procedure Pass [facility], [address] [address] Social History Tobacco Use Types Packs/Day Years [...] 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 Historical LMR Provider 05/05/1707/28/21 John Alvares MD [address] [place] [address], [address] [place] [address] [email or web address] Historical LMR Provider 05/05/17 07/28/21 Allan Mehta MD 22 [facility] Floor 1 [place] [address] [email or web address] Historical LMR Provider 05/10/17 07/28/21 Pankaj Brown MD [address] [place] [address] 1st Floor [address] [place] [address] Historical LMR Provider 05/10/17 2 Timi White MD [address] [place] [address], [address] [place] [address] Historical LMR Provider 05/10/17 07/28/21 Adwoa Chahal MD [address] [place] [address], [address] [place] [address] [email or web address] Historical LMR Provider 05/10/17 2 Daniella Nunes MD [address] [place] [address] [email or web address] Historical LMR Provider 05/10/17 07/28/21 Adelfo Masters NP [address] [place] [address] 2_[place] [address] [email or web address] Historical LMR Provider 05/10/17 07/28/21 Audra Stacy MD [address] [place] [address], [address] [place] [address] [email or web address] Historical LMR Provider 05/10/17 Chrissie Fajardo MD 15 [facility], 2nd [place] [address] Historical LMR Provider 05/10/17 Aashish Davis MD [address] [place] [address], [address] [place] [address] Historical LMR Provider 05/10/17 07/28/21 Trevor Larson MD 22 [facility], [address] [place] [address] Historical LMR Provider 05/10/17 2 Moses Knapp MD 22 [facility] 102 [place] [address] Historical LMR Provider 05/10/17 Maria Isabel Dale MD 22 [facility], [address] [address] Historical LMR Provider 05/10/17 Arpit Smith CNP 22 [facility], [address] [place] [address] Historical LMR Provider 05/10/17 documented as of this encounter Additional Source Comments The information contained in this document represents components of the legal health record. It is not the complete legal health record.[facility]
--- OUTSIDE RECORDS SUMMARY | 2025-06-05 22:45 | XMS_ITS | Encounter Summary ---
Author Organization [facility] Address [address] [place] [address] Phone Care Team Providers Care Financial Retirement Plan Specialist Name Role Phone Bob Ardon, PhD Unavailable John Alvares MD Unavailable [phone] Allan Mehta MD Unavailable [phone] Pankaj Brown MD Unavailable Timi White MD Unavailable [phone] Adwoa Chahal MD Unavailable +[phone] Daniella Nunes MD Unavailable [phone] Adelfo Masters NP Unavailable Audra Stacy MD Unavailable [phone] Chrissie Fajardo MD Unavailable [phone] Aashish Davis MD Unavailable Trevor Larson MD Unavailable [phone] Moses Knapp MD Unavailable Maria Isabel Dale MD Unavailable [phone] Arpit Smith CNP Unavailable [phone] Ryan Stock MD Primary Care Provider Encounter Details Date Type Department Care Team (Late st Contact Info) Description 04/21/2019 Transcribe Orders [address] [id number] Ryan Stock MD [address] [place] [address] Dr ChristiansonyokeJENNIFER [address] Hypothyroidism, unspecified type (Primary Dx) Social History [...] 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 file Not on file Not on file documented as of this encounter Plan of Treatment Not on file documented as of this encounter Results * Free T4 (04/21/2019 3:15 PM EDT) FREE T4 1.4 0.9 - 1.7 ng/dL [facility] Blood 04/21/2019 3:15 PM EDT 04/21/2019 3:21 PM EDT us Ryan Stock MD LAB BLOOD BKR ORDERABLE S Final Result Performing Organization Address [facility] Co de Phone Number [address] [address] * TSH (04/21/2019 3:15 PM EDT) TSH 2.51 0.27 - 4.20 uIU/mL [facility] Blood 04/21/2019 3:15 PM EDT 04/21/2019 3:21 PM EDT Ryan Stock MD LAB BLOOD BKR ORDERABLE S Final Result Performing Organization Address [facility] Co de Phone Number [address] [address] * (ABNORMAL) CBC and differential (04/21/2019 3:15 PM EDT) WBC 6.21 3.40 - 11.20 K/uL [facility] RBC 4.22 3.80 - 4.80 M/uL [facility] HGB 13.1 12.0 - 15.0 g/dL [facility] HCT 38.6 36.0 - 46.0 % [facility] PLT 230 130 - 400 K/uL [facility] MCV 91.5 79.0 - 98.0 fL [facility] MCH 31.0 27.0 - 34.8 pg [facility] MCHC 33.9 31.5 - 36.0 g/dL [facility] RDW 12.4 10.8 - 14.6 % [facility] MPV 9.5 9.4 - 12.4 fl [facility] NRBC 0.00 0.00 /100 WBCs [facility] ABSOLUTE NRBC 0.00 0.00 K/uL [facility] DIFF METHOD Auto [facility] NEUTS 59.7 45.30 - 77.70 % [facility] LYMPHS 31.7 12.30 - 39.70 % [facility] MONOS 7.7 4.10 - 12.80 % [facility] EOS 0.0 0 - 7.2 % [facility] BASOS 0.6 0 - 2.80 % [facility] Granulocytes, immature (%) 0.3 0.0 - 0.9 % [facility] ABSOLUTE NEUTS 3.70 1.40 - 7.70 K/uL [facility] ABSOLUTE LYMPHS 1.97 0.60 - 3.20 K/uL [facility] ABSOLUTE MONOS 0.48 0.11 - 0.59 K/uL [facility] ABSOLUTE EOS 0.00(L) 0.01 - 0.50 K/uL [facility] ABSOLUTE BASOS 0.04 0.00 - 0.08 K/uL [facility] Granulocytes, immature 0.02 0.00 - 0.05 K/uL [facility] Blood 04/21/2019 3:15 PM EDT 04/21/2019 3:21 PM EDT us Ryan Stock MD LAB BLOOD BKR ORDERABLE S Final Result [address] [address] * (ABNORMAL) Comprehensive metabolic panel (04/21/2019 3:15 PM EDT) SODIUM 139 133 - 146 mmol/L [facility] POTASSIUM 4.0 3.3 - 5.1 mmol/L [facility] CHLORIDE 105 96 - 108 mmol/L [facility] CO2 22 21 - 35 mmol/L [facility] BUN 13 6 - 19 mg/dL [facility] CREATININE 1.00 0.5 - 1.5 mg/dL [facility] GLUCOSE 100(H) 70 - 99 mg/dL [facility] ALBUMIN 4.2 3.9 - 4.8 g/dL [facility] TOTAL PROTEIN 7.1 6.5 - 8.0 g/dL [facility] CALCIUM 9.1 8.4 - 10.3 mg/dL [facility] ALKALINE PHOSPHATASE 63 39 - 117 U/L [facility] TOTAL BILIRUBIN 0.2 0.0 - 1.2 mg/dL [facility] AST 17 0 - 37 U/L [facility] ALT 12 0 - 40 U/L [facility] GLOBULIN 2.9 1 - 4.8 g/dL [facility] EGFR 67 >59 mL/min/1.7 3m2 [facility] Comment:If patient is black, multiply result by 1.159. Estimated glomerular filtration rate calculated using the CKD-EPI equation. ANION GAP 16 10 - 20 mmol/L [facility] Blood 04/21/2019 3:15 PM EDT 04/21/2019 3:21 PM EDT us Ryan Stock MD LAB BLOOD BKR ORDERABLE S Final Result [address] [address] documented in this encounter Visit Diagnoses Diagnosis Hypothyroidism, unspecified type- Primary documented in this encounter Care Teams Financial Retirement Plan Specialist Relationship Specialty Start Date End Date Ryan Stock MD [address] [place] [address] [place] [address] PCP - General Internal Medicine 10/27/17 Bob Ardon MBBS, PhD [address] [place] [address] [email or web address] Historical LMR Provider 05/05/1707/28/21 John Alvares MD 22 [facility], [address] [place] [address] [email or web address] Historical LMR Provider 05/05/17 07/28/21 Allan Mehta MD 22 [facility] Floor 1 [place] [address] [email or web address] Historical LMR Provider 05/10/17 07/28/21 Pankaj Brown MD [address] [place] [address] [address] [address] Historical LMR Provider 05/10/17 2 Timi White MD 22 [facility], [address] [place] [address] Historical LMR Provider 05/10/17 07/28/21 Adwoa Chahal MD [address] [place] [address], [address] [place] [address] Historical LMR Provider 05/10/17 2 Daniella Nunes MD [address] [place] [address] [email or web address] Historical LMR Provider 05/10/17 07/28/21 Adelfo Masters, DYAN [address] [place] [address] 2_[place] [address] [email or web address] Historical LMR Provider 05/10/17 07/28/21 Audra Stacy MD 22 [facility], [facility] 102 [place] [address] Historical LMR Provider 05/10/17 Chrissie Fajardo MD 15 [facility], 2nd [place] [address] Historical LMR Provider 05/10/17 Aashish Davis MD [address] [place] [address] Historical LMR Provider 05/10/17 07/28/21 Trevor Larson MD 22 [facility], [address] [place] [address] Historical LMR Provider 05/10/17 2 Moses Knapp MD [address] [place] [address] Historical LMR Provider 05/10/17 Maria sIabel Dale MD [address] [place] [address] [address] [place] [address] Historical LMR Provider 05/10/17 Arpit Smith CNP [address] [place] [address], [address] [place] [address] [email or web address] Historical LMR Provider 05/10/17 documented as of this encounter Additional Source Comments The information contained in this document represents components of the legal health record. It is not the complete legal health record.[facility]
--- OUTSIDE RECORDS SUMMARY | 2025-06-05 22:45 | XMS_ITS | Encounter Summary ---
Author Organization [facility] Address [address] [place] [address] Phone Care Team Providers Care Software Consultant Name Role Phone Bob Ardon, PhD Unavailable [phone] John Alvares MD Unavailable Allan Mehta MD Unavailable [phone] Allan Mehta MD Primary Care Provide r Pankaj Brown MD Unavailable Timi White MD Unavailable +[phone] Adwoa Chahal MD Unavailable +[phone] Daniella Nunes MD Unavailable [phone] Adelfo Masters NP Unavailable [phone] Audra Stacy MD Unavailable [phone] Chrissie Fajardo MD Unavailable [phone] Aashish Davis MD Unavailable Trevor Larson MD Unavailable [phone] Moses Knapp MD Unavailable [phone] Maria Isabel Dale MD Unavailable [phone] Arpit Smith CNP Unavailable [phone] Ryan Stock MD Primary Care Provider Encounter Details Date Type Department Care Team (Late st Contact Info) Description 08/02/2017 EpicOnHand Encounter [facility] Gynecology Virtual Department 30 [place] [address] Mart Goldman MD 22 [facility], [address] [place] [address] [email or web address] Social History Tobacco Use Types Packs/Day Years [...] 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 on file Not on file documented as of this encounter Plan of Treatment Not on file documented as of this encounter Visit Diagnoses Not on filedocumented in this encounter Care Teams Software Consultant Relationship Specialty Start Date End Date Allan Mehta MD 22 [facility] Floor 1 [place] [address] [email or web address] PCP - General 05/06/17 10/26/17 Ryan Stock MD [address] [place] [address] [place] [address] PCP - General Internal Medicine 10/27/17 Bob Ardon MBBS, PhD [address] [place] [address] [email or web address] Historical LMR Provider 05/05/1707/28/21 John Alvares MD 22 [facility], [address] [place] [address] [email or web address] Historical LMR Provider 05/05/17 07/28/21 Allan Mehta MD 22 [facility] Floor 1 [place] [address] [email or web address] Historical LMR Provider 05/10/17 07/28/21 Pankaj Brown MD [address] [place] [address] 1st Floor [address] [place] [address] Historical LMR Provider 05/10/17 2 Timi White MD 22 [facility], [address] [place] [address] [email or web address] Historical LMR Provider 05/10/17 07/28/21 Adwoa Chahal MD [address] [place] [address], [address] [place] [address] [email or web address] Historical LMR Provider 05/10/17 2 Daniella Nunes MD [address] [place] [address] [email or web address] Historical LMR Provider 05/10/17 07/28/21 Adelfo Masters NP [address] [place] [address] 2_[place] [address] [email or web address] Historical LMR Provider 05/10/17 07/28/21 Audra Stacy MD 22 [facility], [address] [place] [address] Historical LMR Provider 05/10/17 Chrissie Fajardo MD 15 [facility], 2nd [place] [address] Historical LMR Provider 05/10/17 Aashish Davis MD [address] [place] [address] Historical LMR Provider 05/10/17 07/28/21 Trevor Larson MD 22 [facility], [address] [place] [address] Historical LMR Provider 05/10/17 2 Moses Knapp MD 22 [facility] 102 [place] [address] Historical LMR Provider 05/10/17 Maria Isabel Dale MD [address] [address] Historical LMR Provider 05/10/17 Arpit Smith CNP 22 [facility], [address] [place] [address] Historical LMR Provider 05/10/17 documented as of this encounter Additional Source Comments The information contained in this document represents components of the legal health record. It is not the complete legal health record.[facility]
--- OUTSIDE RECORDS SUMMARY | 2025-06-05 22:45 | XMS_ITS | Encounter Summary ---
Author Organization [facility] Address [address] [place] [address] Phone Care Team Providers Care Credit Card Interviewer Name Role Phone Bob Ardon, PhD Unavailable [phone] John Alvares MD Unavailable [phone] Allan Mehta MD Unavailable [phone] Pankaj Brown MD Unavailable Timi White MD Unavailable [phone] Adwoa Chahal MD Unavailable +[phone] Daniella Nunes MD Unavailable [phone] Adelfo Masters NP Unavailable [phone] Audra Stacy MD Unavailable [phone] Chrissie Fajardo MD Unavailable [phone] Aashish Davis MD Unavailable Trevor Larson MD Unavailable [phone] Moses Knapp MD Unavailable [phone] Maria Isabel Dale MD Unavailable [phone] Arpit Smith CNP Unavailable [phone] Ryan Stock MD Primary Care Provider Reason for Referral * MRI/CAT Scan - Closed Specialty Diagnoses / Procedures Referred By Contac t Referred To Contact Radiology Diagnoses Weakness of distal arms and legs Leg numbness White matter disease Procedures MRI Cervical Spine Trevor Stapleton MD Phone: tel: fax: [email or web address] Referral ID Status Reason Start Date Expiration Date Visits Re quested Visits Authorized [id number] Closed 03/11/2019 05/10/2019 1 1 Encounter Details Date Type Department Care Team (Latest Contact Info) Description 03/11/2019 Transcribe Orders Virtual Department [address] [place] [address] Trevor Stapleton MD [address] [place] [address], [address] [place] [address] 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 POS - [id number] Narrative 03/19/2019 8:48 AM EDT HISTORY: Ataxia, [...] degenerative disc and endplate changes. POS - [id number] Trevor Stapleton MD IMG MR XSPECIALTY Final Resu lt documented in this encounter Visit Diagnoses Diagnosis Weakness of distal arms and legs- Primary Leg numbness Disturbance of skin sensation White matter disease Weakness of distal arms and legs Leg numbness Disturbance of skin sensation White matter disease documented in this encounter Care Teams Credit Card Interviewer Relationship Specialty Start Date End Date Ryan Stock MD [address] [place] [address] [place] [address] PCP - General Internal Medicine 10/27/17 Bob Ardon MBBS, PhD [address] [place] [address] [email or web address] Historical LMR Provider 05/05/1707/28/21 John Alvares MD [address] [place] [address], [address] [place] [address] [email or web address] Historical LMR Provider 05/05/17 07/28/21 Allan Mehta MD [address] [facility] Floor 1 [place] [address] [email or web address] Historical LMR Provider 05/10/17 07/28/21 Pankaj Brown MD [address] [place] [address] [address] [address] Historical LMR Provider 05/10/17 2 Timi White MD [address] [place] [address], [address] [place] [address] Historical LMR Provider 05/10/17 07/28/21 Adwoa Chahal MD [address] [place] [address], [address] [place] [address] Historical LMR Provider 05/10/17 2 Daniella Nunes MD 19 [place] [address] [email or web address] Historical LMR Provider 05/10/17 07/28/21 Adeflo Masters NP [address] [place] [address] 2_Wound Care [place], [place] [id number] [email or web address] Historical LMR Provider 05/10/17 07/28/21 Audra Stacy MD [address] [facility], [address] [place] [address] Historical LMR Provider 05/10/17 Chrissie Fajardo MD [address] [place] [address], 2nd [place] [address] Historical LMR Provider 05/10/17 Aashish Davis MD [address] [place] [address] Historical LMR Provider 05/10/17 07/28/21 Trevor Larson MD [address] [place] [address], [address] [place] [address] Historical LMR Provider 05/10/17 2 Moses Knapp MD [address] [place] [address], [facility] [address] [place] [address] Historical LMR Provider 05/10/17 Maria Isabel Dale MD [address] [facility], [facility] [address] [place] [address] Historical LMR Provider 05/10/17 Arpit Smith, AMY [address] [facility], [address] [place] [address] (work) [email or web address] Historical LMR Provider 05/10/17 documented as of this encounter Additional Source Comments The information contained in this document represents components of the legal health record. It is not the complete legal health record.[facility]
--- OUTSIDE RECORDS SUMMARY | 2025-06-05 22:45 | XMS_ITS | Encounter Summary ---
Author Organization [facility] Address [address] [place] [address] Phone Care Team Providers Care Quality Improvement Coordinator Name Role Phone Bob Ardon, PhD Unavailable [phone] John Alvares MD Unavailable [phone] Allan Mehta MD Unavailable [phone] Pankaj Brown MD Unavailable Timi White MD Unavailable [phone] Adwoa Chahal MD Unavailable [phone] Daniella Nunes MD Unavailable [phone] Adelfo Masters NP Unavailable Audra Stacy MD Unavailable [phone] Chrissie Fajardo MD Unavailable [phone] Aashish Davis MD Unavailable Trevor Larson MD Unavailable [phone] Moses Knapp MD Unavailable Maria Isabel Dale MD Unavailable [phone] Arpit Smith CNP Unavailable [phone] Ryan Stock MD Primary Care Provider Encounter Details Date Type Department Care Team (Latest Contact Info) Description 09/13/2019 Transcribe Orders [facility] Department [address] [place] [address] Trevor Stapleton MD [address] [place] [address], [address] [place] [address] 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 Not on file documented as of this encounter Plan of Treatment Not on file documented as of this encounter Visit Diagnoses Diagnosis New onset headache- Primary Headache White matter disease documented in this encounter Care Teams Quality Improvement Coordinator Relationship Specialty Start Date End Date Ryan Stock MD [address] [place] [address] [place] [address] PCP - General Internal Medicine 10/27/17 Bob Ardon MBBS, PhD [address] [place] [address] [email or web address] Historical LMR Provider 05/05/1707/28/21 John Alvares MD [address] [place] [address], [address] [place] [address] [email or web address] Historical LMR Provider 05/05/17 07/28/21 Allan Mehta MD [address] [facility] Floor 1 [place] [address] [email or web address] Historical LMR Provider 05/10/17 07/28/21 Pankaj Brown MD [address] [facility] 1st Floor [address] [place] [address] Historical LMR Provider 05/10/17 2 Timi White MD [address] [facility], [address] [place] [address] Historical LMR Provider 05/10/17 07/28/21 Adwoa Chahal MD [address] [facility], [address] [place] [address] Historical LMR Provider 05/10/17 2 Daniella Nunes MD [address] [place] [address] [email or web address] Historical LMR Provider 05/10/17 07/28/21 Adelfo Masters NP [address] [place] [address] 2_[place] [address] [email or web address] Historical LMR Provider 05/10/17 07/28/21 Audra Stacy MD [address] [facility], [address] [place] [address] Historical LMR Provider 05/10/17 Chrissie Fajardo MD 15 [facility], 2nd [place] [address] Historical LMR Provider 05/10/17 Aashish Davis MD [address] [place] [address] Historical LMR Provider 05/10/17 07/28/21 Trevor Larson MD [address] [place] [address], [address] [place] [address] Historical LMR Provider 05/10/17 2 Moses Knapp MD [address] [place] [address] Historical LMR Provider 05/10/17 Maria Isabel Dale MD [address] [place] [address] Historical LMR Provider 05/10/17 Arpit Smith CNP [address] [place] [address] Historical LMR Provider 05/10/17 documented as of this encounter Additional Source Comments The information contained in this document represents components of the legal health record. It is not the complete legal health record.[facility]
--- OUTSIDE RECORDS SUMMARY | 2025-06-05 22:46 | XMS_ITS | Encounter Summary ---
Author Organization [facility] Address [address] [place] [address] Phone Care Team Providers Care Drilling Machine Operator Name Role Phone Bob Ardon, PhD Unavailable [phone] John Alvares MD Unavailable [phone] Allan Mehta MD Unavailable [phone] Pankaj Brown MD Unavailable Timi White MD Unavailable [phone] Adwoa Chahal MD Unavailable [phone] Daniella Nunes MD Unavailable [phone] Adelfo Masters NP Unavailable Audra Stacy MD Unavailable [phone] Chrissie Fajardo MD Unavailable [phone] Aashish Davis MD Unavailable Trevor Larson MD Unavailable [phone] Moses Knapp MD Unavailable Maria Isabel Dale MD Unavailable [phone] Arpit Smith CNP Unavailable [phone] Ryan Stock MD Primary Care Provider Encounter Details Date Type Department Care Team (Late st Contact Info) Description 10/27/2017 Procedure Pass [facility], Ct Scan - [address] [address] Social History Tobacco Use Types Packs/Day Years [...] 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 file Not on file documented as of this encounter Plan of Treatment Not on file documented as of this encounter Visit Diagnoses Not on filedocumented in this encounter Care Teams Drilling Machine Operator Relationship Specialty Start Date End Date Ryan Stock MD [address] [place] [address] [place] [address] PCP - General Internal Medicine 10/27/17 Bob Arodn MBBS, PhD [address] [place] [address] [email or web address] Historical LMR Provider 05/05/1707/28/21 John Alvares MD [address] [facility], [address] [place] [address] [email or web address] Historical LMR Provider 05/05/17 07/28/21 Allan Mehta MD [address] [facility] Floor 1 [place] [address] [email or web address] Historical LMR Provider 05/10/17 07/28/21 Pankaj Brown MD [address] [place] [address] [address]st Floor -[address] [place] [address] Historical LMR Provider 05/10/17 2 Timi White MD [address] [facility], [address] [place] [address] Historical LMR Provider 05/10/17 07/28/21 Adwoa Chahal MD [address] [facility], [address] [place] [address] Historical LMR Provider 05/10/17 2 Daniella Nunes MD 19 [place] [address] [email or web address] Historical LMR Provider 05/10/17 07/28/21 Adelfo Masters NP [address] [place] [address] 2_[place] [address] [email or web address] Historical LMR Provider 05/10/17 07/28/21 Audra Stacy MD [address] [facility], [address] [place] [address] Historical LMR Provider 05/10/17 Chrissie Fajardo MD [address] [facility], 2nd [place] [address] Historical LMR Provider 05/10/17 Aashish Davis MD [address] [place] [address], [address] [place] [address] Historical LMR Provider 05/10/17 07/28/21 Trevor Larson MD [address] [place] [address], [address] [place] [address] Historical LMR Provider 05/10/17 2 Moses Knapp MD [address] [place] [address], [address] [address] Historical LMR Provider 05/10/17 Maria Isabel Dale MD [address] [place] [address] Historical LMR Provider 05/10/17 Arpit Smith CNP [address] [place] [address], [address] [place] [address] Historical LMR Provider 05/10/17 documented as of this encounter Additional Source Comments The information contained in this document represents components of the legal health record. It is not the complete legal health record.[facility]
[2025-06-05 23:13] VITALS: BP 160/90; PULSE 92; TEMP 37; O2SAT 98
[2025-06-05 23:16] VITALS: BP 160/90; PULSE 92; RESP 18; TEMP 37; O2SAT 98
== END 2025-06-05 23:19 | disposition home or self-care (01) ==
PROVIDERS: Emergency Provider Emergency Medicine; PCP Physician Assistant
DX: R07.9 Chest pain, unspecified (principal); F90.9 Attention-deficit hyperactivity disorder, unspecified type; R03.0 Elevated blood-pressure reading, without diagnosis of hypertension; Z87.19 Personal history of other diseases of the digestive system; Z79.899 Other long term (current) drug therapy
CPT/HCPCS: 36415; 71046; 80053; 83735; 84484; 85025; 93005; 99283; 99285

== ENCOUNTER → 2025-06-05 21:36 | Outpatient (BNV) | payer OTHER, SELFPAY | PROVIDERS: Emergency Provider Emergency Medicine; PCP Physician Assistant; Visit Provider Internal Medicine | DX: R07.9 Chest pain, unspecified (principal) | CPT/HCPCS: 93010 ==

== ENCOUNTER → 2025-06-05 21:59 | Outpatient (BNV) | payer OTHER, SELFPAY | PROVIDERS: Emergency Provider Emergency Medicine; PCP Physician Assistant; Visit Provider Specialist | DX: R07.9 Chest pain, unspecified (principal) | CPT/HCPCS: 71046 ==

== ENCOUNTER 2025-06-10 14:09 | Outpatient (AMB) | payer OTHER, SELFPAY ==
[2025-06-10 14:10] VITALS: BP 150/90; PULSE 90; TEMP 36.4; O2SAT 99
--- NOTE | 2025-06-10 14:10 | A.OFFPC_ITS ---
Vital Signs 06/10/25 14:10 06/10/25 16:04 Height 5 ft 7 in BP 150/90 H 168/90 H Blood Pressure Location Lt brachial Position Sitting Pulse 90 Pulse Source Pulse Oximeter Temp 97.5 F Temp Source Temporal Artery Scan Pulse Oximetry (%) 99 Oxygen Delivery Method Room Air Intake Visit Reasons: BP Concerns Dental Director Required: No Accompanied by: Self / Same As Patient Allergies doxycycline Allergy (Verified 06/10/25 14:11) Nausea fluoxetine (From Prozac) Allergy (Verified 06/10/25 14:11) Itching paroxetine (From Paxil) Allergy (Verified 06/10/25 14:11) Itching Tobacco use date assessed: 06/10/25 Dental Screening Dental Screen Date: 06/10/25 Did you have a dental visit in the last 12 months?: Yes Did you have a dental problem in the last 6 months where you did not have access to dental care?: No HPI HPI Comments History of Present Illness Details 51-year-old female with history of hypot hyroidism, major depressive disorder, ADHD presents to the office today for follow-up. Hypothyroidism- on levothyroxine 50mcg GERD- prilosec 40mg BID MDD/ADHD- bupropion 600mg, seroquel 25mg TID, and adderall XR. Trazodone prn. Sees counselor at [facility]. Follows with Leti Hypertension-new onset. Has been checking blood pressures at home with systolic pressures in the 180s-190s. She presented to the ED due to the blood pressures with some chest tightness in the upper left chest no radiation or pressure. Blood pressure is elevated in the office today. No chest pain or headaches Concerns: R knee pain x 4 days. No injury. Pain with extension and flexion Health Maintenance: Cologuard- needs one ordered. Hx colonoscopy mid 40s, adverse reaction ROS: See HPI EXAM: Constitutional - Awake and Alert, No apparent distress Eyes - PERRL Cardiovascular - S1S2, RRR, No edema Respiratory - Normal lung expansion, Normal respiratory effort, No respiratory distress, CTA bilaterally Extremities - no calf tenderness bilaterally, no swelling . Right knee-no swelling, effusion, warmth, erythema. There is tenderness over the patellar tendon. Skin - Warm/Dry Neurological - Alert & oriented x3 Psychological - Appropriate affect , hyperverbal [facility] Medical History (Updated 06/10/25 @ 16:02 by THO Carpenter) Heterozygous factor V Leiden mutation HTN (hypertension) Class 2 obesity Hypothyroidism ADHD Major depression in partial remission Family History Mother No problems noted. Father No problems noted. Social History Housing: Condominium Patient Tobacco Use Status: Never used Tobacco e-Cigarette/Vaping Use: Never Used service: No Current occupational status: employed Cognitive needs: No Hearing needs: No Vision needs: Yes (rx glasses) Questionnaire PHQ-9 Over the last 2 weeks, how often have you been bothered by any of the following problems? 1. Little interest or pleasure in doing things: not at all 2. Feeling down, depressed, or hopeless: not at all 3. Trouble falling or staying asleep, or sleeping too much: not at all 4. Feeling tired or having little energy: not at all 5. Poor appetite or overeating: not at all 6. Feeling bad about yourself - or that you are a failure or have let yourself or your family down: not at all 7. Trouble concentrating on things, such as reading the newspaper or watching television: not at all 8. Moving or speaking so slowly that other people could have noticed. Or the opposite - being so fidgety or restless that you have been moving around a lot more than usual: not at all 9. Thoughts that you would be better off or of hurting yourself in some way: not at all Total score: 0 Depression Screening Interpretation: Negative Depression Screening Done: Yes Source: Developed by Drs. Parveen Landry, Johana Bassett, Tanvir Montgomery and colleagues, with an educational tl from [employer]. Thrive Questionnaire Date Thrive assessed: 06/10/25 I am a: Patient Within the past 12 months, did the food you bought not last and you didn't have the money to get more?: Never true Within the past 12 months, did you worry whether your food would run out before you got money to buy more?: Never true Do you have trouble paying for medicines?: No Do you have trouble getting transportation to medical appointments?: No Do you have trouble paying your heating and electricity bill?: No Do you have trouble taking care of your child, family member or friend?: No Do you have trouble with day-to-day activities such as bathing, preparing meals, shopping, managing finances, etc.?: No Are you currently unemployed and looking for a job?: No Are you interested in more education?: No THRIVE Score: 0 AUDIT C Alcohol Use Questionnaire (AUDIT-C) 1. How often do you have a drink containing alcohol?: Never 3. How often do you have six or more drinks on one occasion?: Never Total Score: 0 OVIDIO-7 AMB Questionnaire OVIDIO-7 Date OVIDIO - 7 assessed: 06/10/25 Feeling nervous, anxious, or on edge: 0 = Not at all Not being able to stop or control worryin = Not at all Worrying too much about different things: 0 = Not at all Trouble relaxin = Not at all Being so restless that it is hard to sit still: 0 = Not at all Becoming easily annoyed or irritable: 0 = Not at all Feeling afraid as if something awful might happen: 0 = Not at all Total OVIDIO-7 score (0-4 normal; 5-9 mild; 10-14 moderate; 15-21 severe): 0 Source: Developed by Drs. Parveen Landry, Johana Bassett, Tanvir Montgomery and colleagues, with an educational tl from [employer]. Physical exam (Primary Care) Vital Signs: Last Vital Signs Temp 97.5 F 06/10/25 14:10 Pulse 90 06/10/25 14:10 BP 150/90 H 06/10/25 14:10 Pulse Ox 99 06/10/25 14:10 Oxygen Delivery Method Room Air 06/10/25 14:10 Tobacco/Smoking Status: Tobacco use Status Tobacco use date assessed 06/10/25 06/10/25 14:12 Patient Tobacco Use Status Never used Tobacco 06/10/25 14:12 e-Cigarette/Vaping Use Never Used 06/10/25 14:12 PHQ-9: PHQ-9 Score PHQ-9: Total score 0 06/10/25 14:38 Depression Screening Interpretation: Negative Thrive Assessment: Date of Thrive Assessment Date Thrive assessed 06/10/25 06/10/25 14:12 Coding Level of Care Code Est Pt Level 4 (55468) Complex visit Add On G2211 Diagnoses HTN (hypertension) I10 Hypothyroidism E03.9 Heterozygous factor V Leiden mutation D68.51 Major depression in partial remission F32.4 Prepatellar bursitis of right knee M70.41 Assessment & Plan Assessment & Plan (1) HTN (hypertension): Code(s): I10 - Essential (primary) hypertension Category: Medical Plan: Has been quite uncontrolled. Add amlodipine 5 mg and losartan 25 mg daily. Counseled on side effects. Continue monitoring blood pressures at home. Follow-up in 2 weeks for blood pressure recheck (2) Hypothyroidism: Code(s): E03.9 - Hypothyroidism, unspecified Category: Medical Plan: Due for TSH this is ordered. Continue levothyroxine (3) Heterozygous factor V Leiden mutation: Code(s): D68.51 - Activated protein C resistance Category: Medical Plan: Patient quite anxious over diagnosis and history of recent CVA/clots in her sister. Discussed that interrogation is not indicated at this point but will refer to hematology for further evaluation (4) Major depression in partial remission: Code(s): F32.4 - Major depressive disorder, single episode, in partial remission Category: Medical Plan: Continue current therapies. Continue following with Psychiatry and given resources to locate a different psychiatrist. Discussed that given significantly elevated dose of bupropion, we are unable to manage this and primary care. (5) Prepatellar bursitis of right knee: Code(s): M70.41 - Prepatellar bursitis, right knee Category: Medical Plan: Suspect knee pain related to prepatellar bursitis. X-ray ordered to evaluate any other structural abnormality that could contribute to her pain. Can use ibuprofen, Tylenol, ice. Written information provided in packet Plan Follow-up in the office in 2 weeks for blood pressure check. Labs to be completed as ordered Orders: Orders Lipid Panel Today E03.9 - Hypothyroidism, unspecified, F32.4 - Major depressive disorder, single episode, in partial remission, F90.9 - Attention-deficit hyperactivity disorder, unspecified type Liver Panel Today E03.9 - Hypothyroidism, unspecified, F32.4 - Major depressive disorder, single episode, in partial remission, F90.9 - Attention-deficit hyperactivity disorder, unspecified type Basic Metabolic Panel Today I10 - Essential (primary) hypertension XR knee RT 3V Today M25.561 - Pain in right knee, M70.41 - Prepatellar bursitis, right knee TSH reflex Free T4 Today E03.9 - Hypothyroidism, unspecified Referrals Hematology & Oncology Referral D68.51 - Activated protein C resistance Cologuard Test Z12.11 - Encounter for screening for malignant neoplasm of colon, Z12.12 - Encounter for screening for malignant neoplasm of rectum Medications: New losartan 25 mg PO DAILY 90 tabs 1RF amlodipine 5 mg PO DAILY 90 tabs 1RF Patient Instructions: Check [facility]ol[employer]apsed[facility] for psychiatrists
--- OUTSIDE RECORDS SUMMARY | 2025-06-10 14:31 | XMS_ITS | Encounter Summary ---
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 file Not on file Not on file documented as of this encounter Plan of Treatment Not on file documented as of this encounter Visit Diagnoses Not on filedocumented in this encounter Care Teams Civil Engineering Project Manager Relationship Specialty Start Date End Date Ryan Stock MD [address] [place] [address] [place] [address] PCP - General Internal Medicine 10/27/17 Audra Stacy MD [address] [place] [address] Historical LMR Provider 05/10/17 Moses Knapp MD [address] [place] [address] Historical LMR Provider 05/10/17 Maria Isabel Dale MD [address] [place] [address] Historical LMR Provider 05/10/17 documented as of this encounter Additional Source Comments The information contained in this document represents components of the legal health record. It is not the complete legal health record.[facility]
--- OUTSIDE RECORDS SUMMARY | 2025-06-10 14:31 | XMS_ITS | Encounter Summary ---
Author Organization [facility] Address [address] [place] [address] Phone Care Team Providers Care Spar Cap Beveler Name Role Phone Bob Ardon, PhD Unavailable [phone] John Alvares MD Unavailable +[phone] Allan Mehta MD Unavailable +[phone] Pankaj Brown MD Unavailable Timi White MD Unavailable +[phone] Adwoa Chahal MD Unavailable +[phone] Daniella Nunes MD Unavailable [phone] Adelfo Masters NP Unavailable [phone] Audra Stacy MD Unavailable +[phone] Chrissie Fajardo MD Unavailable +[phone] Aashish Davis MD Unavailable Trevor Larson MD Unavailable [phone] Moses Knapp MD Unavailable +[phone] Maria Isabel Dale MD Unavailable +[phone] Arpit Smith CNP Unavailable +[phone] Ryan Stock MD Primary Care Provider Reason for Referral * MRI/CAT Scan - Closed Specialty Diagnoses / Procedures Referred By Contac t Referred To Contact Radiology Diagnoses Right sided weakness Ataxia Procedures MRI Brain Trevor Stapleton MD Phone: tel: fax: mailto: Referral ID Status Reason Start Date Expiration Date Visits Re quested Visits Authorized [id number] Closed 05/19/2018 07/18/2018 1 1 Encounter Details Date Type Department Care Team (Late st Contact Info) Description 05/19/2018 Ancillary Orders Virtual Department 30 [place] [address] Trevor Stapleton MD [address] [place] [address], [address] [place] [address] [email or web address] Right sided weakness; TIA (transient [...] 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 POS - [id number] Edited by: Katrina Donahue on 06/03/2018 8:04 [...] posterior fossa lesions inparticular seen. POS - [id number] Edited by: Katrina Donahue on 06/03/2018 8:04 PM Trevor Stapleton MD IMG MR HEAD/NECK Final Resul t documented in this encounter Visit Diagnoses Diagnosis Right sided weakness TIA (transient ischemic attack) Unspecified transient cerebral ischemia Ataxia Lack of coordination Right sided weakness Ataxia Lack of coordination Right sided weakness TIA (transient ischemic attack) Unspecified transient cerebral ischemia documented in this encounter Care Teams Spar Cap Beveler Relationship Specialty Start Date End Date Ryan Stock MD [address] [place] [address] [place] [address] PCP - General Internal Medicine 10/27/17 Bob Ardon MBBS, PhD 60 [place] [address] [email or web address] Historical LMR Provider 05/05/1707/28/21 John Alvares MD [address] [facility], [address] [place] [address] [email or web address] Historical LMR Provider 05/05/17 07/28/21 Allan Mehta MD [address] [facility] Floor 1 [place] [address] [email or web address] Historical LMR Provider 05/10/17 07/28/21 Pankaj Brown MD [address] [place] [address] 1st [place] [address] Historical LMR Provider 05/10/17 2 Timi White MD [address] [place] [address], [address] [place] [address] Historical LMR Provider 05/10/17 07/28/21 Adwoa Chahal MD [address] [place] [address], [address] [place] [address] Historical LMR Provider 05/10/17 2 Daniella Nunes MD [address] [place] [address] [email or web address] Historical LMR Provider 05/10/17 07/28/21 Adelfo Masters NP [address] [place] [address] 2_[place] [address] [email or web address] Historical LMR Provider 05/10/17 07/28/21 Audra Stacy MD [address] [facility], [address] [place] [address] [email or web address] Historical LMR Provider 05/10/17 Chrissie Fajardo MD [address] [facility], 2nd [place] [address] Historical LMR Provider 05/10/17 Aashish Davis MD [address] [place] [address] 202 [place] [address] Historical LMR Provider 05/10/17 07/28/21 Trevor Larson MD [address] [place] [address], [address] [place] [address] Historical LMR Provider 05/10/17 2 Moses Knapp MD [address] [place] [address], [address] [place] [address] Historical LMR Provider 05/10/17 Maria Isabel Dale MD [address] [place] [address], [facility] 102 [place] [address] Historical LMR Provider 05/10/17 Arpit Smith CNP [address] [place] [address], [address] [place] [address] Historical LMR Provider 05/10/17 documented as of this encounter Additional Source Comments The information contained in this document represents components of the legal health record. It is not the complete legal health record.[facility]
--- OUTSIDE RECORDS SUMMARY | 2025-06-10 14:31 | XMS_ITS | Encounter Summary ---
Author Organization [facility] Address [address] [place] [address] Phone Care Team Providers Care Drafter Civil Name Role Phone Bob Ardon, PhD Unavailable [phone] John Alvares MD Unavailable [phone] Allan Mehta MD Unavailable +[phone] Allan Mehta MD Primary Care Provide r Pankaj Brown MD Unavailable Timi White MD Unavailable +[phone] Adwoa Chahal MD Unavailable +[phone] Daniella Nunes MD Unavailable [phone] Adelfo Masters NP Unavailable +[phone] Audra Stacy MD Unavailable +[phone] Chrissie Fajardo MD Unavailable +[phone] Aashish Davis MD Unavailable Trevor Larson MD Unavailable [phone] Moses Knapp MD Unavailable +[phone] Maria Isabel Dale MD Unavailable +[phone] Arpit Smith CNP Unavailable +[phone] Ryan Stock MD Primary Care Provider Encounter Details Date Type Department Care Team (Latest Contact Info) Description 05/12/2017 Transcribe Orders [facility] 30 [place] [address] Allan Mehta MD 22 [facility] 1 [place] [address] [email or web address] Dyspnea on exertion (Primary Dx) [...] with bronchodilator, Lung Volumes, DLCO; Performing Location: [facility] (05/29/2017 12:02 PM EST) FEV1 liters [...] abnormality documented in this encounter Care Teams Drafter Civil Relationship Specialty Start Date End Date Allan Mehta MD 22 [facility] 1 [place] [address] [email or web address] PCP - General 05/06/17 10/26/17 Ryan Stock MD [address] [place] [address] [place] [address] PCP - General Internal Medicine 10/27/17 Bob Ardon MBBS, PhD 60 [place] [address] [email or web address] Historical LMR Provider 05/05/1707/28/21 John Alvares MD 22 [facility], [address] [place] [address] [email or web address] Historical LMR Provider 05/05/17 07/28/21 Allan Mehta MD 22 [facility] Floor 1 [place] [address] [email or web address] Historical LMR Provider 05/10/17 07/28/21 Pankaj Brown MD [address] [place] [address] [address] [address] Historical LMR Provider 05/10/17 2 Timi White MD [address] [place] [address], [address] [place] [address] Historical LMR Provider 05/10/17 07/28/21 Adwoa Chahal MD [address] [place] [address], [address] [place] [address] Historical LMR Provider 05/10/17 2 Daniella Nunes MD [address] [place] [address] [email or web address] Historical LMR Provider 05/10/17 07/28/21 Adelfo Masters NP [address] [place] [address] 2_[place] [address] [email or web address] Historical LMR Provider 05/10/17 07/28/21 Audra Stacy MD 22 [facility], [facility] 102 [place] [address] Historical LMR Provider 05/10/17 Chrissie Fajardo MD 15 [facility], 2nd [place] [address] Historical LMR Provider 05/10/17 Aashish Davis MD [address] [place] [address] Historical LMR Provider 05/10/17 07/28/21 Trevor Larson MD [address] [place] [address], [address] [place] [address] Historical LMR Provider 05/10/17 2 Moses Knapp MD 22 [facility], [address] [address] Historical LMR Provider 05/10/17 Maria Isabel Dale MD 22 [facility], [facility] 102 [place] [address] Historical LMR Provider 05/10/17 Arpit Smith CNP [address] [place] [address], [address] [place] [address] [email or web address] Historical LMR Provider 05/10/17 documented as of this encounter Additional Source Comments The information contained in this document represents components of the legal health record. It is not the complete legal health record.[facility]
--- OUTSIDE RECORDS SUMMARY | 2025-06-10 14:32 | XMS_ITS | Encounter Summary ---
Author Organization [facility] Address [address] [place] [address] Phone Care Team Providers Care Solderer Electronic Name Role Phone Bob Ardon, PhD Unavailable [phone] John Alvares MD Unavailable [phone] Allan Mehta MD Unavailable [phone] Pankaj Brown MD Unavailable Timi White MD Unavailable +[phone] Adwoa Chahal MD Unavailable +[phone] Daniella Nunes MD Unavailable [phone] Adelfo Masters NP Unavailable Audra Stacy MD Unavailable +[phone] Chrissie Fajardo MD Unavailable +[phone] Aashish Davis MD Unavailable Trevor Larson MD Unavailable [phone] Moses Knapp MD Unavailable [phone] Maria Isabel Dale MD Unavailable +[phone] Arpit Smith CNP Unavailable +[phone] Ryan Stock MD Primary Care Provider Encounter Details Date Type Department Care Team (Late st Contact Info) Description 05/19/2018 Procedure Pass [facility] [place], [address] [address] Social History Tobacco Use Types Packs/Day Years [...] 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, [address] [place] [address] [email or web address] Historical LMR Provider 05/05/17 07/28/21 Allan Mehta MD [address] [facility] Floor 1 [place] [address] [email or web address] Historical LMR Provider 05/10/17 07/28/21 Pankaj Brown MD [address] [place] [address] 1st Floor -[address] [place] [address] Historical LMR Provider 05/10/17 2 Timi White MD 22 [facility], [address] [place] [address] Historical LMR Provider 05/10/17 07/28/21 Adwoa Chahal MD [address] [facility], [address] [place] [address] Historical LMR Provider 05/10/17 2 Daniella Nunes MD 19 [place] [address] [email or web address] Historical LMR Provider 05/10/17 07/28/21 Adelfo Masters NP [address] [place] [address] 2_[place] [address] [email or web address] Historical LMR Provider 05/10/17 07/28/21 Audra Stacy MD [address] [facility], [address] [place] [address] Historical LMR Provider 05/10/17 Chrissie Fajardo MD [address] [facility], 2nd [place] [address] Historical LMR Provider 05/10/17 Aashish Davis MD [address] [place] [address], [address] [place] [address] Historical LMR Provider 05/10/17 07/28/21 Trevor Larson MD [address] [place] [address], [address] [place] [address] Historical LMR Provider 05/10/17 2 Moses Knapp MD [address] [place] [address], [address] [address] Historical LMR Provider 05/10/17 Maria Isabel Dale MD [address] [place] [address], [address] [address] Historical LMR Provider 05/10/17 Arpit Smith CNP [address] [place] [address], [address] [place] [address] Historical LMR Provider 05/10/17 documented as of this encounter Additional Source Comments The information contained in this document represents components of the legal health record. It is not the complete legal health record.[facility]
--- OUTSIDE RECORDS SUMMARY | 2025-06-10 14:32 | XMS_ITS | Encounter Summary ---
Author Organization [facility] Address [address] [place] [address] Phone Care Team Providers Care Tobacco Stemmer Machine Name Role Phone Bob Ardon, PhD Unavailable John Alvares MD Unavailable [phone] Allan Mehta MD Unavailable [phone] Pankaj Brown MD Unavailable Timi White MD Unavailable +[phone] Adwoa Chahal MD Unavailable +[phone] Daniella Nunes MD Unavailable [phone] Adelfo Masters NP Unavailable Audra Stacy MD Unavailable +[phone] Chrissie Fajardo MD Unavailable +[phone] Aashish Davis MD Unavailable Trevor Larson MD Unavailable [phone] Moses Knapp MD Unavailable Maria Isabel Dale MD Unavailable [phone] Arpit Smith CNP Unavailable [phone] Ryan Stock MD Primary Care Provider Encounter Details Date Type Department Care Team (Late st Contact Info) Description 10/27/2017 Procedure Pass [facility], Ct Scan - [address] [address] Social History Tobacco Use Types Packs/Day Years [...] 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 Not on file Not on file documented as of this encounter Plan of Treatment Not on file documented as of this encounter Visit Diagnoses Not on filedocumented in this encounter Care Teams Tobacco Stemmer Machine Relationship Specialty Start Date End Date Ryan Stock MD [address] [place] [address] [place] [address] PCP - General Internal Medicine 10/27/17 Bob Ardon MBBS, PhD [address] [place] [address] [email or web address] Historical LMR Provider 05/05/1707/28/21 John Alvares MD 22 [facility], [address] [place] [address] [email or web address] Historical LMR Provider 05/05/17 07/28/21 Allan Mehta MD 22 [facility] Floor 1 [place] [address] [email or web address] Historical LMR Provider 05/10/17 07/28/21 Pankaj Brown MD [address] [place] [address] 1st Floor -[address] [place] [address] Historical LMR Provider 05/10/17 2 Timi White MD 22 [facility], [address] [place] [address] Historical LMR Provider 05/10/17 07/28/21 Adwoa Chahal MD 22 [facility], [address] [place] [address] Historical LMR Provider 05/10/17 2 Daniella Nunes MD 19 [place] [address] [email or web address] Historical LMR Provider 05/10/17 07/28/21 Adelfo Masters NP [address] [place] [address] 2_[place] [address] [email or web address] Historical LMR Provider 05/10/17 07/28/21 Audra Stacy MD 22 [facility], [address] [place] [address] Historical LMR Provider 05/10/17 Chrissie Fajardo MD 15 [facility], 2nd [place] [address] Historical LMR Provider 05/10/17 Aashish Davis MD [address] [place] [address], [address] [place] [address] Historical LMR Provider 05/10/17 07/28/21 Trevor Larson MD [address] [place] [address], [address] [place] [address] Historical LMR Provider 05/10/17 2 Moses Knapp MD [address] [place] [address], [address] [address] Historical LMR Provider 05/10/17 Maria Isabel Dale MD [address] [place] [address] Historical LMR Provider 05/10/17 Arpit Smith CNP [address] [place] [address], [address] [place] [address] Historical LMR Provider 05/10/17 documented as of this encounter Additional Source Comments The information contained in this document represents components of the legal health record. It is not the complete legal health record.[facility]
--- OUTSIDE RECORDS SUMMARY | 2025-06-10 14:32 | XMS_ITS | Encounter Summary ---
Author Organization [facility] Address [address] [place] [address] Phone Care Team Providers Care Rewrite Editor Name Role Phone Bob Ardon, PhD Unavailable [phone] John Alvares MD Unavailable Allan Mehta MD Unavailable [phone] Pankaj Brown MD Unavailable Timi White MD Unavailable +[phone] Adwoa Chahal MD Unavailable +[phone] Daniella Nunes MD Unavailable [phone] Adelfo Masters NP Unavailable Audra Stacy MD Unavailable +[phone] Chrissie Fajardo MD Unavailable +[phone] Aashish Davis MD Unavailable Trevor Larson MD Unavailable [phone] Moses Knapp MD Unavailable Maria Isabel Dale MD Unavailable [phone] Arpit Smith CNP Unavailable [phone] Ryan Stock MD Primary Care Provider Encounter Details Date Type Department Care Team (Late st Contact Info) Description 06/03/2018 Ancillary Orders Virtual Department 30 [place] [address] Ryan Stock MD [address] [place] [address] [place] [address] Lower abdominal pain Social History Tobacco Use [...] site documented in this encounter Care Teams Rewrite Editor Relationship Specialty Start Date End Date Ryan Stock MD [address] [place] [address] [place] [address] PCP - General Internal Medicine 10/27/17 Bob Ardon MBBS, PhD [address] [place] [address] [email or web address] Historical LMR Provider 05/05/1707/28/21 John Alvares MD 22 [facility], [address] [place] [address] [email or web address] Historical LMR Provider 05/05/17 07/28/21 Allan Mehta MD 22 [facility] Floor 1 [place] [address] [email or web address] Historical LMR Provider 05/10/17 07/28/21 Pankaj Brown MD [facility] 1st Floor [address] [place] [address] Historical LMR Provider 05/10/17 2 Timi White MD [address] [place] [address], [address] [place] [address] Historical LMR Provider 05/10/17 07/28/21 Adwoa Chahal MD 22 [facility], [address] [place] [address] Historical LMR Provider 05/10/17 2 Daniella Nunes MD [address] [place] [address] [email or web address] Historical LMR Provider 05/10/17 07/28/21 Adelfo Masters NP [address] [place] [address] 2_[place] [address] [email or web address] Historical LMR Provider 05/10/17 07/28/21 Audra Stacy MD 22 [facility], [address] [place] [address] Historical LMR Provider 05/10/17 Chrissie Fajardo MD 15 [facility], 2nd [place] [address] Historical LMR Provider 05/10/17 Aashish Davis MD [address] [place] [address], [address] [address] Historical LMR Provider 05/10/17 07/28/21 Trevor Larson MD [address] [place] [address], [address] [place] [address] Historical LMR Provider 05/10/17 2 Moses Knapp MD [address] [place] [address] Historical LMR Provider 05/10/17 Maria Isabel Dale MD [address] [place] [address] Historical LMR Provider 05/10/17 Arpit Smith CNP [address] [place] [address], [address] [place] [address] Historical LMR Provider 05/10/17 documented as of this encounter Additional Source Comments The information contained in this document represents components of the legal health record. It is not the complete legal health record.[facility]
--- OUTSIDE RECORDS SUMMARY | 2025-06-10 14:32 | XMS_ITS | Encounter Summary ---
Author Organization [facility] Address [address] [place] [address] Phone Care Team Providers Care Remote Sensing Technologist Name Role Phone Bob Ardon, PhD Unavailable [phone] John Alvares MD Unavailable [phone] Allan Mehta MD Unavailable +[phone] Pankaj Brown MD Unavailable [phone] Timi White MD Unavailable +[phone] Adwoa Chahal MD Unavailable +[phone] Daniella Nunes MD Unavailable [phone] Adelfo Masters NP Unavailable Audra Stacy MD Unavailable +[phone] Chrissie Fajardo MD Unavailable +[phone] Aashish Davis MD Unavailable Trevor Larson MD Unavailable [phone] Moses Knapp MD Unavailable [phone] Maria Isabel Dale MD Unavailable [phone] Arpit Smith CNP Unavailable +[phone] Ryan Stock MD Primary Care Provider Encounter Details Date Type Department Care Team (Late st Contact Info) Description 03/29/2019 Procedure Pass [facility], [address] [address] Social History Tobacco Use Types Packs/Day Years [...] on filedocumented in this encounter Care Teams Remote Sensing Technologist Relationship Specialty Start Date End Date Ryan Stock MD [address] [place] [address] [place] [address] PCP - General Internal Medicine 10/27/17 Bob Ardon MBBS, PhD [address] [place] [address] [email or web address] Historical LMR Provider 05/05/1707/28/21 John Alvares MD 22 [facility], [address] [place] [address] [email or web address] Historical LMR Provider 05/05/17 07/28/21 Allan Mehta MD 22 [facility] Floor 1 [place] [address] [email or web address] Historical LMR Provider 05/10/17 07/28/21 Pankaj Brown MD [address] [place] [address] 1st Floor -[address] [place] [address] Historical LMR Provider 05/10/17 2 Timi White MD 22 [facility], [address] [place] [address] Historical LMR Provider 05/10/17 07/28/21 Adwoa Chahal MD 22 [facility], [address] [place] [address] Historical LMR Provider 05/10/17 2 Daniella Nunes MD 19 [place] [address] [email or web address] Historical LMR Provider 05/10/17 07/28/21 Adelfo Masters NP [address] [place] [address] 2_[place] [address] [email or web address] Historical LMR Provider 05/10/17 07/28/21 Audra Stacy MD 22 [facility], [address] [place] [address] Historical LMR Provider 05/10/17 Chrissie Fajardo MD 15 [facility], 2nd [place] [address] Historical LMR Provider 05/10/17 Aashish Davis MD [address] [place] [address], [address] [place] [address] Historical LMR Provider 05/10/17 07/28/21 Tervor Larson MD [address] [place] [address], [address] [place] [address] Historical LMR Provider 05/10/17 2 Moses Knapp MD [address] [place] [address], [address] [address] Historical LMR Provider 05/10/17 Maria Isabel Dale MD [address] [place] [address], [address] [address] Historical LMR Provider 05/10/17 Arpit Smith CNP [address] [place] [address], [address] [place] [address] Historical LMR Provider 05/10/17 documented as of this encounter Additional Source Comments The information contained in this document represents components of the legal health record. It is not the complete legal health record.[facility]
--- OUTSIDE RECORDS SUMMARY | 2025-06-10 14:32 | XMS_ITS | Encounter Summary ---
Author Organization [facility] Address [address] [place] [address] Phone Care Team Providers Care Financial Systems Administrator Name Role Phone Bob Ardon, PhD Unavailable [phone] John Alvares MD Unavailable [phone] Allan Mehta MD Unavailable [phone] Pankaj Brown MD Unavailable [phone] Timi White MD Unavailable +[phone] Adwoa Chahal MD Unavailable +[phone] Daniella Nunes MD Unavailable [phone] Adelfo Masters NP Unavailable Audra Stacy MD Unavailable +[phone] Chrissie Fajardo MD Unavailable +[phone] Aashish Davis MD Unavailable Trevor Larson MD Unavailable [phone] Moses Knapp MD Unavailable [phone] Maria Isabel Dale MD Unavailable [phone] Arpit Smith CNP Unavailable [phone] Ryan Stock MD Primary Care Provider Encounter Details Date Type Department Care Team (Late st Contact Info) Description 03/11/2019 Procedure Pass [facility], [address] [address] Social History Tobacco Use Types Packs/Day Years [...] on filedocumented in this encounter Care Teams Financial Systems Administrator Relationship Specialty Start Date End Date Ryan Stock MD [address] [place] [address] [place] [address] PCP - General Internal Medicine 10/27/17 Bob Ardon MBBS, PhD [address] [place] [address] [email or web address] Historical LMR Provider 05/05/1707/28/21 John Alvares MD [address] [place] [address], [address] [place] [address] [email or web address] Historical LMR Provider 05/05/17 07/28/21 Allan Mehta MD 22 [facility] Floor 1 [place] [address] [email or web address] Historical LMR Provider 05/10/17 07/28/21 Pankaj Brown MD [address] [place] [address] 1st Floor [address] [place] [address] Historical LMR Provider 05/10/17 2 Timi White MD [address] [place] [address], [address] [place] [address] Historical LMR Provider 05/10/17 07/28/21 Adwoa Chahal MD [address] [place] [address], [address] [place] [address] [email or web address] Historical LMR Provider 05/10/17 2 Daniella Nunes MD [address] [place] [address] [email or web address] Historical LMR Provider 05/10/17 07/28/21 Adelfo Masters NP [address] [place] [address] 2_[place] [address] [email or web address] Historical LMR Provider 05/10/17 07/28/21 Audra Stacy MD [address] [place] [address], [address] [place] [address] [email or web address] Historical LMR Provider 05/10/17 Chrissie Fajardo MD [address] [facility], 2nd [place] [address] Historical LMR Provider 05/10/17 Aashish Davis MD [address] [place] [address], [address] [place] [address] Historical LMR Provider 05/10/17 07/28/21 Trevor Larson MD [address] [facility], [address] [place] [address] Historical LMR Provider 05/10/17 2 Moses Knapp MD 22 [facility] 102 [place] [address] Historical LMR Provider 05/10/17 Maria Isabel Dale MD [address] [facility], [address] [address] Historical LMR Provider 05/10/17 Arpit Smith CNP [address] [facility], [address] [place] [address] Historical LMR Provider 05/10/17 documented as of this encounter Additional Source Comments The information contained in this document represents components of the legal health record. It is not the complete legal health record.[facility]
--- OUTSIDE RECORDS SUMMARY | 2025-06-10 14:32 | XMS_ITS | Encounter Summary ---
Author Organization [facility] Address [address] [place] [address] Phone Care Team Providers Care Ship Mate Name Role Phone Bob Ardon, PhD Unavailable [phone] John Alvares MD Unavailable [phone] Allan Mehta MD Unavailable [phone] Pankaj Brown MD Unavailable Timi White MD Unavailable [phone] Adwoa Chahal MD Unavailable +[phone] Daniella Nunes MD Unavailable Adelfo Masters NP Unavailable Audra Stacy MD Unavailable +[phone] Chrissie Fajardo MD Unavailable [phone] Aashish Davis MD Unavailable Trevor Larson MD Unavailable [phone] Moses Knapp MD Unavailable Maria Isabel Dale MD Unavailable [phone] Arpit Smith CNP Unavailable [phone] Ryan Stock MD Primary Care Provider Encounter Details Date Type Department Care Team (Latest Contact Info) Description 09/13/[address] [facility] Department [address] [place] [address] Trevor Stapleton MD [address] [place] [address], [address] [place] [address] [email or web address] New onset headache (Primary Dx); White [...] disease documented in this encounter Care Teams Ship Mate Relationship Specialty Start Date End Date Ryan Stock MD [address] [place] [address] [place] [address] PCP - General Internal Medicine 10/27/17 Bob Ardon MBBS, PhD [address] [place] [address] [email or web address] Historical LMR Provider 05/05/1707/28/21 John Alvares MD [address] [place] [address], [address] [place] [address] [email or web address] Historical LMR Provider 05/05/17 07/28/21 Allan Mehta MD 22 [facility] Floor 1 [place] [address] [email or web address] Historical LMR Provider 05/10/17 07/28/21 Pankaj Brown MD 50 [facility] 1st Floor [address] [place] [address] Historical LMR Provider 05/10/17 2 Timi White MD 22 [facility], [address] [place] [address] Historical LMR Provider 05/10/17 07/28/21 Adwoa Chahal MD 22 [facility], [address] [place] [address] Historical LMR Provider 05/10/17 2 Daniella Nunes MD [address] [place] [address] [email or web address] Historical LMR Provider 05/10/17 07/28/21 Adelfo Masters NP [address] [place] [address] 2_[place] [address] [email or web address] Historical LMR Provider 05/10/17 07/28/21 Audra Stacy MD 22 [facility], [address] [place] [address] Historical LMR Provider 05/10/17 Chrissie Fajardo MD 15 [facility], 2nd [place] [address] Historical LMR Provider 05/10/17 Aashish Davis MD [address] [place] [address] Historical LMR Provider 05/10/17 07/28/21 Trevor Larson MD [address] [place] [address], [address] [place] [address] Historical LMR Provider 05/10/17 2 Moses Knapp MD [address] [place] [address] Historical LMR Provider 05/10/17 Maria Isabel Dale MD [address] [place] [address] Historical LMR Provider 05/10/17 Arpit Smith CNP [address] [place] [address] Historical LMR Provider 05/10/17 documented as of this encounter Additional Source Comments The information contained in this document represents components of the legal health record. It is not the complete legal health record.[facility]
--- OUTSIDE RECORDS SUMMARY | 2025-06-10 14:32 | XMS_ITS | Clinical Summary ---
Author Organization [facility] Address [address] [place] [address] Phone Care Team Providers Care Seed Technician Name Role Phone Audra Stacy MD Unavailable [phone] Moses Knapp MD Unavailable [phone] Maria Isabel Dale MD Unavailable Ryan Stock MD Primary Care Provider Allergies [...] SEE NARRATIVE - 02/20/2021 9:04 AM EDT [address] [address] Valve Maker: Milagros Easley MD REFRIGERATION HOUSEMAN Cytology Report FINAL DIAGNOSIS A. PAP SMEAR [...] 52, 56, 58, 59, 66, 68) by [employer] HR-HPV analysis. Clinical correlation is advised. This HPV test was performed at [facility], [address] [place] [address]. This test has been FDA approved for [employer] cervical cytology specimens. The accuracy and precision of this test for all other specimen sources has been verified in the Cytopathology Laboratory of the [facility] and has not been cleared or approved by the U.S. Food and Drug Administration. Clinical correlation is advised. CLINICAL HISTORY Date of Last Menstrual Period: Not Provided Menstrual History: Nita-Menopausal Contraceptive History: Depo Other Clinical Conditions: Screening Pap SPECIMEN SOURCE A: PAP SMEAR (SUREPATH) CE Patient Name: KATHIA BUSTAMANTE : 1970 (Age: 50) Sex: F Institution: [facility] Location: [facility] Date of Collection: 02/14/2021 Date of Reported: 02/20/2021 09:04 Results to: Catrachita Oshea MD us Catrachita Oshea MD CYTOLOGY ORDERABLES Final Result SEE NARRATIVE * TSH (04/21/2019 3:15 PM EDT) TSH 2.51 0.27 - 4.20 uIU/mL [facility] Blood 04/21/2019 3:15 PM EDT 04/21/2019 3:21 PM EDT us Ryan Stock MD LAB BLOOD BKR ORDERABLE S Final Result Performing Organization Address City/[facility]/ZIP Co de Phone Number [facility] [address] [place] [address] * (ABNORMAL) Outside LDL (12/25/2016) LDL - External 44(A) 50 - 250 mg/ml us Historical Provider LAB BLOOD ORDERABLES Kirsten l Result from Last 3 Months or Most Recently Relevant to Health Maintenance [place] [address] [address] [address] [place] [address] [address] [place] [address] [place], [place] [address] ESSENTIAL devsistersHEALTH [employer]ES[employer] ESSENTIAL devsistersHEALTH [employer] ESSENTIAL devsistersHEALTH [employer] ESSENTIAL devsistersHEALTH M[facility] MCO Care Teams Seed Technician Relationship Specialty Start Date End Date Ryan Stock MD [address] [place] [address] [place] [address] PCP - General Internal Medicine 10/27/17 Audra Stacy MD [address] [place] [address] [email or web address] Historical LMR Provider 05/10/17 Moses Knapp MD [address] [place] [address] [email or web address] Historical LMR Provider 05/10/17 Maria Isabel Dale MD [address] [place] [address] Historical LMR Provider 05/10/17 Additional Source Comments The information contained in this document represents components of the legal health record. It is not the complete legal health record.[facility]
--- OUTSIDE RECORDS SUMMARY | 2025-06-10 14:32 | XMS_ITS | Encounter Summary ---
Author Organization [facility] Address [address] [place] [address] Phone Care Team Providers Care Timber Sizer Operator Name Role Phone Bob Ardon, PhD Unavailable [phone] John Alvares MD Unavailable [phone] Allan Mehta MD Unavailable [phone] Pankaj Brown MD Unavailable Timi White MD Unavailable [phone] Adwoa Chahal MD Unavailable [phone] Daniella Nunes MD Unavailable [phone] Adelfo Masters NP Unavailable [phone] Audra Stacy MD Unavailable [phone] Chrissie Fajardo MD Unavailable [phone] Aashish Davis MD Unavailable Trevor Larson MD Unavailable [phone] Moses Knapp MD Unavailable [phone] Maria Isabel Dale MD Unavailable [phone] Arpit Smith CNP Unavailable [phone] Ryan Stock MD Primary Care Provider Encounter Details Date Type Department Care Team (Late st Contact Info) Description 12/31/2017 Procedure Pass [facility] Endoscopy Admitting Dept Virtual Department 30 [place] [address] Social History Tobacco Use Types Packs/Day Years [...] on filedocumented in this encounter Care Teams Timber Sizer Operator Relationship Specialty Start Date End Date Ryan Stock MD [address] [place] [address] [place] [address] PCP - General Internal Medicine 10/27/17 Bob Ardon MBBS, PhD [address] [place] [address] [email or web address] Historical LMR Provider 05/05/1707/28/21 John Alvares MD 22 [facility], [address] [place] [address] [email or web address] Historical LMR Provider 05/05/17 07/28/21 Allan Mehta MD 22 [facility] Floor 1 [place] [address] [email or web address] Historical LMR Provider 05/10/17 07/28/21 Pankaj Brown MD [address] [place] [address] 1st [place] [address] Historical LMR Provider 05/10/17 2 Timi White MD 22 [facility], [address] [place] [address] Historical LMR Provider 05/10/17 07/28/21 Adwoa Chahal MD 22 [facility], [address] [place] [address] Historical LMR Provider 05/10/17 2 Daniella Nunes MD 19 [place] [address] [email or web address] Historical LMR Provider 05/10/17 07/28/21 Adelfo Masters NP [address] [place] [address] 2_[place] [address] [email or web address] Historical LMR Provider 05/10/17 07/28/21 Audra Stacy MD 22 [facility], [address] [place] [address] Historical LMR Provider 05/10/17 Chrissie Fajardo MD 15 [facility], 2nd [place] [address] Historical LMR Provider 05/10/17 Aashish aDvis MD [address] [place] [address], [address] [place] [address] Historical LMR Provider 05/10/17 07/28/21 Trevor Larson MD [address] [place] [address], [address] [place] [address] Historical LMR Provider 05/10/17 2 Moses Knapp MD [address] [place] [address], [address] [address] Historical LMR Provider 05/10/17 Maria Isabel Dale MD [address] [place] [address], [address] [address] Historical LMR Provider 05/10/17 Arpit Smith CNP [address] [place] [address], [address] [place] [address] Historical LMR Provider 05/10/17 documented as of this encounter Additional Source Comments The information contained in this document represents components of the legal health record. It is not the complete legal health record.[facility]
--- OUTSIDE RECORDS SUMMARY | 2025-06-10 14:32 | XMS_ITS | Encounter Summary ---
Author Organization [facility] Address [address] [place] [address] Phone Care Team Providers Care Stoneworking Sander Name Role Phone Bob Ardon, PhD Unavailable [phone] John Alvares MD Unavailable [phone] Allan Mehta MD Unavailable [phone] Allan Mehta MD Primary Care Provide r Pankaj Brown MD Unavailable Timi White MD Unavailable +[phone] Adwoa Chahal MD Unavailable +[phone] Daniella Nunes MD Unavailable [phone] Adelfo Masters NP Unavailable [phone] Audra Stacy MD Unavailable +[phone] Chrissie Fajardo MD Unavailable +[phone] Aashish Davis MD Unavailable Trevor Larson MD Unavailable [phone] Moses Knapp MD Unavailable [phone] Maria Isabel Dale MD Unavailable [phone] Arpit Smith CNP Unavailable [phone] Ryan Stock MD Primary Care Provider Encounter Details Date Type Department Care Team (Late st Contact Info) Description 08/02/2017 [employer]Hand Encounter [facility] Gynecology Virtual Department 30 [place] [address] [place] MD 22 [facility], [address] [place] [address] [email or web address] Social History Tobacco Use Types Packs/Day Years [...] 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 PCP - General 05/06/17 10/26/17 Ryan Stock MD [address] [place] [address] [place] [address] PCP - General Internal Medicine 10/27/17 Bob Ardon MBBS, PhD [address] [place] [address] [email or web address] Historical LMR Provider 05/05/1707/28/21 John Alvares MD 22 [facility], [address] [place] [address] [email or web address] Historical LMR Provider 05/05/17 07/28/21 Allan Mehta MD 22 [facility] Floor 1 [place] [address] [email or web address] Historical LMR Provider 05/10/17 07/28/21 Pankaj Brown MD [address] [place] [address] 1st Floor [address] [place] [address] Historical LMR Provider 05/10/17 2 Timi White MD 22 [facility], [address] [place] [address] [email or web address] Historical LMR Provider 05/10/17 07/28/21 Adwoa Chahal MD [address] [place] [address], [address] [place] [address] [email or web address] Historical LMR Provider 05/10/17 2 Daniella Nunes MD [address] [place] [address] [email or web address] Historical LMR Provider 05/10/17 07/28/21 Adelfo Masters NP [address] [place] [address] 2_[place] [address] [email or web address] Historical LMR Provider 05/10/17 07/28/21 Audra Stacy MD 22 [facility], [address] [place] [address] [email or web address] Historical LMR Provider 05/10/17 Chrissie Fajardo MD 15 [facility], 2nd [place] [address] Historical LMR Provider 05/10/17 Aashish Davis MD [address] [place] [address] Historical LMR Provider 05/10/17 07/28/21 Trevor Larson MD 22 [facility], [address] [place] [address] Historical LMR Provider 05/10/17 2 Moses Knapp MD 22 [facility] 102 [place] [address] Historical LMR Provider 05/10/17 Maria Isabel Dale MD [address] [address] Historical LMR Provider 05/10/17 Arpit Smith CNP 22 [facility], [address] [place] [address] Historical LMR Provider 05/10/17 documented as of this encounter Additional Source Comments The information contained in this document represents components of the legal health record. It is not the complete legal health record.[facility]
--- OUTSIDE RECORDS SUMMARY | 2025-06-10 14:32 | XMS_ITS | Encounter Summary ---
Author Organization [facility] Address [address] [place] [address] Phone Care Team Providers Care Master Ocean Name Role Phone Bob Ardon, PhD Unavailable [phone] John Alvares MD Unavailable [phone] Allan Mehta MD Unavailable [phone] Pankaj Brown MD Unavailable Timi White MD Unavailable [phone] Adwoa Chahal MD Unavailable [phone] Daniella Nunes MD Unavailable [phone] Adelfo Masters NP Unavailable Audra Stacy MD Unavailable [phone] Chrissie Fajardo MD Unavailable [phone] Aashish Davis MD Unavailable Trevor Larson MD Unavailable Moses Knapp MD Unavailable Maria Isabel Dale MD Unavailable [phone] Arpit Smith CNP Unavailable [phone] Ryan Stock MD Primary Care Provider Encounter Details Date Type Department Care Team (Late st Contact Info) Description 04/21/2019 Transcribe Orders [address] [id number] Ryan Stock MD [address] [place] [address] Dr ChristiansonyokeJENNIFER [address] Hypothyroidism, unspecified type (Primary Dx) Social History [...] FREE T4 1.4 0.9 - 1.7 ng/dL [facility] Blood 04/21/2019 3:15 PM EDT 04/21/2019 3:21 PM EDT us Ryan Stock MD LAB BLOOD BKR ORDERABLE S Final Result Performing Organization Address [facility] Co de Phone Number [address] [address] * TSH (04/21/2019 3:15 PM EDT) TSH 2.51 0.27 - 4.20 uIU/mL [facility] Blood 04/21/2019 3:15 PM EDT 04/21/2019 3:21 PM EDT Ryan Stock MD LAB BLOOD BKR ORDERABLE S Final Result Performing Organization Address [facility] Co de Phone Number [address] [address] * (ABNORMAL) CBC and differential (04/21/2019 3:15 PM EDT) WBC 6.21 3.40 - 11.20 K/uL [facility] RBC 4.22 3.80 - 4.80 M/uL [facility] HGB 13.1 12.0 - 15.0 g/dL [facility] HCT 38.6 36.0 - 46.0 % [facility] PLT 230 130 - 400 K/uL [facility] MCV 91.5 79.0 - 98.0 fL [facility] MCH 31.0 27.0 - 34.8 pg [facility] MCHC 33.9 31.5 - 36.0 g/dL [facility] RDW 12.4 10.8 - 14.6 % [facility] MPV 9.5 9.4 - 12.4 fl [facility] NRBC 0.00 0.00 /100 WBCs [facility] ABSOLUTE NRBC 0.00 0.00 K/uL [facility] DIFF METHOD Auto [facility] NEUTS 59.7 45.30 - 77.70 % [facility] LYMPHS 31.7 12.30 - 39.70 % [facility] MONOS 7.7 4.10 - 12.80 % [facility] EOS 0.0 0 - 7.2 % [facility] BASOS 0.6 0 - 2.80 % [facility] Granulocytes, immature (%) 0.3 0.0 - 0.9 % [facility] ABSOLUTE NEUTS 3.70 1.40 - 7.70 K/uL [facility] ABSOLUTE LYMPHS 1.97 0.60 - 3.20 K/uL [facility] ABSOLUTE MONOS 0.48 0.11 - 0.59 K/uL [facility] ABSOLUTE EOS 0.00(L) 0.01 - 0.50 K/uL [facility] ABSOLUTE BASOS 0.04 0.00 - 0.08 K/uL [facility] Granulocytes, immature 0.02 0.00 - 0.05 K/uL [facility] Blood 04/21/2019 3:15 PM EDT 04/21/2019 3:21 PM EDT us Ryan Stock MD LAB BLOOD BKR ORDERABLE S Final Result [address] [address] * (ABNORMAL) Comprehensive metabolic panel (04/21/2019 3:15 PM EDT) SODIUM 139 133 - 146 mmol/L [facility] POTASSIUM 4.0 3.3 - 5.1 mmol/L [facility] CHLORIDE 105 96 - 108 mmol/L [facility] CO2 22 21 - 35 mmol/L [facility] BUN 13 6 - 19 mg/dL [facility] CREATININE 1.00 0.5 - 1.5 mg/dL [facility] GLUCOSE 100(H) 70 - 99 mg/dL [facility] ALBUMIN 4.2 3.9 - 4.8 g/dL [facility] TOTAL PROTEIN 7.1 6.5 - 8.0 g/dL [facility] CALCIUM 9.1 8.4 - 10.3 mg/dL [facility] ALKALINE PHOSPHATASE 63 39 - 117 U/L [facility] TOTAL BILIRUBIN 0.2 0.0 - 1.2 mg/dL [facility] AST 17 0 - 37 U/L [facility] ALT 12 0 - 40 U/L [facility] GLOBULIN 2.9 1 - 4.8 g/dL [facility] EGFR 67 >59 mL/min/1.7 3m2 [facility] Comment:If patient is black, multiply result by 1.159. Estimated glomerular filtration rate calculated using the CKD-EPI equation. ANION GAP 16 10 - 20 mmol/L [facility] Blood 04/21/2019 3:15 PM EDT 04/21/2019 3:21 PM EDT us Ryan Stock MD LAB BLOOD BKR ORDERABLE S Final Result [address] [address] documented in this encounter Visit Diagnoses Diagnosis Hypothyroidism, unspecified type- Primary documented in this encounter Care Teams Master Ocean Relationship Specialty Start Date End Date Ryan Stock MD [address] [place] [address] [place] [address] PCP - General Internal Medicine 10/27/17 Bob Ardon MBBS, PhD [address] [place] [address] [email or web address] Historical LMR Provider 05/05/1707/28/21 John Alvares MD [address] [facility], [address] [place] [address] [email or web address] Historical LMR Provider 05/05/17 07/28/21 Allan Mehta MD [address] [facility] Floor 1 [place] [address] [email or web address] Historical LMR Provider 05/10/17 07/28/21 Pankaj Brown MD [address] [place] [address] [address] [address] Historical LMR Provider 05/10/17 2 Timi White MD [address] [facility], [address] [place] [address] Historical LMR Provider 05/10/17 07/28/21 Adwoa Chahal MD [address] [place] [address], [address] [place] [address] Historical LMR Provider 05/10/17 2 Daniella Nunes MD [address] [place] [address] [email or web address] Historical LMR Provider 05/10/17 07/28/21 Adelfo Masters, DYAN [address] [place] [address] 2_[place] [address] [email or web address] Historical LMR Provider 05/10/17 07/28/21 Audra Stacy MD [address] [facility], [facility] [address] [place] [address] Historical LMR Provider 05/10/17 Chrissie Fajardo MD [address] [facility], 2nd [place] [address] Historical LMR Provider 05/10/17 Aashish Davis MD [address] [place] [address] Historical LMR Provider 05/10/17 07/28/21 Trevor Larson MD [address] [facility], [address] [place] [address] Historical LMR Provider 05/10/17 2 Moses Knapp MD [address] [place] [address] Historical LMR Provider 05/10/17 Maria Isabel Dale MD [address] [place] [address] 102 [place] [address] Historical LMR Provider 05/10/17 Arpit Smith CNP [address] [place] [address], [address] [place] [address] [email or web address] Historical LMR Provider 05/10/17 documented as of this encounter Additional Source Comments The information contained in this document represents components of the legal health record. It is not the complete legal health record.[facility]
--- OUTSIDE RECORDS SUMMARY | 2025-06-10 14:32 | XMS_ITS | Encounter Summary ---
Author Organization [facility] Address [address] [place] [address] Phone Care Team Providers Care Property Master Name Role Phone Bob Ardon, PhD Unavailable John Alvares MD Unavailable [phone] Allan Mehta MD Unavailable [phone] Pankaj Brown MD Unavailable Timi White MD Unavailable [phone] Adwoa Chahal MD Unavailable [phone] Daniella Nunes MD Unavailable [phone] Adelfo Masters NP Unavailable [phone] Audra Stacy MD Unavailable [phone] Chrissie Fajardo MD Unavailable [phone] Aashish Davis MD Unavailable Trevor Larson MD Unavailable [phone] Moses Knapp MD Unavailable Maria Isabel Dale MD Unavailable [phone] Arpit Smith CNP Unavailable [phone] Ryan Stock MD Primary Care Provider Encounter Details Date Type Department Care Team (Late st Contact Info) Description 04/23/2018 Ancillary Orders Virtual Department [address] [place] [address] Meera Rae PA-C [address] [place] [address] [email or web address] Heartburn Social History Tobacco Use Types Packs/Day [...] Heartburn documented in this encounter Care Teams Property Master Relationship Specialty Start Date End Date Ryan Stock MD [address] [place] [address] Dr CARRERO [address] [place] [address] PCP - General Internal Medicine 10/27/17 Bob Ardon MBBS, PhD [address] [place] [address] [email or web address] Historical LMR Provider 05/05/1707/28/21 John Alvares MD [address] [place] [address], [address] [place] [address] [email or web address] Historical LMR Provider 05/05/17 07/28/21 Allan Mehta MD 22 [facility] Floor 1 [place] [address] [email or web address] Historical LMR Provider 05/10/17 07/28/21 Pankaj Brown MD 50 [facility] 1st Floor [address] [place] [address] Historical LMR Provider 05/10/17 2 Timi White MD 22 [facility] [place], [address] [place] [address] Historical LMR Provider 05/10/17 07/28/21 Adwoa Chahal MD 22 [facility] [place], [address] [place] [address] Historical LMR Provider 05/10/17 2 Daniella Nunes MD 19 [place] [address] [email or web address] Historical LMR Provider 05/10/17 07/28/21 Adelfo Masters NP [address] [place] [address] 2_[place] [address] [email or web address] Historical LMR Provider 05/10/17 07/28/21 Audra Stacy MD [address] [facility] [place], [address] [place] [address] Historical LMR Provider 05/10/17 Chrissie Fajardo MD [address] [facility] [place], 2nd [place] [address] Historical LMR Provider 05/10/17 Aashish Davis MD [address] [place] [address] Historical LMR Provider 05/10/17 07/28/21 Trevor Larson MD [address] [place] [address], [address] [place] [address] Historical LMR Provider 05/10/17 2 Moses Knapp MD [address] [place] [address] Historical LMR Provider 05/10/17 Maria Isabel [place] MD [address] [place] [address] Historical LMR Provider 05/10/17 Arpit Smith CNP [address] [place] [address], [address] [place] [address] Historical LMR Provider 05/10/17 documented as of this encounter Additional Source Comments The information contained in this document represents components of the legal health record. It is not the complete legal health record.[facility]
--- OUTSIDE RECORDS SUMMARY | 2025-06-10 14:32 | XMS_ITS | Encounter Summary ---
Author Organization [facility] Address [address] [place] [address] Phone Care Team Providers Care Van Owner Operator Name Role Phone Bob Ardon, PhD Unavailable [phone] John Alvares MD Unavailable [phone] Allan Mehta MD Unavailable [phone] Pankaj Brown MD Unavailable Timi White MD Unavailable [phone] Adwoa Chahal MD Unavailable [phone] Daniella Nunes MD Unavailable [phone] Adelfo Masters NP Unavailable [phone] Audra Stacy MD Unavailable [phone] Chrissie Fajardo MD Unavailable [phone] Aashish Davis MD Unavailable Trevor Larson MD Unavailable [phone] Moses Knapp MD Unavailable [phone] [...] Spine Trevor Stapleton MD Phone: tel: fax: [email or web address] Referral ID Status Reason Start Date Expiration Date Visits Re quested Visits Authorized [id number] Closed 03/29/2019 05/28/2019 1 1 Encounter Details Date Type Department Care Team (Latest Contact Info) Description 03/29/2019 Transcribe Orders Virtual Department [address] [place] [address] Trevor Stapleton MD [address] [place] [address], [address] [place], [place] [id number] 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 Not [...] disease documented in this encounter Care Teams Van Owner Operator Relationship Specialty Start Date End Date Ryan Stock MD [address] [place] [address] [place] [address] PCP - General Internal Medicine 10/27/17 Bob Ardon MBBS, PhD [address] [place] [address] [email or web address] Historical LMR Provider 05/05/1707/28/21 John Alvares MD [address] [place] [address], [address] [place] [address] [email or web address] Historical LMR Provider 05/05/17 07/28/21 Allan Mehta MD 22 [facility] Floor 1 [place] [address] [email or web address] Historical LMR Provider 05/10/17 07/28/21 Pankaj Brown MD [address] [place] [address] [address] [address] Historical LMR Provider 05/10/17 2 Timi White MD [address] [place] [address], [address] [place] [address] Historical LMR Provider 05/10/17 07/28/21 Adwoa Chahal MD [address] [place] [address], [address] [place] [address] Historical LMR Provider 05/10/17 2 Daniella Nunes MD [address] [place] [address] [email or web address] Historical LMR Provider 05/10/17 07/28/21 Adelfo Masters NP [address] [place] [address] 2_[place] [address] [email or web address] Historical LMR Provider 05/10/17 07/28/21 Audra Stacy MD [address] [place] [email or web address] Historical LMR Provider 05/10/17 Chrissie Fajardo MD [address] [place] [address], 2nd [place] [address] Historical LMR Provider 05/10/17 Aashish Davis MD [address] [place] [address] Historical LMR Provider 05/10/17 07/28/21 Trevor Larson MD [address] [place] [address], [address] [place] [address] Historical LMR Provider 05/10/17 2 Moses Knapp MD [address] [place] [address], [facility] [address] [place] [address] Historical LMR Provider 05/10/17 Maria Isabel [place] MD 22 [facility], [address] [place] [address] Historical LMR Provider 05/10/17 Arpit Smith CNP 22 [facility], [address] [place] [address] [email or web address] Historical LMR Provider 05/10/17 documented as of this encounter Additional Source Comments The information contained in this document represents components of the legal health record. It is not the complete legal health record.[facility]
--- OUTSIDE RECORDS SUMMARY | 2025-06-10 14:32 | XMS_ITS | Encounter Summary ---
Author Organization [facility] Address [address] [place] [address] Phone Care Team Providers Care Loan Operations Specialist Name Role Phone Bob Ardon, PhD Unavailable [phone] John Alvares MD Unavailable [phone] Allan Mehta MD Unavailable [phone] Pankaj Brown MD Unavailable Timi White MD Unavailable [phone] Adwoa Chahal MD Unavailable +[phone] Daniella Nunes MD Unavailable [phone] Adelfo Masters NP Unavailable [phone] Audra Stacy MD Unavailable [phone] Chrissie Fajardo MD Unavailable [phone] Aashish Davis MD Unavailable Trevor Larson MD Unavailable [phone] Moses Knapp MD Unavailable [phone] [...] Procedures NM Gastric Emptying Ryan Stock MD [address] [place] [address] Dr CARRERO Sanjay DupontyoJENNIFER collins [address] Phone: tel: fax: Referral ID Status Reason Start Date Expiration Date Visits Re quested Visits Authorized [id number] Closed 06/03/2018 06/03/2019 1 1 Encounter Details Date Type Department Care Team (Late st Contact Info) Description 06/03/2018 Ancillary Orders Virtual Department 30 [place] [address] Ryan Stock MD [address] [place] [address] Dr CARRERO Sanjay Meza JENNIFER [address] Abdominal pain, unspecified abdominal location; Gastroesophageal reflux [...] 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 Not [...] reflux documented in this encounter Care Teams Loan Operations Specialist Relationship Specialty Start Date End Date Ryan Stock MD [address] [place] [address] [place] [address] PCP - General Internal Medicine 10/27/17 Bob Ardon MBBS, PhD [address] [place] [address] [email or web address] Historical LMR Provider 05/05/1707/28/21 John Alvares MD [address] [place] [address], [address] [place] [address] [email or web address] Historical LMR Provider 05/05/17 07/28/21 Allan Mehta MD 22 [facility] Floor 1 [place] [address] [email or web address] Historical LMR Provider 05/10/17 07/28/21 Pankaj Brown MD [address] [place] [address] [address] [address] Historical LMR Provider 05/10/17 2 Timi White MD 22 [facility], [address] [place] [address] Historical LMR Provider 05/10/17 07/28/21 Adwoa Chahal MD [address] [place] [address], [address] [place] [address] Historical LMR Provider 05/10/17 2 Daniella Nunes MD 19 [place] [address] [email or web address] Historical LMR Provider 05/10/17 07/28/21 Adelfo Masters NP [address] [place] [address] 2_Wound Care [place], [place] [id number] [email or web address] Historical LMR Provider 05/10/17 07/28/21 Audra Stacy MD 22 [facility], [address] [address] [email or web address] Historical LMR Provider 05/10/17 Chrissie Fajardo MD 15 [facility], 2nd [place] [address] Historical LMR Provider 05/10/17 Aashish Davis MD [address] [place] [address] Historical LMR Provider 05/10/17 07/28/21 Trevor Larson MD [address] [place] [address], [address] [place] [address] Historical LMR Provider 05/10/17 2 Moses Knapp MD [address] [place] [address], [address] [address] Historical LMR Provider 05/10/17 Maria Isabel Dale MD [address] [address] Historical LMR Provider 05/10/17 Arpit Smith, AMY 22 [facility], [address] [place] [address] [phone] ([email or web address]) [email or web address] Historical LMR Provider 05/10/17 documented as of this encounter Additional Source Comments The information contained in this document represents components of the legal health record. It is not the complete legal health record.[facility]
--- OUTSIDE RECORDS SUMMARY | 2025-06-10 14:32 | XMS_ITS | Encounter Summary ---
Author Organization [facility] Address [address] [place] [address] Phone Care Team Providers Care Song Plugger Name Role Phone Bob Ardon, PhD Unavailable [phone] John Alvares MD Unavailable [phone] Allan Mehta MD Unavailable [phone] Pankaj Brown MD Unavailable [phone] Timi White MD Unavailable [phone] Adwoa Chahal MD Unavailable [phone] Daniella Nunes MD Unavailable [phone] Adelfo Masters NP Unavailable Audra Stacy MD Unavailable [phone] Chrissie Fajardo MD Unavailable [phone] Aashish Davis MD Unavailable Trevor Larson MD Unavailable [phone] Moses Knapp MD Unavailable Maria Isabel Dale MD Unavailable [phone] Arpit Smith CNP Unavailable [phone] Ryan Stock MD Primary Care Provider Encounter Details Date Type Department Care Team (Latest Contact Info) Description 10/21/2018 Transcribe Orders [address] [id number] Surinder Joseph MD [address] [place] [address] [email or web address] Functional diarrhea (Primary Dx); Abdominal pain, epigastric [...] EDT) IgA 273 70 - 400 mg/dL [facility] Blood 10/21/2018 3:47 PM EDT 10/21/2018 3:50 PM EDT us Surinder Joseph MD LAB BLOOD BKR ORDERABLES Fin al Result Performing Organization Address [facility] Co de Phone Number [address] [address] * C-Reactive Protein (10/21/2018 3:47 PM EDT) C REACTIVE PROTEIN <0.3 0.0 - 4.0 mg/L [facility] Blood 10/21/2018 3:47 PM EDT 10/21/2018 3:50 PM EDT us Surinder Joseph MD LAB BLOOD BKR ORDERABLES Fin al Result Performing Organization Address [facility] Co de Phone Number [address] [address] * Comprehensive metabolic panel (10/21/2018 3:47 PM EDT) SODIUM 139 133 - 146 mmol/L [facility] POTASSIUM 4.0 3.3 - 5.1 mmol/L [facility] CHLORIDE 103 96 - 108 mmol/L [facility] CO2 24 21 - 35 mmol/L [facility] BUN 15 6 - 19 mg/dL [facility] CREATININE 1.10 0.5 - 1.5 mg/dL [facility] GLUCOSE 94 70 - 99 mg/dL [facility] ALBUMIN 4.2 3.9 - 4.8 g/dL [facility] TOTAL PROTEIN 7.1 6.5 - 8.0 g/dL [facility] CALCIUM 8.9 8.4 - 10.3 mg/dL [facility] ALKALINE PHOSPHATASE 57 39 - 117 U/L [facility] TOTAL BILIRUBIN 0.2 0.0 - 1.2 mg/dL [facility] Comment: Results from certain multiple myeloma patients may show a positive bias in recovery. Not all multiple myeloma patients show the bias and severity of the bias may vary between patients. In very rare cases, gammopathy, in particular type IgM (Waldenstrom's macroglobulinemia), may cause unreliable results. AST 11 0 - 37 U/L [facility] ALT 9 0 - 40 U/L [facility] GLOBULIN 2.9 1 - 4.8 g/dL [facility] EGFR 60 >59 mL/min/1.7 3m2 [facility] Comment:If patient is black, multiply result by 1.159. Estimated glomerular filtration rate calculated using the CKD-EPI equation. ANION GAP 16 10 - 20 mmol/L [facility] Blood 10/21/2018 3:47 PM EDT 10/21/2018 3:50 PM EDT us Surinder Joseph MD LAB BLOOD BKR ORDERABLES Fin al Result [facility] [address] [place] [address] * Gliadin deamidated antibody, IgG/IgA (10/21/2018 3:47 PM EDT) Gliadin Ab, IGA <10.0 <20.0 (Negative) U [facility] MED/PATH [address] GLIADIN AB IGG <10.0 <20.0 (Negative) U [facility] MED/PATH [address] Blood 10/21/2018 3:47 PM EDT 10/21/2018 3:49 PM EDT us Surinder Joseph MD LAB BLOOD ORDERABLES Final R esult [facility] MED/PATH [address] [place] [address] * Tissue transglutaminase IgA (10/21/2018 3:47 PM EDT) Pathologist [facility] TTG IGA ANTIBODY <1.2 <4.0 (Negative) U/mL [facility] MED/PATH [address] Blood 10/21/2018 3:47 PM EDT 10/21/2018 3:49 PM EDT us Surinder Joseph MD LAB BLOOD BKR ORDERABLES Fin al Result Performing Organization Address [facility] Co de Phone Number [facility] MED/PATH [address] [place] [address] * (ABNORMAL) CBC (10/21/2018 3:47 PM EDT) Pathologist [facility] WBC 7.34 3.40 - 11.20 K/uL [facility] RBC 4.19 3.80 - 4.80 M/uL [facility] HGB 12.8 12.0 - 15.0 g/dL [facility] HCT 39.0 36.0 - 46.0 % [facility] PLT 249 130 - 400 K/uL [facility] MCV 93.1 79.0 - 98.0 fL [facility] MCH 30.5 27.0 - 34.8 pg [facility] MCHC 32.8 31.5 - 36.0 g/dL [facility] RDW 12.6 10.8 - 14.6 % [facility] MPV 9.2(L) 9.4 - 12.4 fl [facility] NRBC 0.00 0.00 /100 WBCs [facility] ABSOLUTE NRBC 0.00 0.00 K/uL [facility] Blood 10/21/2018 3:47 PM EDT 10/21/2018 3:50 PM EDT us Surinder Joseph MD LAB BLOOD BKR ORDERABLES Fin al Result Performing Organization Address City/State/[facility] Co de Phone Number [facility] [address] [place] [address] documented in this encounter Visit Diagnoses Diagnosis Functional diarrhea- Primary Abdominal pain, epigastric documented in this encounter Care Teams Song Plugger Relationship Specialty Start Date End Date Ryan Stock MD [address] [place] [address] [place] [address] PCP - General Internal Medicine 10/27/17 Bob Ardon MBBS, PhD [address] [place] [address] [email or web address] Historical LMR Provider 05/05/1707/28/21 John Alvares MD [address] [facility] [place] [address] [email or web address] Historical LMR Provider 05/05/17 07/28/21 Allan Mehta MD [address] [facility] Floor 1 [place] [address] [email or web address] Historical LMR Provider 05/10/17 07/28/21 Pankaj Brown MD [address] [place] [address] 1st Floor [address] [place] [address] Historical LMR Provider 05/10/17 2 Timi White MD [address] [facility] [place] [address] Historical LMR Provider 05/10/17 07/28/21 Adwoa Chahal MD [address] [facility] [place] [address] Historical LMR Provider 05/10/17 2 Daniella Nunes MD [address] [place] [address] [email or web address] Historical LMR Provider 05/10/17 07/28/21 Adelfo Masters NP [address] [place] [address] 2_[place] [address] [email or web address] Historical LMR Provider 05/10/17 07/28/21 Audra Stacy MD [address] [facility] [place] [address] Historical LMR Provider 05/10/17 Chrissie Fajardo MD [address] [facility], 2nd [place] [address] Historical LMR Provider 05/10/17 Aashish Davis MD [address] [place] [address], [facility] [address] [place] [address] Historical LMR Provider 05/10/17 07/28/21 Trevor Larson MD [address] [facility] [place] [address] Historical LMR Provider 05/10/17 2 Moses Knapp MD [address] [place] [address] Historical LMR Provider 05/10/17 Maria Isabel Dale MD [address] [place] [address] Historical LMR Provider 05/10/17 Arpit Smith CNP [address] [place] [address], [address] [place] [address] Historical LMR Provider 05/10/17 documented as of this encounter Additional Source Comments The information contained in this document represents components of the legal health record. It is not the complete legal health record.[facility]
--- OUTSIDE RECORDS SUMMARY | 2025-06-10 14:32 | XMS_ITS | Encounter Summary ---
Author Organization [facility] Address [address] [place] [address] Phone Care Team Providers Care Spanish Speaking Nanny Name Role Phone Bob Ardon, PhD Unavailable [phone] John Alvares MD Unavailable [phone] Allan Mehta MD Unavailable [phone] Pankaj Brown MD Unavailable Timi White MD Unavailable [phone] Adwoa Chahal MD Unavailable [phone] Daniella Nunes MD Unavailable [phone] Adelfo Masters NP Unavailable [phone] Audra Stacy MD Unavailable [phone] Chrissie Fajardo MD Unavailable [phone] Aashish Davis MD Unavailable Trevor Larson MD Unavailable Moses Knapp MD Unavailable [phone] Maria Isabel Dale MD Unavailable [phone] Arpit Smith CNP Unavailable [phone] Ryan Stock MD Primary Care Provider Reason for Referral * MRI/CAT Scan - Closed Specialty Diagnoses / Procedures Referred By Contac t Referred To Contact Radiology Diagnoses Weakness of distal arms and legs Leg numbness White matter disease Procedures MRI Cervical Spine Trevor Stapleton MD Phone: tel: fax: mailto:[email or web address] Referral ID Status Reason Start Date Expiration Date Visits Re quested Visits Authorized [id number] Closed 03/11/2019 05/10/2019 1 1 Encounter Details Date Type Department Care Team (Latest Contact Info) Description 03/11/2019 Transcribe Orders Virtual Department [address] [place] [address] Trevor Stapleton MD [address] [place] [address], [address] [place] [address] [email or web address] Weakness of distal arms and legs (Primary [...] degenerative disc and endplate changes. POS - [id number] Narrative 03/19/2019 8:48 AM EDT HISTORY: Ataxia, [...] degenerative disc and endplate changes. POS - [id number] Trevor Stapleton MD IMG MR XSPECIALTY Final Resu lt documented in this encounter Visit Diagnoses Diagnosis Weakness of distal arms and legs- Primary Leg numbness Disturbance of skin sensation White matter disease Weakness of distal arms and legs Leg numbness Disturbance of skin sensation White matter disease documented in this encounter Care Teams Spanish Speaking Nanny Relationship Specialty Start Date End Date Ryan Stock MD [address] [place] [address] [place] [address] PCP - General Internal Medicine 10/27/17 Bob Ardon MBBS, PhD [address] [place] [address] [email or web address] Historical LMR Provider 05/05/1707/28/21 John Alvares MD [address] [place] [address], [address] [place] [address] [email or web address] Historical LMR Provider 05/05/17 07/28/21 Allan Mehta MD [address] [facility] Floor 1 [place] [address] [email or web address] Historical LMR Provider 05/10/17 07/28/21 Pankaj Brown MD [address] [place] [address] [address] [address] Historical LMR Provider 05/10/17 2 Timi White MD [address] [place] [address], [address] [place] [address] Historical LMR Provider 05/10/17 07/28/21 Adwoa Chahal MD [address] [place] [address], [address] [place] [address] Historical LMR Provider 05/10/17 2 Daniella Nunes MD [address] [place] [address] [email or web address] Historical LMR Provider 05/10/17 07/28/21 Adelfo Masters NP [address] [place] [address] 2_Wound Care [place], [place] [id number] [email or web address] Historical LMR Provider 05/10/17 07/28/21 Audra Stacy MD [address] [facility] [place] [address] [email or web address] Historical LMR Provider 05/10/17 Chrissie Fajardo MD [address] [place] [address], 2nd [place] [address] Historical LMR Provider 05/10/17 Aashish Davis MD [address] [place] [address] Historical LMR Provider 05/10/17 07/28/21 Trevor Larson MD [address] [place] [address], [address] [place] [address] Historical LMR Provider 05/10/17 2 Moses Knapp MD [address] [place] [address], [facility] [address] [place] [address] Historical LMR Provider 05/10/17 Maria Isabel Dale MD [address] [facility], [facility] [address] [place] [address] Historical LMR Provider 05/10/17 Arpit Smith, AMY [address] [facility] [place] [address] ([email or web address]) [email or web address] Historical LMR Provider 05/10/17 documented as of this encounter Additional Source Comments The information contained in this document represents components of the legal health record. It is not the complete legal health record.[facility]
[2025-06-10 16:04] VITALS: BP 168/90
== END 2025-06-10 15:01 | disposition home or self-care (01) ==
LOC: HO.HMCHD 14:09
PROVIDERS: PCP Physician Assistant; Visit Provider Physician Assistant
DX: I10 Essential (primary) hypertension (principal); E03.9 Hypothyroidism, unspecified; D68.51 Activated protein C resistance; F32.4 Major depressive disorder, single episode, in partial remission; M70.41 Prepatellar bursitis, right knee

== ENCOUNTER → 2025-06-10 14:09 | Outpatient (BNVA) | payer OTHER, SELFPAY | PROVIDERS: PCP Physician Assistant; Visit Provider Physician Assistant | DX: I10 Essential (primary) hypertension (principal); E03.9 Hypothyroidism, unspecified; K21.9 Gastro-esophageal reflux disease without esophagitis; M25.561 Pain in right knee; D68.51 Activated protein C resistance; F32.4 Major depressive disorder, single episode, in partial remission; M70.41 Prepatellar bursitis, right knee | CPT/HCPCS: 99212 ==

== ENCOUNTER 2025-06-22 15:00 | Outpatient (REF) | payer OTHER, SELFPAY ==
--- NOTE | ~2025-06-22 | XR_ITS ---
EXAMINATION: XR KNEE, RIGHT CLINICAL INFORMATION: M25.561 - Pain in right knee COMPARISON: None available. TECHNIQUE: Three views of the right knee. FINDINGS: There is subtle narrowing of the lateral joint space. There is severe narrowing of the lateral patellofemoral joint. There are moderate tricompartmental marginal osteophytes. There is no joint effusion. There is an enthesophyte in the distal quadriceps tendon. XR/XR knee RT 3V IMPRESSION: Osteoarthritis with pronounced lateral patellofemoral joint space narrowing and minimal joint narrowing elsewhere. Electronically signed by: Sean Alarcon MD 06/22/2025 03:46 PM EST
[2025-06-22 16:28] LABS: Alanine Aminotransferase 38 U/L (0-31); Albumin Level 4.4 g/dL (3.5-5.0); Alkaline Phosphatase 105 U/L (39-117); Anion Gap 11 (12-20); Aspartate Amino Transferase 26 U/L (5-31); Blood Urea Nitrogen 18 mg/dL (9-16); Calcium 9.3 mg/dL (8.4-10.2); Carbon Dioxide 24 mmol/L (22-29); Chloride 108 mmol/L (96-108); Cholesterol 177 mg/dL (<200); Estimated Glomerular Filt Rate 50; HDL Cholesterol 56 mg/dL (>40); Potassium 3.8 mmol/L (3.3-5.1); Sodium 139 mmol/L (135-145); Total Protein 7.5 g/dL (6.5-8.0); Triglycerides 98 mg/dL (<150)
--- OUTSIDE RECORDS SUMMARY | 2025-06-22 18:03 | XMS_ITS | Encounter Summary ---
Author Organization [facility] Address [address] [place] [address] Phone Care Team Providers Care Workflow Developer Name Role Phone Bob Ardon, PhD Unavailable John Alvares MD Unavailable [phone] Allan Mehta MD Unavailable [phone] Pankaj Brown MD Unavailable Timi White MD Unavailable [phone] Adwoa Chahal MD Unavailable [phone] Daniella Nunes MD Unavailable [phone] Adelfo Masters NP Unavailable [phone] Audra Stacy MD Unavailable [phone] Chrissie Fajardo MD Unavailable [phone] Aashish Davis MD Unavailable Trevor Larson MD Unavailable [phone] Moses Knapp MD Unavailable Maria Isabel Dale MD Unavailable [phone] Arpit Smith CNP Unavailable [phone] Ryan Stock MD Primary Care Provider Encounter Details Date Type Department Care Team (Late st Contact Info) Description 10/27/2017 Procedure [facility], Ct Scan - [address] [address] Social History Tobacco Use Types Packs/Day Years [...] on filedocumented in this encounter Care Teams Workflow Developer Relationship Specialty Start Date End Date Ryan Stock MD [address] [place] [address] [place] [address] PCP - General Internal Medicine 10/27/17 Bob Ardon MBBS, PhD [address] [place] [address] [email or web address] Historical LMR Provider 05/05/1707/28/21 John Alvares MD [address] [facility], [address] [place] [address] [email or web address] Historical LMR Provider 05/05/17 07/28/21 Allan Mehta MD [address] [facility] Floor 1 [place] [address] [email or web address] Historical LMR Provider 05/10/17 07/28/21 Pankaj Brown MD [address] [place] [address] 1st Floor -[address] [place] [address] Historical LMR Provider 05/10/17 2 Timi White MD [address] [facility] [place] [address] Historical LMR Provider 05/10/17 07/28/21 Adwoa Chahal MD [address] [facility], [address] [place] [address] Historical LMR Provider 05/10/17 2 Daniella Nunes MD [address] [place] [address] [email or web address] Historical LMR Provider 05/10/17 07/28/21 Adelfo Masters NP [address] [place] [address] 2_[place] [address] [email or web address] Historical LMR Provider 05/10/17 07/28/21 Audra Stacy MD [address] [facility], [address] [place] [address] Historical LMR Provider 05/10/17 Chrissie Fajardo MD [address] [facility], 2nd [place] [address] Historical LMR Provider 05/10/17 Aashish Davis MD [address] [place] [address], [address] [place] [address] Historical LMR Provider 05/10/17 07/28/21 Trevor Larson MD [address] [place] [address], [address] [place] [address] Historical LMR Provider 05/10/17 2 Moses Knapp MD [address] [place] [address], [address] [address] Historical LMR Provider 05/10/17 Maria Isabel Dale MD [address] [place] [address] Historical LMR Provider 05/10/17 Arpit Smith CNP [address] [place] [address], [address] [place] [address] Historical LMR Provider 05/10/17 documented as of this encounter Additional Source Comments The information contained in this document represents components of the legal health record. It is not the complete legal health record.[facility]
--- OUTSIDE RECORDS SUMMARY | 2025-06-22 18:03 | XMS_ITS | Encounter Summary ---
Author Organization [facility] Address [address] [place] [address] Phone Care Team Providers Care Combination Machine Tender Name Role Phone Bob Ardon, PhD Unavailable John Alvares MD Unavailable [phone] Allan Mehta MD Unavailable [phone] Pankaj Brown MD Unavailable Timi White MD Unavailable [phone] Adwoa Chahal MD Unavailable +[phone] Daniella Nunes MD Unavailable [phone] Adelfo Masters NP Unavailable Audra Stacy MD Unavailable [phone] Chrissie Fajardo MD Unavailable [phone] Aashish Davis MD Unavailable Trevor Larson MD Unavailable [phone] Moses Knapp MD Unavailable Maria Isabel Dale MD Unavailable [phone] Arpit Smith CNP Unavailable [phone] Ryan Stock MD Primary Care Provider Encounter Details Date Type Department Care Team (Late st Contact Info) Description 06/03/2018 Ancillary Orders Virtual Department 30 [place] [address] Ryan Stock MD [address] [place] [address] [place] [address] Lower abdominal pain Social History Tobacco Use [...] 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 Not on file Not on file documented as of this encounter Plan of Treatment Not on file documented as of this encounter Visit Diagnoses Diagnosis Lower abdominal pain Abdominal pain, other specified site documented in this encounter Care Teams Combination Machine Tender Relationship Specialty Start Date End Date Ryan Stock MD [address] [place] [address] [place] [address] PCP - General Internal Medicine 10/27/17 Bob Ardon MBBS, PhD [address] [place] [address] [email or web address] Historical LMR Provider 05/05/1707/28/21 John Alvares MD 22 [facility], [address] [place] [address] [email or web address] Historical LMR Provider 05/05/17 07/28/21 Allan Mehta MD 22 [facility] Floor 1 [place] [address] [email or web address] Historical LMR Provider 05/10/17 07/28/21 Pankaj Brown MD 50 [facility] 1st Floor [address] [place] [address] Historical LMR Provider 05/10/17 2 Timi White MD [address] [place] [address], [address] [place] [address] Historical LMR Provider 05/10/17 07/28/21 Adwoa Chahal MD 22 [facility], [address] [place] [address] Historical LMR Provider 05/10/17 2 Daniella Nunes MD [address] [place] [address] [email or web address] Historical LMR Provider 05/10/17 07/28/21 Adelfo Masters NP [address] [place] [address] 2_[place] [address] [email or web address] Historical LMR Provider 05/10/17 07/28/21 Audra Stacy MD 22 [facility], [address] [place] [address] Historical LMR Provider 05/10/17 Chrissie Fajardo MD 15 [facility], 2nd [place] [address] Historical LMR Provider 05/10/17 Aashish Davis MD [address] [place] [address], [address] [address] Historical LMR Provider 05/10/17 07/28/21 Trevor Larson MD [address] [place] [address], [address] [place] [address] Historical LMR Provider 05/10/17 2 Moses Knapp MD [address] [place] [address] Historical LMR Provider 05/10/17 Maria Isabel Dale MD [address] [place] [address] Historical LMR Provider 05/10/17 Arpit Smith CNP [address] [place] [address], [address] [place] [address] Historical LMR Provider 05/10/17 documented as of this encounter Additional Source Comments The information contained in this document represents components of the legal health record. It is not the complete legal health record.[facility]
--- OUTSIDE RECORDS SUMMARY | 2025-06-22 18:03 | XMS_ITS | Encounter Summary ---
Author Organization [facility] Address [address] [place] [address] Phone Care Team Providers Care Django Developer Name Role Phone Audra Stacy MD Unavailable [phone] Moses Knapp MD Unavailable [phone] Maria Isabel Dale MD Unavailable [phone] Ryan Stock MD Primary Care Provider Encounter Details Date Type Department Care Team (Late st Contact Info) Description 05/05/2024 Procedure Pass [facility] Admitting Dept Virtual Department 30 [place] [address] Social History Tobacco Use Types Packs/Day Years [...] on filedocumented in this encounter Care Teams Django Developer Relationship Specialty Start Date End Date Ryan Stock MD [address] [place] [address] [place] [address] PCP - General Internal Medicine 10/27/17 Audra Stacy MD [address] [place] [address] Historical LMR Provider 05/10/17 Moses Knapp MD [address] [place] [address] Historical LMR Provider 05/10/17 Maria Isabel Dale MD [address] [place] [address] Historical LMR Provider 05/10/17 documented as of this encounter Additional Source Comments The information contained in this document represents components of the legal health record. It is not the complete legal health record.[facility]
--- OUTSIDE RECORDS SUMMARY | 2025-06-22 18:03 | XMS_ITS | Encounter Summary ---
Author Organization [facility] Address [address] [place] [address] Phone Care Team Providers Care Commercial Carpenter Name Role Phone Bob Ardon, PhD Unavailable [phone] John Alvares MD Unavailable [phone] Allan Mehta MD Unavailable [phone] Pankaj Brown MD Unavailable Timi White MD Unavailable [phone] Adwoa Chahal MD Unavailable +[phone] Daniella Nunes MD Unavailable [phone] Adelfo Masters NP Unavailable [phone] Audra Stacy MD Unavailable [phone] Chrissie Fajardo MD Unavailable [phone] Aashish Davis MD Unavailable Trevor Larson MD Unavailable [phone] Moses Knapp MD Unavailable [phone] [...] Procedures NM Gastric Emptying Ryan Stock MD [address] [place] [address] Dr CARRERO Sanjay DupontyoJENNIFER collins [address] Phone: tel: fax: Referral ID Status Reason Start Date Expiration Date Visits Re quested Visits Authorized [id number] Closed 06/03/2018 06/03/2019 1 1 Encounter Details Date Type Department Care Team (Late st Contact Info) Description 06/03/2018 Ancillary Orders Virtual Department 30 [place] [address] Ryan Stock MD [address] [place] [address] Dr CARRERO Sanjay Meza JENNIFER [address] Abdominal pain, unspecified abdominal location; Gastroesophageal reflux [...] 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 on file [...] reflux documented in this encounter Care Teams Commercial Carpenter Relationship Specialty Start Date End Date Ryan Stock MD [address] [place] [address] [place] [address] PCP - General Internal Medicine 10/27/17 Bob Ardon MBBS, PhD [address] [place] [address] [email or web address] Historical LMR Provider 05/05/1707/28/21 John Alvares MD [address] [place] [address], [address] [place] [address] [email or web address] Historical LMR Provider 05/05/17 07/28/21 Allan Mehta MD 22 [facility] Floor 1 [place] [address] [email or web address] Historical LMR Provider 05/10/17 07/28/21 Pankaj Brown MD [address] [place] [address] [address] [address] Historical LMR Provider 05/10/17 2 Timi White MD 22 [facility], [address] [place] [address] Historical LMR Provider 05/10/17 07/28/21 Adwoa Chahal MD [address] [place] [address], [address] [place] [address] Historical LMR Provider 05/10/17 2 Daniella Nunes MD 19 [place] [address] [email or web address] Historical LMR Provider 05/10/17 07/28/21 Adelfo Masters NP [address] [place] [address] 2_Wound Care [place], [place] [address] [email or web address] Historical LMR Provider 05/10/17 07/28/21 Audra Stacy MD 22 [facility], [address] [address] Historical LMR Provider 05/10/17 Chrissie Fajardo MD 15 [facility], 2nd [place] [address] Historical LMR Provider 05/10/17 Aashish Davis MD [address] [place] [address] Historical LMR Provider 05/10/17 07/28/21 Trevor Larson MD [address] [place] [address], [address] [place] [address] Historical LMR Provider 05/10/17 2 Moses Knapp MD [address] [place] [address], [address] [address] Historical LMR Provider 05/10/17 Maria Isabel Dale MD [address] [address] Historical LMR Provider 05/10/17 Arpit Smith, AMY 22 [facility], [address] [place] [address] [phone] ([email or web address]) [email or web address] Historical LMR Provider 05/10/17 documented as of this encounter Additional Source Comments The information contained in this document represents components of the legal health record. It is not the complete legal health record.[facility]
--- OUTSIDE RECORDS SUMMARY | 2025-06-22 18:03 | XMS_ITS | Encounter Summary ---
Author Organization [facility] Address [address] [place] [address] Phone Care Team Providers Care Sales Training Coordinator Name Role Phone Bob Ardon, PhD Unavailable [phone] John Alvares MD Unavailable [phone] Allan Mehta MD Unavailable [phone] Pankaj Brown MD Unavailable [phone] Timi White MD Unavailable [phone] Adwoa Chahal MD Unavailable [phone] Daniella Nunes MD Unavailable [phone] Adelfo Masters NP Unavailable Audra Stacy MD Unavailable [phone] Chrissie Fajardo MD Unavailable [phone] Aashish Davis MD Unavailable Trevor Larson MD Unavailable [phone] Moses Knapp MD Unavailable [phone] Maria Isabel Dale MD Unavailable [phone] Arpit Smith CNP Unavailable [phone] Ryan Stock MD Primary Care Provider Encounter Details Date Type Department Care Team (Late st Contact Info) Description 05/19/2018 Procedure Pass 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 on file Not on file documented as of this encounter Plan of Treatment Not on file documented as of this encounter Visit Diagnoses Not on filedocumented in this encounter Care Teams Sales Training Coordinator Relationship Specialty Start Date End Date Ryan Stock MD [address] [place] [address] [place] [address] PCP - General Internal Medicine 10/27/17 Bob Ardon MBBS, PhD [address] [place] [address] [email or web address] Historical LMR Provider 05/05/1707/28/21 John Alvares MD 22 [facility], [address] [place] [address] [email or web address] Historical LMR Provider 05/05/17 07/28/21 Allan Mehta MD 22 [facility] Floor 1 [place] [address] [email or web address] Historical LMR Provider 05/10/17 07/28/21 Pankaj Brown MD [address] [place] [address] 1st Floor -[address] [place] [address] Historical LMR Provider 05/10/17 2 Timi White MD 22 [facility], [address] [place] [address] Historical LMR Provider 05/10/17 07/28/21 Adwoa Chahal MD 22 [facility], [address] [place] [address] Historical LMR Provider 05/10/17 2 Daniella Nunes MD 19 [place] [address] [email or web address] Historical LMR Provider 05/10/17 07/28/21 Adelfo Masters NP [address] [place] [address] 2_[place] [address] [email or web address] Historical LMR Provider 05/10/17 07/28/21 Audra Stacy MD 22 [facility], [address] [place] [address] Historical LMR Provider 05/10/17 Chrissie Fajardo MD 15 [facility], 2nd [place] [address] Historical LMR Provider 05/10/17 Aashish Davis MD [address] [place] [address], [address] [place] [address] Historical LMR Provider 05/10/17 07/28/21 Trevor Larson MD [address] [place] [address], [address] [place] [address] Historical LMR Provider 05/10/17 2 Moses Knapp MD [address] [place] [address], [address] [address] Historical LMR Provider 05/10/17 Maria Isabel Dale MD [address] [place] [address], [address] [address] Historical LMR Provider 05/10/17 Arpit Smith CNP [address] [place] [address], [address] [place] [address] Historical LMR Provider 05/10/17 documented as of this encounter Additional Source Comments The information contained in this document represents components of the legal health record. It is not the complete legal health record.[facility]
--- OUTSIDE RECORDS SUMMARY | 2025-06-22 18:03 | XMS_ITS | Encounter Summary ---
Author Organization [facility] Address [address] [place] [address] Phone Care Team Providers Care Set Up And Charger Name Role Phone Bob Ardon, PhD Unavailable [phone] John Alvares MD Unavailable [phone] Allan Mehta MD Unavailable [phone] Pankaj Brown MD Unavailable Timi White MD Unavailable [phone] Adwoa Chahal MD Unavailable [phone] Daniella Nunes MD Unavailable Adelfo Masters NP Unavailable Audra Stacy MD Unavailable [phone] Chrissie Fajardo MD Unavailable [phone] Aashish Davis MD Unavailable Trevor Larson MD Unavailable [phone] oMses Knapp MD Unavailable Maria Isabel Dale MD Unavailable [phone] Arpit Smith CNP Unavailable [phone] Ryan Stock MD Primary Care Provider Encounter Details Date Type Department Care Team (Latest Contact Info) Description 09/13/2019 Transcribe Orders [facility] Department 30 [place] [address] Trevor Stapleton MD [address] [place] [address], [address] [place] [address] [email or web address] New onset headache [...] disease documented in this encounter Care Teams Set Up And Charger Relationship Specialty Start Date End Date Ryan Stock MD [address] [place] [address] [place] [address] PCP - General Internal Medicine 10/27/17 Bob Ardon MBBS, PhD [address] [place] [address] [email or web address] Historical LMR Provider 05/05/1707/28/21 John Alvares MD [address] [place] [address], [address] [place] [address] [email or web address] Historical LMR Provider 05/05/17 07/28/21 Allan Mehta MD 22 [facility] Floor 1 [place] [address] [email or web address] Historical LMR Provider 05/10/17 07/28/21 Pankaj Brown MD 50 [facility] 1st Floor [address] [place] [address] Historical LMR Provider 05/10/17 2 Timi White MD 22 [facility], [address] [place] [address] Historical LMR Provider 05/10/17 07/28/21 Adwoa Chahal MD 22 [facility], [address] [place] [address] Historical LMR Provider 05/10/17 2 Daniella Nunes MD [address] [place] [address] [email or web address] Historical LMR Provider 05/10/17 07/28/21 Adelfo Masters NP [address] [place] [address] 2_[place] [address] [email or web address] Historical LMR Provider 05/10/17 07/28/21 Audra Stacy MD 22 [facility], [address] [place] [address] [email or web address] Historical LMR Provider 05/10/17 Chrissie Fajardo MD 15 [facility], 2nd [place] [address] Historical LMR Provider 05/10/17 Aashish Davis MD [address] [place] [address] Historical LMR Provider 05/10/17 07/28/21 Trevor Larson MD [address] [place] [address], [address] [place] [address] Historical LMR Provider 05/10/17 2 Moses Knapp MD [address] [place] [address] Historical LMR Provider 05/10/17 Maria Isabel Dale MD [address] [place] [address] Historical LMR Provider 05/10/17 Arpit Smtih CNP [address] [place] [address] Historical LMR Provider 05/10/17 documented as of this encounter Additional Source Comments The information contained in this document represents components of the legal health record. It is not the complete legal health record.[facility]
--- OUTSIDE RECORDS SUMMARY | 2025-06-22 18:03 | XMS_ITS | Encounter Summary ---
Author Organization [facility] Address [address] [place] [address] Phone Care Team Providers Care Cardio Tech Name Role Phone Bob Ardon, PhD Unavailable John Alvares MD Unavailable [phone] Allan Mehta MD Unavailable [phone] Pankaj Brown MD Unavailable Timi White MD Unavailable [phone] Adwoa Chahal MD Unavailable [phone] Daniella Nunes MD Unavailable [phone] Adelfo Masters NP Unavailable [phone] Audra Stacy MD Unavailable [phone] Chrissie Fajardo MD Unavailable [phone] Aashish Davis MD Unavailable Trevor Larson MD Unavailable [phone] Moses Knapp MD Unavailable Maria Isabel Dale MD Unavailable [phone] Arpit Smith CNP Unavailable [phone] Ryan Stock MD Primary Care Provider Encounter Details Date Type Department Care Team (Late st Contact Info) Description 04/21/2019 Transcribe Orders [address] [id number] Ryan Stock MD [address] [place] [address] Dr ChristiansonyokeJENNIFER [address] Hypothyroidism, unspecified type (Primary Dx) Social History [...] 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 Not on file documented as of this encounter Plan of Treatment Not on file documented as of this encounter Results * Free T4 (04/21/2019 3:15 PM EDT) FREE T4 1.4 0.9 - 1.7 ng/dL [facility] Blood 04/21/2019 3:15 PM EDT 04/21/2019 3:21 PM EDT us Ryan Stock MD LAB BLOOD BKR ORDERABLE S Final Result Performing Organization Address [facility] Co de Phone Number [address] [address] * TSH (04/21/2019 3:15 PM EDT) TSH 2.51 0.27 - 4.20 uIU/mL [facility] Blood 04/21/2019 3:15 PM EDT 04/21/2019 3:21 PM EDT Ryan Stock MD LAB BLOOD BKR ORDERABLE S Final Result Performing Organization Address [facility] Co de Phone Number [address] [address] * (ABNORMAL) CBC and differential (04/21/2019 3:15 PM EDT) WBC 6.21 3.40 - 11.20 K/uL [facility] RBC 4.22 3.80 - 4.80 M/uL [facility] HGB 13.1 12.0 - 15.0 g/dL [facility] HCT 38.6 36.0 - 46.0 % [facility] PLT 230 130 - 400 K/uL [facility] MCV 91.5 79.0 - 98.0 fL [facility] MCH 31.0 27.0 - 34.8 pg [facility] MCHC 33.9 31.5 - 36.0 g/dL [facility] RDW 12.4 10.8 - 14.6 % [facility] MPV 9.5 9.4 - 12.4 fl [facility] NRBC 0.00 0.00 /100 WBCs [facility] ABSOLUTE NRBC 0.00 0.00 K/uL [facility] DIFF METHOD Auto [facility] NEUTS 59.7 45.30 - 77.70 % [facility] LYMPHS 31.7 12.30 - 39.70 % [facility] MONOS 7.7 4.10 - 12.80 % [facility] EOS 0.0 0 - 7.2 % [facility] BASOS 0.6 0 - 2.80 % [facility] Granulocytes, immature (%) 0.3 0.0 - 0.9 % [facility] ABSOLUTE NEUTS 3.70 1.40 - 7.70 K/uL [facility] ABSOLUTE LYMPHS 1.97 0.60 - 3.20 K/uL [facility] ABSOLUTE MONOS 0.48 0.11 - 0.59 K/uL [facility] ABSOLUTE EOS 0.00(L) 0.01 - 0.50 K/uL [facility] ABSOLUTE BASOS 0.04 0.00 - 0.08 K/uL [facility] Granulocytes, immature 0.02 0.00 - 0.05 K/uL [facility] Blood 04/21/2019 3:15 PM EDT 04/21/2019 3:21 PM EDT us Ryan Stock MD LAB BLOOD BKR ORDERABLE S Final Result [address] [address] * (ABNORMAL) Comprehensive metabolic panel (04/21/2019 3:15 PM EDT) SODIUM 139 133 - 146 mmol/L [facility] POTASSIUM 4.0 3.3 - 5.1 mmol/L [facility] CHLORIDE 105 96 - 108 mmol/L [facility] CO2 22 21 - 35 mmol/L [facility] BUN 13 6 - 19 mg/dL [facility] CREATININE 1.00 0.5 - 1.5 mg/dL [facility] GLUCOSE 100(H) 70 - 99 mg/dL [facility] ALBUMIN 4.2 3.9 - 4.8 g/dL [facility] TOTAL PROTEIN 7.1 6.5 - 8.0 g/dL [facility] CALCIUM 9.1 8.4 - 10.3 mg/dL [facility] ALKALINE PHOSPHATASE 63 39 - 117 U/L [facility] TOTAL BILIRUBIN 0.2 0.0 - 1.2 mg/dL [facility] AST 17 0 - 37 U/L [facility] ALT 12 0 - 40 U/L [facility] GLOBULIN 2.9 1 - 4.8 g/dL [facility] EGFR 67 >59 mL/min/1.7 3m2 [facility] Comment:If patient is black, multiply result by 1.159. Estimated glomerular filtration rate calculated using the CKD-EPI equation. ANION GAP 16 10 - 20 mmol/L [facility] Blood 04/21/2019 3:15 PM EDT 04/21/2019 3:21 PM EDT us Ryan Stock MD LAB BLOOD BKR ORDERABLE S Final Result [address] [address] documented in this encounter Visit Diagnoses Diagnosis Hypothyroidism, unspecified type- Primary documented in this encounter Care Teams Cardio Tech Relationship Specialty Start Date End Date Ryan Stock MD [address] [place] [address] [place] [address] PCP - General Internal Medicine 10/27/17 Bob Ardon MBBS, PhD [address] [place] [address] [email or web address] Historical LMR Provider 05/05/1707/28/21 John Alvares MD [address] [facility], [address] [place] [address] [email or web address] Historical LMR Provider 05/05/17 07/28/21 Allan Mehta MD [address] [facility] Floor 1 [place] [address] [email or web address] Historical LMR Provider 05/10/17 07/28/21 Pankaj Brown MD [address] [place] [address] [address] [address] Historical LMR Provider 05/10/17 2 Timi White MD [address] [facility] [place] [address] Historical LMR Provider 05/10/17 07/28/21 Adwoa Chahal MD [address] [place] [address], [address] [place] [address] Historical LMR Provider 05/10/17 2 Daniella Nunes MD [address] [place] [address] [email or web address] Historical LMR Provider 05/10/17 07/28/21 Adelfo Mastesr, DYAN [address] [place] [address] 2_[place] [address] [email or web address] Historical LMR Provider 05/10/17 07/28/21 Audra Stacy MD [address] [facility], [facility] [address] [place] [address] [email or web address] Historical LMR Provider 05/10/17 Chrissie Fajardo MD [address] [facility], 2nd [place] [address] Historical LMR Provider 05/10/17 Aashish Davis MD [address] [place] [address] Historical LMR Provider 05/10/17 07/28/21 Trevor Larson MD [address] [facility] [place] [address] Historical LMR Provider 05/10/17 2 Moses Knapp MD [address] [place] [address] Historical LMR Provider 05/10/17 Maria Isabel Dale MD [address] [place] [address] 102 [place] [address] Historical LMR Provider 05/10/17 Arpit Smith CNP [address] [place] [address], [address] [place] [address] [email or web address] Historical LMR Provider 05/10/17 documented as of this encounter Additional Source Comments The information contained in this document represents components of the legal health record. It is not the complete legal health record.[facility]
--- OUTSIDE RECORDS SUMMARY | 2025-06-22 18:03 | XMS_ITS | Encounter Summary ---
Author Organization [facility] Address [address] [place] [address] Phone Care Team Providers Care Shipping Specialist Name Role Phone Bob Ardon, PhD Unavailable [phone] John Alvares MD Unavailable [phone] Allan Mehta MD Unavailable [phone] Pankaj Brown MD Unavailable Timi White MD Unavailable [phone] Adwoa Chahal MD Unavailable [phone] Daniella Nunes MD Unavailable [phone] Adelfo Masters NP Unavailable Audra Stacy MD Unavailable [phone] Chrissie Fajardo MD Unavailable [phone] Aashish Davis MD Unavailable Trevor Larson MD Unavailable [phone] Moses Knapp MD Unavailable Maria Isabel Dale MD Unavailable [phone] Arpit Smith CNP Unavailable [phone] Ryan Stock MD Primary Care Provider Encounter Details Date Type Department Care Team (Latest Contact Info) Description 10/21/2018 Transcribe Orders [address] [id number] Surinder Joseph MD [address] [place] [address] [email or web address] Functional diarrhea [...] EDT) IgA 273 70 - 400 mg/dL [facility] Blood 10/21/2018 3:47 PM EDT 10/21/2018 3:50 PM EDT us Surinder Joseph MD LAB BLOOD BKR ORDERABLES Fin al Result Performing Organization Address [facility] Co de Phone Number [address] [address] * C-Reactive Protein (10/21/2018 3:47 PM EDT) C REACTIVE PROTEIN <0.3 0.0 - 4.0 mg/L [facility] Blood 10/21/2018 3:47 PM EDT 10/21/2018 3:50 PM EDT us Surinder Joseph MD LAB BLOOD BKR ORDERABLES Fin al Result Performing Organization Address [facility] Co de Phone Number [address] [address] * Comprehensive metabolic panel (10/21/2018 3:47 PM EDT) SODIUM 139 133 - 146 mmol/L [facility] POTASSIUM 4.0 3.3 - 5.1 mmol/L [facility] CHLORIDE 103 96 - 108 mmol/L [facility] CO2 24 21 - 35 mmol/L [facility] BUN 15 6 - 19 mg/dL [facility] CREATININE 1.10 0.5 - 1.5 mg/dL [facility] GLUCOSE 94 70 - 99 mg/dL [facility] ALBUMIN 4.2 3.9 - 4.8 g/dL [facility] TOTAL PROTEIN 7.1 6.5 - 8.0 g/dL [facility] CALCIUM 8.9 8.4 - 10.3 mg/dL [facility] ALKALINE PHOSPHATASE 57 39 - 117 U/L [facility] TOTAL BILIRUBIN 0.2 0.0 - 1.2 mg/dL [facility] Comment: Results from certain multiple myeloma patients may show a positive bias in recovery. Not all multiple myeloma patients show the bias and severity of the bias may vary between patients. In very rare cases, gammopathy, in particular type IgM (Waldenstrom's macroglobulinemia), may cause unreliable results. AST 11 0 - 37 U/L [facility] ALT 9 0 - 40 U/L [facility] GLOBULIN 2.9 1 - 4.8 g/dL [facility] EGFR 60 >59 mL/min/1.7 3m2 [facility] Comment:If patient is black, multiply result by 1.159. Estimated glomerular filtration rate calculated using the CKD-EPI equation. ANION GAP 16 10 - 20 mmol/L [facility] Blood 10/21/2018 3:47 PM EDT 10/21/2018 3:50 PM EDT us Surinder Joseph MD LAB BLOOD BKR ORDERABLES Fin al Result [facility] [address] [place] [address] * Gliadin deamidated antibody, IgG/IgA (10/21/2018 3:47 PM EDT) Gliadin Ab, IGA <10.0 <20.0 (Negative) U [facility] [address] GLIADIN AB IGG <10.0 <20.0 (Negative) U [facility] [address] Blood 10/21/2018 3:47 PM EDT 10/21/2018 3:49 PM EDT us Surinder Jsoeph MD LAB BLOOD ORDERABLES Final R esult [facility] [address] [place] [address] * Tissue transglutaminase IgA (10/21/2018 3:47 PM EDT) Pathologist [facility] TTG IGA ANTIBODY <1.2 <4.0 (Negative) U/mL [facility] [address] Blood 10/21/2018 3:47 PM EDT 10/21/2018 3:49 PM EDT us Surinder Joseph MD LAB BLOOD BKR ORDERABLES Fin al Result Performing Organization Address [facility] Co de Phone Number [facility] MED/[facility] [address] [place] [address] * (ABNORMAL) CBC (10/21/2018 3:47 PM EDT) Pathologist [facility] WBC 7.34 3.40 - 11.20 K/uL [facility] RBC 4.19 3.80 - 4.80 M/uL [facility] HGB 12.8 12.0 - 15.0 g/dL [facility] HCT 39.0 36.0 - 46.0 % [facility] PLT 249 130 - 400 K/uL [facility] MCV 93.1 79.0 - 98.0 fL [facility] MCH 30.5 27.0 - 34.8 pg [facility] MCHC 32.8 31.5 - 36.0 g/dL [facility] RDW 12.6 10.8 - 14.6 % [facility] MPV 9.2(L) 9.4 - 12.4 fl [facility] NRBC 0.00 0.00 /100 WBCs [facility] ABSOLUTE NRBC 0.00 0.00 K/uL [facility] Blood 10/21/2018 3:47 PM EDT 10/21/2018 3:50 PM EDT us Surinder Joseph MD LAB BLOOD BKR ORDERABLES Fin al Result Performing Organization Address City/State/[facility] Co de Phone Number [facility] [address] [place] [address] documented in this encounter Visit Diagnoses Diagnosis Functional diarrhea- Primary Abdominal pain, epigastric documented in this encounter Care Teams Shipping Specialist Relationship Specialty Start Date End Date Ryan Stock MD [address] [place] [address] [place] [address] PCP - General Internal Medicine 10/27/17 Bob Ardon MBBS, PhD [address] [place] [address] [email or web address] Historical LMR Provider 05/05/1707/28/21 John Alvares MD 22 [facility], [address] [place] [address] [email or web address] Historical LMR Provider 05/05/17 07/28/21 Allan Mehta MD 22 [facility] Floor 1 [place] [address] [email or web address] Historical LMR Provider 05/10/17 07/28/21 Pankaj Brown MD [address] [place] [address] 1st Floor [address] [place] [address] Historical LMR Provider 05/10/17 2 Timi White MD 22 [facility] [place] [address] Historical LMR Provider 05/10/17 07/28/21 Adwoa Chahal MD 22 [facility], [address] [place] [address] Historical LMR Provider 05/10/17 2 Daniella Nunes MD [address] [place] [address] [email or web address] Historical LMR Provider 05/10/17 07/28/21 Adelfo Masters NP [address] [place] [address] 2_[place] [address] [email or web address] Historical LMR Provider 05/10/17 07/28/21 Audra Stacy MD 22 [facility], [address] [place] [address] [email or web address] Historical LMR Provider 05/10/17 Chrissie Fjaardo MD 15 [facility], 2nd [place] [address] Historical LMR Provider 05/10/17 Aashish Davis MD [address] [place] [address], [facility] [address] [place] [address] Historical LMR Provider 05/10/17 07/28/21 Trevor Larson MD 22 [facility] [place] [address] Historical LMR Provider 05/10/17 2 Moses Knapp MD [address] [place] [address] Historical LMR Provider 05/10/17 Maria Isabel Dale MD [address] [place] [address] Historical LMR Provider 05/10/17 Arpit Smith CNP [address] [place] [address], [address] [place] [address] Historical LMR Provider 05/10/17 documented as of this encounter Additional Source Comments The information contained in this document represents components of the legal health record. It is not the complete legal health record.[facility]
--- OUTSIDE RECORDS SUMMARY | 2025-06-22 18:03 | XMS_ITS | Encounter Summary ---
Author Organization [facility] Address [address] [place] [address] Phone Care Team Providers Care Shoe Repairer Apprentice Name Role Phone Bob Ardon, PhD Unavailable [phone] John Alvares MD Unavailable [phone] Allan Mehta MD Unavailable [phone] Allan Mehta MD Primary Care Provide r Pankaj Brown MD Unavailable Timi White MD Unavailable [phone] Adwoa Chahal MD Unavailable +[phone] Daniella Nunes MD Unavailable [phone] Adelfo Masters NP Unavailable [phone] Audra Stacy MD Unavailable [phone] Chrissie Fajardo MD Unavailable [phone] Aashish Davis MD Unavailable Trevor Larson MD Unavailable [phone] Moses Knapp MD Unavailable [phone] Maria Isabel Dale MD Unavailable [phone] Arpit Smith CNP Unavailable [phone] Ryna Stock MD Primary Care Provider Encounter Details Date Type Department Care Team (Late st Contact Info) Description 08/02/2017 EpicOnHand Encounter [facility] Gynecology Virtual Department 30 [place] [address] Mart Goldman MD 22 [facility], [address] [place] [address] [email or web address] Social History Tobacco Use Types Packs/Day Years [...] on filedocumented in this encounter Care Teams Shoe Repairer Apprentice Relationship Specialty Start Date End Date Allan Mehta MD 22 [facility] Floor 1 [place] [address] [email or web address] PCP - General 05/06/17 10/26/17 Ryan Stock MD [address] [place] [address] [place] [address] PCP - General Internal Medicine 10/27/17 Bob Ardon MBBS, PhD [address] [place] [address] [email or web address] Historical LMR Provider 05/05/1707/28/21 John Alvares MD 22 [facility], [address] [place] [address] [email or web address] Historical LMR Provider 05/05/17 07/28/21 Allan Mehta MD 22 [facility] Floor 1 [place] [address] [email or web address] Historical LMR Provider 05/10/17 07/28/21 Pankaj Brown MD [address] [place] [address] 1st Floor [address] [place] [address] Historical LMR Provider 05/10/17 2 Timi White MD 22 [facility], [address] [place] [address] [email or web address] Historical LMR Provider 05/10/17 07/28/21 Adwoa Chahal MD [address] [place] [address], [address] [place] [address] [email or web address] Historical LMR Provider 05/10/17 2 Daniella Nunes MD [address] [place] [address] [email or web address] Historical LMR Provider 05/10/17 07/28/21 Adelfo Masters NP [address] [place] [address] 2_[place] [address] [email or web address] Historical LMR Provider 05/10/17 07/28/21 Audra Stacy MD 22 [facility], [address] [place] [address] Historical LMR Provider 05/10/17 Chrissie Fajardo MD 15 [facility], 2nd [place] [address] Historical LMR Provider 05/10/17 Aashish Davis MD [address] [place] [address] Historical LMR Provider 05/10/17 07/28/21 Trevor Larson MD 22 [facility], [address] [place] [address] Historical LMR Provider 05/10/17 2 Moses Knapp MD 22 [facility] 102 [place] [address] Historical LMR Provider 05/10/17 Maria Isabel Dale MD [address] [address] Historical LMR Provider 05/10/17 Arpit Smith CNP 22 [facility], [address] [place] [address] Historical LMR Provider 05/10/17 documented as of this encounter Additional Source Comments The information contained in this document represents components of the legal health record. It is not the complete legal health record.[facility]
--- OUTSIDE RECORDS SUMMARY | 2025-06-22 18:03 | XMS_ITS | Encounter Summary ---
Author Organization [facility] Address [address] [place] [address] Phone Care Team Providers Care Market Developer Name Role Phone Bob Ardon, PhD Unavailable John Alvares MD Unavailable [phone] Allan Mehta MD Unavailable [phone] Pankaj Brown MD Unavailable Timi White MD Unavailable [phone] Adwoa Chahal MD Unavailable [phone] Daniella Nunes MD Unavailable [phone] Adelfo Masters NP Unavailable [phone] Audra Stacy MD Unavailable [phone] Chrissie Fajardo MD Unavailable [phone] Aashish Davis MD Unavailable Trevor Larson MD Unavailable [phone] Moses Knapp MD Unavailable Maria Isabel Dale MD Unavailable [phone] Arpit Smith CNP Unavailable [phone] Ryan Stock MD Primary Care Provider Encounter Details Date Type Department Care Team (Late st Contact Info) Description 04/23/2018 Ancillary Orders Virtual Department 30 [place] [address] Meera Rae PA-C 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 Not on file documented as of this encounter Plan of Treatment Not on file documented as of this encounter Visit Diagnoses Diagnosis Heartburn documented in this encounter Care Teams Market Developer Relationship Specialty Start Date End Date Ryan Stock MD [address] [place] [address] Dr CARRERO [address] [place] [address] PCP - General Internal Medicine 10/27/17 Bob Ardon MBBS, PhD [address] [place] [address] [email or web address] Historical LMR Provider 05/05/1707/28/21 John Alvares MD [address] [place] [address], [address] [place] [address] [email or web address] Historical LMR Provider 05/05/17 07/28/21 Allan Mehta MD 22 [facility] Floor 1 [place] [address] [email or web address] Historical LMR Provider 05/10/17 07/28/21 Pankaj Brown MD 50 [facility] 1st Floor [address] [place] [address] Historical LMR Provider 05/10/17 2 Timi White MD 22 [facility], [address] [place] [address] Historical LMR Provider 05/10/17 07/28/21 Adwoa Chahal MD 22 [facility], [address] [place] [address] Historical LMR Provider 05/10/17 2 Daniella Nunes MD 19 [place] [address] [email or web address] Historical LMR Provider 05/10/17 07/28/21 Adelfo Masters NP [address] [place] [address] 2_[place] [address] [email or web address] Historical LMR Provider 05/10/17 07/28/21 Audra Stacy MD 22 [facility], [address] [place] [address] Historical LMR Provider 05/10/17 Chrissie Fajardo MD 15 [facility], 2nd [place] [address] Historical LMR Provider 05/10/17 Aashish Davis MD [address] [place] [address] Historical LMR Provider 05/10/17 07/28/21 Trevor Larson MD [address] [place] [address], [address] [place] [address] Historical LMR Provider 05/10/17 2 Moses Knapp MD [address] [place] [address] Historical LMR Provider 05/10/17 Maria Isabel Dale MD [address] [place] [address] Historical LMR Provider 05/10/17 Arpit Smith CNP [address] [place] [address], [address] [place] [address] Historical LMR Provider 05/10/17 documented as of this encounter Additional Source Comments The information contained in this document represents components of the legal health record. It is not the complete legal health record.[facility]
--- OUTSIDE RECORDS SUMMARY | 2025-06-22 18:03 | XMS_ITS | Encounter Summary ---
Author Organization [facility] Address [address] [place] [address] Phone Care Team Providers Care Senior Mechanical Estimator Name Role Phone Bob Ardon, PhD Unavailable [phone] John Alvares MD Unavailable [phone] Alaln Mehta MD Unavailable [phone] Pankaj Brown MD Unavailable Timi White MD Unavailable +[phone] Adwoa Chahal MD Unavailable +[phone] Daniella Nunes MD Unavailable [phone] Adelfo Masters NP Unavailable [phone] Audra Stacy MD Unavailable [phone] Chrissie Fajardo MD Unavailable [phone] Aashish Davis MD Unavailable Trevor Larson MD Unavailable [phone] Moses Knapp MD Unavailable [phone] [...] Expiration Date Visits Re quested Visits Authorized [id number] Closed 05/19/2018 07/18/2018 1 1 Encounter Details Date Type Department Care Team (Late st Contact Info) Description 05/19/2018 Ancillary Orders Virtual Department 30 [place] [address] Trevor Stapleton MD [address] [place] [address], [address] [place] [address] [email or web address] Right sided weakness; TIA (transient [...] 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 POS - [id number] Edited by: Katrina Donahue on 06/03/2018 8:04 [...] posterior fossa lesions inparticular seen. POS - [id number] Edited by: Katrina Donahue on 06/03/2018 8:04 PM Trevor Stapleton MD IMG MR HEAD/NECK Final Resul t documented in this encounter Visit Diagnoses Diagnosis Right sided weakness TIA (transient ischemic attack) Unspecified transient cerebral ischemia Ataxia Lack of coordination Right sided weakness Ataxia Lack of coordination Right sided weakness TIA (transient ischemic attack) Unspecified transient cerebral ischemia documented in this encounter Care Teams Senior Mechanical Estimator Relationship Specialty Start Date End Date Ryan Stock MD [address] [place] [address] [place] [address] PCP - General Internal Medicine 10/27/17 Bob Ardon MBBS, PhD [address] [place] [address] [email or web address] Historical LMR Provider 05/05/1707/28/21 John Alvares MD 22 [facility], [address] [place] [address] [email or web address] Historical LMR Provider 05/05/17 07/28/21 Allan Mehta MD 22 [facility] Floor 1 [place] [address] [email or web address] Historical LMR Provider 05/10/17 07/28/21 Pankaj Brown MD [address] [place] [address] 1st [place] [address] Historical LMR Provider 05/10/17 2 Timi White MD [address] [place] [address], [address] [place] [address] Historical LMR Provider 05/10/17 07/28/21 Adwoa Chahal MD [address] [place] [address], [address] [place] [address] Historical LMR Provider 05/10/17 2 Daniella Nunes MD [address] [place] [address] [email or web address] Historical LMR Provider 05/10/17 07/28/21 Adelfo Masters NP [address] [place] [address] 2_[place] [address] [email or web address] Historical LMR Provider 05/10/17 07/28/21 Audra Stacy MD 22 [facility], [address] [place] [address] Historical LMR Provider 05/10/17 Chrissie Fajardo MD 15 [facility], 2nd [place] [address] Historical LMR Provider 05/10/17 Aashish Davis MD [address] [place] [address] 202 [place] [address] Historical LMR Provider 05/10/17 07/28/21 Trevor Larson MD [address] [place] [address], [address] [place] [address] Historical LMR Provider 05/10/17 2 Moses Knapp MD [address] [place] [address], [address] [place] [address] Historical LMR Provider 05/10/17 Maria Isabel Dale MD [address] [place] [address], [facility] 102 [place] [address] Historical LMR Provider 05/10/17 Arpit Smith CNP [address] [place] [address], [address] [place] [address] Historical LMR Provider 05/10/17 documented as of this encounter Additional Source Comments The information contained in this document represents components of the legal health record. It is not the complete legal health record.[facility]
--- OUTSIDE RECORDS SUMMARY | 2025-06-22 18:03 | XMS_ITS | Clinical Summary ---
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 PAP SMEAR [...] 52, 56, 58, 59, 66, 68) by [employer] Onclarity HR-HPV analysis. Clinical correlation is advised. This HPV test was performed at [facility], [address] [place] [address]. This test has been FDA approved for [employer] cervical cytology specimens. The accuracy and precision of this test for all other specimen sources has been verified in the Cytopathology Laboratory of the [facility] and has not been cleared or approved by the U.S. Food and Drug Administration. Clinical correlation is advised. CLINICAL HISTORY Date of Last Menstrual Period: Not Provided Menstrual History: Nita-Menopausal Contraceptive History: Depo Other Clinical Conditions: Screening Pap SPECIMEN SOURCE A: PAP SMEAR (SUREPATH) CE Patient Name: KATHIA BUSTAMANTE : 1970 (Age: 50) Sex: F Institution: [facility] Location: [facility] Date of Collection: 02/14/2021 Date of Reported: 02/20/2021 09:04 Results to: Catrachita Oshea MD us Catrachita Oshea MD CYTOLOGY ORDERABLES Final Result SEE NARRATIVE * TSH (04/21/2019 3:15 PM EDT) TSH 2.51 0.27 - 4.20 uIU/mL [facility] Blood 04/21/2019 3:15 PM EDT 04/21/2019 3:21 PM EDT us Ryan Stock MD LAB BLOOD BKR ORDERABLE S Final Result Performing Organization Address City/[facility]/ZIP Co de Phone Number [facility] [address] [place] [address] * (ABNORMAL) Outside LDL (12/25/2016) LDL - External 44(A) 50 - 250 mg/ml us Historical Provider LAB BLOOD ORDERABLES Kirsten l Result from Last 3 Months or Most Recently Relevant to Health Maintenance [place] [address] [place] [address] [place] [place] [address] [place] [address] [place] [address] [place] [address] S[facility] SciencesHEALTH MCO BARNEVELDstuddex [facility] SciencesHE[facility] MCO [employer] [facility]CO BARNEVELDstuddex [facility] SciencesHEALTH [facility] Care Teams Executive Administrator Relationship Specialty Start Date End Date Ryan Stock MD [address] [place] [address] [place] [address] PCP - General Internal Medicine 10/27/17 Audra Stacy MD [address] [place] [email or web address] Historical LMR Provider 05/10/17 Moses Knapp MD [address] [place] [address] [email or web address] Historical LMR Provider 05/10/17 Maria Isabel Dale MD [address] [place] [address] Historical LMR Provider 05/10/17 Additional Source Comments The information contained in this document represents components of the legal health record. It is not the complete legal health record.[facility]
--- OUTSIDE RECORDS SUMMARY | 2025-06-22 18:03 | XMS_ITS | Encounter Summary ---
Author Organization [facility] Address [address] [place] [address] Phone Care Team Providers Care Wound Care Physician Name Role Phone Bob Ardon, PhD Unavailable [phone] John Alvares MD Unavailable +[phone] Allan Mehta MD Unavailable +[phone] Allan Mehta MD Primary Care Provide r Pankaj Brown MD Unavailable Timi White MD Unavailable +[phone] Adwoa Chahal MD Unavailable +[phone] Daniella Nunes MD Unavailable +[phone] Adelfo Masters NP Unavailable +[phone] Audra Stacy MD Unavailable +[phone] Chrissie Fajardo MD Unavailable +[phone] Aashish Davis MD Unavailable Trevor Larson MD Unavailable +[phone] Moses Knapp MD Unavailable +[phone] Maria Isabel Dale MD Unavailable +[phone] Arpit Smith CNP Unavailable +[phone] Ryan Stock MD Primary Care Provider Encounter Details Date Type Department Care Team (Latest Contact Info) Description 05/12/2017 Transcribe Orders [facility] PFT Lab 30 [place] [address] Allan Mehta MD 22 [facility] 1 [place] [address] [email or web address] Dyspnea on exertion (Primary Dx) Social History [...] with bronchodilator, Lung Volumes, DLCO; Performing Location: [facility] (05/29/2017 12:02 PM EST) FEV1 liters FVC [...] abnormality documented in this encounter Care Teams Wound Care Physician Relationship Specialty Start Date End Date Allan Mehta MD 22 [facility] 1 [place] [address] [email or web address] PCP - General 05/06/17 10/26/17 Ryan Stock MD [address] [place] [address] [place] [address] PCP - General Internal Medicine 10/27/17 Bob Ardon MBBS, PhD [address] [place] [address] [email or web address] Historical LMR Provider 05/05/1707/28/21 John Alvares MD 22 [facility], [address] [place] [address] [email or web address] Historical LMR Provider 05/05/17 07/28/21 Allan Mehta MD 22 [facility] Floor 1 [place] [address] [email or web address] Historical LMR Provider 05/10/17 07/28/21 Pankaj Brown MD [address] [place] [address] [address] [address] Historical LMR Provider 05/10/17 2 Timi White MD [address] [place] [address], [address] [place] [address] Historical LMR Provider 05/10/17 07/28/21 Adwoa Chahal MD [address] [place] [address], [address] [place] [address] Historical LMR Provider 05/10/17 2 Daniella Nunes MD [address] [place] [address] [email or web address] Historical LMR Provider 05/10/17 07/28/21 Adelfo Masters NP [address] [place] [address] 2_[place] [address] [email or web address] Historical LMR Provider 05/10/17 07/28/21 Audra Stcay MD 22 [facility], [facility] 102 [place] [address] [email or web address] Historical LMR Provider 05/10/17 Chrissie Fajardo MD 15 [facility], 2nd [place] [address] Historical LMR Provider 05/10/17 Aashish Davis MD [address] [place] [address] Historical LMR Provider 05/10/17 07/28/21 Trevor Larson MD [address] [place] [address], [address] [place] [address] Historical LMR Provider 05/10/17 2 Moses Knapp MD 22 [facility], [address] [address] Historical LMR Provider 05/10/17 Maria Isabel Dale MD 22 [facility], [facility] 102 [place] [address] Historical LMR Provider 05/10/17 Arpit Smith CNP [address] [place] [address], [address] [place] [address] [email or web address] Historical LMR Provider 05/10/17 documented as of this encounter Additional Source Comments The information contained in this document represents components of the legal health record. It is not the complete legal health record.[facility]
--- OUTSIDE RECORDS SUMMARY | 2025-06-22 18:03 | XMS_ITS | Encounter Summary ---
Author Organization [facility] Address [address] [place] [address] Phone Care Team Providers Care Mat Making Machine Tender Name Role Phone Bob Ardon, PhD Unavailable +[phone] John Alvares MD Unavailable +[phone] Allan Mehta MD Unavailable +[phone] Pankaj Brown MD Unavailable Timi White MD Unavailable +[phone] Adwoa Chahal MD Unavailable +-[phone] Daniella Nunes MD Unavailable [phone] Adelfo Masters NP Unavailable +[phone] Audra Stacy MD Unavailable +[phone] Chrissie Fajardo MD Unavailable +[phone] Aashish Davis MD Unavailable Trevor Larson MD Unavailable [phone] Moses Knapp MD Unavailable +[phone] Maria Isabel Dale MD Unavailable +[phone] Arpit Smith CNP Unavailable +[phone] Ryan Stock MD Primary Care Provider Reason for Referral * MRI/CAT Scan - Closed Specialty Diagnoses / Procedures Referred By Contac t Referred To Contact Radiology Diagnoses Weakness of distal arms and legs Leg numbness White matter disease Procedures MRI Cervical Spine Trevor Stapleton MD Phone: tel: fax: [email or web address]:[email or web address] Referral ID Status Reason Start Date Expiration Date Visits Re quested Visits Authorized [id number] Closed 03/11/2019 05/10/2019 1 1 Encounter Details Date Type Department Care Team (Latest Contact Info) Description 03/11/2019 Transcribe Orders Virtual Department 30 [place] [address] Trevor Stapleton MD [address] [place] [address], [address] [place] [address] 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 POS - [id number] Narrative 03/19/2019 8:48 AM EDT HISTORY: Ataxia, [...] degenerative disc and endplate changes. POS - [id number] Trevor Stapleton MD IMG MR XSPECIALTY Final Resu lt documented in this encounter Visit Diagnoses Diagnosis Weakness of distal arms and legs- Primary Leg numbness Disturbance of skin sensation White matter disease Weakness of distal arms and legs Leg numbness Disturbance of skin sensation White matter disease documented in this encounter Care Teams Mat Making Machine Tender Relationship Specialty Start Date End Date Ryan Stock MD [address] [place] [address] [place] [address] PCP - General Internal Medicine 10/27/17 Bob Ardon MBBS, PhD [address] [place] [address] [email or web address] Historical LMR Provider 05/05/1707/28/21 John Alvares MD [address] [place] [address], [address] [place] [address] [email or web address] Historical LMR Provider 05/05/17 07/28/21 Allan Mehta MD 22 [facility] Floor 1 [place] [address] [email or web address] Historical LMR Provider 05/10/17 07/28/21 Pankaj Brown MD [address] [place] [address] [address] [address] Historical LMR Provider 05/10/17 2 Timi White MD [address] [place] [address], [address] [place] [address] Historical LMR Provider 05/10/17 07/28/21 Adwoa Chahal MD [address] [place] [address], [address] [place] [address] Historical LMR Provider 05/10/17 2 Daniella Nunes MD 19 [place] [address] [email or web address] Historical LMR Provider 05/10/17 07/28/21 Adelfo Masters NP [address] [place] [address] 2_Wound Care [place], [place] [id number] [email or web address] Historical LMR Provider 05/10/17 07/28/21 Audra Stacy MD 22 [facility], [address] [place] [address] Historical LMR Provider 05/10/17 Chrissie Fajardo MD [address] [place] [address], 2nd [place] [address] Historical LMR Provider 05/10/17 Aashish Davis MD [address] [place] [address] Historical LMR Provider 05/10/17 07/28/21 Trevor Larson MD [address] [place] [address], [address] [place] [address] Historical LMR Provider 05/10/17 2 Moses Knapp MD [address] [place] [address], [facility] 102 [place] [address] Historical LMR Provider 05/10/17 Maria Isabel Dale MD 22 [facility], [facility] 102 [place] [address] Historical LMR Provider 05/10/17 Arpit Smith, AMY 22 [facility], [address] [place] [address] ([email or web address]) [email or web address] Historical LMR Provider 05/10/17 documented as of this encounter Additional Source Comments The information contained in this document represents components of the legal health record. It is not the complete legal health record.[facility]
--- OUTSIDE RECORDS SUMMARY | 2025-06-22 18:03 | XMS_ITS | Encounter Summary ---
Author Organization [facility] Address [address] [place] [address] Phone Care Team Providers Care Larry Operator Name Role Phone Bob Ardon, PhD Unavailable +[phone] John Alvares MD Unavailable [phone] Allan Mehta MD Unavailable +[phone] Pankaj Brown MD Unavailable Timi White MD Unavailable +[phone] Adwoa Chahal MD Unavailable +[phone] Daniella Nunes MD Unavailable [phone] Adelfo Masters NP Unavailable +[phone] Audra Stacy MD Unavailable +[phone] Chrissie Fajardo MD Unavailable +[phone] Aashish Davis MD Unavailable Trevor Larson MD Unavailable +[phone] Moses Kanpp MD Unavailable [phone] Maria Isabel Dale MD Unavailable +[phone] Arpit Smith CNP Unavailable +[phone] Ryan Stock MD Primary Care Provider Encounter Details Date Type Department Care Team (Late st Contact Info) Description 03/29/2019 Procedure Pass [facility], [address] [address] Social History Tobacco Use Types Packs/Day Years [...] on filedocumented in this encounter Care Teams Larry Operator Relationship Specialty Start Date End Date Ryan Stock MD [address] [place] [address] [place] [address] PCP - General Internal Medicine 10/27/17 Bob Ardon MBBS, PhD [address] [place] [address] [email or web address] Historical LMR Provider 05/05/1707/28/21 John Alvares MD 22 [facility], [address] [place] [address] [email or web address] Historical LMR Provider 05/05/17 07/28/21 Allan Mehta MD 22 [facility] Floor 1 [place] [address] [email or web address] Historical LMR Provider 05/10/17 07/28/21 Pankaj Brown MD [address] [place] [address] 1st Floor -[address] [place] [address] Historical LMR Provider 05/10/17 2 Timi White MD 22 [facility], [address] [place] [address] Historical LMR Provider 05/10/17 07/28/21 Adwoa Chahal MD 22 [facility], [address] [place] [address] Historical LMR Provider 05/10/17 2 Daniella Nunes MD 19 [place] [address] [email or web address] Historical LMR Provider 05/10/17 07/28/21 Adelfo Masters NP [address] [place] [address] 2_[place] [address] [email or web address] Historical LMR Provider 05/10/17 07/28/21 Audra Stacy MD 22 [facility], [address] [place] [address] Historical LMR Provider 05/10/17 Chrissie Fajardo MD 15 [facility], 2nd [place] [address] Historical LMR Provider 05/10/17 Aashish Davis MD [address] [place] [address], [address] [place] [address] Historical LMR Provider 05/10/17 07/28/21 Trevor Larson MD [address] [place] [address], [address] [place] [address] Historical LMR Provider 05/10/17 2 Moses Knapp MD [address] [place] [address], [address] [address] Historical LMR Provider 05/10/17 Maria Isabel Dale MD [address] [place] [address], [address] [address] Historical LMR Provider 05/10/17 Arpit Smith CNP [address] [place] [address], [address] [place] [address] Historical LMR Provider 05/10/17 documented as of this encounter Additional Source Comments The information contained in this document represents components of the legal health record. It is not the complete legal health record.[facility]
--- OUTSIDE RECORDS SUMMARY | 2025-06-22 18:03 | XMS_ITS | Encounter Summary ---
Author Organization [facility] Address [address] [place] [address] Phone Care Team Providers Care Diesel Powerplant Mechanic Name Role Phone Bob Ardon, PhD Unavailable +[phone] John Alvares MD Unavailable [phone] Allan Mehta MD Unavailable +[phone] Pankaj Brown MD Unavailable Timi White MD Unavailable +[phone] Adwoa Chahal MD Unavailable +[phone] Daniella Nunes MD Unavailable [phone] Adelfo Masters NP Unavailable +[phone] Audra Stacy MD Unavailable +[phone] Chrissie Fajardo MD Unavailable +[phone] Aashish Davis MD Unavailable Trevor Larson MD Unavailable [phone] Moses Knapp MD Unavailable +[phone] Maria Isabel Dale MD Unavailable +[phone] Arpit Smith CNP Unavailable +[phone] Ryan Stock MD Primary Care Provider Reason for Referral * MRI/CAT Scan - Closed Specialty Diagnoses / Procedures Referred By Contac t Referred To Contact Radiology Diagnoses Paraparesis Bilateral numbness and tingling of arms and legs White matter disease Procedures MRI Thoracic Spine [place] Stapleton MD Phone: tel: fax: [email or web address] Referral ID Status Reason Start Date Expiration Date Visits Re quested Visits Authorized [id number] Closed 03/29/2019 05/28/2019 1 1 Encounter Details Date Type Department Care Team (Latest Contact Info) Description 03/29/2019 Transcribe Orders Virtual Department 30 [place] [address] Trevor Stapleton MD [address] [place] [address], [address] [place], [place] [id number] 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 Not on file Not [...] disease documented in this encounter Care Teams Diesel Powerplant Mechanic Relationship Specialty Start Date End Date Ryan Stock MD [address] [place] [address] [place] [address] PCP - General Internal Medicine 10/27/17 Bob Ardon MBBS, PhD 60 [place] [address] [email or web address] Historical LMR Provider 05/05/1707/28/21 John Alvares MD [address] [place] [address], [address] [place] [address] [email or web address] Historical LMR Provider 05/05/17 07/28/21 Allan Mehta MD 22 [facility] Floor 1 [place] [address] [email or web address] Historical LMR Provider 05/10/17 07/28/21 Pankaj Brown MD [address] [place] [address] [address] [address] Historical LMR Provider 05/10/17 2 Timi White MD [address] [place] [address], [address] [place] [address] Historical LMR Provider 05/10/17 07/28/21 Adwoa Chahal MD [address] [place] [address], [address] [place] [address] Historical LMR Provider 05/10/17 2 Daniella Nunes MD [address] [place] [address] [email or web address] Historical LMR Provider 05/10/17 07/28/21 Adelfo Masters NP [address] [place] [address] 2_[place] [address] [email or web address] Historical LMR Provider 05/10/17 07/28/21 Audra Stacy MD [address] [place] [address] Historical LMR Provider 05/10/17 Chrissie Fajardo MD [address] [place] [address], 2nd [place] [address] Historical LMR Provider 05/10/17 Aashish Davis MD [address] [place] [address] Historical LMR Provider 05/10/17 07/28/21 Trevor Larson MD [address] [place] [address], [address] [place] [address] Historical LMR Provider 05/10/17 2 Moses Knapp MD [address] [place] [address], [facility] 102 [place] [address] Historical LMR Provider 05/10/17 Maria Isabel Dale MD 22 [facility], [address] [place] [address] Historical LMR Provider 05/10/17 Arpit Smith CNP 22 [facility], [address] [place] [address] [email or web address] Historical LMR Provider 05/10/17 documented as of this encounter Additional Source Comments The information contained in this document represents components of the legal health record. It is not the complete legal health record.[facility]
--- OUTSIDE RECORDS SUMMARY | 2025-06-22 18:03 | XMS_ITS | Encounter Summary ---
Author Organization [facility] Address [address] [place] [address] Phone Care Team Providers Care Grain Drier Operator Name Role Phone Bob Ardon, PhD Unavailable [phone] John Alvares MD Unavailable [phone] Allan Mehta MD Unavailable +[phone] Pankaj Brown MD Unavailable Timi White MD Unavailable +[phone] Adwoa Chahal MD Unavailable +[phone] Daniella Nunes MD Unavailable [phone] Adelfo Masters NP Unavailable Audra Stacy MD Unavailable +[phone] Chrissie Fajardo MD Unavailable +[phone] Aashish Davis MD Unavailable Trevor Larson MD Unavailable +[phone] Moses Knapp MD Unavailable [phone] Maria Isabel Dale MD Unavailable +[phone] Arpit Smith CNP Unavailable +[phone] Ryan Stock MD Primary Care Provider Encounter Details Date Type Department Care Team (Late st Contact Info) Description 03/11/2019 Procedure Pass [facility], [address] [address] Social History Tobacco Use Types Packs/Day Years [...] on filedocumented in this encounter Care Teams Grain Drier Operator Relationship Specialty Start Date End Date Ryan Stock MD [address] [place] [address] [place] [address] PCP - General Internal Medicine 10/27/17 Bob Ardon MBBS, PhD [address] [place] [address] [email or web address] Historical LMR Provider 05/05/1707/28/21 John Alvares MD [address] [place] [address], [address] [place] [address] [email or web address] Historical LMR Provider 05/05/17 07/28/21 Allan Mehta MD 22 [facility] Floor 1 [place] [address] [email or web address] Historical LMR Provider 05/10/17 07/28/21 Pankaj Brown MD [address] [place] [address] 1st Floor [address] [place] [address] Historical LMR Provider 05/10/17 2 Timi White MD [address] [place] [address], [address] [place] [address] Historical LMR Provider 05/10/17 07/28/21 Adwoa Chahal MD [address] [place] [address], [address] [place] [address] [email or web address] Historical LMR Provider 05/10/17 2 Daniella Nunes MD [address] [place] [address] [email or web address] Historical LMR Provider 05/10/17 07/28/21 Adelfo Masters NP [address] [place] [address] 2_[place] [address] [email or web address] Historical LMR Provider 05/10/17 07/28/21 Audra Stacy MD [address] [place] [address], [address] [place] [address] [email or web address] Historical LMR Provider 05/10/17 Chrissie Fajardo MD 15 [facility], 2nd [place] [address] Historical LMR Provider 05/10/17 Aashish Davis MD [address] [place] [address], [address] [place] [address] Historical LMR Provider 05/10/17 07/28/21 Trevor Larson MD 22 [facility], [address] [place] [address] Historical LMR Provider 05/10/17 2 Moses Knapp MD 22 [facility] 102 [place] [address] Historical LMR Provider 05/10/17 Maria Isabel Dale MD 22 [facility], [address] [address] Historical LMR Provider 05/10/17 Arpit Smith CNP 22 [facility], [address] [place] [address] Historical LMR Provider 05/10/17 documented as of this encounter Additional Source Comments The information contained in this document represents components of the legal health record. It is not the complete legal health record.[facility]
--- OUTSIDE RECORDS SUMMARY | 2025-06-22 18:03 | XMS_ITS | Encounter Summary ---
Author Organization [facility] Address [address] [place] [address] Phone Care Team Providers Care Warping Machine Operator Name Role Phone Bob Ardon, PhD Unavailable [phone] John Alvares MD Unavailable [phone] Allan Mehta MD Unavailable +[phone] Pankaj Brown MD Unavailable Timi White MD Unavailable +[phone] Adwoa Chahal MD Unavailable +[phone] Daniella Nunes MD Unavailable [phone] Adelfo Masters NP Unavailable Audra Stacy MD Unavailable +[phone] Chrissie Fajardo MD Unavailable +[phone] Aashish Davis MD Unavailable Trevor Larson MD Unavailable +[phone] Moses Knapp MD Unavailable [phone] Maria Isabel Dale MD Unavailable +[phone] Arpit Smith CNP Unavailable +[phone] Ryan Stock MD Primary Care Provider Encounter Details Date Type Department Care Team (Late st Contact Info) Description 12/31/2017 Procedure Pass [facility] Endoscopy Admitting Dept Virtual Department 30 [place] [address] Social History Tobacco Use Types Packs/Day Years [...] on filedocumented in this encounter Care Teams Warping Machine Operator Relationship Specialty Start Date End Date Ryan Stock MD [address] [place] [address] [place] [address] PCP - General Internal Medicine 10/27/17 Bob Ardon MBBS, PhD [address] [place] [address] [email or web address] Historical LMR Provider 05/05/1707/28/21 John Alvares MD 22 [facility], [address] [place] [address] [email or web address] Historical LMR Provider 05/05/17 07/28/21 Allan Mehta MD 22 [facility] Floor 1 [place] [address] [email or web address] Historical LMR Provider 05/10/17 07/28/21 Pankaj Brown MD [address] [place] [address] 1st [place] [address] Historical LMR Provider 05/10/17 2 Timi White MD 22 [facility], [address] [place] [address] Historical LMR Provider 05/10/17 07/28/21 Adwoa Chahal MD 22 [facility], [address] [place] [address] Historical LMR Provider 05/10/17 2 Daniella Nunes MD 19 [place] [address] [email or web address] Historical LMR Provider 05/10/17 07/28/21 Adelfo Masters NP [address] [place] [address] 2_[place] [address] [email or web address] Historical LMR Provider 05/10/17 07/28/21 Audra Stacy MD 22 [facility], [address] [place] [address] Historical LMR Provider 05/10/17 Chrissie Fajardo MD 15 [facility], 2nd [place] [address] Historical LMR Provider 05/10/17 Aashish Davis MD [address] [place] [address], [address] [place] [address] Historical LMR Provider 05/10/17 07/28/21 Trevor Larson MD [address] [place] [address], [address] [place] [address] Historical LMR Provider 05/10/17 2 Moses Knapp MD [address] [place] [address], [address] [address] Historical LMR Provider 05/10/17 Maria Isabel Dale MD [address] [place] [address], [address] [address] Historical LMR Provider 05/10/17 Arpit Smith CNP [address] [place] [address], [address] [place] [address] Historical LMR Provider 05/10/17 documented as of this encounter Additional Source Comments The information contained in this document represents components of the legal health record. It is not the complete legal health record.[facility]
== END 2025-06-22 15:01 | disposition home or self-care (01) ==
LOC: HO.XRAY 15:00
PROVIDERS: PCP Physician Assistant; Visit Provider Physician Assistant
DX: F32.4 Major depressive disorder, single episode, in partial remission (principal); I10 Essential (primary) hypertension; M25.561 Pain in right knee; M70.41 Prepatellar bursitis, right knee; E03.9 Hypothyroidism, unspecified; F90.9 Attention-deficit hyperactivity disorder, unspecified type; F32.9 Major depressive disorder, single episode, unspecified; E66.812 Obesity, class 2; M17.11 Unilateral primary osteoarthritis, right knee; Z68.33 Body mass index [BMI] 33.0-33.9, adult
CPT/HCPCS: 36415; 73562; 80048; 80061; 80076; 84443; 99212

== ENCOUNTER → 2025-06-22 15:18 | Outpatient (BNV) | payer OTHER, SELFPAY | PROVIDERS: PCP Physician Assistant; Visit Provider Radiology Diagnostic Radiology | DX: M17.11 Unilateral primary osteoarthritis, right knee (principal) | CPT/HCPCS: 73562 ==

== ENCOUNTER 2025-06-22 16:21 | Outpatient (AMB) | payer OTHER, SELFPAY ==
--- NOTE | 2025-06-22 16:25 | MHC.PC.OV ---
Vital Signs 06/22/25 16:32 Height 5 ft 7 in Weight 97.522 kg BMI 33.7 BP 120/78 Respiration 16 Pulse 97 Pulse Source Pulse Oximeter Temp 97.9 F Temp Source Temporal Artery Scan Pulse Oximetry (%) 98 Oxygen Delivery Method Room Air Intake Visit Reasons: 2 week follow up/ BP General Matcher Required: No Accompanied by: Self / Same As Patient Allergies doxycycline Allergy (Verified 06/22/25 16:27) Nausea fluoxetine (From Prozac) Allergy (Verified 06/22/25 16:27) Itching paroxetine (From Paxil) Allergy (Verified 06/22/25 16:27) Itching Tobacco use date assessed: 06/10/25 Dental Screening Dental Screen Date: 06/10/25 HPI HPI Comments History of Present Illness Details 51-year-old female with history of hypothyroidism, major depressive disorder, ADHD presents to the office today for follow-up. Hypothyroidism- on levothyroxine 50mcg GERD- prilosec 40mg BID MDD/ADHD- bupropion decreased to 450mg, continue on seroquel 25mg TID, and adderall XR. Trazodone prn. Sees counselor at [facility]. Follows with Leti, but transferring to new psychiatrist Hypertension- well controlled after addition of amlodipine, Continues on losartan 25mg OA right knee- severe narrowing lateral compartment. Ongoing pain. Concerns: Decreased appetite. Not eating much but is consuming calories. No weight loss. No n/v/d. No recent illness. After further discussion depression is not well controlled at this time. Still struggling with the loss of her boyfriend of many years who passed 5 years ago. Holidays are difficult. Expressing anhedonia, hypersomnia. No si/hi. She is trying to get out of the house. Still following with [facility] and has upcoming appt with psychiatry. Health Maintenance: Cologuard- ordered. Hx colonoscopy mid 40s, adverse reaction ROS: See HPI EXAM: Constitutional - Awake and Alert, No apparent distress Eyes - PERRL Cardiovascular - S1S2, RRR, No edema Respiratory - Normal lung expansion, Normal respiratory effort, No respiratory distress, CTA bilaterally Extremities - no calf tenderness bilaterally, no swelling . Right knee-no swelling, effusion, warmth, erythema. There is tenderness over the patellar tendon. Skin - Warm/Dry Neurological - Alert & oriented x3 Psychological - Appropriate affect , hyperverbal, tearful PFSH Medical History Heterozygous factor V Leiden mutation HTN (hypertension) Class 2 obesity Hypothyroidism ADHD Major depression in partial remission Family History Mother No problems noted. Father No problems noted. Social History Housing: Condominium Patient Tobacco Use Status: Never used Tobacco e-Cigarette/Vaping Use: Never Used service: No Current occupational status: employed Cognitive needs: No Hearing needs: No Vision needs: Yes (rx glasses) Questionnaire Thrive Questionnaire Date Thrive assessed: 06/10/25 OVIDIO-7 AMB Questionnaire OVIDIO-7 Date OVIDIO - 7 assessed: 06/10/25 Source: Developed by Drs. Parveen Landry, Johana Bassett, Tanvir [place] and colleagues, with an educational tl from [employer]. Physical exam (Primary Care) Vital Signs: Last Vital Signs Temp 97.9 F 06/22/25 16:32 Pulse 97 06/22/25 16:32 Resp 16 06/22/25 16:32 BP 120/78 06/22/25 16:32 Pulse Ox 98 06/22/25 16:32 Oxygen Delivery Method Room Air 06/22/25 16:32 BMI result Body Mass Index 33.7 Tobacco/Smoking Status: Tobacco use Status Tobacco use date assessed 06/10/25 06/22/25 16:26 Patient Tobacco Use Status Never used Tobacco 06/22/25 16:26 e-Cigarette/Vaping Use Never Used 06/22/25 16:26 Thrive Assessment: Date of Thrive Assessment Date Thrive assessed 06/10/25 06/22/25 16:26 Coding Level of Care Code Est Pt Level 5 (25661) Diagnoses Major depressive disorder F32.9 HTN (hypertension) I10 Class 2 obesity E66.812 Osteoarthritis of right knee M17.11 Time Spent (min) 45 Assessment & Plan Assessment & Plan (1) Major depressive disorder: Code(s): F32.9 - Major depressive disorder, single episode, unspecified Category: Medical Plan: Decompensated. Advise to continue current medications and follow up with new psychiatrist as scheduled. Continue with counselors. Continue getting out of the house for distraction and ensure she is eating even small amounts at a time. Recommend coming up with a plan for the holidays. Encouraged to reach out to supports. For any worsening symptoms call 911 or present to the ED. At time of exam, no alarm symptoms. (2) HTN (hypertension): Code(s): I10 - Essential (primary) hypertension Category: Medical Plan: Controlled. Continue current regimen (3) Class 2 obesity: Code(s): E66.812 - Obesity, class 2 Category: Medical Plan: While she remains overweight with BMI 33, we discussed that her current focus should be getting her mood stability. Mood instability can result in unhealthy eating habits and further weight fluctuation can result in worsening mood. She does have an appt with a fibreglass laminator which she does intend to attend at this time. Exercise can also help mood. Will reassess mood and weight at follow up visit. (4) Osteoarthritis of right knee: Code(s): M17.11 - Unilateral primary osteoarthritis, right knee Category: Medical Plan: Referred to ortho. Analgesics prn Plan Follow up in the office in 3-4 months, sooner if needed. Labs reviewed. Orders: Referrals Orthopedics Referral M17.11 - Unilateral primary osteoarthritis, right knee
[2025-06-22 16:32] VITALS: BP 120/78; PULSE 97; RESP 16; TEMP 36.6; O2SAT 98; BMI 33.7
== END 2025-06-22 17:17 | disposition home or self-care (01) ==
LOC: HO.HMCHD 16:21
PROVIDERS: PCP Physician Assistant; Visit Provider Physician Assistant
DX: I10 Essential (primary) hypertension (principal); F32.9 Major depressive disorder, single episode, unspecified; E66.812 Obesity, class 2; Z68.33 Body mass index [BMI] 33.0-33.9, adult; M17.11 Unilateral primary osteoarthritis, right knee